=== PATIENT | male | born 2000 | race Caucasian/White ===

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

== ENCOUNTER → 2019-04-29 | Outpatient (CLI) | payer BC ==
--- NOTE | 2019-04-29 13:33 | XR ---
EXAMINATION TYPE: XR lumbar spine 2 or 3V DATE OF EXAM: 04/29/2019 CLINICAL HISTORY: Low back pain and left lower extremity after fall 2-3 weeks ago TECHNIQUE: Frontal and lateral images of the lumbar spine are obtained. COMPARISON: None FINDINGS: There are 5 lumbar type vertebral bodies identified. The lumbar spine shows satisfactory alignment without evidence of acute fracture or dislocation. Vertebral body heights and disk space he ights are within normal limits. There is questionable mild vertebral body height loss of T11. Very mi ld dextroscoliosis of the lumbar spine.. IMPRESSION: 1. No acute fracture or malalignment is seen in the lumbar spine. 2. Questionable very mild compression deformity of T11, age indeterminate. Correlate with point tende rness.
== END ==
LOC: RADXRYALE 11:48
PROVIDERS: ATTEND Family Medicine
DX: M54.42 Lumbago with sciatica, left side (principal)
CPT/HCPCS: 72100

== ENCOUNTER → 2019-11-24 | Outpatient (CLI) | payer BC ==
[2019-11-17 13:50] VITALS: BMI 56.5
[2019-11-24 13:44] VITALS: BP 125/78; PULSE 69; RESP 16
--- NOTE | 2019-11-28 08:18 | P.PAINCN ---
History of Present Illness - Reason for Consult Consult date: 11/24/19 - History of Present Illness This is a 19-year-old male patient with past medical history of morbid obesity referred by Dr. Schmitt with a chief complaint of chronic pain in left low back, radiating to left buttocks and left posterior thigh, not past the knee. Pain began in March 2019, after he slipped on ice and fell on his back. Pain is rated as 7-9/10, described as burning, pressure, throbbing. Pain is worse with bending movements and better with laying flat, heat. He denies numbness, weakness. Patient has been taking medications from primary care physician including Lodine and Neurontin with some benefit. Patient denies adverse drug effects from medications. Patient also denies new-onset weakness, bowel/bladder incontinence, or any other signs or symptoms of cauda equina syndrome. There are no signs of acute intoxication, and no indications of medication diversion or overuse. Patient has not had surgery. Patient has not had injections previously. Patient does not had physical therapy recently. In addition to above, 13-point review of systems is also negative for chest pain, shortness of breath, changes in vision, changes in hearing, new onset weakness, abdominal pain, diarrhea, extreme fatigue, malaise, fever, skin changes, homicidal or suicidal ideation, or bowel or bladder incontinence. Physical exam: Vital Signs: Reviewed in EMR GENERAL: Well appearing, in no acute distress, morbidly obese PSYCH: Mood and affect is appropriate. Awake, alert, and oriented SKIN: Skin color, texture, turgor normal, no rashes or lesions HEENT: Normocephalic, atraumatic. EOM intact CV: No pedal edema RESP: Respirations are unlabored, no audible wheezing GI: Abdomen non-distended MUSCULOSKELETAL: Bilateral lower extremity strength is normal and symmetric. No atrophy or tone abnormalities are noted. Lumbar spine: Straight leg raising in the sitting position is negative for radicular pain. No pain to palpation over the lumbar spine and paraspinous muscles. Negative for pain with facet loading and back extension/rotation. Buttocks: Tenderness to palpation over the left PSIS, Lamine test is positive on the left, Neftali finger positive on the left, sacral thrust positive on the left, Gaenslen's test positive on the left Extremities: Peripheral joint ROM is full and pain free without obvious instability or laxity in all four extremities. No edema or skin discolorations noted. Gait: Gait is normal NEUR: Bilateral lower extremity coordination and muscle stretch reflexes are physiologic and symmetric. Negative clonus. No loss of sensation is noted. Cranial nerves are grossly intact. Imaging: X-ray lumbar spine done on 04/29/2019 shows no acute fracture in the lumbar spine, very mild compression deformity of T11 age indeterminate. MRI lumbar spine done at [facility] on 08/06/2019 shows moderate sized central disc herniation at L5-S1 with compression of the thecal sac, no foraminal encroachment, no spinal stenosis. Assessment: 1. Left sacroiliitis 2. Morbid obesity 3. Mild degenerative disc disease lumbar spine Plan: 1. Explanation: Diagnoses, prognoses, and multiple treatment options including but not limited to physical therapy, interventional therapies, medication management were discussed with the patient and all questions were answered to the patient's satisfaction. 2. Investigations: MRI lumbar spine reviewed 3. Counseling: The patient was counseled for 3 minutes on BODY MASS INDEX, EXERCISE. Specifically, the patient was instructed regarding the importance of weight control, and exercise in the context of both chronic pain and overall health. 4. Procedures: We'll schedule left SI joint injection 5. Consultations: Patient was instructed to have a discussion with her primary care physician regarding possible bariatric consultation. I will also send him to physical therapy for SI joint exercises. 6. Medications: None 7. Disposition: For above-mentioned procedure Past Medical History Past Medical History: No Reported History Additional Past Medical History / Comment(s): pain lower back, radiating to left side History of Any Multi-Drug Resistant Organisms: None Reported Past Surgical History: Orthopedic Surgery Additional Past Surgical History / Comment(s): rt knee meniscectomy, wisdom teeth Past Anesthesia/Blood Transfusion Reactions: Family History of Problems w/ Anesthesia Additional Past Anesthesia/Blood Transfusion Reaction / Comm: mother-PONV Past Psychological History: Depression Additional Psychological History / Comment(s): past hx of depression Smoking Status: Never smoker Past Alcohol Use History: None Reported Past Drug Use History: None Reported - Past Family History Mother Family Medical History: No Reported History Medications and Allergies Home Medications Medication Instructions Recorded Confirmed Type Etodolac [Lodine] 400 mg PO BID 11/17/19 11/17/19 History Gabapentin [Neurontin] 600 mg PO HS 11/17/19 11/17/19 History Allergies Allergy/AdvReac Type Severity Reaction Status Date / Time No Known Allergies Allergy Verified 11/24/19 13:30 PQRS Measure Charge Sheet Measure #130: Documentation of Current Meds in Medical Chart: Patient's medications documented in chart Measure #226: Tobacco Use: Screen & Cessation Intervention: Pt not a tobacco user Measure #111: Pneumonia Vaccination: Pneumococcal vaccine NOT administered or previously given Measure #47: Advance Care Plan: Advance care planning discussed & documented, pt chose/unable to give Measure #412: Opioid Treatment Agreement: No documentation of signed opioid treatment agreement Measure #408: Opioid Therapy Follow-up Evaluation: Patient had NO f/u eval minimum every 3 months during opioid therapy Measure #317: Preventitive Care & Scrn High Bld Press & F/U: Normal blood pressure, f/u not required Measure #128: Body Mass Index (BMI) Screening & Follow-up: BMI documented ABOVE normal parameters - f/u documented Measure #131: Pain Assessment & Follow-up: Pain positive & plan documented, Follow-up scheduled Measure #431: Unhealthy Alcohol Use Preventative Care & Scrn: Patient not identified as an unhealthy alcohol user PQRS Narrative: Smoking Status Never smoker Home Medications: Ambulatory Orders Etodolac [Lodine] 400 mg PO BID 11/17/19 Gabapentin [Neurontin] 600 mg PO HS 11/17/19
== END | disposition home or self-care (01) ==
LOC: PNWHC3 12:40
PROVIDERS: ATTEND Anesthesiology
DX: M46.1 Sacroiliitis, not elsewhere classified (principal); E66.01 Morbid (severe) obesity due to excess calories; M51.36 Other intervertebral disc degeneration, lumbar region; Z79.899 Other long term (current) drug therapy
CPT/HCPCS: 99211

== ENCOUNTER 2019-12-08 09:56 | Day surgery (SDC) | payer BC ==
[2019-12-06 15:52] VITALS: BMI 56.5
[~2019-12-08 09:56] MED LIST changes: -DEXAMETHASONE SOD PHOSPHATE 10 MG/ML 1 ML VIAL IV ONE; -LIDOCAINE 1% 20 ML VIAL (10MG/ML) FOR IV START INTRADERMA PRN; -MIDAZOLAM 2 MG/2 ML VIAL IV PRN; -ONDANSETRON 4 MG/2 ML VIAL IVP ONE; -Pre Op ABX Message 1 EACH MISC MISCELLANE ONE; -SCOPOLAMINE 1.5MG/72HR PATCH TRANSDERM ONE
[2019-12-08 10:21] VITALS: RESP 16; TEMP 98.7
[2019-12-08] MEDS ORDERED: LIDOCAINE 1% (10MG/ML) FOR IV START INTRADERMA ONE (10:22)
[2019-12-08] MEDS ORDERED: methylPREDNISolone ACETATE 40 MG/ML 1 ML VIAL ONE (11:04)
[2019-12-08] MEDS ORDERED: fentaNYL (PF) 50 MCG/ML 2 ML AMP ONE (11:04)
[2019-12-08] MEDS ORDERED: MIDAZOLAM 2 MG/2 ML VIAL ONE (11:04)
[2019-12-08] MEDS ORDERED: ROPIVACAINE 5MG/ML 20ML VIAL ONE (11:04)
--- NOTE | 2019-12-08 11:28 | P.PCN ---
Date of Procedure: 12/08/19 Procedure(s) Performed: Procedure= Left sacroiliac joints steroid injection under fluoroscopy guidance (fluoroscopy image stored on file in the radiology Department ) Preoperative diagnosis= 1-sacroiliitis 2-lumbar degenerative disc disease Postoperative diagnosis=Same as preop Diagnosis . Complication = none Condition= stable Anesthesia= moderate sedation with intravenous Versed 2 mg , and fentanyl 100 micrograms . Indication for the procedure= patient complaining of low back pain , examination was positive for severe tenderness over the sacroiliac joints bilaterally and patient diagnosed with sacroiliitis, for this reason he/ she was good candidate for sacroiliac joint steroid injection. Description of the procedure= procedure risk and benefits discussed with the patient, including but not limited, risk of infection and bleeding, and ALLERGIC reaction to the medication and not complete pain relief and patient agreed with the preceding patient taken to the operating room, placed in prone position or standard monitors applied to the patient then after induction of anesthesia back prepped with chlorhexidine 3 times , Then under strict sterile technique, I did the left sacroiliac joint the which was identified under fluoroscopy guidance been local infiltration of the skin and subcu interstitial with lidocaine 1% then 22-gauge 5 inches long Quincke Needle advanced slowly under fluoroscopy and placed in the left sacroiliac joint needle placement confirmed with AP and oblique and lateral view and after appropriate needle placement confirmed and after negative aspiration, or heme , then Ropivacaine 0.5% 4 mL, and 80 mg of Depo-Medrol mixed together and injected in the left sacroiliac joint after negative aspiration patient tolerated the procedure well without any complications
[2019-12-08] MEDS ORDERED: IV FLUID CONTINUATION 1,000 ML IV ONE (11:32)
[2019-12-08 11:45] VITALS: BP 132/78; PULSE 58
--- NOTE | 2019-12-08 12:02 | FL ---
Fluoroscopy HISTORY: Pain 4 seconds fluoroscopy time supplied to the referring clinician. 2 intraoperative C-arm images docume nt the procedure. See dictated report from anesthesia and.
== END 2019-12-08 11:56 ==
LOC: ORPAIN 09:56
PROVIDERS: ATTEND Specialist
DX: M46.1 Sacroiliitis, not elsewhere classified (principal); M51.36 Other intervertebral disc degeneration, lumbar region
CPT/HCPCS: 27096; J2250; J1030; J3010; J2795

== ENCOUNTER 2020-01-12 12:51 | Day surgery (SDC) | payer BC ==
[2020-01-09 10:11] VITALS: BMI 55.0
[2020-01-12] MEDS ORDERED: LACTATED RINGERS 1,000 ML IV SCH (13:09)
[2020-01-12] MEDS ORDERED: LIDOCAINE 1% (10MG/ML) FOR IV START INTRADERMA ONE (13:18)
[2020-01-12 13:24] VITALS: TEMP 96.9
[2020-01-12] MEDS ORDERED: ROPIVACAINE 5MG/ML 20ML VIAL ONE (13:52)
[2020-01-12] MEDS ORDERED: IOPAMIDOL M200 10 ML VIAL ONE (13:52)
[2020-01-12] MEDS ORDERED: TRIAMCINOLONE ACETONIDE 40 MG/ML 1 ML VIAL ONE (13:52)
[2020-01-12] MEDS ORDERED: fentaNYL (PF) 50 MCG/ML 2 ML AMP ONE (13:52)
[2020-01-12] MEDS ORDERED: methylPREDNISolone ACETATE 40 MG/ML 1 ML VIAL ONE (13:52)
[2020-01-12] MEDS ORDERED: MIDAZOLAM 2 MG/2 ML VIAL ONE (13:52)
[2020-01-12] MEDS ORDERED: IV FLUID CONTINUATION 1,000 ML IV ONE (14:10)
[2020-01-12 14:15] VITALS: PULSE 68; RESP 18
--- NOTE | 2020-01-12 14:18 | FL ---
EXAMINATION TYPE: FL guided pain mgmt statistic DATE OF EXAM: 01/12/2020 HISTORY: Fluoroscopy time 11 seconds of fluoroscopy provided. IMPRESSION: 1. Fluoroscopy time.
[2020-01-12 14:25] VITALS: BP 144/79
== END 2020-01-12 14:39 | disposition home or self-care (01) ==
LOC: ORPAIN 12:51
PROVIDERS: ATTEND Anesthesiology
DX: M46.1 Sacroiliitis, not elsewhere classified (principal)
CPT/HCPCS: 27096; J2250; J3301; J3010; Q9966; J2795

== ENCOUNTER → 2020-01-16 | Outpatient (CLI) | payer BC ==
--- NOTE | 2020-01-16 14:32 | P.HPBAR ---
Bariatric H&P - History & Physicial H&P Date: 01/16/20 History & Physicial: Visit/CC: Patient initial contact: Initial weight: Initial weight in pounds: Height: 5 foot 9 inches Initial BMI: Last weight: Current weight: 422 Current weight in pounds: Current BMI: 62 [place] body weight (based on NIH guidelines): Excess body weight loss: The patient is a 19 year-old M who presents for Bariatric Assessment. Patient presents today for initial consultation. Patient is morbidly obese his BMI 62. He's had lifetime problems obesity. He is requesting gastric sleeve surgery Past Medical History Past Medical History: No Reported History Additional Past Medical History / Comment(s): pain lower back, radiating to left side History of Any Multi-Drug Resistant Organisms: None Reported Past Surgical History: Orthopedic Surgery Additional Past Surgical History / Comment(s): rt knee meniscectomy, wisdom teeth Past Anesthesia/Blood Transfusion Reactions: Family History of Problems w/ Anesthesia Additional Past Anesthesia/Blood Transfusion Reaction / Comm: mother-PONV Past Psychological History: Depression Additional Psychological History / Comment(s): past hx of depression Smoking Status: Never smoker Past Alcohol Use History: None Reported Past Drug Use History: None Reported - Past Family History Mother Family Medical History: No Reported History Surgical - Exam - General well developed, well nourished, no distress - Eyes PERRL - ENT normal pinna - Neck no masses - Respiratory normal expansion - Cardiovascular Rhythm: regular - Abdomen Abdomen: soft, non tender Bariatric Assessment & Plan Plan: Morbid obesity patient be scheduled for EGD. We went over the risks and benefits of the sleeve gastrectomy. Patient has an excellent understanding sleeve gastrectomy. He will follow-up after his EEGs performed. Bariatric Checklist Checklist: Plan: Checklist: EGD: 1. Hiatal hernia: 2. H. Pylori: HgbA1c: Vitamin D: Smoking: Never smoker Primary care physician referral: DR GUPTA Psychiatry clearance: Cardiology clearance: Sleep study: Diet journal: VTE risk score: VTE risk level: Rehab needs at discharge:
[2020-01-16 16:31] LABS: HCT 47.8 % (39.0-53.0); HGB 15.8 gm/dL (13.0-17.5); MCH 28.3 pg (25.0-35.0); MCV 85.7 fL (80.0-100.0); Mean Platelet Volume 10.6; Platelet Count 199 k/uL (150-450); RBC 5.57 m/uL (4.30-5.90); RDW 13.3 % (11.5-15.5); WBC 16.7 k/uL (4.0-11.0)
[2020-01-17 01:24] LABS: Hemoglobin A1C 5.4 % (4.0-6.0)
[2020-01-17 02:01] LABS: Albumin 4.5 g/dL (3.80-4.90); Albumin/Globulin Ratio 1.67 (1.60-3.17); Anion Gap 11.3 mmol/L (4.00-12.00); BUN/Creat Ratio 17.78 Ratio (12.00-20.00); Calcium 9.5 mg/dL (8.7-10.3); Carbon Dioxide 21.7 mmol/L (21.6-31.8); Globulin 2.7 g/dL (1.6-3.3); Non-African American GFR(CKD) 122.5 (60.0-200.0); Potassium 4.8 mmol/L (3.5-5.5); Total Bilirubin 0.6 mg/dL (0.3-1.2); Total Protein 7.2 g/dL (6.2-8.2)
[2020-01-17 15:05] LABS: Folate, Serum 3.8 ng/mL
== END | disposition home or self-care (01) ==
LOC: LABWHC1 13:53
PROVIDERS: ATTEND Surgery
DX: E88.81 Metabolic syndrome and other insulin resistance (principal); E55.9 Vitamin D deficiency, unspecified
CPT/HCPCS: 36415; 80053; 82306; 82607; 82746; 83036; 84425; 85027; 93005

== ENCOUNTER → 2020-02-06 | Outpatient (CLI) | payer BC ==
[2020-02-06 09:07] VITALS: BP 137/80; PULSE 102; RESP 18; TEMP 98.3
--- NOTE | 2020-02-06 09:36 | P.PN ---
Subjective Progress Note Date: 02/06/20 This is a 19-year-old morbidly obese gentleman with history of lower back pain which started after he slipped and fell on ice. The patient had 3 sacroiliac joint injection on the left side which has improved his pain. He still takes Neurontin for his pain. He denies using tobacco. Patient denies new-onset weakness, bowel/bladder incontinence, or any other signs or symptoms of cauda equina syndrome. There are no signs of acute intoxication, and no indications of medication diversion or overuse. In addition to above, 13-point review of systems is also negative for chest pain, shortness of breath, changes in vision, changes in hearing, new onset weakness, abdominal pain, diarrhea, extreme fatigue, malaise, fever, skin changes, homicidal or suicidal ideation, or bowel or bladder incontinence. Vital Signs: Reviewed in EMR Gen: AAOx3, NAD HEENT: PERRLA,hearing grossly normal Pulm: resp unlabored Heart: Regular Neck: supple, trachea midline Neuro exam of the lower extremities: Normal muscle strength in the lower extremities bilaterally Straight leg raising test: Negative bilaterally Leo's test: Range of motion of the lumbar spine: Normal Facet loading test: Positive bilaterally Tenderness in the paravertebral musculature: Positive mild tenderness in the lumbar paravertebral musculature bilaterally Neuro: CN II-XII grossly intact, Imaging: Reviewed in EMR/chart Assessment: Morbid obesity Lumbar spondylosis without myelopathy Left sacroiliitis/sacroiliac joint dysfunction Plan: 1. Explanation: Opioid and psychological risk scores were reviewed. Diagnoses, prognoses, and multiple treatment options including but not limited to physical therapy, interventional therapies, adjuvant medical therapies, narcotic medication therapies, and surgery were discussed with the patient and all questions were answered to the patient's satisfaction. 2. Opioid agreement: Signed with the patient and the patient is warned not to use opioids while driving or before driving and not to combine opioids with benzodiazepines or alcohol. 3. Counseling: The patient was counseled extensively on SMOKING CESSATION, BODY MASS INDEX, EXERCISE. Specifically, the patient was instructed regarding the importance of smoking cessation, obesity, and exercise in the context of both chronic pain and overall health. 4. Procedures: None at this point 5. Consultations: None 6. Investigations: None 7. Medications: Continue Neurontin 8. Disposition: The patient will be seen in our clinic on an as-needed basis and then he might benefit from either diagnostic medial branch block in the lumbar area or in RFA on the left sacroiliac joint depending on his symptoms at that time. 9. Maps were reviewed and were appropriate. Objective - Vital Signs Vital signs: Vital Signs Temp 98.3 F 02/06/20 08:56 Pulse 102 H 02/06/20 08:56 Resp 18 02/06/20 08:56 BP 137/80 02/06/20 08:56 Pulse Ox 96 02/06/20 08:56
== END | disposition home or self-care (01) ==
LOC: PNWHC3 08:50
PROVIDERS: ATTEND Anesthesiology
DX: M47.816 Spondylosis without myelopathy or radiculopathy, lumbar region (principal); M46.1 Sacroiliitis, not elsewhere classified; E66.01 Morbid (severe) obesity due to excess calories; Z79.899 Other long term (current) drug therapy
CPT/HCPCS: 99211

== ENCOUNTER 2020-02-09 09:43 | Day surgery (SDC) | payer BC ==
[2020-02-07 15:31] VITALS: BMI 57.2
[2020-02-09 10:29] VITALS: RESP 16; TEMP 97.2
[2020-02-09] MEDS ORDERED: LIDOCAINE 1% (10MG/ML) FOR IV START INTRADERMA ONE (10:30)
[2020-02-09] MEDS ORDERED: LIDOCAINE 1% INJ 10MG/ML (20 ML MDV) ONE (10:54)
[2020-02-09] MEDS ORDERED: PROPOFOL 10 MG/ML 20 ML VIAL IV ONE (10:54)
--- NOTE | 2020-02-09 10:56 | P.GSHP ---
History of Present Illness H&P Date: 02/09/20 Chief Complaint: Morbid obesity, GERD This a 19-year-old male undergoing workup for sleeve gastrectomy. Patient is morbid obesity BMI 57. He's had GERD symptoms. He presents today for EGD Past Medical History Past Medical History: No Reported History Additional Past Medical History / Comment(s): . History of Any Multi-Drug Resistant Organisms: None Reported Past Surgical History: Orthopedic Surgery Additional Past Surgical History / Comment(s): rt knee meniscectomy, wisdom teeth Past Anesthesia/Blood Transfusion Reactions: Family History of Problems w/ Anesthesia Additional Past Anesthesia/Blood Transfusion Reaction / Comment(s): mother-PONV Smoking Status: Current some day smoker - Past Family History Mother Family Medical History: No Reported History Medications and Allergies Home Medications Medication Instructions Recorded Confirmed Type Gabapentin [Neurontin] 600 mg PO HS 11/17/19 02/07/20 History Gabapentin [Neurontin] 300 mg PO DAILY 02/02/20 02/07/20 History methocarbamoL [Robaxin] 750 mg PO BID 02/02/20 02/07/20 History Allergies Allergy/AdvReac Type Severity Reaction Status Date / Time No Known Allergies Allergy Verified 02/09/20 10:06 Surgical - Exam Vital Signs Temp Pulse Resp BP Pulse Ox 97.2 F L 88 16 135/71 96 02/09/20 10:28 02/09/20 10:28 02/09/20 10:28 02/09/20 10:28 02/09/20 10:28 - General well developed, well nourished, no distress - Eyes PERRL - ENT normal pinna - Neck no masses - Respiratory normal expansion - Cardiovascular Rhythm: regular - Abdomen Abdomen: soft, non tender Assessment and Plan Assessment: Morbid obesity, BMI 57 GERD We'll perform EGD
--- NOTE | 2020-02-09 11:06 | P.OP ---
Date of Procedure: 02/09/20 Preoperative Diagnosis: Morbid obesity, BMI 57 GERD Postoperative Diagnosis: Antral gastritis No evidence of hiatal hernia Procedure(s) Performed: EGD Anesthesia: MAC Surgeon: Eduardo Benavides Pathology: other (Antrum) Condition: stable Disposition: PACU Description of Procedure: The patient's placed on the endoscopy table lateral position. He received IV sedation. The gastroscope placed oropharynx passed in the esophagus and stomach. Scope was pylorus. The first and second portion of the duodenum appeared normal. Scope was then brought back and the antrum. This appeared. Mildly inflamed. A biopsies performed. The scope was then retroflexed and the remainder of the stomach appeared normal. The GE junction was at 40 cm. There is no evidence of hiatal hernia. The distal esophagus appeared normal. The proximal esophagus. Normal. Scope was brought patient.
[2020-02-09 11:32] VITALS: BP 128/87; PULSE 68
== END 2020-02-09 11:53 | disposition home or self-care (01) ==
LOC: ORWHC2ENDO 09:43
PROVIDERS: ATTEND Surgery
DX: K29.50 Unspecified chronic gastritis without bleeding (principal); K21.9 Gastro-esophageal reflux disease without esophagitis; E66.01 Morbid (severe) obesity due to excess calories; Z68.43 Body mass index [BMI] 50.0-59.9, adult; Z98.890 Other specified postprocedural states; F17.200 Nicotine dependence, unspecified, uncomplicated; Z79.899 Other long term (current) drug therapy
CPT/HCPCS: 88305; 43239; J2001; J2704

== ENCOUNTER → 2020-02-29 | Outpatient (CLI) | payer BC ==
[2020-02-29 08:25] VITALS: RESP 20
[2020-02-29 08:35] VITALS: BP 176/96; PULSE 85; TEMP 97.6
--- NOTE | 2020-02-29 08:40 | P.PAINPG ---
Subjective Progress Note Date: 02/29/20 This is a follow-up visit for this 19 years old male with is still severe low back pain his stay close with left sacroiliitis and lumbar herniated disc at L5- S1, previously would have done a left sacroiliac joint steroid injections 2 , he gets good pain relief , currently is complaining of severe low back pain with radiation to the left lower extremity, above the knee area, he denies any motor or sensory deficits he denies any fever or night sweats, and he reported that the pain is constant and increased with any activity,he is able to ambulate on his own Objective - Vital Signs Vital signs: Vital Signs Temp 97.6 F 02/29/20 08:20 Pulse 85 02/29/20 08:20 Resp 20 02/29/20 08:20 BP 176/96 02/29/20 08:20 Pulse Ox 97 02/29/20 08:20 Intake & Output 02/28/20 02/29/20 02/29/20 18:59 06:59 18:59 Weight 192.777 kg - Constitutional Constitutional Comment(s): Physical Examinations : -Constitutiona : Cooperative , not in acute distress . -HEENT : nech : supple , no Lymphadenopathy , normal thyroid size . : eyes : no ptosis , no icterus, no photophobia . - neurologic : Cranial nerve II to XII intact , no focal neurological deffecit . -psychatric : alert , oriented X 3 , appropriate affect , intact judgment and insight . -Lymphatic : no Lymphadenopathy . - musculoskeltal : Lumber spine moter stegnth lower extremities ,thigh and legs 5/5 Right side , 5/5 Left side deep tendon reflexes : normal Knee Jerk , normal ankle Jerk lumber facet Loading Test =positive Right , positive Left Range of motion of the lumbar spine Flexion 60 degrees, extension 30 degrees strait leg raising test = negative bilaterally Fabere test= negative bilaterally tenderness over the Sacroiliac joint on the Left sides Gaenslen test= positive left . Seated flexion test= positive Left . Assessment and Plan Plan: Assessment and plan=1-lumbar disc herniation at L5-S1. 2-left sacroiliitis.(Status post sacroiliac joint steroid injection 2 ) Patient would benefit from lumbar epidural steroid injection at L5-S1 left paramedian approach Time with Patient: Less than 30 PQRS Measure Charge Sheet Measure #130: Documentation of Current Meds in Medical Chart: Patient's medications documented in chart Measure #226: Tobacco Use: Screen & Cessation Intervention: Pt not a tobacco user Measure #111: Pneumonia Vaccination: Pneumococcal vaccine NOT administered or previously given Measure #47: Advance Care Plan: Advance care planning discussed & documented, pt chose/unable to give Measure #412: Opioid Treatment Agreement: No documentation of signed opioid treatment agreement Measure #408: Opioid Therapy Follow-up Evaluation: Patient had NO f/u eval minimum every 3 months during opioid therapy Measure #317: Preventitive Care & Scrn High Bld Press & F/U: Pre-hypertensive or hypertensive BP documented, pt will f/u with PCP Measure #128: Body Mass Index (BMI) Screening & Follow-up: BMI documented ABOVE normal parameters - f/u documented Measure #131: Pain Assessment & Follow-up: Pain positive & plan documented, Follow-up scheduled Measure #431: Unhealthy Alcohol Use Preventative Care & Scrn: Patient not identified as an unhealthy alcohol user PQRS Narrative: Smoking Status Never smoker Blood Pressure 176/96 Pain Intensity [Lower Back] 8 Scale Used Numeric (1 - 10) Hx Alcohol Use (MH) No Home Medications: Ambulatory Orders Gabapentin [Neurontin] 600 mg PO HS 11/17/19 Gabapentin [Neurontin] 300 mg PO DAILY 02/02/20 methocarbamoL [Robaxin] 750 mg PO BID 02/02/20 Controlled Substance Measures - Controlled Substance Measures Is patient prescribed a controlled substance at discharge?: No
== END | disposition home or self-care (01) ==
LOC: PNWHC3 08:14
PROVIDERS: ATTEND Specialist
DX: M51.27 Other intervertebral disc displacement, lumbosacral region (principal); M46.1 Sacroiliitis, not elsewhere classified
CPT/HCPCS: 99211

== ENCOUNTER → 2020-03-05 | Outpatient (CLI) | payer BC ==
[2020-03-05 13:08] VITALS: BP 140/70; PULSE 75; TEMP 97.8; BMI 63.3
--- NOTE | 2020-03-05 14:08 | P.HPBAR ---
Bariatric H&P - History & Physicial H&P Date: 03/05/20 History & Physicial: Visit/CC: egd follow up Patient initial contact: Initial weight: Initial weight in pounds: Height: 5 ft 9.5 in Initial BMI: Last weight: 422 Current weight: 197.313 kg Current weight in pounds: 435.00 Current BMI: 63.3 [place] body weight (based on NIH guidelines): 73.936 kg Excess body weight loss: The patient is a 19 year-old M who presents for Bariatric Assessment. The patient presents today for presurgical consultation. He is scheduled to have a psychiatric evaluation done. His BMI 63. Past Medical History Past Medical History: No Reported History Additional Past Medical History / Comment(s): pain lower back, radiating to left side History of Any Multi-Drug Resistant Organisms: None Reported Past Surgical History: Orthopedic Surgery Additional Past Surgical History / Comment(s): rt knee meniscectomy, wisdom teeth Past Anesthesia/Blood Transfusion Reactions: Family History of Problems w/ Anesthesia Additional Past Anesthesia/Blood Transfusion Reaction / Comm: mother-PONV Smoking Status: Former smoker - Past Family History Mother Family Medical History: No Reported History Surgical - Exam Vital Signs Temp Pulse BP 97.8 F 75 140/70 03/05/20 13:07 03/05/20 13:07 03/05/20 13:07 - General well developed, well nourished, no distress - Eyes PERRL - ENT normal pinna - Neck no masses - Respiratory normal expansion - Cardiovascular Rhythm: regular - Abdomen Abdomen: soft, non tender Bariatric Assessment & Plan Plan: RBC, BMI 63. Patient will be scheduled for sleeve gastrectomy once his insurance authorization requirements have been completed. He has an excellent understanding of the sleeve gastrectomy. We went over the risks and benefits of procedure including injury to the stomach liver spleen is a well as gastric staple line bleeding scarring or perforation. Bariatric Checklist Checklist: Plan: Checklist: EGD: 1. Hiatal hernia: 2. H. Pylori: HgbA1c: Vitamin D: Smoking: Never smoker Primary care physician referral: DR GUPTA Psychiatry clearance: Cardiology clearance: Sleep study: Diet journal: VTE risk score: VTE risk level: Rehab needs at discharge:
== END | disposition home or self-care (01) ==
LOC: BARWHC3 12:48
PROVIDERS: ATTEND Surgery
DX: Z48.815 Encounter for surgical aftercare following surgery on the digestive system (principal); Z98.84 Bariatric surgery status
CPT/HCPCS: 99211

== ENCOUNTER → 2020-03-20 | Day surgery (SDC) | payer BC ==
[2020-03-19 10:02] VITALS: BMI 55.2
[~2020-03-20] MED LIST changes: +IOPAMIDOL M200 10 ML VIAL ONE; +methylPREDNISolone ACETATE 40 MG/ML 1 ML VIAL ONE
[2020-03-20 10:22] VITALS: RESP 16; TEMP 98.7
--- NOTE | 2020-03-20 10:47 | P.PCN ---
Date of Procedure: 03/20/20 Description of Procedure: PREOPERATIVE DIAGNOSIS: lumbar radiculopathy POSTOPERATIVE DIAGNOSIS: Lumbar radiculopathy PROCEDURE 1. Lumbar epidural steroid injection under fluoroscopic guidance at the L5-S1 level. 2. Lumbar epidurogram. Imaging: Fluoroscopy was used, images where saved to the medical record ANESTHESIA: Local with 1% lidocaine 5 ml EBL: Minimal PROCEDURE INDICATION: The patient with low back pain and radiculitis symptoms unresponsive to conservative treatment. Fluoroscopy was used to optimize visualization of the needle placement and to maximize safety. PROCEDURE DESCRIPTION / TECHNIQUE: The patient was seen and identified in the preoperative area. Risks, benefits, complications including but not limited to infections ,bleeding ,allergic reaction to the medications, nerve damage and incomplete pain relief , as well as alternatives to the procedure were discussed with the patient. The patient agreed to proceed with the procedure and signed the consent. IV was started, and vital signs were stable. Patient was taken to the OR and time out was completed. The patient was placed in the prone position on procedure table and a pillow was placed under the abdomen to reduce lumbar lordosis. The lumbosacral area was prepped and draped in the usual sterile fashion. Vitals were closely monitored during the procedure. Using anterior-posterior fluoroscopy, the L L5-S1 interlaminar space was identified and the skin over this site was marked and then infiltrated with 1% lidocaine subcutaneously. Subsequently, a 18-gauge Tuohy epidural needle was inserted and advanced toward the epidural space using the Loss of resistance technique and guided by AP and lateral fluoroscopy. The correct needle position in the epidural space was verified with the injection of 1 mL of Omnipaque 180 contrast to observe an acceptable epidurogram, after negative aspiration for blood and CSF and in the absence of paresthesias. Again after negative aspiratio n, a 3 ml mixture containing 40mg of depomedrol and 2 ml of preservative free Normal Saline was injected and a washout of epidurogram was seen. Needle was withdrawn intact, skin was cleansed, and bandages were applied. COMPLICATIONS: None DISPOSITION / PLANS: The patient was placed in a supine position and transferred to the recovery area in a stable condition for observation. There was no evidence of lower extremity motor or sensory deficit after the procedure. Patient was discharged from the recovery room after meeting discharge criteria. Home discharge instructions were given to the patient by the staff. The patient was reexamined prior to discharge. The patient will follow up as directed.
[2020-03-20 10:54] VITALS: BP 127/85; PULSE 74
--- NOTE | 2020-03-20 11:54 | FL ---
EXAMINATION TYPE: FL guided pain mgmt statistic DATE OF EXAM: 03/20/2020 CLINICAL HISTORY: Low back pain. TECHNIQUE: Fluoroscopy. COMPARISON: None. FINDINGS: Fluoroscopic guidance was provided during pain relief procedure performed by Dr. Driscoll . A total of 11 seconds of fluoroscopic time was utilized during the procedure and 1 spot images are acquired. Single limited acquired shows needle localization at L5 level with contrast injection. IMPRESSION: As Above.
== END ==
LOC: ORPAIN 09:52
PROVIDERS: ATTEND Hospitalist
DX: M54.16 Radiculopathy, lumbar region (principal)
CPT/HCPCS: 62323; J1030; Q9966

== ENCOUNTER → 2020-04-09 | Outpatient (CLI) | payer BC ==
[2020-04-09 12:10] VITALS: BMI 62.8
== END | disposition home or self-care (01) ==
LOC: BARWHC3 08:44
PROVIDERS: ATTEND Surgery
DX: E66.01 Morbid (severe) obesity due to excess calories (principal); Z71.3 Dietary counseling and surveillance; Z68.44 Body mass index [BMI] 60.0-69.9, adult
CPT/HCPCS: 97804

== ENCOUNTER → 2020-04-18 | Outpatient (CLI) | payer BC ==
[2020-04-18 09:53] VITALS: RESP 20
--- NOTE | 2020-04-18 09:59 | P.PN ---
Subjective Progress Note Date: 04/18/20 This is a follow-up visit for this 19 years old male with is still severe low back pain his stay close with left sacroiliitis and lumbar herniated disc at L5- S1, currently is complaining of severe low back pain with radiation to the left lower extremity, above the knee area, he denies any motor or sensory deficits he denies any fever or night sweats, and he reported that the pain is constant and increased with any activity,he is able to ambulate on his own Objective - Vital Signs Vital signs: Vital Signs Temp Pulse Resp 20 04/18/20 09:52 BP Pulse Ox - Exam Physical Examinations : -Constitutiona : Cooperative , not in acute distress . -HEENT : nech : supple , no Lymphadenopathy , normal thyroid size . : eyes : no ptosis , no icterus, no photophobia . - neurologic : Cranial nerve II to XII intact , no focal neurological deffecit . -psychatric : alert , oriented X 3 , appropriate affect , intact judgment and insight . -Lymphatic : no Lymphadenopathy . - musculoskeltal : Lumber spine moter stegnth lower extremities ,thigh and legs 5/5 Right side , 5/5 Left side deep tendon reflexes : normal Knee Jerk , normal ankle Jerk lumber facet Loading Test =positive Right , positive Left Range of motion of the lumbar spine Flexion 60 degrees, extension 30 degrees strait leg raising test = negative bilaterally Fabere test= negative bilaterally tenderness over the Sacroiliac joint on the Left sides Gaenslen test= positive left . Seated flexion test= positive Left . Assessment and Plan Plan: Assessment and plan=1-lumbar disc herniation at L5-S1. 2-left sacroiliitis.(Status post sacroiliac joint steroid injection 2 ) Patient would benefit from repeate lumbar epidural steroid injection at L5-S1 left paramedian approach Time with Patient: Less than 30 PQRS Measure Charge Sheet Measure #130: Documentation of Current Meds in Medical Chart: Patient's medications documented in chart Measure #226: Tobacco Use: Screen & Cessation Intervention: Pt not a tobacco user Measure #111: Pneumonia Vaccination: Pneumococcal vaccine NOT administered or previously given Measure #47: Advance Care Plan: Advance care planning discussed & documented, pt chose/unable to give Measure #412: Opioid Treatment Agreement: No documentation of signed opioid treatment agreement Measure #408: Opioid Therapy Follow-up Evaluation: Patient had NO f/u eval minimum every 3 months during opioid therapy Measure #317: Preventitive Care & Scrn High Bld Press & F/U: Pre-hypertensive or hypertensive BP documented, pt will f/u with PCP Measure #128: Body Mass Index (BMI) Screening & Follow-up: BMI documented ABOVE normal parameters - f/u documented Measure #131: Pain Assessment & Follow-up: Pain positive & plan documented, Follow-up scheduled Measure #431: Unhealthy Alcohol Use Preventative Care & Scrn: Patient not identified as an unhealthy alcohol user Time with Patient: Less than 30
[2020-04-18 10:10] VITALS: BP 146/94; PULSE 67; TEMP 98.2
== END | disposition home or self-care (01) ==
LOC: PNWHC3 09:29
PROVIDERS: ATTEND Specialist
DX: M51.27 Other intervertebral disc displacement, lumbosacral region (principal); M46.1 Sacroiliitis, not elsewhere classified
CPT/HCPCS: 99211

== ENCOUNTER 2020-05-08 11:11 | Day surgery (SDC) | payer BC ==
[2020-05-04 16:14] VITALS: BMI 56.0
[~2020-05-08 11:11] MED LIST changes: -IOPAMIDOL M200 10 ML VIAL ONE; -methylPREDNISolone ACETATE 40 MG/ML 1 ML VIAL ONE
[2020-05-08 11:40] VITALS: RESP 16; TEMP 98.3
[2020-05-08] MEDS ORDERED: TRIAMCINOLONE ACETONIDE 40 MG/ML 1 ML VIAL ONE (11:48)
[2020-05-08] MEDS ORDERED: IOPAMIDOL M200 10 ML VIAL ONE (11:48)
[2020-05-08] MEDS ORDERED: ROPIVACAINE 5MG/ML 20ML VIAL ONE (11:48)
--- NOTE | 2020-05-08 12:08 | P.PCN ---
Date of Procedure: 05/08/20 Surgeon: Bharati Flynn Pathology: none sent Condition: stable Disposition: PACU Description of Procedure: PREOPERATIVE DIAGNOSIS: 1-Lumbar radiculopathy/lumbar disc herniation 2- super morbid obesity POSTOPERATIVE DIAGNOSIS: 1-Lumbar radiculopathy/lumbar disc herniation 2-super morbid obesity PROCEDURE 1. Lumbar epidural steroid injection under fluoroscopic guidance at the L4-5 level in the left paramedian approach. 2. Lumbar epidurogram. ANESTHESIA: Local only with 1% lidocaine EBL: Minimal PROCEDURE INDICATION: The patient with low back pain and radiculitis symptoms unresponsive to conservative treatment. Fluoroscopy was used to optimize visualization of the needle placement and to maximize safety. PROCEDURE DESCRIPTION / TECHNIQUE: The patient was seen and identified in the preoperative area. Risks, benefits, complications including but not limited to infections ,bleeding ,allergic reaction to the medications ,nerve damage and not complete pain relief , and alternatives were discussed with the patient. The patient agreed to proceed with the procedure and signed the consent. IV was started, and vital signs were stable. Patient was taken to the OR and time out was completed. The patient was placed in the prone position on procedure table and a pillow was placed under the abdomen to reduce lumbar lordosis. The lumbosacral area was prepped and draped in the usual sterile fashion with ChloraPrep.Patient was closely monitored during the procedure. Conscious sedation was used during the procedure to decrease patients anxiety. Vital signs were monitered during the entire procedure. Using anterior-posterior fluoroscopy, the L4-5 interlaminar space was identified and the skin over this site was marked and then infiltrated with 1% lidocaine subcutaneously. Subsequently, a 18-gauge, 6"Tuohy epidural needle was inserted and advanced toward the epidural space using the Loss of resistance to air technique and guided by AP and lateral fluoroscopy. The correct needle position in the epidural space was verified with the injection of 1 mL of the water soluble contrast dye Omnipaque 180 contrast and observing an excellent epidurogram with the epidural spread of the dye, after negative aspiration for blood and CSF and in the absence of paresthesias. The epidural space was at about 15 cm in depth from skin. Again after negative aspiration, a 8 ml mixture containing 40 mg of Kenalog and 5 ml of preservative free Normal Saline, and 2 ml of preservative free ropivacaine 0.5% solution was injected and a washout of epidurogram was seen. Needle was withdrawn intact, skin was cleansed, and bandages were applied. patient tolerated procedure well and was transferred to PACU in stable condition.A copy of the needle placement picture was saved to the fluoroscopy machine. COMPLICATIONS: None DISPOSITION / PLANS: The patient was placed in a supine position and transferred to the recovery area in a stable condition for observation. There was no enrique dence of lower extremity motor or sensory deficit after the procedure. Patient was discharged from the recovery room after meeting discharge criteria. Home discharge instructions were given to the patient by the staff. The patient was reexamined prior to discharge. The patient will schedule a follow up in the clinic in 2-4 weeks.
--- NOTE | 2020-05-08 12:19 | FL ---
Fluoroscopy INDICATION: Pain FINDINGS: Fluoroscopy time: 11 seconds. Images obtained: 1. IMPRESSIONS: 1. Documentation of fluoroscopy.
[2020-05-08 12:28] VITALS: BP 130/70; PULSE 77
== END 2020-05-08 12:41 | disposition home or self-care (01) ==
LOC: ORPAIN 11:11
PROVIDERS: ATTEND Anesthesiology
DX: M51.16 Intervertebral disc disorders with radiculopathy, lumbar region (principal); E66.01 Morbid (severe) obesity due to excess calories; Z68.43 Body mass index [BMI] 50.0-59.9, adult
CPT/HCPCS: 62323; J3301; Q9966; J2795

== ENCOUNTER → 2020-06-13 | Outpatient (CLI) | payer BC ==
[2020-06-13 10:31] VITALS: BP 163/87; PULSE 98; RESP 18; TEMP 98.1
--- NOTE | 2020-06-13 10:49 | P.PN ---
Subjective Progress Note Date: 06/13/20 This is a follow-up visit for this 19 years old male ,with history of severe low back pain is diagnosed with left sacroiliitis ,and lumbar herniated disc at L5- S1, recently we have done lumbar epidural steroid injections 2, patient reported that his pain improved significantly, he continued to do physical therapy and he had a positive result, he denies any motor or sensory deficits he denies any fever or night sweats, and he reported that the pain is constant and increased with any activity,he is able to ambulate on his own Objective - Vital Signs Vital signs: Vital Signs Temp 98.1 F 06/13/20 10:27 Pulse 98 06/13/20 10:27 Resp 18 06/13/20 10:27 BP 163/87 06/13/20 10:27 Pulse Ox 96 06/13/20 10:27 - Exam -Constitutiona : Cooperative , not in acute distress . -psychatric : alert , oriented X 3 , appropriate affect , intact judgment and insight . -Lymphatic : no Lymphadenopathy . - musculoskeltal : Lumber spine moter stegnth lower extremities ,thigh and legs 5/5 Right side , 5/5 Left side Assessment and Plan Plan: Assessment and plan=1-lumbar disc herniation at L5-S1. 2-left sacroiliitis.(Status post sacroiliac joint steroid injection 2 ) Pain improved after lumbar epidural steroid injections 2 Patient will follow up in the pain clinic when necessary. We will continue physical therapy Time with Patient: Less than 30 PQRS Measure Charge Sheet Measure #130: Documentation of Current Meds in Medical Chart: Patient's medications documented in chart Measure #226: Tobacco Use: Screen & Cessation Intervention: Pt not a tobacco user Measure #111: Pneumonia Vaccination: Pneumococcal vaccine NOT administered or previously given Measure #47: Advance Care Plan: Advance care planning discussed & documented, pt chose/unable to give Measure #412: Opioid Treatment Agreement: No documentation of signed opioid treatment agreement Measure #408: Opioid Therapy Follow-up Evaluation: Patient had NO f/u eval minimum every 3 months during opioid therapy Measure #317: Preventitive Care & Scrn High Bld Press & F/U: Pre-hypertensive or hypertensive BP documented, pt will f/u with PCP Measure #128: Body Mass Index (BMI) Screening & Follow-up: BMI documented ABOVE normal parameters - f/u documented Measure #131: Pain Assessment & Follow-up: Pain positive & plan documented, Follow-up scheduled Measure #431: Unhealthy Alcohol Use Preventative Care & Scrn: Patient not identified as an unhealthy alcohol user Time with Patient: Less than 30 Time with Patient: Less than 30
== END | disposition home or self-care (01) ==
LOC: PNWHC3 09:53
PROVIDERS: ATTEND Specialist
DX: M51.27 Other intervertebral disc displacement, lumbosacral region (principal); M46.1 Sacroiliitis, not elsewhere classified
CPT/HCPCS: 99211

== ENCOUNTER → 2020-07-16 | Outpatient (CLI) | payer BC ==
[2020-07-16 15:25] LABS: Basophils # (A) 0.1 k/uL (0-0.2); Basophils % (A) 1 %; Eosinophils # (A) 0.2 k/uL (0-0.7); Eosinophils % (A) 2 %; HCT 46.6 % (39.0-53.0); HGB 15.3 gm/dL (13.0-17.5); Lymphocytes # (A) 2.1 k/uL (1.0-4.8); Lymphocytes % (A) 19 %; MCHC 32.8 g/dL (31.0-37.0); MCV 85.5 fL (80.0-100.0); Mean Platelet Volume 9.5; Monocytes # (A) 0.5 k/uL (0-1.0); Monocytes % (A) 4 %; Neutrophils # (A) 7.8 k/uL (1.3-7.7); Neutrophils % (A) 73 %; Platelet Count 184 k/uL (150-450); RBC 5.45 m/uL (4.30-5.90); RDW 13.1 % (11.5-15.5); WBC 10.7 k/uL (3.8-10.6)
[2020-07-16 15:44] LABS: ALT 66 U/L (4-49); AST 42 U/L (17-59); African American GFR (CKD) >90 (>60 ml/min/1.73 sqM); Albumin 4.1 g/dL (3.5-5.0); Alkaline Phosphatase 60 U/L (38-126); Anion Gap 10 mmol/L; Blood Urea Nitrogen 10 mg/dL (9-20); Calcium 9.5 mg/dL (8.4-10.2); Carbon Dioxide 26 mmol/L (22-30); Chloride 101 mmol/L (98-107); Glucose 96 mg/dL (74-99); Non-African American GFR(CKD) >90 (>60 ml/min/1.73 sqM); Potassium 4.4 mmol/L (3.5-5.1); Sodium 137 mmol/L (137-145); Total Bilirubin 0.7 mg/dL (0.2-1.3); Total Protein 7.3 g/dL (6.3-8.2)
== END | disposition home or self-care (01) ==
LOC: LABPAT 14:31
PROVIDERS: ATTEND Surgery
DX: Z01.818 Encounter for other preprocedural examination (principal)
CPT/HCPCS: 36415; 80053; 85025

== ENCOUNTER → 2020-07-16 | Outpatient (CLI) | payer BC ==
[2020-07-16 15:04] VITALS: BP 138/95; PULSE 111; TEMP 98.2; BMI 62.6
== END | disposition home or self-care (01) ==
LOC: BARWHC3 14:53
PROVIDERS: ATTEND Surgery
DX: E66.01 Morbid (severe) obesity due to excess calories (principal); Z68.44 Body mass index [BMI] 60.0-69.9, adult
CPT/HCPCS: 99211

== ENCOUNTER 2020-07-24 08:20 | Inpatient (IN) | payer BC ==
[~2020-07-24 08:20] MED LIST changes: +DEXAMETHASONE SOD PHOSPHATE 4 MG/ML 1 ML VIAL IV ONE; +ENOXAPARIN 40 MG/0.4 ML SYRINGE SQ PRN; -LACTATED RINGERS 1,000 ML IV SCH; +LIDOCAINE 1% (10MG/ML) FOR IV START INTRADERMA PRN; +ceFAZolin 3 GM in SODIUM CHLORIDE 0.9% 100 ML IVPB PRN
[2020-07-24] MEDS: LACTATED RINGERS 1,000 ML IV SCH ×2 (09:00→14:30)
--- NOTE | 2020-07-24 10:17 | P.GSHP ---
History of Present Illness H&P Date: 07/24/20 Chief Complaint: Morbid obesity This a 20-year-old male presents today for sleeve gastrectomy. Patient is morbidly obese. His BMI is 55. Patient is aware the risks of surgery including possible gastric perforation bleeding and scarring Past Medical History Past Medical History: No Reported History Additional Past Medical History / Comment(s): pain lower back, radiating to left side History of Any Multi-Drug Resistant Organisms: None Reported Past Surgical History: Orthopedic Surgery Additional Past Surgical History / Comment(s): rt knee meniscectomy, wisdom teeth, PAIN CLINIC PROCEDURE, EGD Past Anesthesia/Blood Transfusion Reactions: Family History of Problems w/ Anesthesia Additional Past Anesthesia/Blood Transfusion Reaction / Comment(s): mother-PONV Smoking Status: Former smoker - Past Family History Mother Family Medical History: No Reported History Medications and Allergies Home Medications Medication Instructions Recorded Confirmed Type Gabapentin [Neurontin] 600 mg PO HS 11/17/19 07/24/20 History Gabapentin [Neurontin] 300 mg PO DAILY 02/02/20 07/24/20 History methocarbamoL [Robaxin] 750 mg PO BID 02/02/20 07/24/20 History Allergies Allergy/AdvReac Type Severity Reaction Status Date / Time No Known Allergies Allergy Verified 07/24/20 08:48 Surgical - Exam Vital Signs Temp Pulse Resp BP Pulse Ox 97.6 F 88 16 150/75 94 L 07/24/20 08:45 07/24/20 08:45 07/24/20 08:45 07/24/20 08:45 07/24/20 08:45 BMI 55 - General well developed, well nourished - Eyes PERRL - ENT normal pinna - Neck no masses - Respiratory normal expansion - Cardiovascular Rhythm: regular - Abdomen Abdomen: soft, non tender Assessment and Plan Assessment: Obesity, BMI 55 we'll perform sleeve gastrectomy
[2020-07-24] MEDS ORDERED: PROPOFOL 10 MG/ML 20 ML VIAL IV ONE (10:27)
[2020-07-24] MEDS ORDERED: SUCCINYLCHOLINE CHLORIDE VIAL 200 MG/10 ML VIAL IV ONE (10:27)
[2020-07-24] MEDS ORDERED: fentaNYL (PF) 50 MCG/ML 2 ML AMP ONE (10:27)
[2020-07-24] MEDS ORDERED: MIDAZOLAM 2 MG/2 ML VIAL ONE (10:27)
[2020-07-24] MEDS ORDERED: NEOSTIGMINE 1 MG/ML 10 ML VIAL ONE (10:27)
[2020-07-24] MEDS ORDERED: ROCURONIUM 10 MG/ML (5 ML VIAL) IV ONE (10:27)
[2020-07-24] MEDS ORDERED: KETAMINE 10 MG/ML 20 ML VIAL ONE (10:27)
[2020-07-24] MEDS ORDERED: GLYCOPYRROLATE 0.2 MG/ML 2 ML VIAL ONE (10:27)
[2020-07-24] MEDS ORDERED: LIDOCAINE 1% INJ 10MG/ML (20 ML MDV) ONE (10:27)
[2020-07-24] MEDS ORDERED: BUPIVACAIN-EPI 0.5%-1:200,000 30 ML VIAL SQ ONE (11:13)
[2020-07-24] MEDS ORDERED: LACTATED RINGERS 1,000 ML IV ONE (11:15)
[2020-07-24] MEDS ORDERED: NALOXONE 0.4 MG/ML 1 ML VIAL IV PRN (11:44)
[2020-07-24] MEDS ORDERED: diphenhydrAMINE 50 MG/ML 1 ML VIAL IVP PRN (11:44)
[2020-07-24] MEDS ORDERED: HYDROcodone/APAP 15 ML SOLUTION PO PRN (11:44)
[2020-07-24] MEDS ORDERED: ONDANSETRON 4 MG/2 ML VIAL IVP PRN (11:44)
--- NOTE | 2020-07-24 11:44 | P.OP ---
Date of Procedure: 07/24/20 Preoperative Diagnosis: Morbid obesity, BMI 55 Postoperative Diagnosis: Morbid obesity, BMI 55 Procedure(s) Performed: Laparoscopic sleeve gastrectomy Anesthesia: PREMA Surgeon: Eduardo Benavides Estimated Blood Loss (ml): 5 Pathology: other (Stomach) Condition: stable Disposition: PACU Description of Procedure: PlThe patient was placed on the operating room table in the supine position. She received general anesthesia and then was placed in dorsal lithotomy po sition. Her abdomen was prepped and draped in sterile fashion. The skin incision sites were anesthetized 1% local Xylocaine. And then the skin was incised with an 11 blade in the left lateral position. Using a blade less trocar under direct visualization the peritoneal cavity was entered. The abdomen was insufflated and then a 5 mm laparoscope was placed into the peritoneal cavity. A 5 mm trocar was placed in the right epigastric, and right lateral position. A 15 mm trocar was placed in the supra-umbilical position and another 5 mm trocar was placed in the left lateral position. The left lateral lobe of the liver was retracted. The stomach was visualized. The greater curvature of the stomach was then dissected using the Harmonic scissors. The dissection occurred approximately 5 cm from the pylorus to the level of the left renate. There was no hiatal hernia seen. At this point a 40-Italian bougie dilator was placed the oropharynx and passed into the esophagus and into the stomach by the CERTIFIED PROFESSIONAL ERGONOMIST. The sleeve gastrectomy was performed by using the powered echelon stapler with a seam guard buttress material. Sequential firings of the stapler were performed. The gastric remnant was then brought out through the 15 mm trocar site. The dilator was withdrawn. And a orogastric tube was replaced into the stomach. The stomach was insufflated with 200 mL of methylene blue normal saline. There was no evidence of extravasation. The abdomen was irrigated there is no bleeding seen. The Ronald-Bam device was used to close the 15 mm trocar with 0 Vicryl. Skin was closed with interrupted 3-0 Monocryl sutures once the trochars withdrawn. Dermabond dressing was applied. Patient was sent to recovery in stable condition.
[2020-07-24] MEDS ORDERED: HYDROmorphone 0.5 MG/0.5 ML SYRINGE IVP ONE ×4 (12:11→14:10)
[2020-07-24] MEDS: KETOROLAC 15 MG/ML 1 ML VIAL IVP SCH ×3 (12:18→23:26)
[2020-07-24] MEDS ORDERED: SODIUM CHLORIDE 0.9% 1,000 ML IV ONE ×2 (14:07)
[2020-07-24] MEDS: HYOSCYAMINE ORAL DROPS 1.875 MG/15 ML BOTTLE PO PRN ×2 (15:27→20:28)
[2020-07-24] MEDS: 0.9% NACL WITH KCL 20 MEQ/L 1,000 ML IV SCH ×2 (15:27→23:26)
[2020-07-24] MEDS: SIMETHICONE 40 MG/0.6 ML DROPS 2,000 MG/30 ML BOTTLE PO PRN ×2 (15:28→20:25)
[2020-07-24] MEDS: ALBUTEROL NEBULIZED 2.5 MG/3 ML INHALATION SCH ×3 (15:46→20:04)
[2020-07-24] MEDS: HYDROmorphone 1 MG/ML 1 ML SYRINGE IVP PRN ×3 (16:35→23:27)
[2020-07-24] MEDS ORDERED: ceFAZolin 3 GM in SODIUM CHLORIDE 0.9% 100 ML IVPB SCH (19:00)
--- NOTE | 2020-07-24 19:47 | CONS ---
CONSULTATION DATE OF SERVICE: 07/24/2020 REASON FOR CONSULTATION: Advice regarding DJD and other medical issues, requested by Dr. Benavides. HISTORY OF PRESENT ILLNESS: This 20-year-old gentleman with a past medical history of DJD, history of pain clinic procedure, depression, being followed Dr. Willis in the outpatient setting, underwent laparoscopic sleeve gastrectomy for morbid obesity with a BMI of [address] Benavides. The patient tolerated the procedure well. There is no history of any fever, rigor or chills. No history of headache, loss of consciousness, seizures at this time. PAST MEDICAL HISTORY: History of DJD, history of depression. HOME MEDICATIONS: Robaxin 750 p.o. b.i.d., Neurontin. Doses are reviewed. ALLERGIES: NONE. FAMILY HISTORY: No history of heart disease or strokes in the family. SOCIAL HISTORY: No history of smoking. Occasional THC. REVIEW OF SYSTEMS: ENT: No diminished hearing. No diminished vision. CARDIOVASCULAR SYSTEM: No angina, palpitations. RESPIRATORY SYSTEM: No cough, hemoptysis. GI: As mentioned earlier. : No dysuria or retention. NERVOUS SYSTEM: No numbness, weakness. ALLERGY/IMMUNOLOGY: No asthma, hayfever. MUSCULOSKELETAL: As mentioned earlier. HEMATOLOGY/ONCOLOGY: No history of anemia. ENDOCRINE: No history of diabetes, hypothyroidism. CONSTITUTIONAL: As mentioned earlier. DERMATOLOGY: Negative. RHEUMATOLOGY: Negative. PSYCHIATRY: As mentioned earlier. PHYSICAL EXAMINATION: Patient alert and oriented x3. Pulse 74, blood pressure 149/84, respiration 18, temperature 97.6, pulse ox 94% on room air. HEENT: Conjunctivae normal. NECK: No jugular venous distention. CARDIOVASCULAR SYSTEM: S1, S2 muffled. RESPIRATORY SYSTEM: Breath sounds diminished at the bases. A few scattered rhonchi. No crackles. ABDOMEN: Soft. No tenderness. No mass palpable. LEGS: No edema. No swelling. NERVOUS SYSTEM: Higher functions as mentioned earlier. Moves all 4 limbs. No focal motor or sensory deficit. LYMPHATICS: No lymph node palpable in neck, axillae or groin. SKIN: No ulcer, rash, bleeding. JOINTS: No active deforming arthropathy. LABS: WBC 10.7. Chemistry noted. ALT was 66. ASSESSMENT: 1. Status post laparoscopic sleeve gastrectomy for morbid obesity. 2. Elevated ALT previously. 3. History of degenerative joint disease. 4. History of depression. 5. History of nicotine dependence. 6. FULL CODE. RECOMMENDATIONS AND DISCUSSION: In this 20-year-old gentleman who presented after surgery, at this time I recommend to continue current medications, continue symptomatic treatment. DVT prophylaxis. Incentive spirometry. Proton pump inhibitors. We will follow the patient closely with you, and the patient may be asked to follow with Dr. Willis closely after discharge. Thank you, Dr. Benavides, for letting us participate in the care of this patient. MMODL / IJN: [id number] /
[2020-07-24] MEDS: FAMOTIDINE 20 MG TAB PO SCH (20:19)
[2020-07-25] MEDS: ENOXAPARIN 40 MG/0.4 ML SYRINGE SQ SCH ×2 (02:50→14:01)
[2020-07-25] MEDS: HYDROmorphone 1 MG/ML 1 ML SYRINGE IVP PRN ×2 (02:51→07:50)
[2020-07-25] MEDS: 0.9% NACL WITH KCL 20 MEQ/L 1,000 ML IV SCH ×2 (05:21→11:18)
[2020-07-25] MEDS: KETOROLAC 15 MG/ML 1 ML VIAL IVP SCH ×2 (05:22→11:30)
[2020-07-25] MEDS: FAMOTIDINE 20 MG TAB PO SCH (07:17)
[2020-07-25] MEDS: ALBUTEROL NEBULIZED 2.5 MG/3 ML INHALATION SCH ×3 (07:27→15:28)
[2020-07-25] MEDS: SIMETHICONE 40 MG/0.6 ML DROPS 2,000 MG/30 ML BOTTLE PO PRN (07:56)
[2020-07-25] MEDS: HYOSCYAMINE ORAL DROPS 1.875 MG/15 ML BOTTLE PO PRN (07:57)
[2020-07-25] MEDS ORDERED: PANTOPRAZOLE 40 MG/10 ML VIAL IV SCH (09:00)
[2020-07-25 09:18] LABS: African American GFR (CKD) >90 (>60 ml/min/1.73 sqM); Anion Gap 12 mmol/L; Blood Urea Nitrogen 11 mg/dL (9-20); Calcium 9.1 mg/dL (8.4-10.2); Carbon Dioxide 21 mmol/L (22-30); Chloride 106 mmol/L (98-107); Magnesium 1.8 mg/dL (1.6-2.3); Non-African American GFR(CKD) >90 (>60 ml/min/1.73 sqM); Phosphorus 3.1 mg/dL (2.5-4.5); Sodium 139 mmol/L (137-145)
--- NOTE | 2020-07-25 10:32 | FL ---
SINGLE CONTRAST UPPER GI EXAMINATION: CLINICAL HISTORY: 20-year-old male postop bariatric surgery TECHNIQUE: Single contrast exam performed with 25 ml Isovue-370 contrast. Total fluoroscopy time: 52 seconds. Total images: 18. FINDINGS: The patient swallowed oral contrast without difficulty or delay. Esophageal peristalsis and motility are within normal limits. There is prompt passage of contrast from the esophagus into the stomach. Post surgical change of sleeve gastrectomy is demonstrated. There is expected passage of contrast acr oss the surgerized stomach and into the duodenum. There is no evidence of contrast extravasation to s uggest leak. No postsurgical free air seen below either hemidiaphragm. IMPRESSION: No evidence of leak or obstruction status post sleeve gastrectomy.
[2020-07-25 10:37] VITALS: BMI 54.5
[2020-07-25] MEDS: LACTATED RINGERS 1,000 ML IV SCH (11:28)
--- NOTE | 2020-07-25 14:29 | P.DS ---
Providers Date of admission: 07/24/20 08:20 Expected date of discharge: 07/25/20 Attending physician: Eduardo Benavides Consults: 07/24/20 11:44 Consult Physician Routine Consulting Provider: Shalom Sotmoayor Consult Reason/Comments: Medical management Do you want consulting provider notified?: Yes Primary care physician: Stated None Hospital Course: Discharge diagnosis 1. Morbid obesity, BMI 55 status post laparoscopic sleeve gastrectomy Hospital course This is a 20-year-old male with known morbid obesity. He is status post laparoscopic sleeve gastrectomy. Patient has tolerated surgery well. His upper GI showed no evidence of leak or obstruction. He is tolerating bariatric clear liquid diet. He has been up and ambulating. He is afebrile. His pain is controlled. He is stable for discharge. Please refer to chart for any further details. Please note that patient's CBC that was drawn this morning is still pending. Physician Director Peoples[employer] note has been reviewed by physician. Signing provider agrees with the documented findings, assessment, and plan of care. Patient Condition at Discharge: Stable Plan - Discharge Summary Discharge Rx Participant: No New Discharge Prescriptions: New bisacodyL [Dulcolax] 5 mg PO DAILY PRN #10 tablet.[address] MEEK Reason: Constipation Simethicone 40 mg/0.6 ml Drops [Mylicon Drops] 40 mg PO PCHS PRN #30 ml PRN Reason: Gas Omeprazole [PriLOSEC] 40 mg PO DAILY #30 capsule. Ondansetron Odt [Zofran Odt] 4 mg PO Q8HR PRN #9 tab PRN Reason: Nausea HYDROcodone/APAP [Huslia Elixir 7.5-325Mg/15Ml] 30 ml PO Q6HR PRN 3 Days #400 ml PRN Reason: Severe Pain Continue Gabapentin [Neurontin] 600 mg PO HS methocarbamoL [Robaxin] 750 mg PO BID Gabapentin [Neurontin] 300 mg PO DAILY Discharge Medication List Gabapentin [Neurontin] 600 mg PO HS 11/17/19 [History] Gabapentin [Neurontin] 300 mg PO DAILY 02/02/20 [History] methocarbamoL [Robaxin] 750 mg PO BID 02/02/20 [History] HYDROcodone/APAP [[place]uslia Elixir 7.5-325Mg/15Ml] 30 ml PO Q6HR PRN 3 Days #400 ml 07/25/20 [Rx] Omeprazole [PriLOSEC] 40 mg PO DAILY #30 capsule. 07/25/20 [Rx] Ondansetron Odt [Zofran Odt] 4 mg PO Q8HR PRN #9 tab 07/25/20 [Rx] Simethicone 40 mg/0.6 ml Drops [Mylicon Drops] 40 mg PO PCHS PRN #30 ml 07/25/20 [Rx] bisacodyL [Dulcolax] 5 mg PO DAILY PRN #10 tablet. 07/25/20 [Rx] Follow up Appointment(s)/Referral(s): [facility] [[facility]-STAFF] - 07/27/20 10:00 am (Please follow up with the [facility] on Monday, July 27, 2020 at 1000 for a Nurse Visit. ) Activity/Diet/Wound Care/Special Instructions: No driving while taking Huslia No lifting over 10 pounds You may shower. No soaking or tub baths for 2 weeks Very light activity until you are reevaluated at your follow up appointment with your surgeon Avoid marijuana use for at least 2 weeks Discharge Disposition: HOME SELF-CARE
[2020-07-25 14:49] VITALS: BP 142/84; PULSE 63; RESP 16; TEMP 98
--- NOTE | 2020-07-25 16:57 | PN ---
PROGRESS NOTE DATE OF SERVICE: 07/25/2020 This 20-year-old gentleman who was admitted after laparoscopic gastric sleeve is improving significantly. No chest pain. No palpitations. No fever. PHYSICAL EXAMINATION: Alert and oriented x3. Pulse 63, blood pressure 142/84, respirations 16, temperature 98 degrees, pulse ox 96% on room air. HEENT: Conjunctivae normal. NECK: No jugular venous distention. CARDIOVASCULAR SYSTEM: S1, S2 muffled. RESPIRATORY SYSTEM: Breath sounds diminished at the bases. No rhonchi. No crackles. ABDOMEN: Soft. Status post surgery. LEGS: No edema. No swelling. NERVOUS SYSTEM: No focal deficit. LABS: Noted. ASSESSMENT: 1. Status post laparoscopic sleeve gastrectomy for morbid obesity. 2. Elevated ALT previously. 3. History of degenerative joint disease. 4. History of depression. 5. History of nicotine dependence. 6. FULL CODE. RECOMMENDATIONS AND DISCUSSION: I recommend to continue current medications, continue symptomatic treatment. Otherwise, resume the home medications. Incentive spirometry. DVT prophylaxis. Closely follow with primary physician. Rest of the recommendations per Surgery. MMODL / IJN: [id number] /
[2020-07-25 17:27] LABS: Basophils # (A) 0.02 X 10*3/uL (0.00-0.10); Basophils % (A) 0.2 %; Eosinophils # (A) 0.02 X 10*3/uL (0.04-0.35); Eosinophils % (A) 0.2 %; HCT 45.5 % (39.6-50.0); HGB 14.2 g/dL (13.0-17.0); Lymphocytes % (A) 17.9 %; MCH 27.8 pg (27.0-32.0); MCHC 31.2 g/dL (32.0-37.0); MCV 89.2 fL (80.0-97.0); Mean Platelet Volume 11.5 fL (9.5-12.2); Monocytes # (A) 0.74 X 10*3/uL (0.20-1.00); Monocytes % (A) 6.3 %; Neutrophils # (A) 8.82 X 10*3/uL (1.80-7.70); Neutrophils % (A) 75.1 %; Platelet Count 265 X 10*3/uL (140-440); RDW 13.2 % (11.5-14.5); WBC 11.74 X 10*3/uL (4.50-10.00)
[2020-07-26] MEDS ORDERED: bisacodyL 5 MG TABLET.DR PO PRN (08:00)
== END 2020-07-25 15:38 | disposition home or self-care (01) | DRG 621 ==
LOC: 2ORMAIN 08:20 → 4SSUR 14:19
PROVIDERS: ADMIT Surgery; ATTEND Surgery
PROC: 0DB64Z3 Excision of Stomach, Percutaneous Endoscopic Approach, Vertical (ICD-10-PCS; principal; 2020-07-24 09:40)
DX: E66.01 Morbid (severe) obesity due to excess calories (principal); Z68.43 Body mass index [BMI] 50.0-59.9, adult; K21.9 Gastro-esophageal reflux disease without esophagitis; M19.90 Unspecified osteoarthritis, unspecified site; Z79.899 Other long term (current) drug therapy; Z87.39 Personal history of other diseases of the musculoskeletal system and connective tissue; Z98.890 Other specified postprocedural states; Z98.818 Other dental procedure status; Z87.891 Personal history of nicotine dependence; Z86.59 Personal history of other mental and behavioral disorders
CPT/HCPCS: 74240; 80051; 82310; 82565; 83735; 84100; 84520; 85025; 88307; 94760

== ENCOUNTER → 2020-07-27 | Outpatient (CLI) | payer BC ==
[2020-07-27 10:35] VITALS: BP 145/87; PULSE 67; TEMP 99.1; BMI 62.3
== END ==
LOC: BARWHC3 09:51
PROVIDERS: ATTEND Surgery
DX: Z09 Encounter for follow-up examination after completed treatment for conditions other than malignant neoplasm (principal); F17.200 Nicotine dependence, unspecified, uncomplicated; Z98.84 Bariatric surgery status
CPT/HCPCS: 99211

== ENCOUNTER → 2020-07-30 | Outpatient (CLI) | payer BC ==
--- NOTE | 2020-07-30 15:36 | P.HPBAR ---
Bariatric H&P - History & Physicial H&P Date: 07/30/20 History & Physicial: Visit/CC: one week follow up Patient initial contact: Initial weight: Initial weight in pounds: Height: 5 ft 9.5 in Initial BMI: Last weight: Current weight: 187.787 kg Current weight in pounds: 414.00 Current BMI: 60.2 [place] body weight (based on NIH guidelines): 73.936 kg Excess body weight loss: The patient is a 20 year-old M who presents for Bariatric Assessment. Patient presents today for sleeve yesterday fall. She he is 1 week postop. He is doing quite well. Past Medical History Past Medical History: No Reported History Additional Past Medical History / Comment(s): pain lower back, radiating to left side History of Any Multi-Drug Resistant Organisms: None Reported Past Surgical History: Bariatric Surgery, Orthopedic Surgery Additional Past Surgical History / Comment(s): rt knee meniscectomy, wisdom teeth, PAIN CLINIC PROCEDURE Sleeve Gastrectomy 07-24-20 Past Anesthesia/Blood Transfusion Reactions: Family History of Problems w/ Anesthesia Additional Past Anesthesia/Blood Transfusion Reaction / Comm: mother-PONV Smoking Status: Current some day smoker - Past Family History Mother Family Medical History: No Reported History Surgical - Exam Vital Signs Temp Pulse BP 98.2 F 96 150/90 07/30/20 15:18 07/30/20 15:18 07/30/20 15:18 - General well developed, well nourished, no distress - Eyes PERRL - ENT normal pinna - Neck no masses - Respiratory normal expansion - Cardiovascular Rhythm: regular - Abdomen Abdomen: soft, non tender Bariatric Assessment & Plan Plan: Status post sleeve gastrectomy. Patient will follow-up in 2 weeks. Bariatric Checklist Checklist: Plan: Checklist: EGD: 1. Hiatal hernia: 2. H. Pylori: HgbA1c: Vitamin D: Smoking: Never smoker Primary care physician referral: DR GUPTA Psychiatry clearance: Cardiology clearance: Sleep study: Diet journal: VTE risk score: VTE risk level: Rehab needs at discharge:
== END | disposition home or self-care (01) ==
CPT/HCPCS: 99211

== ENCOUNTER → 2020-08-13 | Outpatient (CLI) | payer BC ==
[2020-08-13 13:52] VITALS: BP 144/92; PULSE 106; RESP 18; TEMP 97.5; BMI 58.2
--- NOTE | 2020-08-13 16:23 | P.HPBAR ---
Bariatric H&P - History & Physicial H&P Date: 08/13/20 History & Physicial: Visit/CC: follow up / 3 week visit Patient initial contact: Initial weight: Initial weight in pounds: Height: 5 ft 9.5 in Initial BMI: Last weight: Current weight: 181.437 kg Current weight in pounds: 400.00 Current BMI: 58.2 [place] body weight (based on NIH guidelines): 73.936 kg Excess body weight loss: The patient is a 20 year-old M who presents for Bariatric Assessment. Patient presents today for sleeve gastrectomy fall. He's had some complaints of GERD. He is less 14 pounds since his last visit. Past Medical History Past Medical History: No Reported History Additional Past Medical History / Comment(s): pain lower back, radiating to left side History of Any Multi-Drug Resistant Organisms: None Reported Past Surgical History: Bariatric Surgery, Orthopedic Surgery Additional Past Surgical History / Comment(s): rt knee meniscectomy, wisdom teeth, PAIN CLINIC PROCEDURE Sleeve Gastrectomy 07-24-20 Past Anesthesia/Blood Transfusion Reactions: Family History of Problems w/ Anesthesia Additional Past Anesthesia/Blood Transfusion Reaction / Comm: mother-PONV Past Psychological History: Depression Additional Psychological History / Comment(s): past hx of depression Smoking Status: Former smoker Past Alcohol Use History: None Reported Additional Past Alcohol Use History / Comment(s): started smoking age 17, smokes occ. Past Drug Use History: Marijuana Additional Drug Use History / Comment(s): vapes marijuana occasionally - Past Family History Mother Family Medical History: No Reported History Surgical - Exam Vital Signs Temp Pulse Resp BP 97.5 F L 106 H 18 144/92 08/13/20 13:44 08/13/20 13:44 08/13/20 13:44 08/13/20 13:44 - General well developed, well nourished, no distress - Eyes PERRL - ENT normal pinna - Neck no masses - Respiratory normal expansion - Cardiovascular Rhythm: regular - Abdomen Abdomen: soft, non tender Bariatric Assessment & Plan Plan: Status post sleeve gastrectomy. Patient still quite well. He'll follow-up in 4 weeks. His GERD is minimal obesity observed. Bariatric Checklist Checklist: Plan: Checklist: EGD: 1. Hiatal hernia: 2. H. Pylori: HgbA1c: Vitamin D: Smoking: Never smoker Primary care physician referral: DR GUPTA Psychiatry clearance: Cardiology clearance: Sleep study: Diet journal: VTE risk score: VTE risk level: Rehab needs at discharge:
== END ==
LOC: BARWHC3 13:26
PROVIDERS: ATTEND Surgery
DX: Z09 Encounter for follow-up examination after completed treatment for conditions other than malignant neoplasm (principal); E66.9 Obesity, unspecified; F32.9 Major depressive disorder, single episode, unspecified; K21.9 Gastro-esophageal reflux disease without esophagitis; F17.200 Nicotine dependence, unspecified, uncomplicated; Z68.43 Body mass index [BMI] 50.0-59.9, adult; Z79.899 Other long term (current) drug therapy; Z98.84 Bariatric surgery status
CPT/HCPCS: 99211

== ENCOUNTER → 2020-08-20 | Outpatient (CLI) | payer BC ==
[2020-08-20 20:23] LABS: HCT 47.8 % (39.6-50.0); HGB 16.1 g/dL (13.0-17.0); MCH 28.2 pg (27.0-32.0); MCHC 33.7 g/dL (32.0-37.0); MCV 83.7 fL (80.0-97.0); Mean Platelet Volume 13.8 fL (9.5-12.2); Platelet Count 183 X 10*3/uL (140-440); RBC 5.71 X 10*6/uL (4.40-5.60); RDW 13.2 % (11.5-14.5); WBC 7.66 X 10*3/uL (4.50-10.00)
[2020-08-20 20:27] LABS: % Iron Saturation 21.43 (15.00-50.00); African American GFR (CKD) 124.1 (60.0-200.0); Albumin 4.6 g/dL (3.80-4.90); Anion Gap 17.2 mmol/L (4.00-12.00); Carbon Dioxide 21.8 mmol/L (21.6-31.8); Globulin 2.3 g/dL (1.6-3.3); Magnesium 1.9 mg/dL (1.5-2.4); Non-African American GFR(CKD) 107.1 (60.0-200.0); Potassium 3.8 mmol/L (3.5-5.5); Total Bilirubin 0.6 mg/dL (0.2-1.2); Total Protein 6.9 g/dL (6.2-8.2)
[2020-08-20 20:35] LABS: Ferritin 193.9 ng/mL (22.0-322.0)
[2020-08-20 20:37] LABS: Folate, Serum 2.5 ng/mL
[2020-08-22 07:52] LABS: Vit B1(Thiamine) 38 ug/L (38-122)
== END | disposition home or self-care (01) ==
LOC: LABWHC1 12:48
PROVIDERS: ATTEND Surgery
DX: T56.894A Toxic effect of other metals, undetermined, initial encounter (principal); K90.9 Intestinal malabsorption, unspecified; E55.9 Vitamin D deficiency, unspecified; D50.8 Other iron deficiency anemias; E66.01 Morbid (severe) obesity due to excess calories
CPT/HCPCS: 36415; 80053; 82306; 82607; 82728; 82746; 83540; 83550; 83735; 84255; 84425; 84443; 84590; 84630; 85027

== ENCOUNTER → 2020-09-17 | Outpatient (CLI) | payer BC ==
[2020-09-17 13:33] VITALS: BP 119/76; PULSE 72; RESP 18; TEMP 97.6; BMI 57.2
--- NOTE | 2020-09-17 17:43 | P.HPBAR ---
Bariatric H&P - History & Physicial H&P Date: 09/17/20 History & Physicial: Visit/CC: follow up Patient initial contact: Initial weight: Initial weight in pounds: Height: 5 ft 9.5 in Initial BMI: Last weight: Current weight: 178.262 kg Current weight in pounds: 393.00 Current BMI: 57.2 [place] body weight (based on NIH guidelines): 73.936 kg Excess body weight loss: The patient is a 20 year-old M who presents for Bariatric Assessment. Patient presents today for sleeve gastrectomy fall. He has had some mild GERD. She continues to lose weight. Past Medical History Past Medical History: No Reported History Additional Past Medical History / Comment(s): pain lower back, radiating to left side History of Any Multi-Drug Resistant Organisms: None Reported Past Surgical History: Bariatric Surgery, Orthopedic Surgery Additional Past Surgical History / Comment(s): rt knee meniscectomy, wisdom teeth, PAIN CLINIC PROCEDURE Sleeve Gastrectomy 07-24-20 Past Anesthesia/Blood Transfusion Reactions: Family History of Problems w/ Anesthesia Additional Past Anesthesia/Blood Transfusion Reaction / Comm: mother-PONV Past Psychological History: Depression Additional Psychological History / Comment(s): past hx of depression Smoking Status: Former smoker Past Alcohol Use History: None Reported Additional Past Alcohol Use History / Comment(s): started smoking age 17, smokes occ. Past Drug Use History: Marijuana Additional Drug Use History / Comment(s): vapes marijuana occasionally - Past Family History Mother Family Medical History: No Reported History Surgical - Exam Vital Signs Temp Pulse Resp BP 97.6 F 72 18 119/76 09/17/20 13:29 09/17/20 13:29 09/17/20 13:29 09/17/20 13:29 - General well developed, well nourished, no distress - Eyes PERRL, normal ocular movement - ENT normal pinna - Neck no masses - Respiratory normal expansion - Cardiovascular Rhythm: regular - Abdomen Abdomen: soft, non tender Bariatric Assessment & Plan Plan: Status post sleeve yesterday. Patient is doing quite well. His GERD is minimal only observed. Bariatric Checklist Checklist: Plan: Checklist: EGD: 1. Hiatal hernia: 2. H. Pylori: HgbA1c: Vitamin D: Smoking: Never smoker Primary care physician referral: DR GUPTA Psychiatry clearance: Cardiology clearance: Sleep study: Diet journal: VTE risk score: VTE risk level: Rehab needs at discharge:
== END | disposition home or self-care (01) ==
LOC: BARWHC3 12:54
PROVIDERS: ATTEND Surgery
DX: Z48.815 Encounter for surgical aftercare following surgery on the digestive system (principal); Z98.84 Bariatric surgery status; K21.9 Gastro-esophageal reflux disease without esophagitis; E66.01 Morbid (severe) obesity due to excess calories; Z71.3 Dietary counseling and surveillance
CPT/HCPCS: 97803; 99211

== ENCOUNTER → 2020-10-15 | Outpatient (CLI) | payer BC ==
[2020-10-15 14:05] VITALS: BP 133/83; PULSE 67; RESP 18; TEMP 97.7; BMI 55.3
--- NOTE | 2020-10-15 16:01 | P.HPBAR ---
Bariatric H&P - History & Physicial H&P Date: 10/15/20 History & Physicial: Visit/CC: follow up Patient initial contact: Initial weight: Initial weight in pounds: Height: 5 ft 9.5 in Initial BMI: Last weight: Current weight: 172.365 kg Current weight in pounds: 380.00 Current BMI: 55.3 [place] body weight (based on NIH guidelines): 73.936 kg Excess body weight loss: The patient is a 20 year-old M who presents for Bariatric Assessment. Patient presents today for sleeve gastrectomy full. He has lost another 13 pounds. He is minimal GERD. His arthritis is improving. Past Medical History Past Medical History: No Reported History Additional Past Medical History / Comment(s): pain lower back, radiating to left side History of Any Multi-Drug Resistant Organisms: None Reported Past Surgical History: Bariatric Surgery, Orthopedic Surgery Additional Past Surgical History / Comment(s): rt knee meniscectomy, wisdom teeth, PAIN CLINIC PROCEDURE Sleeve Gastrectomy 07-24-20 Past Anesthesia/Blood Transfusion Reactions: Family History of Problems w/ Anesthesia Additional Past Anesthesia/Blood Transfusion Reaction / Comm: mother-PONV Past Psychological History: Depression Additional Psychological History / Comment(s): past hx of depression Smoking Status: Former smoker Past Alcohol Use History: None Reported Additional Past Alcohol Use History / Comment(s): started smoking age 17, smokes occ. Past Drug Use History: Marijuana Additional Drug Use History / Comment(s): vapes marijuana occasionally - Past Family History Mother Family Medical History: No Reported History Surgical - Exam Vital Signs Temp Pulse Resp BP 97.7 F 67 18 133/83 10/15/20 13:58 10/15/20 13:58 10/15/20 13:58 10/15/20 13:58 - General well developed, well nourished, no distress - Eyes PERRL - ENT normal pinna - Neck no masses - Respiratory normal expansion - Cardiovascular Rhythm: regular - Abdomen Abdomen: soft, non tender Bariatric Assessment & Plan Plan: Status post sleeve gastrectomy. Patient did quite well. His GERD is minimal will be observed. Bariatric Checklist Checklist: Plan: Checklist: EGD: 1. Hiatal hernia: 2. H. Pylori: HgbA1c: Vitamin D: Smoking: Never smoker Primary care physician referral: DR GUPTA Psychiatry clearance: Cardiology clearance: Sleep study: Diet journal: VTE risk score: VTE risk level: Rehab needs at discharge:
== END ==
LOC: BARWHC3 13:22
PROVIDERS: ATTEND Surgery
DX: Z09 Encounter for follow-up examination after completed treatment for conditions other than malignant neoplasm (principal); K21.9 Gastro-esophageal reflux disease without esophagitis; M19.90 Unspecified osteoarthritis, unspecified site; Z98.84 Bariatric surgery status; F32.9 Major depressive disorder, single episode, unspecified; Z87.891 Personal history of nicotine dependence
CPT/HCPCS: 99211

== ENCOUNTER → 2020-10-24 | Outpatient (CLI) | payer BC ==
--- NOTE | 2020-10-24 16:32 | XR ---
EXAMINATION TYPE: XR foot complete RT DATE OF EXAM: 10/24/2020 COMPARISON: NONE HISTORY: Right foot pain, morbid obesity. Pain at the fifth metatarsal area FINDINGS: The tarsals, metatarsals and phalanges are in alignment. Soft tissues are unremarkable. No evidence of acute fracture or dislocation of the right foot. IMPRESSION: No evidence of fracture or dislocation of the right foot.
== END | disposition home or self-care (01) ==
LOC: RADXRYALE 10:25
PROVIDERS: ATTEND Physician Assistant Medical
DX: M79.671 Pain in right foot (principal); E66.01 Morbid (severe) obesity due to excess calories

== ENCOUNTER → 2020-11-07 | Outpatient (CLI) | payer BC ==
--- NOTE | 2020-11-07 14:40 | XR ---
EXAMINATION TYPE: XR foot complete RT DATE OF EXAM: 11/07/2020 CLINICAL HISTORY: Persistent metatarsal pain TECHNIQUE: Frontal, lateral, and oblique images of the right foot are obtained. COMPARISON: 10/24/2020 FINDINGS: There is a tiny bony fragment seen anterior to the talus on lateral view only. Please correlate for p oint tenderness in this region. IMPRESSION: There is a tiny bony fragment seen anterior to the talus on lateral view only. Please co rrelate for point tenderness in this region.
== END | disposition home or self-care (01) ==
LOC: RADXRYALE 11:10
PROVIDERS: ATTEND Physician Assistant Medical
DX: M77.41 Metatarsalgia, right foot (principal)

== ENCOUNTER → 2020-11-12 | Outpatient (CLI) | payer BC ==
[2020-11-12 14:07] VITALS: BP 138/84; PULSE 76; RESP 18; TEMP 99.6; BMI 52.8
--- NOTE | 2021-01-16 11:43 | P.HPBAR ---
Bariatric H&P - History & Physicial H&P Date: 11/12/20 History & Physicial: Visit/CC: follow up Patient initial contact: Initial weight: Initial weight in pounds: Height: 5 ft 9.5 in Initial BMI: Last weight: Current weight: 164.654 kg Current weight in pounds: 363.00 Current BMI: 52.8 [place] body weight (based on NIH guidelines): 73.936 kg Excess body weight loss: The patient is a 20 year-old M who presents for Bariatric Assessment. Past Medical History Past Medical History: No Reported History Additional Past Medical History / Comment(s): pain lower back, radiating to left side History of Any Multi-Drug Resistant Organisms: None Reported Past Surgical History: Bariatric Surgery, Orthopedic Surgery Additional Past Surgical History / Comment(s): rt knee meniscectomy, wisdom teeth, PAIN CLINIC PROCEDURE Sleeve Gastrectomy 07-24-20 Past Anesthesia/Blood Transfusion Reactions: Family History of Problems w/ Anesthesia Additional Past Anesthesia/Blood Transfusion Reaction / Comm: mother-PONV Past Psychological History: Depression Additional Psychological History / Comment(s): past hx of depression Smoking Status: Former smoker Past Alcohol Use History: None Reported Additional Past Alcohol Use History / Comment(s): started smoking age 17, smokes occ. Past Drug Use History: Marijuana Additional Drug Use History / Comment(s): vapes marijuana occasionally - Past Family History Mother Family Medical History: No Reported History Surgical - Exam Vital Signs Temp Pulse Resp BP 99.6 F 76 18 138/84 11/12/20 14:04 11/12/20 14:04 11/12/20 14:04 11/12/20 14:04 - General well developed, well nourished, no distress - Eyes PERRL - ENT normal pinna - Neck no masses - Abdomen Abdomen: soft, non tender Bariatric Assessment & Plan Plan: Status post gastric sleeve. Patient still quite well. His GERD is minimal be observed. He'll follow-up in 4 weeks. Bariatric Checklist Checklist: Plan: Checklist: EGD: 1. Hiatal hernia: 2. H. Pylori: HgbA1c: Vitamin D: Smoking: Never smoker Primary care physician referral: DR GUPTA Psychiatry clearance: Cardiology clearance: Sleep study: Diet journal: VTE risk score: VTE risk level: Rehab needs at discharge:
== END ==
LOC: BARWHC3 13:25
PROVIDERS: ATTEND Surgery
DX: K21.9 Gastro-esophageal reflux disease without esophagitis (principal); F32.9 Major depressive disorder, single episode, unspecified; Z87.891 Personal history of nicotine dependence; Z98.84 Bariatric surgery status
CPT/HCPCS: 99211

== ENCOUNTER → 2020-12-11 | Outpatient (CLI) | payer BC ==
[2020-12-11 19:25] LABS: HCT 46.3 % (39.6-50.0); HGB 15.5 g/dL (13.0-17.0); MCH 29.4 pg (27.0-32.0); MCHC 33.5 g/dL (32.0-37.0); MCV 87.7 fL (80.0-97.0); Mean Platelet Volume 12.4 fL (9.5-12.2); Platelet Count 164 X 10*3/uL (140-440); RBC 5.28 X 10*6/uL (4.40-5.60); RDW 13.8 % (11.5-14.5); WBC 5.73 X 10*3/uL (4.50-10.00)
[2020-12-12 01:21] LABS: % Iron Saturation 35.11 (15.00-50.00); Albumin 4.4 g/dL (3.80-4.90); Albumin/Globulin Ratio 1.76 (1.60-3.17); Anion Gap 15.3 mmol/L (4.00-12.00); BUN/Creat Ratio 12.5 Ratio (12.00-20.00); Calcium 9.7 mg/dL (8.7-10.3); Carbon Dioxide 20.7 mmol/L (21.6-31.8); Globulin 2.5 g/dL (1.6-3.3); Magnesium 1.8 mg/dL (1.5-2.4); Non-African American GFR(CKD) 127.7 (60.0-200.0); Potassium 3.9 mmol/L (3.5-5.5); Total Bilirubin 0.9 mg/dL (0.3-1.2); Total Protein 6.9 g/dL (6.2-8.2)
[2020-12-12 14:22] LABS: Zinc, Serum 64 ug/dL (60-130)
[2020-12-13 06:32] LABS: Vit B1(Thiamine) 42 ug/L (38-122)
[2020-12-14 06:03] LABS: Vitamin A 16 ug/dL (38-106)
== END | disposition home or self-care (01) ==
LOC: LABWHC1 11:29
PROVIDERS: ATTEND Surgery
DX: D50.8 Other iron deficiency anemias (principal); E55.9 Vitamin D deficiency, unspecified; T56.894A Toxic effect of other metals, undetermined, initial encounter; K90.9 Intestinal malabsorption, unspecified
CPT/HCPCS: 36415; 80053; 82306; 82607; 82728; 82746; 83540; 83550; 83735; 84255; 84425; 84443; 84590; 84630; 85027

== ENCOUNTER → 2020-12-17 | Outpatient (CLI) | payer BC ==
[2020-12-17 13:17] VITALS: BP 139/83; PULSE 76; RESP 18; TEMP 98.4; BMI 50.1
--- NOTE | 2020-12-17 15:14 | P.HPBAR ---
Bariatric H&P - History & Physicial H&P Date: 12/17/20 History & Physicial: Visit/CC: follow up Patient initial contact: Initial weight: Initial weight in pounds: Height: 5 ft 9.5 in Initial BMI: Last weight: Current weight: 156.036 kg Current weight in pounds: 344.00 Current BMI: 50.1 [place] body weight (based on NIH guidelines): 73.936 kg Excess body weight loss: The patient is a 20 year-old M who presents for Bariatric Assessment. Patient presents today for sleeve gastrectomy all of. He's had some complaints of GERD. Past Medical History Past Medical History: No Reported History Additional Past Medical History / Comment(s): pain lower back, radiating to left side History of Any Multi-Drug Resistant Organisms: None Reported Past Surgical History: Bariatric Surgery, Orthopedic Surgery Additional Past Surgical History / Comment(s): rt knee meniscectomy, wisdom teeth, PAIN CLINIC PROCEDURE Sleeve Gastrectomy 07-24-20 Past Anesthesia/Blood Transfusion Reactions: Family History of Problems w/ Anesthesia Additional Past Anesthesia/Blood Transfusion Reaction / Comm: mother-PONV Past Psychological History: Depression Additional Psychological History / Comment(s): past hx of depression Smoking Status: Former smoker Past Alcohol Use History: None Reported Additional Past Alcohol Use History / Comment(s): started smoking age 17, smokes occ. Past Drug Use History: Marijuana Additional Drug Use History / Comment(s): vapes marijuana occasionally - Past Family History Mother Family Medical History: No Reported History Surgical - Exam Vital Signs Temp Pulse Resp BP 98.4 F 76 18 139/83 12/17/20 13:15 12/17/20 13:15 12/17/20 13:15 12/17/20 13:15 - General well developed, well nourished, no distress - Eyes PERRL - ENT normal pinna - Neck no masses - Respiratory normal expansion - Cardiovascular Rhythm: regular - Abdomen Abdomen: soft, non tender Bariatric Assessment & Plan Plan: Status post sleeve gastrectomy. Patient's GERD is minimal and will be observed. He'll follow-up in 4 weeks. Bariatric Checklist Checklist: Plan: Checklist: EGD: 1. Hiatal hernia: 2. H. Pylori: HgbA1c: Vitamin D: Smoking: Never smoker Primary care physician referral: DR GUPTA Psychiatry clearance: Cardiology clearance: Sleep study: Diet journal: VTE risk score: VTE risk level: Rehab needs at discharge:
== END ==
LOC: BARWHC3 12:57
PROVIDERS: ATTEND Surgery
DX: E66.01 Morbid (severe) obesity due to excess calories (principal); K21.9 Gastro-esophageal reflux disease without esophagitis; F32.9 Major depressive disorder, single episode, unspecified; Z98.84 Bariatric surgery status; Z87.891 Personal history of nicotine dependence; Z68.43 Body mass index [BMI] 50.0-59.9, adult
CPT/HCPCS: 36415; 82746; 99211

== ENCOUNTER → 2021-01-21 | Outpatient (CLI) | payer BC ==
[2021-01-21 13:22] VITALS: BP 133/96; PULSE 117; RESP 18; TEMP 97.3; BMI 46.4
--- NOTE | 2021-02-19 10:27 | P.HPBAR ---
Bariatric H&P - History & Physicial H&P Date: 01/21/21 History & Physicial: Visit/CC: follow up Patient initial contact: Initial weight: Initial weight in pounds: Height: 5 ft 9.5 in Initial BMI: Last weight: Current weight: 144.696 kg Current weight in pounds: 319.00 Current BMI: 46.4 [place] body weight (based on NIH guidelines): 73.936 kg Excess body weight loss: The patient is a 20 year-old M who presents for Bariatric Assessment. Patient presents today for bariatric follow-up. He has minimal complaints of GERD. His excellent weight loss. Past Medical History Past Medical History: No Reported History Additional Past Medical History / Comment(s): pain lower back, radiating to left side History of Any Multi-Drug Resistant Organisms: None Reported Past Surgical History: Bariatric Surgery, Orthopedic Surgery Additional Past Surgical History / Comment(s): rt knee meniscectomy, wisdom teeth, PAIN CLINIC PROCEDURE Sleeve Gastrectomy 07-24-20 Past Anesthesia/Blood Transfusion Reactions: Family History of Problems w/ Anesthesia Additional Past Anesthesia/Blood Transfusion Reaction / Comm: mother-PONV Past Psychological History: Depression Additional Psychological History / Comment(s): past hx of depression Smoking Status: Former smoker Past Alcohol Use History: None Reported Additional Past Alcohol Use History / Comment(s): started smoking age 17, smokes occ. Past Drug Use History: Marijuana Additional Drug Use History / Comment(s): vapes marijuana occasionally - Past Family History Mother Family Medical History: No Reported History Surgical - Exam Vital Signs Temp Pulse Resp BP 97.3 F L 117 H 18 133/96 01/21/21 13:18 01/21/21 13:18 01/21/21 13:18 01/21/21 13:18 - General well developed, well nourished, no distress - Eyes PERRL - ENT normal pinna - Neck no masses - Respiratory normal expansion - Cardiovascular Rhythm: regular - Abdomen Abdomen: soft, non tender Bariatric Assessment & Plan Plan: Status post sleeve gastric. Patient's GERD is minimal will be observed. He'll follow-up in 4 weeks. Bariatric Checklist Checklist: Plan: Checklist: EGD: 1. Hiatal hernia: 2. H. Pylori: HgbA1c: Vitamin D: Smoking: Never smoker Primary care physician referral: DR GUPTA Psychiatry clearance: Cardiology clearance: Sleep study: Diet journal: VTE risk score: VTE risk level: Rehab needs at discharge:
== END ==
LOC: BARWHC3 12:46
PROVIDERS: ATTEND Surgery
DX: Z09 Encounter for follow-up examination after completed treatment for conditions other than malignant neoplasm (principal); K21.9 Gastro-esophageal reflux disease without esophagitis; F32.9 Major depressive disorder, single episode, unspecified; Z87.891 Personal history of nicotine dependence; Z98.84 Bariatric surgery status
CPT/HCPCS: 99211

== ENCOUNTER → 2021-01-25 | Outpatient (CLI) | payer BC ==
--- NOTE | 2021-01-25 09:48 | NM ---
EXAMINATION TYPE: NM hepatobiliary w EF DATE OF EXAM: 01/25/2021 COMPARISON: NONE INDICATION: Right lower quadrant pain TECHNIQUE: After the intravenous administration of 4.8 mCi Tc 99m Mebrofenin hepatobiliary scintigrap hy is performed. Images were obtained immediately post injection. FINDINGS: There is prompt uptake and excretion of radiotracer by the liver. Extrahepatic ducts are identified at 8 minutes. The gallbladder is visualized within 6 minutes. Small bowel activity is noted within 20 minutes. At one hour patient was injected with 3.0 mcg CCK and the gallbladder ejection fraction is calculated at 14 %, which is low. (Normal >35% and <80%.). IMPRESSION: 1. Correlate for biliary dyskinesia. There is a low ejection fraction of 14%. 2. No obstruction evident.
== END | disposition home or self-care (01) ==
LOC: RADNMMAIN 06:47
PROVIDERS: ATTEND Surgery
DX: R10.31 Right lower quadrant pain (principal)
CPT/HCPCS: 78226; A9537; J2805

== ENCOUNTER → 2021-02-06 | Outpatient (CLI) | payer BC ==
[2021-02-06 12:34] LABS: Basophils # (A) 0.1 k/uL (0-0.2); Basophils % (A) 1 %; Eosinophils # (A) 0.1 k/uL (0-0.7); Eosinophils % (A) 1 %; HGB 16.8 gm/dL (13.0-17.5); Lymphocytes # (A) 1.7 k/uL (1.0-4.8); Lymphocytes % (A) 17 %; MCH 30.1 pg (25.0-35.0); MCHC 34.3 g/dL (31.0-37.0); MCV 87.6 fL (80.0-100.0); Mean Platelet Volume 8.8; Monocytes # (A) 0.6 k/uL (0-1.0); Monocytes % (A) 6 %; Neutrophils # (A) 7.1 k/uL (1.3-7.7); Neutrophils % (A) 73 %; Platelet Count 212 k/uL (150-450); RDW 14.2 % (11.5-15.5); WBC 9.7 k/uL (3.8-10.6)
[2021-02-06 12:35] LABS: ALT 63 U/L (4-49); AST 52 U/L (17-59); African American GFR (CKD) >90 (>60 ml/min/1.73 sqM); Albumin 4.5 g/dL (3.5-5.0); Alkaline Phosphatase 57 U/L (38-126); Blood Urea Nitrogen 10 mg/dL (9-20); Carbon Dioxide 24 mmol/L (22-30); Chloride 97 mmol/L (98-107); Glucose 94 mg/dL (74-99); Non-African American GFR(CKD) >90 (>60 ml/min/1.73 sqM); Total Bilirubin 0.9 mg/dL (0.2-1.3); Total Protein 7.5 g/dL (6.3-8.2)
[2021-02-06 12:41] LABS: Anion Gap 15 mmol/L; Potassium 3.9 mmol/L (3.5-5.1); Sodium 136 mmol/L (137-145)
== END | disposition home or self-care (01) ==
LOC: LABPAT 10:41
PROVIDERS: ATTEND Surgery
DX: Z01.818 Encounter for other preprocedural examination (principal)
CPT/HCPCS: 80053; 85025; 93005

== ENCOUNTER 2021-02-08 06:24 | Day surgery (SDC) | payer BC ==
[2021-02-05 13:02] VITALS: BMI 42.5
[~2021-02-08 06:24] MED LIST changes: -DEXAMETHASONE SOD PHOSPHATE 4 MG/ML 1 ML VIAL IV ONE; -ENOXAPARIN 40 MG/0.4 ML SYRINGE SQ PRN; -LIDOCAINE 1% (10MG/ML) FOR IV START INTRADERMA PRN
[2021-02-08] MEDS ORDERED: MIDAZOLAM 2 MG/2 ML VIAL IV PRN (06:39)
[2021-02-08] MEDS ORDERED: LIDOCAINE 1% (10MG/ML) FOR IV START INTRADERMA PRN (06:39)
[2021-02-08] MEDS ORDERED: DEXAMETHASONE SOD PHOSPHATE 4 MG/ML 1 ML VIAL IV ONE (06:39)
[2021-02-08] MEDS ORDERED: ONDANSETRON 4 MG/2 ML VIAL IVP ONE (06:39)
[2021-02-08 06:59] VITALS: RESP 16
[2021-02-08] MEDS ORDERED: HYDROmorphone 0.5 MG/0.5 ML SYRINGE IVP PRN (07:00)
[2021-02-08] MEDS: LACTATED RINGERS 1,000 ML IV SCH ×2 (07:02→07:55)
[2021-02-08] MEDS ORDERED: HEPARIN SODIUM,PORCINE/PF 5,000 UNIT/0.5 ML SYRINGE SQ ONE (07:18)
[2021-02-08] MEDS ORDERED: BUPIVACAINE (PF) 0.5% 30 ML VIAL SQ ONE ×2 (07:23→08:16)
[2021-02-08] MEDS ORDERED: GLYCOPYRROLATE 0.2 MG/ML 2 ML VIAL ONE (07:50)
[2021-02-08] MEDS ORDERED: NEOSTIGMINE 1 MG/ML 10 ML VIAL ONE (07:50)
[2021-02-08] MEDS ORDERED: SUCCINYLCHOLINE CHLORIDE VIAL 200 MG/10 ML VIAL IV ONE (07:50)
[2021-02-08] MEDS ORDERED: LIDOCAINE 1% INJ 10MG/ML (20 ML MDV) ONE (07:50)
[2021-02-08] MEDS ORDERED: fentaNYL (PF) 50 MCG/ML 2 ML AMP ONE (07:50)
[2021-02-08] MEDS ORDERED: ROCURONIUM 10 MG/ML (5 ML VIAL) IV ONE (07:50)
[2021-02-08] MEDS ORDERED: MIDAZOLAM 2 MG/2 ML VIAL ONE (07:50)
[2021-02-08] MEDS ORDERED: PROPOFOL 10 MG/ML 20 ML VIAL IV ONE (07:50)
--- NOTE | 2021-02-08 08:10 | P.GSHP ---
History of Present Illness H&P Date: 02/08/21 Chief Complaint: Right Upper quadrant pain Is a 20-year-old male who presents today for laparoscopic cholecystectomy. Patient's a complaint of abdominal pain. His recent HIDA scan shows diminished ejection fraction Past Medical History Past Medical History: No Reported History Additional Past Medical History / Comment(s): nausea/vomiting,gas pain and pressure,hx pain lower back radiating to left side History of Any Multi-Drug Resistant Organisms: None Reported Past Surgical History: Bariatric Surgery, Orthopedic Surgery Additional Past Surgical History / Comment(s): rt knee meniscectomy, wisdom teeth, PAIN CLINIC PROCEDURE, Sleeve Gastrectomy 07-24-20 Past Anesthesia/Blood Transfusion Reactions: Family History of Problems w/ Anesthesia Additional Past Anesthesia/Blood Transfusion Reaction / Comment(s): mother-PONV Smoking Status: Former smoker - Past Family History Mother Family Medical History: No Reported History Medications and Allergies Home Medications Medication Instructions Recorded Confirmed Type Ergocalciferol [Vitamin D2 (1250 50,000 unit PO WEEKLY 08/21/20 02/05/21 History Mcg = 81664 Iu)] Bariatric Multivitamin 1 dose PO DAILY 02/05/21 02/05/21 History Omeprazole [PriLOSEC] 40 mg PO QAM 02/05/21 02/05/21 History Allergies Allergy/AdvReac Type Severity Reaction Status Date / Time No Known Allergies Allergy Verified 02/08/21 07:01 Surgical - Exam Vital Signs Temp Pulse Resp BP Pulse Ox 97.7 F 105 H 16 140/78 91 L 02/08/21 06:57 02/08/21 06:57 02/08/21 06:57 02/08/21 06:57 02/08/21 06:57 - General well developed, well nourished, no distress - Eyes PERRL - ENT normal pinna - Neck no masses - Respiratory normal expansion - Cardiovascular Rhythm: regular - Abdomen Abdomen: soft, non tender Assessment and Plan Assessment: Right quadrant pain Abnormal HIDA scan Chronic cholecystitis We'll perform laparoscopic cholecystectomy
--- NOTE | 2021-02-08 08:40 | P.OP ---
Date of Procedure: 02/08/21 Preoperative Diagnosis: Chronic cholecystitis Postoperative Diagnosis: Chronic cholecystitis Procedure(s) Performed: Laparoscopic cholecystectomy Anesthesia: PREMA Surgeon: Eduardo Benavides Pathology: other (Gallbladder) Condition: stable Disposition: PACU Description of Procedure: The patient was placed on the operating table. The patient received a general endotracheal tube anesthesia. The patients abdomen was prepped and draped in the usual sterile fashion. Through an infraumbilical stab incision, the fascia of the anterior abdominal wall was grasped with a pair of Kochers and then the Veress needle was placed in the peritoneal cavity. Position of the Veress needle was confirmed with positive drop test. The abdomen was then insufflated. After adequate insufflation, the 10 mm trocar was placed in the peritoneal cavity. Following this the laparoscope was placed in the per itoneal cavity. The patient was placed in the head-up, right side up position and then a 5 mm trocar was placed in the right lateral and right subcostal position under direct visualization. A 8 mm trocar was placed in the epigastric position. The gallbladder was grasped in the fundus and infundibulum. Traction on the gallbladder was placed in the lateral and the cephalad positions. The triangle of Calot was visualized.. The cystic duct was bluntly dissected until the union of the cystic duct and common bile duct was seen. A critical view of safety was achieved. The cystic duct was then divided and sealed with the Harmonic scissors. A PDS Endoloop was then placed throughout the cystic duct stump. The cystic artery divided and sealed with the Harmonic scissors. The gallbladder was then removed from the liver bed using Harmonic scissors. The gallbladder was then extracted through the epigastric port site. Operative field was checked for any bleeding spots and Harmonic scissors was used to coagulate the liver bed. The abdomen was irrigated. The trocars were removed. The skin was closed using interrupted 3-0 Vicryl suture. Dermabond dressing were applied. The patient tolerated the procedure well.
[2021-02-08 08:49] VITALS: TEMP 97
[2021-02-08 09:38] VITALS: BP 146/95; PULSE 95
[2021-02-08] MEDS ORDERED: ACETAMINOPHEN TAB 325 MG TAB ONE (09:55)
[2021-02-08] MEDS ORDERED: ACETAMINOPHEN TAB 325 MG TAB PO ONE (10:01)
== END 2021-02-08 10:22 | disposition home or self-care (01) ==
LOC: OR 06:24
PROVIDERS: ATTEND Surgery
DX: K81.2 Acute cholecystitis with chronic cholecystitis (principal); Z87.891 Personal history of nicotine dependence
CPT/HCPCS: 47562; 88304; J2250; J0330; J1100; J2710; J0690; J2405; J2001; J3010; J2704

== ENCOUNTER 2021-02-20 10:23 | Inpatient (IN) | payer BC ==
[2021-02-20] MEDS ORDERED: SODIUM CHLORIDE 0.9% 2,000 ML IV ONE (10:58)
--- NOTE | 2021-02-20 11:16 | ED ---
Extremity Problem HPI - General Chief complaint: Extremity Problem,Nontraumatic Stated complaint: trouble walking Source: EMS, RN notes reviewed Mode of arrival: EMS Limitations: no limitations - History of Present Illness Initial comments: Patient is 20-year-old male presents in the ER with generalized lower leg weakness. Patient reports general weakness started 1 week prior has progressed to not being able to weight-bear currently. Patient states legs feel numbness in skin like leg fell asleep can feel pressure. Patient reports bariatric surgery in the past, also one week prior cholecystectomy. Patient denies any nausea, vomiting, any changes in appetite and no difficulties with constipation or trouble urinating. Patient denies any saddle paresthesias or incontinence. Patient states that he did a Tylenol health is a on Thursday with his PCP to based on anti-inflammatories, steroids. Patient's surgeon in the past with Dr. Benavides for his cholecystectomy and gastric sleeve. Patient states that he has a long history of some back issues in which he receive injections but no prior MRI she's been diagnosed with sciatica. Patient states his incisions are heali ng well no reported fever no chest pain shortness breath no headache no dizziness blurred vision no upper extremity symptoms. He states he felt some pressure in his upper legs he states he still able to move his legs but states that he just feels rundown, weak Complaint: extremity pain - Related Data Home Medications Medication Instructions Recorded Confirmed Bariatric Multivitamin 1 tab PO QID 02/05/21 02/20/21 Omeprazole [PriLOSEC] 40 mg PO DAILY 02/05/21 02/20/21 Ibuprofen [Motrin] 600 mg PO Q8H PRN 02/20/21 02/20/21 predniSONE 10 mg PO TID 02/20/21 02/20/21 Allergies Allergy/AdvReac Type Severity Reaction Status Date / Time No Known Allergies Allergy Verified 02/20/21 11:24 Review of Systems ROS Statement: Those systems with pertinent positive or pertinent negative responses have been documented in the HPI. ROS Other: All systems not noted in ROS Statement are negative. Past Medical History Past Medical History: No Reported History Additional Past Medical History / Comment(s): nausea/vomiting,gas pain and pressure,hx pain lower back radiating to left side History of Any Multi-Drug Resistant Organisms: None Reported Past Surgical History: Cholecystectomy Additional Past Surgical History / Comment(s): rt knee meniscectomy, wisdom teeth, PAIN CLINIC PROCEDURE, Sleeve Gastrectomy 3-07-15 Past Anesthesia/Blood Transfusion Reactions: Family History of Problems w/ Anesthesia Additional Past Anesthesia/Blood Transfusion Reaction / Comment(s): mother-PONV Past Psychological History: Depression Smoking Status: Former smoker Past Alcohol Use History: None Reported Past Drug Use History: Marijuana - Past Family History Mother Family Medical History: No Reported History General Exam Limitations: no limitations General appearance: alert, in no apparent distress Head exam: Present: atraumatic, normocephalic, normal inspection Eye exam: Present: normal appearance, PERRL, EOMI. Absent: scleral icterus, conjunctival injection, periorbital swelling ENT exam: Absent: normal exam, normal oropharynx, mucous membranes dry, mucous membranes moist Expanded Mouth exam: Present: other (Dryness, cracked lips) Neck exam: Present: normal inspection, full ROM. Absent: tenderness, meningismus, lymphadenopathy Respiratory exam: Present: normal lung sounds bilaterally. Absent: respiratory distress, wheezes, rales, rhonchi, stridor Cardiovascular Exam: Present: tachycardia GI/Abdominal exam: Present: soft, normal bowel sounds, other (Incisions are healing well). Absent: distended, tenderness, guarding, rebound, rigid Extremities exam: Present: normal inspection, other (Lower extremity neurovascular intact equal pedal pulses equal color equal sensation patient able to move his legs bilaterally strength 4/5) Back exam: Present: normal inspection, full ROM. Absent: tenderness, CVA tenderness (R), CVA tenderness (L) Neurological exam: Present: alert, oriented X3, CN II-XII intact Psychiatric exam: Present: normal affect, normal mood Skin exam: Present: warm, dry, intact, normal color. Absent: rash Course Vital Signs 02/20/21 10:27 Temperature 97.8 F Pulse Rate 123 H Respiratory 20 Rate Blood Pressure 122/71 O2 Sat by Pulse 97 Oximetry Medical Decision Making - Medical Decision Making 20-year-old male presented for denies weakness. Patient have increased weakness, difficulty and bleeding secondary to weakness. He did follow-up with his general surgeon status post cholecystectomy, had recent follow-up visit placed on steroids for back issues which is been ongoing. Patient has been having increasing difficulty and bleeding which she feels that he needed help. Patient has not been getting up out of bed lately. CT of the brain, lumbar spine were obtained with no acute findings. Patient has no red flag symptoms. Patient does have mild dehydration, hypokalemia. Do not see any current evidence of cauda equina and no major red flag symptoms. Patient will be admitted to [facility] with consult to neurology and Gen. surgery patient will have consult to physical therapy, further evaluation. - Lab Data Result diagrams: 02/20/21 11:22 02/20/21 11:22 Lab Results 02/20/21 02/20/21 02/20/21 Range/Units 11:22 11:22 11:22 WBC 15.2 H (3.8-10.6) k/uL RBC 4.67 (4.30-5.90) m/uL Hgb 14.0 (13.0-17.5) gm/dL Hct 41.8 (39.0-53.0) % MCV 89.4 (80.0-100.0) fL MCH 29.8 (25.0-35.0) pg MCHC 33.4 (31.0-37.0) g/dL RDW 14.2 (11.5-15.5) % Plt Count 214 (150-450) k/uL MPV 9.2 Neutrophils % 71 % Lymphocytes % 20 % Monocytes % 7 % Eosinophils % 1 % Basophils % 1 % Neutrophils # 10.7 H (1.3-7.7) k/uL Lymphocytes # 3.1 (1.0-4.8) k/uL Monocytes # 1.0 (0-1.0) k/uL Eosinophils # 0.2 (0-0.7) k/uL Basophils # 0.1 (0-0.2) k/uL Sodium 130 L (137-145) mmol/L Potassium 3.4 L (3.5-5.1) mmol/L Chloride 97 L (98-107) mmol/L Carbon Dioxide 24 (22-30) mmol/L Anion Gap 9 mmol/L BUN 14 (9-20) mg/dL Creatinine 0.60 L (0.66-1.25) mg/dL Est GFR (CKD-EPI)AfAm >90 (>60 ml/min/1.73 sqM) Est GFR (CKD-EPI)NonAf >90 (>60 ml/min/1.73 sqM) Glucose 108 H (74-99) mg/dL Plasma Lactic Acid Jack 1.2 (0.7-2.0) mmol/L Calcium 9.0 (8.4-10.2) mg/dL Magnesium 2.1 (1.6-2.3) mg/dL Total Bilirubin 0.9 (0.2-1.3) mg/dL AST 68 H (17-59) U/L ALT 79 H (4-49) U/L Alkaline Phosphatase 49 (38-126) U/L C-Reactive Protein 1.2 H (<1.0) mg/dL Total Protein 6.1 L (6.3-8.2) g/dL Albumin 3.6 (3.5-5.0) g/dL Disposition Clinical Impression: Weakness, Morbid obesity, Status post cholecystectomy, Hypokalemia, Dehydration, Leg weakness Disposition: ADMITTED IP TO THIS [facility] Condition: Fair Referrals: Rico Willis DO [Primary Care Provider] - 1-2 days
--- NOTE | 2021-02-20 12:44 | CT ---
EXAMINATION TYPE: CT brain wo con DATE OF EXAM: 02/20/2021 COMPARISON: 02/16/2013 INDICATION: difficulty walking DLP: 1062.4 mGycm, Automated exposure control for dose reduction was used. CONTRAST: None CT of the brain is performed utilizing 3 mm thick sections through the posterior fossa and 3 mm thick sections through the remaining calvarium. Study is performed within 24 hours of arrival to the hosp ital. No abnormal hyperdensity is present to suggest an acute intracranial hemorrhage. No mass lesion is evident. Cerebellum appears normal. No acute infarcts are evident. Ventricles and sulci are appropriate for the patient age. Paranasal sinuses and mastoid air cells within the [id number] are clear. IMPRESSIONS: 1. Normal CT Brain
--- NOTE | 2021-02-20 13:01 | CT ---
EXAMINATION TYPE: CT lumbar spine wo con DATE OF EXAM: 02/20/2021 COMPARISON: None HISTORY: difficulty walking CT DLP: 1604.1 mGycm CONTRAST: None TECHNIQUE: CT of the lumbar spine is performed on a spiral scan at 3 mm thick sections. Reconstructed images are performed in the coronal and sagittal planes. FINDINGS: No focal disc herniation or significant disc bulge is evident. No spinal canal stenosis or neural for aminal stenosis is evident. Vertebral alignment appears normal. Osseous structures appear intact. IMPRESSION: 1. Normal CT lumbar spine
[2021-02-20 14:43] LABS: Basophils # (A) 0.1 k/uL (0-0.2); Basophils % (A) 1 %; Eosinophils # (A) 0.2 k/uL (0-0.7); Eosinophils % (A) 1 %; HCT 41.8 % (39.0-53.0); Lymphocytes # (A) 3.1 k/uL (1.0-4.8); Lymphocytes % (A) 20 %; MCH 29.8 pg (25.0-35.0); MCHC 33.4 g/dL (31.0-37.0); MCV 89.4 fL (80.0-100.0); Mean Platelet Volume 9.2; Monocytes % (A) 7 %; Neutrophils # (A) 10.7 k/uL (1.3-7.7); Neutrophils % (A) 71 %; Platelet Count 214 k/uL (150-450); RBC 4.67 m/uL (4.30-5.90); RDW 14.2 % (11.5-15.5); WBC 15.2 k/uL (3.8-10.6)
[2021-02-20 14:55] LABS: ALT 79 U/L (4-49); AST 68 U/L (17-59); African American GFR (CKD) >90 (>60 ml/min/1.73 sqM); Albumin 3.6 g/dL (3.5-5.0); Alkaline Phosphatase 49 U/L (38-126); Anion Gap 9 mmol/L; Blood Urea Nitrogen 14 mg/dL (9-20); C Reactive Protein 1.2 mg/dL (<1.0); Carbon Dioxide 24 mmol/L (22-30); Chloride 97 mmol/L (98-107); Glucose 108 mg/dL (74-99); Magnesium 2.1 mg/dL (1.6-2.3); Non-African American GFR(CKD) >90 (>60 ml/min/1.73 sqM); Potassium 3.4 mmol/L (3.5-5.1); Sodium 130 mmol/L (137-145); Total Bilirubin 0.9 mg/dL (0.2-1.3); Total Protein 6.1 g/dL (6.3-8.2)
[2021-02-20] MEDS ORDERED: POTASSIUM CHLORIDE ER 20 MEQ TAB.ER PO STA (14:58)
[2021-02-20] MEDS ORDERED: ONDANSETRON 4 MG/2 ML VIAL IVP PRN (15:00)
[2021-02-20] MEDS ORDERED: NALOXONE 0.4 MG/ML 1 ML VIAL IV PRN (15:00)
[2021-02-20 15:26] LABS: Erythrocyte Sedimentation Rate 15 mm/hr (0-15)
[2021-02-20] MEDS ORDERED: DEXAMETHASONE SOD PHOSPHATE 10 MG/ML 1 ML VIAL IV STA (15:42)
[2021-02-20] MEDS: SODIUM CHLORIDE 0.9% 1,000 ML IV SCH (15:43)
--- NOTE | 2021-02-20 15:53 | P.HPIM ---
History of Present Illness This is a pleasant 20 years old male with past medical history of hx pain lower back radiating to left side, status post Sleeve Gastrectomy 07-24-20 and recent cholecystectomy. Patient information was that with the help of his mother at bedside Patient says who presents because of numbness and weakness in both lower extremity more on the right than the left. Is not suppressed from the back of his hip and buttock down to the middle of the right and similarly on the left leg but less extent patient has been complaining of from progressive weakness more on the right leg over the last week. Patient denies any back pain. No recent history of chronic cold or gastroenteritis. He has history of significant back pain and sciatic That he had MRI of the back down on 07/2020 at [facility]. Followed by a visit to the pain clinic where he got 3 shots in his low back. And apparently he does not complain from any back pain or neck pain or headache. No weakness or numbness in the upper extremity, no slurred speech or blurred vision He denies chest pain or abdominal pain, no coughing or dyspnea. No diarrhea but is improving from constipation Decreased frequency of urination he had only once in the last 24 hours which wa kes him up in the middle of last night, compared to usual frequency of 4-7 times per mother at bedside Patient had recent surgery for laparoscopic cholecystectomy on 02/08. He denies smoking, alcohol or illicit tracts On admission his tachycardic of 123, rest of vitals are stable Has mild leukocytosis of 15.2 K, sodium is moderately low at 1:30, potassium 3.4, creatinine normal 0.6, liver enzymes mildly elevated. Total bilirubin is normal at 0.9. CT of the lumbar spine, normal findings Normal CT of the brain On admission and received IV fluids, he was admitted with neurology and surgery team consults Review of Systems CONSTITUTIONAL: No fever, no malaise, no fatigue. HEENT: No recent visual problems or hearing problems. Denied any sore throat. CARDIOVASCULAR: No orthopnea, PND, no palpitations, no syncope. PULMONARY: No shortness of breath, no cough, no hemoptysis. GASTROINTESTINAL: No diarrhea, no nausea, no vomiting, no abdominal pain. Normoactive bowel sounds. NEUROLOGICAL: No headaches, no weakness, no numbness. HEMATOLOGICAL: Denies any bleeding or petechiae. GENITOURINARY: Denies any burning micturition, frequency, or urgency. MUSCULOSKELETAL/RHEUMATOLOGICAL: Denies any joint pain, swelling, or any muscle pain. ENDOCRINE: Denies any polyuria or polydipsia. Past Medical History Past Medical History: No Reported History Additional Past Medical History / Comment(s): nausea/vomiting,gas pain and pressure,hx pain lower back radiating to left side History of Any Multi-Drug Resistant Organisms: None Reported Past Surgical History: Cholecystectomy Additional Past Surgical History / Comment(s): rt knee meniscectomy, wisdom teeth, PAIN CLINIC PROCEDURE, Sleeve Gastrectomy 07-24-20 Past Anesthesia/Blood Transfusion Reactions: Family History of Problems w/ Anesthesia Additional Past Anesthesia/Blood Transfusion Reaction / Comment(s): mother-PONV Past Psychological History: Depression Smoking Status: Former smoker Past Alcohol Use History: None Reported Past Drug Use History: Marijuana - Past Family History Mother Family Medical History: No Reported History Medications and Allergies Home Medications Medication Instructions Recorded Confirmed Type Bariatric Multivitamin 1 tab PO QID 02/05/21 02/20/21 History Omeprazole [PriLOSEC] 40 mg PO DAILY 02/05/21 02/20/21 History Ibuprofen [Motrin] 600 mg PO Q8H PRN 02/20/21 02/20/21 History predniSONE 10 mg PO TID 02/20/21 02/20/21 History Allergies Allergy/AdvReac Type Severity Reaction Status Date / Time No Known Allergies Allergy Verified 02/20/21 11:24 Physical Exam Vitals: Vital Signs Temp Pulse Resp BP Pulse Ox 02/20/21 10:27 97.8 F 123 H 20 122/71 97 Intake and Output 02/20/21 02/20/21 02/20/21 06:59 14:59 22:59 Other: Weight 136.078 kg GENERAL: The patient is alert and oriented x3, not in any acute distress. Well developed, well nourished. HEENT: Pupils are round and equally reacting to light. EOMI. No scleral icterus. No conjunctival pallor. Normocephalic, atraumatic. No pharyngeal erythema. No thyromegaly. CARDIOVASCULAR: S1 and S2 present. No murmurs, rubs, or gallops. PULMONARY: Chest is clear to auscultation, no wheezing or crackles. ABDOMEN: Soft, nontender, nondistended, normoactive bowel sounds. No palpable organomegaly. MUSCULOSKELETAL: No joint swelling or deformity. EXTREMITIES: No cyanosis, clubbing, or pedal edema. NEUROLOGICAL: Gross neurological examination did not reveal any focal deficits. Weakness especially of the extensor thighs and legs and feet, more on the right side than left side. No sensory deficit SKIN: No rashes. No petechiae Results CBC & Chem 7: 02/20/21 11:22 02/20/21 11:22 Labs: Abnormal Lab Results - Last 24 Hours (Table) 02/20/21 02/20/21 Range/Units 11:22 11:22 WBC 15.2 H (3.8-10.6) k/uL Neutrophils # 10.7 H (1.3-7.7) k/uL Sodium 130 L (137-145) mmol/L Potassium 3.4 L (3.5-5.1) mmol/L Chloride 97 L (98-107) mmol/L Creatinine 0.60 L (0.66-1.25) mg/dL Glucose 108 H (74-99) mg/dL AST 68 H (17-59) U/L ALT 79 H (4-49) U/L C-Reactive Protein 1.2 H (<1.0) mg/dL Total Protein 6.1 L (6.3-8.2) g/dL Assessment and Plan Assessment: Bilateral lower extremity weakness and numbness, more on the right side. Leukocytosis Mildly elevated liver enzymes Hyponatremia Chronic low back pain radiating to the left side History of sleeve gastrectomy Recent history of cholecystectomy Plan: This is a pleasant 20 years old male who presents with bilateral lower extremity weakness and numbness. Start on IV dexamethasone Stat lumbar MRI . Consult neurology service from emergency room already consult spine orthopedic team consult with surgery from emergency room . We'll order a liver ultrasound in view of the elevated liver enzymes and recent cholecystectomy Labs and medication were reviewed.. Continue same treatment. Continue with symptomatic treatment. Resume home medication. Monitor lytes and vitals. DVT and GI prophylaxis. Further recommendations depends on the clinical course of the patient PT/OT: Pending Prognosis is guarded
[2021-02-20] MEDS ORDERED: LORazepam 2 MG/ML INJ IV STA (16:20)
--- NOTE | 2021-02-20 16:35 | P.CNOR ---
History of Present Illness - [facility] Consult date: 02/20/21 Requesting physician: Shalom E Bran Consult reason: other (Bilateral lower extremity weakness) History of present illness: Patient is a very pleasant 20-year-old male who is seen and examined the bedside with his mother present. He has a history of recent lap binh performed by Dr. Benavides on 02/08/2021. He has not had any specific difficulty following the surgical intervention. Over the past week since last 02/13/2021, he has began to experience significant weakness in his bilateral lower extremities. He states he took a nap without difficulty and woke up with lower extremity weakness. He was previously ambulating without assistance and without difficu lty. He states his legs feel weak and heavy. He is currently unable to stand on the bilateral lower extremities due to his weakness. He states his symptoms have significant worsening since this past Thursday. Since that time he has also had decreased urination. He has been urinating approximately once every 24 hour period. He states he does feel he has the sensation to urinate but has signific ant difficulty doing so. He has not had a bowel movement since Thursday. He states his last bowel movement did feel normal for him. It is unusual for him to go multiple days without a bowel movement. He is unable to determine if he has any specific saddle anesthesia. He is not currently experiencing any low back pain or lower extremity radiculopathy bilaterally. He denies any injuries. He previously had MRI imaging taken at [facility] in July 2020. He did follow with pain management and underwent injections at that time. The MRI report does not indicate significant herniation or stenosis throughout his lumbar spine. He also had lumbar CT imaging during his presentation to the emergency department without significant findings. He states prior to this exacerbation of his symptoms he had no difficulty with his bilateral lower extremities, with urination, or with having a bowel movement. Patient is being seen and examined by medicine. Stat MRI imaging of his lumbar spine has been ordered. Patient is also planning for bladder scan as well as liver ultrasound this patient does have some elevated liver enzymes. Past Medical History Past Medical History: No Reported History Additional Past Medical History / Comment(s): nausea/vomiting,gas pain and pressure,hx pain lower back radiating to left side History of Any Multi-Drug Resistant Organisms: None Reported Past Surgical History: Cholecystectomy Additional Past Surgical History / Comment(s): rt knee meniscectomy, wisdom teeth, PAIN CLINIC PROCEDURE, Sleeve Gastrectomy 3-07-15 Past Anesthesia/Blood Transfusion Reactions: Family History of Problems w/ Anesthesia Additional Past Anesthesia/Blood Transfusion Reaction / Comm: mother-PONV Past Psychological History: Depression Smoking Status: Former smoker Past Alcohol Use History: None Reported Past Drug Use History: Marijuana - Past Family History Mother Family Medical History: No Reported History Medications and Allergies Home Medications Medication Instructions Recorded Confirmed Type Bariatric Multivitamin 1 tab PO QID 02/05/21 02/20/21 History Omeprazole [PriLOSEC] 40 mg PO DAILY 02/05/21 02/20/21 History Ibuprofen [Motrin] 600 mg PO Q8H PRN 02/20/21 02/20/21 History predniSONE 10 mg PO TID 02/20/21 02/20/21 History Allergies Allergy/AdvReac Type Severity Reaction Status Date / Time No Known Allergies Allergy Verified 02/20/21 11:24 Physical Examination Physical exam: Patient is awake, alert, and oriented 3 Vital signs stable Good chest excursion with deep inspiration and expiration Examination of lumbar spine reveals skin is intact with no abrasions, lacerations, or bruises; no erythema, purulence or signs of infection No pain with palpation along the thoracolumbar spine Patient has significant difficulty with dorsiflexion of the bilateral lower extremities Patient is able to perform plantarflexion bilaterally without significant difficulty Patient is able to perform extensor hallucis longus bilaterally but with weakness Patient is able to perform knee flexion bilaterally Patient does have difficulty lifting legs off the bed independently Patellar reflex 2+ bilaterally and Achilles reflexes 0+ bilaterally No lower extremity hyperreflexia bilaterally Straight leg test negative bilateral lower extremities Negative Lasegue's test bilaterally No signs or symptoms of DVT; no calf pain No pain with internal and external rotation of the hips bilaterally Neurologically intact Results Pertinent studies: CT of the lumbar spine taken on 02/20/2021: Normal CT of the lumbar spine; overall alignment is adequately maintained; no spondylolisthesis; no significant Disc disease; no obvious herniated nucleus pulposus; no vertebral body compression fracture - Labs Labs: Abnormal Lab Results - Last 24 Hours (Table) 02/20/21 02/20/21 Range/Units 11:22 11:22 WBC 15.2 H (3.8-10.6) k/uL Neutrophils # 10.7 H (1.3-7.7) k/uL Sodium 130 L (137-145) mmol/L Potassium 3.4 L (3.5-5.1) mmol/L Chloride 97 L (98-107) mmol/L Creatinine 0.60 L (0.66-1.25) mg/dL Glucose 108 H (74-99) mg/dL AST 68 H (17-59) U/L ALT 79 H (4-49) U/L C-Reactive Protein 1.2 H (<1.0) mg/dL Total Protein 6.1 L (6.3-8.2) g/dL H & H 02/20/21 Range/Units 11:22 Hgb 14.0 (13.0-17.5) gm/dL Hct 41.8 (39.0-53.0) % Result Diagrams: 02/20/21 11:22 02/20/21 11:22 Assessment and Plan Assessment: Assessment: Bilateral lower extremity weakness Inability to ambulate on lower extremities due to weakness History of recent lap binh performed on 02/08/2021 Elevated liver enzymes Difficulty with urination No bowel movement since 02/17/2021 History of low back pain and lower extremity radiculopathy not currently present Morbid obesity (1) Weakness of both lower extremities Current Visit: Yes Status: Acute Code(s): R29.898 - OTH SYMPTOMS AND SIGNS INVOLVING THE MUSCULOSKELETAL SYSTEM SNOMED Code(s): 9871962 (2) History of low back pain Current Visit: Yes Status: Acute Code(s): Z87.39 - PERSONAL HISTORY OF DI SEASES OF THE MS SYS AND CONN TISS SNOMED Code(s): 668498387 (3) Elevated liver enzymes Current Visit: Yes Status: Acute Code(s): R74.8 - ABNORMAL LEVELS OF OTHER SERUM ENZYMES SNOMED Code(s): 239268523 (4) Difficulty in urination Current Visit: Yes Status: Acute Code(s): R39.198 - OTHER DIFFICULTIES WITH MICTURITION SNOMED Code(s): 015025528 (5) Morbid obesity Current Visit: Yes Status: Acute Code(s): E66.01 - MORBID (SEVERE) OBESITY DUE TO EXCESS CALORIES SNOMED Code(s): 014737262 (6) Status post cholecystectomy Current Visit: Yes Status: Acute Code(s): Z90.49 - ACQUIRED ABSENCE OF OTHER SPECIFIED PARTS OF DIGESTIVE TRACT SNOMED Code(s): 652171322 Plan: Plan: 1. Rasheed has been experiencing worsening weakness of the bilateral lower extremities over the past week without injury. He is not currently experiencing any low back pain or lower extremity radiculopathy. He is currently unable to ambulate due to bilateral lower extremity weakness. Initially he was still able to ambulate with the assistance of a walker. He does have significant weakness of the lower extremities most significantly with dorsiflexion bilaterally. He has had increased difficulty with urination and is currently voiding approximately one time every 24 hour period. He also normally has regular bowel movements but has not had a bowel movement since this past Thursday. He is unsure if he has any significant saddle anesthesia. Lumbar CT imaging taken during his admission to the emergency department does not show any significant findings. Patient also recently had lumbar MRI imaging in July 2020 without significant findings at that time. Patient is being seen by medicine who has ordered stat lumbar MRI imaging. Patient is currently being taken for his MRI imaging. We discussed we'll plan to review his lumbar MRI imaging following completion of the MRI. 2. Patient is currently waiting for consultation with neurology. 3. Patient currently waiting for follow evaluation with Dr. Benavides in general surgery following his recent lap binh. 4. Patient will continue be seen and examined by Dr. Sotomayor in medicine. Giovanna grigsby is currently planning for bladder scan as well as liver ultrasound testing. Time with Patient: Greater than 30 (Including obtaining history, physical examination, reviewing of imaging, and dictation.)
--- NOTE | 2021-02-20 17:52 | MR ---
EXAMINATION TYPE: MR lumbar spine wo con DATE OF EXAM: 02/20/2021 COMPARISON: 08/06/2019 HISTORY: Bilateral Leg weakness over the last week. Multiplanar multiecho imaging of the lumbar spine without contrast. Lumbar vertebra have normal spacing and alignment. Posterior elements are intact. Neural foramina are widely patent. There is no lumbar paraspinal mass. There is no compression fracture. Posterior eleme nts are intact. Lumbar nerve roots appear normal. There is a mild posterior central L5-S1 lumbar disc herniation without significant impingement on the spinal canal. There is developmentally adequate ca nal. IMPRESSION: There is L5-S1 lumbar disc herniation in the midline which appears slightly smaller than the last exa m. No spinal stenosis. No fracture.
[2021-02-20 18:00] LABS: Glucose,Whole Blood 102 mg/dL (75-99)
[2021-02-20] MEDS: INSULIN ASPART (NovoLOG) 100 UNIT/ML VIAL SQ SCH ×2 (18:23→22:30)
[2021-02-20 21:07] LABS: Glucose,Whole Blood 121 mg/dL (75-99)
[2021-02-20] MEDS ORDERED: MELATONIN 5 MG TABLET PO PRN (21:12)
[2021-02-20 21:17] LABS: Appearance,Urine Clear (Clear); Bilirubin,Urine 2+ (Negative); Blood,Urine Negative (Negative); Color,Urine Dark Brown; Glucose,Urine (UA) Negative (Negative); Ketones,Urine Negative (Negative); Leukocyte Esterase,Urine Negative (Negative); Mucus,Urine Rare /hpf; Nitrite,Urine Positive (Negative); Protein,Urine Negative (Negative); RBC,Urine 2 /hpf (0-5); Specific Gravity,Urine 1.015 (1.001-1.035); Squamous Epithelial Cell,Urine 2 /hpf (0-4); WBC,Urine 2 /hpf (0-5)
[2021-02-20] MEDS ORDERED: TEMAZEPAM 15 MG CAP PO PRN (21:40)
[2021-02-20] MEDS: FAMOTIDINE 20 MG/2 ML VIAL IV SCH (22:53)
[2021-02-20] MEDS: DEXAMETHASONE SOD PHOSPHATE 4 MG/ML 1 ML VIAL IV SCH (22:53)
[2021-02-21] MEDS: SODIUM CHLORIDE 0.9% 1,000 ML IV SCH ×2 (03:59→17:19)
[2021-02-21] MEDS: DEXAMETHASONE SOD PHOSPHATE 4 MG/ML 1 ML VIAL IV SCH ×2 (03:59→07:44)
[2021-02-21] MEDS: HYDROcodone/APAP 5-325MG 1 EACH TAB PO PRN ×3 (04:03→21:39)
[2021-02-21 07:01] LABS: Glucose,Whole Blood 118 mg/dL (75-99)
[2021-02-21] MEDS: INSULIN ASPART (NovoLOG) 100 UNIT/ML VIAL SQ SCH ×4 (07:10→20:36)
[2021-02-21] MEDS: FAMOTIDINE 20 MG/2 ML VIAL IV SCH ×2 (07:44→20:37)
[2021-02-21 08:37] LABS: ALT 80 U/L (4-49); AST 62 U/L (17-59); African American GFR (CKD) >90 (>60 ml/min/1.73 sqM); Albumin 3.6 g/dL (3.5-5.0); Albumin/Globulin Ratio 1.3; Alkaline Phosphatase 49 U/L (38-126); Anion Gap 11 mmol/L; Blood Urea Nitrogen 16 mg/dL (9-20); Calcium 9.3 mg/dL (8.4-10.2); Carbon Dioxide 20 mmol/L (22-30); Chloride 99 mmol/L (98-107); Globulin 2.7 g/dL; Glucose 121 mg/dL (74-99); Magnesium 2.1 mg/dL (1.6-2.3); Non-African American GFR(CKD) >90 (>60 ml/min/1.73 sqM); Potassium 4.8 mmol/L (3.5-5.1); Sodium 130 mmol/L (137-145); Total Bilirubin 0.7 mg/dL (0.2-1.3); Total Protein 6.3 g/dL (6.3-8.2)
--- NOTE | 2021-02-21 09:08 | P.CNNES ---
History of Present Illness Consult date: 02/21/21 Requesting physician: Rico Tate Reason for Consult: leg weakness History of Present Illness: This is a 20-year-old gentleman with history of low back pain since 2019 and getting pain injection (last one year ago), gastrectomy sleeve on 07/2020 and recent history of lap cholecystectomy on 02/08/2021 who presented to the emergency department because of the bilateral lower extremity weakness. Patient stated that his symptoms began about in the middle of December when he had the tingling in the his feet and soreness in his feet then he felt like it was getting worse. He stated about 2 weeks ago he started having the entire numbness of the right leg and numbness over the medial left leg and was also having weakness of both legs. Patient stated that he is retaining urine as well as a not having bowel movement is often. She denies of any lower back pain currently. He denies of any fever, or any upper respiratory or GI prior to his symptoms. He denies of any rash or any recent travels. He stated that he had EMG with nerve conduction study of the lower extremities over an orthopedic Center about 2 weeks ago and that he was notified that was normal. He denies any similar presentation in the past. He denies off on upper extremity weakness or numbness, any visual disturbance, diplopia, difficulty swallowing, difficulty getting his words out. Of note patient has history of lower back pain that radiates to the hips as since 2018 and he's been getting the pain injection in the last pain injection was about a year ago. As stated earlier he denies of any lower back pain. Per medical records, Patient had MRI images at [facility] July [facility] and had pain injections to his lower back. The MRI at outside facilities reported as no indicated significant herniation or stenosis throug hout the lumbar spine. Some other workup in our facility consisted of: Initial vital signs is blood pressure 122/71, heart rate of 123, respiratory of 20, temperature of 97.8 Fahrenheit oral, and the pulse ox of 97% room air. Initial white blood cell is 15.2 and predominate neutrophilic. Chemistry panel is sodium was 130, potassium 3.4, creatinine is 0.6, glucose is 108, calcium is 9.0, magnesium 2.1, AST of 68, ALTs 79, Creatinine kinase is 316 (normal is 55-170). ESR is 15. CRP is the 1.2. TSH is 1.8908 which is within normal limits. urine analysis negative for urinary tract infection. CT of the brain is reported as normal CT brain. MRI of lumbar spine w/o is reported as there is L5-S1 lumbar disc herniation in the midline which appears slightly smaller than the last exam. No spinal stenosis. No fracture. Review of Systems Review of system: The 12 point system was reviewed and apparent positive and negative per HPI. Past Medical History Past Medical History: No Reported History Additional Past Medical History / Comment(s): nausea/vomiting,gas pain and pressure,hx pain lower back radiating to left side History of Any Multi-Drug Resistant Organisms: None Reported Past Surgical History: Cholecystectomy Additional Past Surgical History / Comment(s): rt knee meniscectomy, wisdom teeth, PAIN CLINIC PROCEDURE, Sleeve Gastrectomy 07-24-20 Past Anesthesia/Blood Transfusion Reactions: Family History of Problems w/ Anesthesia Additional Past Anesthesia/Blood Transfusion Reaction / Comment(s): mother-PONV Past Psychological History: Depression Smoking Status: Former smoker Past Alcohol Use History: None Reported Past Drug Use History: Marijuana - Past Family History Mother Family Medical History: No Reported History Medications and Allergies Home Medications Medication Instructions Recorded Confirmed Type Bariatric Multivitamin 1 tab PO QID 02/05/21 02/20/21 History Omeprazole [PriLOSEC] 40 mg PO DAILY 02/05/21 02/20/21 History Ibuprofen [Motrin] 600 mg PO Q8H PRN 02/20/21 02/20/21 History predniSONE 10 mg PO TID 02/20/21 02/20/21 History Allergies Allergy/AdvReac Type Severity Reaction Status Date / Time No Known Allergies Allergy Verified 02/20/21 11:24 Physical Examination - Vital Signs Vital Signs: Vital Signs Temp Pulse Pulse Resp BP BP Pulse Ox 02/21/21 02:35 99.0 F 124 H 15 152/84 93 L 02/20/21 20:00 97.7 F 119 H 14 124/77 94 L 02/20/21 19:15 16 02/20/21 15:41 97.8 F 114 H 16 122/69 99 02/20/21 10:27 97.8 F 123 H 20 122/71 97 Intake and Output 02/20/21 02/21/21 02/21/21 22:59 06:59 14:59 Output Total 1100 0 Balance -1100 0 Output: Urine 1100 0 Straight 1100 Other: Weight 136.078 kg GENERAL: The patient is a morbid obese young gentleman lying in bed and is not in acute distress. CHEST: The heart rate is regular rate rhythm. No murmurs to auscultation. No carotid bruit bilaterally. LUNG: Clear to auscultation bilaterally no wheezing noted throughout. Not labored breathing. ABDOMEN/GI: Bowel sounds present in all 4 quadrants. No tenderness to palpation throughout. NEUROLOGICAL: Higher mental function: The patient is awake, alert, oriented to self, place and time. Patient is following commands. No aphasia and no neglect. Cranial nerves: The pupils are round, equal and reactive to light and accommodation. Visual fine are full to confrontation throughout. Extraocular movement is intact no nystagmus is noted. Facial sensation is normal to touch throughout. The facial strength is normal throughout. Hearing is normal bilaterally to hand rub. Tongue is midline and moved [id number] without any difficulty. No dysarthria is noted. Shoulder shrug is normal bilaterally. Motor: Gait is deferred because he is unable to cooperate because of his weakness. The strength is left elbow extension is 4+ to 5-. Bilateral hips are 4, knee extension 0 bilaterally, ankle plantar flexion are 3-4 while right ankle dorsiflexion is 0 and left is 2. Has antigravity for toe movement. Otherwise rest of uppers are 5/5. Decrease tone in lowers and normal in uppers. Normal bulk. Cerebellum: Normal finger to nose and could not assess lowersbilaterally. Sensation: Sensation is normal to touch throughout. Reflexes (right/left): 2+ brachioradilis bilaterally. Otherwise rest are 0 throughout. Plantars are mute bilaterally. Results - Laboratory Findings CBC and BMP: 02/20/21 11:22 02/21/21 06:40 Abnormal Lab Findings: Abnormal Labs 02/20/21 02/20/21 02/20/21 10:58 11:22 11:22 WBC 15.2 H Neutrophils # 10.7 H Sodium 130 L Potassium 3.4 L Chloride 97 L Creatinine 0.60 L Glucose 108 H POC Glucose (mg/dL) AST 68 H ALT 79 H Creatine Kinase C-Reactive Protein 1.2 H Total Protein 6.1 L Urine Bilirubin 2+ H Urine Mucus Rare H 02/20/21 02/20/21 02/20/21 11:22 17:59 21:05 WBC Neutrophils # Sodium Potassium Chloride Creatinine Glucose POC Glucose (mg/dL) 102 H 121 H AST ALT Creatine Kinase 316 H C-Reactive Protein Total Protein Urine Bilirubin Urine Mucus 02/21/21 06:59 WBC Neutrophils # Sodium Potassium Chloride Creatinine Glucose POC Glucose (mg/dL) 118 H AST ALT Creatine Kinase C-Reactive Protein Total Protein Urine Bilirubin Urine Mucus Assessment and Plan Assessment: * His predominate lower extremity weakness and paresthesia (On examination he leon s some weakness over left upper extremity, bilateral lower extremity and absent reflexes throughout): 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 * Electrolyte imbalance with mild hyponatremia, minimal hypokalemia * Mild transaminitis * History of recent lap closeectomy on 02/08/2021 * gastrectomy sleeve on 07/2020 * Morbid obesity Plan: * I ordered MRI of the brain and the cervical spine w/ and w/o. If negative I will pursue with lumbar puncture stat. * Ordered hemoglobin A1c, vitamin b12, folate level. * After the basic workup the patient needs to be transferred to a tertiary Center for EMG with nerve conduction study of upper and lower extremity (predominately lower extremity). Patient had EMG with nerve conduction study of the lower about 2 weeks ago and was reported as normal. I feel like that there should be some findings suggestive of polyneuropathy. * The primary team started the patient on dexamethasone 4 mg every 6 hours and I would recommend for that to be stopped. * Orthopedic team is on board * Consulted physical therapy and occupation therapy * We'll defer the rest of the medical management to primary team. The plan is discussed with the Orthopedic team and his nurse. Thank you for the consultation. Justin Blanca MD Neuro-Hospitalist Time with Patient: Greater than 30
--- NOTE | 2021-02-21 09:11 | P.CNOR ---
History of Present Illness - HPI Consult date: 02/21/21 Consult reason: other History of present illness: The patient is a pleasant 20-year-old male who was seen and examined at bedside today I was able see him in conjunction with Dr. Blanca with neurology and we're able to discuss the case as well. The patient has been having issues with his strength in his lower extremities over the past couple of months since December. He says that in 2019 he had some low back pain and right lower extremity issues and had undergone some treatment for that in regards to pain management and interventional pain management. He says his current issues are quite different than that from 2019. He says in December he started to have weakness in his bilateral feet. That progressed and essentially he noticed significant changes and weakness in his thighs. He was having numbness in his thighs and significant weakness approximately 2-4 weeks ago. He says it been very difficult for him to move around and has been using a walker over the past several weeks. He says that he had some GI issues and was seen with Dr. Rosa Benavides and underwent cholecystectomy within the last 2 weeks. He denies any history of neurologic problems or neurology problems in his family. He denies any recent travel. He denies any other recent illness. Denies any fevers chills. Last night he was unable to urinate and he had a straight cath which revealed 1100 mL urine. This morning he was able to urinate on his own and he felt as though he emptied his bladder with 500 mL of urine. He denies any specific injury or trauma. He denies any changes in his speech her his vision. He is noticing some changes in his upper extremity is particularly on the left side with some weakness. Review of Systems As stated per HPI. Denies any fevers chills night sweats. He admits to progressive weakness in his lower extremities and some new weakness is starting in his left upper extremity. He admits to some urinary retention as well. Denies any new back pain. 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 Past Anesthesia/Blood Transfusion Reactions: Family History of Problems w/ Anesthesia Additional Past Anesthesia/Blood Transfusion Reaction / Comm: mother-PONV Past Psychological History: Depression Smoking Status: Former smoker Past Alcohol Use History: None Reported Past Drug Use History: Marijuana - Past Family History Mother Family Medical History: No Reported History Medications and Allergies Home Medications Medication Instructions Recorded Confirmed Type Bariatric Multivitamin 1 tab PO QID 02/05/21 02/20/21 History Omeprazole [PriLOSEC] 40 mg PO DAILY 02/05/21 02/20/21 History Ibuprofen [Motrin] 600 mg PO Q8H PRN 02/20/21 02/20/21 History predniSONE 10 mg PO TID 02/20/21 02/20/21 History Allergies Allergy/AdvReac Type Severity Reaction Status Date / Time No Known Allergies Allergy Verified 02/20/21 11:24 Physical Examination Osteopathic Statement: *. No significant issues noted on an osteopathic structural exam other than those noted in the History and Physical/Consult. - C Spine: dermatomal strength & reflexes left Shoulder strength: adduction: 4/5 (And his left upper extremity he has some weakness over his left triceps. His good security control room officer strength. He has some diminished reflex at his left biceps and triceps) - L Spine: dermatomal strength & reflexes bilateral Strength: knee extension: 2/5 (Bilateral knee extension is 2 out of 5. His severe weakness at his left quadriceps bilaterally. He has weakness with dorsiflexion at about 2 out of 5 as well bilaterally. No clonus) Strength: ankle plantar flexion: 4/5 (Some global weakness with plantar flexion. He is unable to lift his legs up off the bed independently. He is able to flex his knees but with global weakness.) Results - Labs Labs: Abnormal Lab Results - Last 24 Hours (Table) 02/20/21 02/20/21 02/20/21 Range/Units 10:58 11:22 11:22 WBC 15.2 H (3.8-10.6) k/uL Neutrophils # 10.7 H (1.3-7.7) k/uL APTT (22.0-30.0) sec Sodium 130 L (137-145) mmol/L Potassium 3.4 L (3.5-5.1) mmol/L Chloride 97 L (98-107) mmol/L Carbon Dioxide (22-30) mmol/L Creatinine 0.60 L (0.66-1.25) mg/dL Glucose 108 H (74-99) mg/dL POC Glucose (mg/dL) (75-99) mg/dL AST 68 H (17-59) U/L ALT 79 H (4-49) U/L Creatine Kinase (55-170) U/L C-Reactive Protein 1.2 H (<1.0) mg/dL Total Protein 6.1 L (6.3-8.2) g/dL Urine Bilirubin 2+ H (Negative) Urine Mucus Rare H (None) /hpf 02/20/21 02/20/21 02/20/21 Range/Units 11:22 17:59 21:05 WBC (3.8-10.6) k/uL Neutrophils # (1.3-7.7) k/uL APTT (22.0-30.0) sec Sodium (137-145) mmol/L Potassium (3.5-5.1) mmol/L Chloride (98-107) mmol/L Carbon Dioxide (22-30) mmol/L Creatinine (0.66-1.25) mg/dL Glucose (74-99) mg/dL POC Glucose (mg/dL) 102 H 121 H (75-99) mg/dL AST (17-59) U/L ALT (4-49) U/L Creatine Kinase 316 H (55-170) U/L C-Reactive Protein (<1.0) mg/dL Total Protein (6.3-8.2) g/dL Urine Bilirubin (Negative) Urine Mucus (None) /hpf 02/21/21 02/21/21 02/21/21 Range/Units 06:40 06:40 06:59 WBC (3.8-10.6) k/uL Neutrophils # (1.3-7.7) k/uL APTT 21.8 L (22.0-30.0) sec Sodium 130 L (137-145) mmol/L Potassium (3.5-5.1) mmol/L Chloride (98-107) mmol/L Carbon Dioxide 20 L (22-30) mmol/L Creatinine 0.55 L (0.66-1.25) mg/dL Glucose 121 H (74-99) mg/dL POC Glucose (mg/dL) 118 H (75-99) mg/dL AST 62 H (17-59) U/L ALT 80 H (4-49) U/L Creatine Kinase (55-170) U/L C-Reactive Protein (<1.0) mg/dL Total Protein (6.3-8.2) g/dL Urine Bilirubin (Negative) Urine Mucus (None) /hpf H & H 02/20/21 Range/Units 11:22 Hgb 14.0 (13.0-17.5) gm/dL Hct 41.8 (39.0-53.0) % Result Diagrams: 02/20/21 11:22 02/21/21 06:40 - Diagnostic results Lumbar MRI with contrast: report reviewed (Lumbar MRI was performed without contrast. He shows a central disc herniation L5-S1 with some mild foraminal encroachment. This does not correlate well with his findings on exam. There is no obvious mass or changes at the bony structures), image reviewed Assessment and Plan Assessment: Progressive ascending weakness bilateral lower extremities without significant pain New left upper extremity weakness Urinary retention History of L5-S1 disc herniation which is unchanged and does not correlate well with his new findings Recent cholecystectomy Plan: Progressive ascending weakness bilateral lower extremities without significant pain New left upper extremity weakness Urinary retention History of L5-S1 disc herniation which is unchanged and does not correlate well with his new findings Recent cholecystectomy The patient's lumbar spine findings do not correlate well with his lower extremity issues. I do not think that he is a surgical candidate for his spine. The patient has significant neurologic issues with ascending painless weakness in his lower extremities with some weakness at his upper extremity as well. I was able to see the patient with neurology and discuss case with him. He is scheduled for a MRI of his cervical spine and brain today and I think that is appropriate. We also discussed the need for a lumbar puncture and I think that is reasonable. We need to rule out demyelinating disease for the patient. Apparently the patient had a normal EMG in the past but new EMG needs to be performed given his neurologic function currently. This is a service that we do not offer here at this hospital. With the patient's neurologic changes he may need significant resource for continued neurologic workup. Some of these resources may not be available in our hospital and transfer to a tertiary care facility may be necessary for complete workup and treatment. I discussed this with neurology service and they are considering the option of transfer as well I do not plan any surgical intervention in regards to his spine at this point and he should continue management as per neurology and medicine.
[2021-02-21] MEDS ORDERED: LORazepam 2 MG/ML INJ IV STA (09:35)
[2021-02-21 11:12] LABS: Basophils # (A) 0.01 X 10*3/uL (0.00-0.10); Basophils % (A) 0.1 %; Eosinophils # (A) 0 X 10*3/uL (0.04-0.35); Eosinophils % (A) 0 %; HCT 40.1 % (39.6-50.0); HGB 13.4 g/dL (13.0-17.0); Lymphocytes % (A) 9.1 %; MCH 28.9 pg (27.0-32.0); MCHC 33.4 g/dL (32.0-37.0); MCV 86.6 fL (80.0-97.0); Mean Platelet Volume 11.9 fL (9.5-12.2); Monocytes # (A) 0.26 X 10*3/uL (0.20-1.00); Neutrophils # (A) 11.64 X 10*3/uL (1.80-7.70); Neutrophils % (A) 88.1 %; Platelet Count 188 X 10*3/uL (140-440); RBC 4.63 X 10*6/uL (4.40-5.60); RDW 14.4 % (11.5-14.5)
[2021-02-21 11:22] LABS: Glucose,Whole Blood 123 mg/dL (75-99)
--- NOTE | 2021-02-21 11:41 | P.PN ---
Subjective This is a pleasant 20 years old male with past medical history of hx pain lower back radiating to left side, status post Sleeve Gastrectomy 07-24-20 and recent cholecystectomy. Patient information was that with the help of his mother at bedside Patient says who presents because of numbness and weakness in both lower extremity more on the right than the left. Is not suppressed from the back of his hip and buttock down to the middle of the right and similarly on the left leg but less extent patient has been complaining of from progressive weakness more on the right leg over the last week. Patient denies any back pain. No recent history of chronic cold or gastroenteritis. He has history of significant back pain and sciatic That he had MRI of the back down on 07/2020 at [facility]. Followed by a visit to the pain clinic where he got 3 shots in his low back. And apparently he does not complain from any back pain or neck pain or headache. No weakness or numbness in the upper extremity, no slurred speech or blurred vision He denies chest pain or abdominal pain, no coughing or dyspnea. No diarrhea but is improving from constipation Decreased frequency of urination he had only once in the last 24 hours which wakes him up in the middle of last night, compared to usual frequency of 4-7 times per mother at bedside Patient had recent surgery for laparoscopic cholecystectomy on 02/08. He denies smoking, alcohol or illicit tracts On admission his tachycardic of 123, rest of vitals are stable Has mild leukocytosis of 15.2 K, sodium is moderately low at 1:30, potassium 3.4, creatinine normal 0.6, liver enzymes mildly elevated. Total bilirubin is normal at 0.9. CT of the lumbar spine, normal findings Normal CT of the brain On admission and received IV fluids, he was admitted with neurology and surgery team consults 02/21/2021 Patient is fully awake and oriented, no pain or tenderness. There is still complains of a similar weakness of both lower extremities especially with dorsiflexion and extension of the legs more on the right side with some numbness. No sensory loss Vitals are stable, glucose controlled. Sodium is stable at 130. Liver enzymes still slightly elevated, potassium 4.8. Creatinine 0.5. CBC still pending MRI of the lumbar spine yesterday showing stable disc herniation of L5 to S1 or slightly smaller than before. This would not explain the patient's symptoms. Orthopedic and neurosurgical services on the case and they recommended MRI of the cervical spine and brain which is nontender results. Patient will probably need lumbar puncture and nerve conduction study/EMG per neurologist recommend ation Liver ultrasound is pending for recent cholecystectomy. Surgery team consulted Patient remains on normal saline at 75 mL/h. Dexamethasone was stopped per neurologist team recommendation Review of Systems CONSTITUTIONAL: No fever, no malaise, no fatigue. HEENT: No recent visual problems or hearing problems. Denied any sore throat. CARDIOVASCULAR: No orthopnea, PND, no palpitations, no syncope. PULMONARY: No shortness of breath, no cough, no hemoptysis. GASTROINTESTINAL: No diarrhea, no nausea, no vomiting, no abdominal pain. Normoactive bowel sounds. -NEUROLOGICAL: No headaches, no sensory loss. Positive for weakness and numbness As above Active Medications Generic Name Dose Route Start Last Admin Trade Name Freq PRN Reason Stop Dose Admin Hydrocodone Bitart/Acetaminophen 1 each 02/20/21 15:00 02/21/21 04:03 Hydrocodone/Apap 5-325mg 1 Each Tab PO 1 each Q4HR PRN Administration Moderate Pain Diphenhydramine HCl 25 mg 02/21/21 11:33 Diphenhydramine 25 Mg Cap PO HS PRN Insomnia Famotidine 20 mg 02/20/21 21:45 02/21/21 07:44 Famotidine 20 Mg/2 Ml Vial IV 20 mg Q12HR ALO Administration Sodium Chloride 1,000 mls @ 75 mls/hr 02/20/21 15:00 02/21/21 03:59 Saline 0.9% IV 75 mls/hr .[id number] ALO Administration Insulin Aspart 0 unit 02/20/21 17:30 02/21/21 11:20 Insulin Aspart (Novolog) 100 Unit/Ml Vial SQ Not Given ACHS ALO Protocol Naloxone HCl 0.2 mg 02/20/21 15:00 Naloxone 0.4 Mg/Ml 1 Ml Vial IV Q2M PRN Opioid Reversal Ondansetron HCl 4 mg 02/20/21 15:00 Ondansetron 4 Mg/2 Ml Vial IVP Q8HR PRN Nausea And Vomiting Objective - Vital Signs Vital signs: Vital Signs Temp 97.7 F 02/21/21 08:00 Pulse 117 H 09/30/21 08:00 Resp 18 02/21/21 08:00 BP 141/75 02/21/21 08:00 Pulse Ox 90 L 02/21/21 08:00 Intake & Output 02/20/21 02/21/21 02/21/21 18:59 06:59 18:59 Output Total 1100 500 Balance -1100 -500 Weight 136.078 kg Output: Urine 1100 500 Straight 1100 Other: Voiding Method Urinal - Exam GENERAL: The patient is alert and oriented x3, not in any acute distress. Well developed, well nourished. HEENT: Pupils are round and equally reacting to light. EOMI. No scleral icterus. No conjunctival pallor. Normocephalic, atraumatic. No pharyngeal erythema. No thyromegaly. CARDIOVASCULAR: S1 and S2 present. No murmurs, rubs, or gallops. PULMONARY: Chest is clear to auscultation, no wheezing or crackles. ABDOMEN: Soft, nontender, nondistended, normoactive bowel sounds. No palpable organomegaly. MUSCULOSKELETAL: No joint swelling or deformity. EXTREMITIES: No cyanosis, clubbing, or pedal edema. NEUROLOGICAL: Gross neurological examination did not reveal any focal deficits. Weakness especially of the extensor thighs and legs and feet, more on the right side than left side. No sensory deficit SKIN: No rashes. No petechiae - Labs CBC & Chem 7: 02/20/21 11:22 02/21/21 06:40 Labs: Abnormal Lab Results - Last 24 Hours (Table) 02/20/21 02/20/21 02/20/21 Range/Units 10:58 11:22 11:22 WBC 15.2 H (3.8-10.6) k/uL Neutrophils # 10.7 H (1.3-7.7) k/uL APTT (22.0-30.0) sec Sodium 130 L (137-145) mmol/L Potassium 3.4 L (3.5-5.1) mmol/L Chloride 97 L (98-107) mmol/L Carbon Dioxide (22-30) mmol/L Creatinine 0.60 L (0.66-1.25) mg/dL Glucose 108 H (74-99) mg/dL POC Glucose (mg/dL) (75-99) mg/dL AST 68 H (17-59) U/L ALT 79 H (4-49) U/L Creatine Kinase (55-170) U/L C-Reactive Protein 1.2 H (<1.0) mg/dL Total Protein 6.1 L (6.3-8.2) g/dL Urine Bilirubin 2+ H (Negative) Urine Mucus Rare H (None) /hpf 02/20/21 02/20/21 02/20/21 Range/Units 11:22 17:59 21:05 WBC (3.8-10.6) k/uL Neutrophils # (1.3-7.7) k/uL APTT (22.0-30.0) sec Sodium (137-145) mmol/L Potassium (3.5-5.1) mmol/L Chloride (98-107) mmol/L Carbon Dioxide (22-30) mmol/L Creatinine (0.66-1.25) mg/dL Glucose (74-99) mg/dL POC Glucose (mg/dL) 102 H 121 H (75-99) mg/dL AST (17-59) U/L ALT (4-49) U/L Creatine Kinase 316 H (55-170) U/L C-Reactive Protein (<1.0) mg/dL Total Protein (6.3-8.2) g/dL Urine Bilirubin (Negative) Urine Mucus (None) /hpf 02/21/21 02/21/21 02/21/21 Range/Units 06:40 06:40 06:59 WBC (3.8-10.6) k/uL Neutrophils # (1.3-7.7) k/uL APTT 21.8 L (22.0-30.0) sec Sodium 130 L (137-145) mmol/L Potassium (3.5-5.1) mmol/L Chloride (98-107) mmol/L Carbon Dioxide 20 L (22-30) mmol/L Creatinine 0.55 L (0.66-1.25) mg/dL Glucose 121 H (74-99) mg/dL POC Glucose (mg/dL) 118 H (75-99) mg/dL AST 62 H (17-59) U/L ALT 80 H (4-49) U/L Creatine Kinase (55-170) U/L C-Reactive Protein (<1.0) mg/dL Total Protein (6.3-8.2) g/dL Urine Bilirubin (Negative) Urine Mucus (None) /hpf 02/21/21 Range/Units 11:20 WBC (3.8-10.6) k/uL Neutrophils # (1.3-7.7) k/uL APTT (22.0-30.0) sec Sodium (137-145) mmol/L Potassium (3.5-5.1) mmol/L Chloride (98-107) mmol/L Carbon Dioxide (22-30) mmol/L Creatinine (0.66-1.25) mg/dL Glucose (74-99) mg/dL POC Glucose (mg/dL) 123 H (75-99) mg/dL AST (17-59) U/L ALT (4-49) U/L Creatine Kinase (55-170) U/L C-Reactive Protein (<1.0) mg/dL Total Protein (6.3-8.2) g/dL Urine Bilirubin (Negative) Urine Mucus (None) /hpf Assessment and Plan Assessment: Bilateral lower extremity weakness and numbness, more on the right side. Leukocytosis Mildly elevated liver enzymes Hyponatremia Chronic low back pain radiating to the left side History of sleeve gastrectomy Recent history of cholecystectomy Morbid obesity with BMI of 41.8 Plan: This is a pleasant 20 years old male who presents with bilateral lower extremity weakness and numbness. Discontinue dexamethasone Follow-up results of the brain and cervical MRI, patient will may need lumbar puncture and EMG/nerve conduction study which could be done at a tertiary care center after other workup was done Follow-up with recommendation by neurology and orthopedic team Surgery team consult. Liver ultrasound is pending consult with surgery from emergency room . We'll order a liver ultrasound in view of the elevated liver enzymes and recent cholecystectomy Labs and medication were reviewed.. Continue same treatment. Continue with symptomatic treatment. Resume home medication. Monitor lytes and vitals. DVT and GI prophylaxis. Further recommendations depends on the clinical course of the patient PT/OT: Pending DVT prophylaxis: Subcu heparin GI prophylaxis: Pepcid Prognosis is guarded
--- NOTE | 2021-02-21 12:10 | MR ---
EXAMINATION TYPE: MR brain/cspine wo/w DATE OF EXAM: 02/21/2021 COMPARISON: CT brain 02/20/2021 HISTORY: Bilateral Leg weakness over the last week TECHNIQUE: Multiplanar, multisequence images of the brain and brainstem, cervical spine is performed without and with IV contrast, utilizing 14 mL intravenous Gadavist . FINDINGS: Brain MRI: There is motion on the exam. Diffusion weighted images demonstrate no evidence of a recent infarct or other diffusion abnormality. There is no extra-axial fluid collection or significant white matter signal abnormality. The ventr icular system and cisternal spaces are normal in size and appearance. The brain volume is age approp riate. Midline structures demonstrate normal morphology. The craniocervical junction appears within normal limits. Post contrast images demonstrate no abnormal enhancement. The dural venous sinuses appear pa tent. The visualized sinuses are clear and the globes are intact. IMPRESSION: No significant abnormality evident. Cervical spine MRI: There is no significant spinal stenosis. Cervical vertebral bodies show preserve d height, alignment, and bone marrow signal. Disc spaces are maintained, there is no disc herniation or foraminal encroachment. Cervical cord signal is normal. No abnormal enhancement following contrast administration. IMPRESSION: Normal pre and post contrast cervical MRI
--- NOTE | 2021-02-21 12:45 | US ---
EXAMINATION TYPE: US liver DATE OF EXAM: 02/21/2021 COMPARISON: NONE CLINICAL HISTORY: Elevated liver enzymes, recent cholecystectomy. EXAM MEASUREMENTS: Liver Length: 16.1 cm Gallbladder Wall: Surgically absent CBD: Surgically absent Right Kidney: 9.4 x 5.0 x 5.3 cm Patient morbidly obese with severe overlying bowel gas, technically difficult, very limited study. Pancreas: Obscured by bowel gas Liver: very limited visualization, there is a coarse echotexture present Gallbladder: Surgically absent Evidence for sonographic Vazquez's sign: no CBD: Obscured by overlying bowel gas Right Kidney: wnl as seen, limited visualization IMPRESSION: Correlate for hepatic steatosis, hepatocellular disease. Limited exam
[2021-02-21] MEDS ORDERED: IV FLUID CONTINUATION 1,000 ML IV ONE ×2 (13:20)
[2021-02-21] MEDS ORDERED: fentaNYL (PF) 50 MCG/ML 2 ML AMP IVP ONE (13:38)
[2021-02-21] MEDS ORDERED: MIDAZOLAM 2 MG/2 ML VIAL IVP ONE (13:38)
--- NOTE | 2021-02-21 14:05 | P.PCN ---
Date of Procedure: 02/21/21 Procedure(s) Performed: Preoperative diagnosis: Demyelinating disease Post operative diagnoses: Demyelinating disease Procedure= lumbar puncture Anesthesia= moderate sedation with Versed 1 mg and fentanyl 50 g,and local infiltration with lidocaine 1% 3 mL. Condition: stable Complication: none. Description of the procedure procedure risk and benefits discussed with the patient and family, consent signed. Patient and the procedure area placed in sitting position , vital signs were monitored during the procedure , and sedation was given to decrease the patient's anxiety ,then the back prepped with chlorhexidine 3 times , local infiltration of the skin and subcutaneous tissue with lidocaine 1% 3 mL for skin and subcu interstitial frustrations at L4 5 levels then 22-gauge 5 inches long Quincke-type needle advanced slowly at L4- 5 interlaminar space there was positive cerebrospinal fluid which was clear, no heme, no paresthesia ,total of 6 ML of clear cerebrospinal fluid collected in 4 different tubes 1-1/2 mL in each, then the needle removed and a Band-Aid applied and patient tolerated the procedure well without any complications.
--- NOTE | 2021-02-21 14:54 | P.GSCN ---
History of Present Illness Consult date: 02/21/21 History of present illness: CHIEF COMPLAINT: Bilateral lower extremity weakness HISTORY OF PRESENT ILLNESS: This is a 20-year-old male who presented to the hospital with complaints of bilateral lower extremity weakness and numbness. He has been unable to ambulate. Patient had recent cholecystectomy on 02/08/2021. Surgical services consult the due to patient's recent cholecystectomy. Patient denies any abdominal pain. Denies any nausea or vomiting. He is tolerating diet. He did have mild elevation in his liver enzymes liver ultrasound had shown hepatic steatosis. Patient does have a known history of gastric sleeve. Patient is being followed by neurology and orthopedics for workup in his lower extremity weakness. He is scheduled for lumbar puncture today. PAST MEDICAL HISTORY: Chronic back pain, sciatica PAST SURGICAL HISTORY: Cholecystectomy, sleeve gastrectomy MEDICATIONS: See list. ALLERGIES: See list. SOCIAL HISTORY: No illicit drug use. REVIEW OF SYSTEMS: CONSTITUTIONAL: Denies fever or chills. HEENT: Denies blurred vision, vision changes, or eye pain. Denies hemoptysis CARDIOVASCULAR: Denies chest pain or pressure. RESPIRATORY: No shortness of breath. GASTROINTESTINAL: See HPI for pertinent findings HEMATOLOGIC: Denies bleeding disorders. GENITOURINARY: Denies any blood in urine or increased urinary frequency. SKIN: Denies pruitis. Denies rash. PHYSICAL EXAM: VITAL SIGNS: Reviewed GENERAL: Well-developed in no acute distress. HEENT: No sclera icterus. Extraocular movements grossly intact. Moist buccal mucosa. Head is atraumatic, normocephalic. No nasal drainage. ABDOMEN: Soft. Obese. Nondistended. Nontender incision sites clean dry and intact. NEUROLOGIC: Alert and oriented. Cranial nerves II through XII grossly intact. LABORATORY DATA: WBC 15.2 down to 13.2 hemoglobin 13.4 weight lipids 188 sodium 1:30 potassium 4.8 creatinine 0.55 AST 62 ALT 80 C-reactive protein 1.2 TSH normal Urinalysis negative for infection COVID-19 negative IMAGING: MRI of brain and cervical spine no significant abnormality evidence of the brain or cervical spine MRI lumbar spine L5 to S1 lumbar disc herniation in the midline which appears slightly smaller than last exam. No spinal stenosis or fracture ASSESSMENT: 1. Recent laparoscopic cholecystectomy 2. History of sleeve gastrectomy 3. Bilateral lower extremity weakness PLAN: -Check thiamine level -Check testosterone level -Continue supportive care -Continue neurological and orthopedic workup -No surgical intervention planned Thank you for this consultation Physician Solar Installation Supervisor note has been reviewed by physician. Signing provider agrees with the documented findings, assessment, and plan of care. Past Medical History Past Medical History: No Reported History Additional Past Medical History / Comment(s): nausea/vomiting,gas pain and pressure,hx pain lower back radiating to left side History of Any Multi-Drug Resistant Organisms: None Reported Past Surgical History: Cholecystectomy Additional Past Surgical History / Comment(s): rt knee meniscectomy, wisdom teeth, PAIN CLINIC PROCEDURE, Sleeve Gastrectomy 07-24-20 Past Anesthesia/Blood Transfusion Reactions: Family History of Problems w/ Anesthesia Additional Past Anesthesia/Blood Transfusion Reaction / Comm: mother-PONV Past Psychological History: Depression Smoking Status: Former smoker Past Alcohol Use History: None Reported Past Drug Use History: Marijuana - Past Family History Mother Family Medical History: No Reported History Medications and Allergies Home Medications Medication Instructions Recorded Confirmed Type Bariatric Multivitamin 1 tab PO QID 02/05/21 02/20/21 History Omeprazole [PriLOSEC] 40 mg PO DAILY 02/05/21 02/20/21 History Ibuprofen [Motrin] 600 mg PO Q8H PRN 02/20/21 02/20/21 History predniSONE 10 mg PO TID 02/20/21 02/20/21 History Allergies Allergy/AdvReac Type Severity Reaction Status Date / Time No Known Allergies Allergy Verified 02/20/21 11:24 Surgical - Exam Vital Signs Temp Pulse Resp BP Pulse Ox 97.8 F 123 H 20 122/71 97 02/20/21 10:27 02/20/21 10:27 02/20/21 10:27 02/20/21 10:27 02/20/21 10:27 Results - Labs 02/21/21 06:40 02/21/21 06:40 Abnormal Lab Results - Last 24 Hours (Table) 02/20/21 02/20/21 02/20/21 Range/Units 10:58 11:22 11:22 WBC (4.50-10.00) X 10*3/uL Immature Gran # (0.00-0.04) X 10*3/uL Neutrophils # (1.80-7.70) X 10*3/uL Eosinophils # (0.04-0.35) X 10*3/uL APTT (22.0-30.0) sec Sodium 130 L (137-145) mmol/L Potassium 3.4 L (3.5-5.1) mmol/L Chloride 97 L (98-107) mmol/L Carbon Dioxide (22-30) mmol/L Creatinine 0.60 L (0.66-1.25) mg/dL Glucose 108 H (74-99) mg/dL POC Glucose (mg/dL) (75-99) mg/dL AST 68 H (17-59) U/L ALT 79 H (4-49) U/L Creatine Kinase 316 H (55-170) U/L C-Reactive Protein 1.2 H (<1.0) mg/dL Total Protein 6.1 L (6.3-8.2) g/dL Urine Bilirubin 2+ H (Negative) Urine Mucus Rare H (None) /hpf 02/20/21 02/20/21 02/21/21 Range/Units 17:59 21:05 06:40 WBC 13.20 H (4.50-10.00) X 10*3/uL Immature Gran # 0.09 H (0.00-0.04) X 10*3/uL Neutrophils # 11.64 H (1.80-7.70) X 10*3/uL Eosinophils # 0 L (0.04-0.35) X 10*3/uL APTT (22.0-30.0) sec Sodium (137-145) mmol/L Potassium (3.5-5.1) mmol/L Chloride (98-107) mmol/L Carbon Dioxide (22-30) mmol/L Creatinine (0.66-1.25) mg/dL Glucose (74-99) mg/dL POC Glucose (mg/dL) 102 H 121 H (75-99) mg/dL AST (17-59) U/L ALT (4-49) U/L Creatine Kinase (55-170) U/L C-Reactive Protein (<1.0) mg/dL Total Protein (6.3-8.2) g/dL Urine Bilirubin (Negative) Urine Mucus (None) /hpf 02/21/21 02/21/21 02/21/21 Range/Units 06:40 06:40 06:59 WBC (4.50-10.00) X 10*3/uL Immature Gran # (0.00-0.04) X 10*3/uL Neutrophils # (1.80-7.70) X 10*3/uL Eosinophils # (0.04-0.35) X 10*3/uL APTT 21.8 L (22.0-30.0) sec Sodium 130 L (137-145) mmol/L Potassium (3.5-5.1) mmol/L Chloride (98-107) mmol/L Carbon Dioxide 20 L (22-30) mmol/L Creatinine 0.55 L (0.66-1.25) mg/dL Glucose 121 H (74-99) mg/dL POC Glucose (mg/dL) 118 H (75-99) mg/dL AST 62 H (17-59) U/L ALT 80 H (4-49) U/L Creatine Kinase (55-170) U/L C-Reactive Protein (<1.0) mg/dL Total Protein (6.3-8.2) g/dL Urine Bilirubin (Negative) Urine Mucus (None) /hpf 02/21/21 Range/Units 11:20 WBC (4.50-10.00) X 10*3/uL Immature Gran # (0.00-0.04) X 10*3/uL Neutrophils # (1.80-7.70) X 10*3/uL Eosinophils # (0.04-0.35) X 10*3/uL APTT (22.0-30.0) sec Sodium (137-145) mmol/L Potassium (3.5-5.1) mmol/L Chloride (98-107) mmol/L Carbon Dioxide (22-30) mmol/L Creatinine (0.66-1.25) mg/dL Glucose (74-99) mg/dL POC Glucose (mg/dL) 123 H (75-99) mg/dL AST (17-59) U/L ALT (4-49) U/L Creatine Kinase (55-170) U/L C-Reactive Protein (<1.0) mg/dL Total Protein (6.3-8.2) g/dL Urine Bilirubin (Negative) Urine Mucus (None) /hpf Diabetes panel 02/20/21 02/21/21 Range/Units 11:22 06:40 Sodium 130 L 130 L (137-145) mmol/L Potassium 3.4 L 4.8 (3.5-5.1) mmol/L Chloride 97 L 99 (98-107) mmol/L Carbon Dioxide 24 20 L (22-30) mmol/L BUN 14 16 (9-20) mg/dL Creatinine 0.60 L 0.55 L (0.66-1.25) mg/dL Glucose 108 H 121 H (74-99) mg/dL Calcium 9.0 9.3 (8.4-10.2) mg/dL AST 68 H 62 H (17-59) U/L ALT 79 H 80 H (4-49) U/L Alkaline Phosphatase 49 49 (38-126) U/L Total Protein 6.1 L 6.3 (6.3-8.2) g/dL Albumin 3.6 3.6 (3.5-5.0) g/dL Thyroid panel 02/20/21 Range/Units 11:22 TSH 1.890 (0.465-4.680) mIU/L Calcium panel 02/20/21 02/21/21 Range/Units 11:22 06:40 Calcium 9.0 9.3 (8.4-10.2) mg/dL Albumin 3.6 3.6 (3.5-5.0) g/dL Pituitary panel 02/20/21 02/20/21 02/21/21 Range/Units 11:22 11:22 06:40 Sodium 130 L 130 L (137-145) mmol/L Potassium 3.4 L 4.8 (3.5-5.1) mmol/L Chloride 97 L 99 (98-107) mmol/L Carbon Dioxide 24 20 L (22-30) mmol/L BUN 14 16 (9-20) mg/dL Creatinine 0.60 L 0.55 L (0.66-1.25) mg/dL Glucose 108 H 121 H (74-99) mg/dL Calcium 9.0 9.3 (8.4-10.2) mg/dL TSH 1.890 (0.465-4.680) mIU/L Adrenal panel 02/20/21 02/21/21 Range/Units 11:22 06:40 Sodium 130 L 130 L (137-145) mmol/L Potassium 3.4 L 4.8 (3.5-5.1) mmol/L Chloride 97 L 99 (98-107) mmol/L Carbon Dioxide 24 20 L (22-30) mmol/L BUN 14 16 (9-20) mg/dL Creatinine 0.60 L 0.55 L (0.66-1.25) mg/dL Glucose 108 H 121 H (74-99) mg/dL Calcium 9.0 9.3 (8.4-10.2) mg/dL Total Bilirubin 0.9 0.7 (0.2-1.3) mg/dL AST 68 H 62 H (17-59) U/L ALT 79 H 80 H (4-49) U/L Alkaline Phosphatase 49 49 (38-126) U/L Total Protein 6.1 L 6.3 (6.3-8.2) g/dL Albumin 3.6 3.6 (3.5-5.0) g/dL
[2021-02-21 15:34] LABS: Glucose,CSF 85 mg/dL (40-70); Total Protein,CSF 39 mg/dL (12-60)
[2021-02-21 15:36] LABS: Appearance,CSF Clear; CSF Tube Number 4; CSF Tube Volume 1; Nucleated Cells, CSF 1 u/L (0-5); Red Blood Cell,CSF 27 u/L (0-10)
[2021-02-21 16:22] LABS: Glucose,Whole Blood 118 mg/dL (75-99)
[2021-02-21 20:34] LABS: Glucose,Whole Blood 131 mg/dL (75-99)
[2021-02-21] MEDS: HEPARIN SODIUM,PORCINE/PF 5,000 UNIT/0.5 ML SYRINGE SQ SCH (20:37)
[2021-02-21] MEDS: diphenhydrAMINE 25 MG CAP PO PRN (23:35)
[2021-02-22] MEDS: HYDROcodone/APAP 5-325MG 1 EACH TAB PO PRN ×3 (04:11→19:30)
[2021-02-22 04:52] LABS: Folate, Serum <2.00 ng/mL (4.40-31.00)
[2021-02-22 06:41] LABS: Glucose,Whole Blood 110 mg/dL (75-99)
[2021-02-22 06:50] LABS: Glucose,Whole Blood 117 mg/dL (75-99)
[2021-02-22 08:24] LABS: African American GFR (CKD) >90 (>60 ml/min/1.73 sqM); Blood Urea Nitrogen 18 mg/dL (9-20); Calcium 9.4 mg/dL (8.4-10.2); Chloride 98 mmol/L (98-107); Glucose 122 mg/dL (74-99); Non-African American GFR(CKD) >90 (>60 ml/min/1.73 sqM); Potassium 4.6 mmol/L (3.5-5.1); Sodium 131 mmol/L (137-145)
[2021-02-22 08:27] LABS: Anion Gap 11 mmol/L; Carbon Dioxide 22 mmol/L (22-30)
[2021-02-22] MEDS: INSULIN ASPART (NovoLOG) 100 UNIT/ML VIAL SQ SCH ×4 (08:29→20:52)
[2021-02-22] MEDS: HEPARIN SODIUM,PORCINE/PF 5,000 UNIT/0.5 ML SYRINGE SQ SCH ×2 (08:36→20:52)
[2021-02-22] MEDS: FAMOTIDINE 20 MG/2 ML VIAL IV SCH (08:36)
[2021-02-22] MEDS: FOLIC ACID 1 MG TAB PO SCH (11:19)
[2021-02-22] MEDS: CYANOCOBALAMIN 500 MCG TAB PO SCH (11:19)
[2021-02-22 11:20] LABS: HGB 13.3 g/dL (13.0-17.0); MCHC 34.1 g/dL (32.0-37.0); MCV 87.8 fL (80.0-97.0); Mean Platelet Volume 12.5 fL (9.5-12.2); Platelet Count 207 X 10*3/uL (140-440); RBC 4.44 X 10*6/uL (4.40-5.60); RDW 14.3 % (11.5-14.5); WBC 21.58 X 10*3/uL (4.50-10.00)
[2021-02-22] MEDS: SODIUM CHLORIDE 0.9% 1,000 ML IV SCH (11:20)
[2021-02-22] MEDS: SIMETHICONE 40 MG/0.6 ML DROPS 2,000 MG/30 ML BOTTLE PO SCH ×3 (11:20→20:52)
[2021-02-22 11:28] LABS: Glucose,Whole Blood 109 mg/dL (75-99)
[2021-02-22 11:58] LABS: Basophils # (A) 0.04 X 10*3/uL (0.00-0.10); Basophils % (A) 0.2 %; Eosinophils # (A) 0.43 X 10*3/uL (0.04-0.35); Lymphocytes # (A) 1.21 X 10*3/uL (0.90-5.00); Lymphocytes % (A) 5.6 %; Monocytes # (A) 1.68 X 10*3/uL (0.20-1.00); Monocytes % (A) 7.8 %; Neutrophils # (A) 18.03 X 10*3/uL (1.80-7.70); Neutrophils % (A) 83.5 %
--- NOTE | 2021-02-22 13:49 | P.PN ---
Subjective Progress Note Date: 02/22/21 CHIEF COMPLAINT: Bilateral lower extremity weakness HISTORY OF PRESENT ILLNESS: Patient is still complaining of bilateral lower extremity weakness. He is scheduled to be transferred to [facility] later today for EMG per neurology recommendations. Patient is still having significant lower extremity weakness and unable to walk. Denies any abdominal pain. He did complain of some gas discomfort. Denies any nausea or vomiting. Tolerating diet. Afebrile. WBC is 21.58 the patient had been receiving steroids hemoglobin 13.3 sodium 131 potassium 4.6 creatinine 0.60 thiamine and testosterone level still pending patient did have a lumbar puncture done yesterday PHYSICAL EXAM: VITAL SIGNS: Reviewed. GENERAL: Well-developed in no acute distress. HEENT: No sclera icterus. Extraocular movements grossly intact. Moist buccal mucosa. Head is atraumatic, normocephalic. ABDOMEN: Soft. Nondistended. Nontender. NEUROLOGIC: Alert and oriented. Cranial nerves II through XII grossly intact. ASSESSMENT: 1. Recent laparoscopic cholecystectomy 2. History of sleeve gastrectomy 3. Bilateral lower extremity weakness PLAN: -Follow up on thiamine and testosterone level -No surgical intervention planned -Continue supportive care -Continue neuro workup Physician Road Roller Operator note has been reviewed by physician. Signing provider agrees with the documented findings, assessment, and plan of care. Objective - Vital Signs Vital signs: Vital Signs Temp 98.4 F 02/22/21 07:59 Pulse 116 H 02/22/21 07:59 Resp 16 02/22/21 07:59 BP 136/69 02/22/21 07:59 Pulse Ox 95 02/22/21 07:59 Intake & Output 02/21/21 02/22/21 02/22/21 18:59 06:59 18:59 Intake Total 225 Output Total 1500 250 200 Balance -1275 -250 -200 Intake: IV 225 Output: Urine 1500 250 200 Straight 1000 Other: Voiding Method Urinal Urinal Urinal # Voids 1 - Labs CBC & Chem 7: 02/22/21 07:23 02/22/21 07:23 Labs: Abnormal Lab Results - Last 24 Hours (Table) 02/21/21 02/21/21 02/21/21 Range/Units 08:29 13:55 16:19 WBC (4.50-10.00) X 10*3/uL Hct (39.6-50.0) % MPV (9.5-12.2) fL Absolute Nucleated RBC (0.00-0.00) X 10*3/uL Immature Gran # (0.00-0.04) X 10*3/uL Neutrophils # (1.80-7.70) X 10*3/uL Monocytes # (0.20-1.00) X 10*3/uL Eosinophils # (0.04-0.35) X 10*3/uL NRBC/100 WBC Diff (0.0-0.0) /100 WBCS Sodium (137-145) mmol/L Creatinine (0.66-1.25) mg/dL Glucose (74-99) mg/dL POC Glucose (mg/dL) 118 H (75-99) mg/dL Lactate Dehydrogenase (313-618) U/L Folate <2.00 L (4.40-31.00) ng/mL CSF RBC 27 H (0-10) u/L CSF Glucose 85 H (40-70) mg/dL 02/21/21 02/22/21 02/22/21 Range/Units 20:31 06:36 06:49 WBC (4.50-10.00) X 10*3/uL Hct (39.6-50.0) % MPV (9.5-12.2) fL Absolute Nucleated RBC (0.00-0.00) X 10*3/uL Immature Gran # (0.00-0.04) X 10*3/uL Neutrophils # (1.80-7.70) X 10*3/uL Monocytes # (0.20-1.00) X 10*3/uL Eosinophils # (0.04-0.35) X 10*3/uL NRBC/100 WBC Diff (0.0-0.0) /100 WBCS Sodium (137-145) mmol/L Creatinine (0.66-1.25) mg/dL Glucose (74-99) mg/dL POC Glucose (mg/dL) 131 H 110 H 117 H (75-99) mg/dL Lactate Dehydrogenase (313-618) U/L Folate (4.40-31.00) ng/mL CSF RBC (0-10) u/L CSF Glucose (40-70) mg/dL 02/22/21 02/22/2102/22/21 Range/Units 07:23 07:23 07:23 WBC 21.58 H (4.50-10.00) X 10*3/uL Hct 39.0 L (39.6-50.0) % MPV 12.5 H (9.5-12.2) fL Absolute Nucleated RBC 0.04 H (0.00-0.00) X 10*3/uL Immature Gran # 0.19 H (0.00-0.04) X 10*3/uL Neutrophils # 18.03 H (1.80-7.70) X 10*3/uL Monocytes # 1.68 H (0.20-1.00) X 10*3/uL Eosinophils # 0.43 H (0.04-0.35) X 10*3/uL NRBC/100 WBC Diff 0.2 H (0.0-0.0) /100 WBCS Sodium 131 L (137-145) mmol/L Creatinine 0.60 L (0.66-1.25) mg/dL Glucose 122 H (74-99) mg/dL POC Glucose (mg/dL) (75-99) mg/dL Lactate Dehydrogenase 1325 H (313-618) U/L Folate (4.40-31.00) ng/mL CSF RBC (0-10) u/L CSF Glucose (40-70) mg/dL 02/22/21 Range/Units 11:26 WBC (4.50-10.00) X 10*3/uL Hct (39.6-50.0) % MPV (9.5-12.2) fL Absolute Nucleated RBC (0.00-0.00) X 10*3/uL Immature Gran # (0.00-0.04) X 10*3/uL Neutrophils # (1.80-7.70) X 10*3/uL Monocytes # (0.20-1.00) X 10*3/uL Eosinophils # (0.04-0.35) X 10*3/uL NRBC/100 WBC Diff (0.0-0.0) /100 WBCS Sodium (137-145) mmol/L Creatinine (0.66-1.25) mg/dL Glucose (74-99) mg/dL POC Glucose (mg/dL) 109 H (75-99) mg/dL Lactate Dehydrogenase (313-618) U/L Folate (4.40-31.00) ng/mL CSF RBC (0-10) u/L CSF Glucose (40-70) mg/dL Microbiology - Last 24 Hours (Table) 02/21/21 13:55 CSF Gram Stain - Preliminary Cerebral Spinal Fluid CSF Culture - Preliminary
--- NOTE | 2021-02-22 13:57 | P.PN ---
Subjective Progress Note Date: 02/22/21 The patient is seen at bedside and he is accompanied with his mother and his grandparents. He feels about the same today compared to yesterday. It seems that his symptoms began in middle December with the numbness tingling in the bottom of his feet and the has been worsening and that he got worse about 2 w eeks ago the which she had weakness and worsening of the numbness and tingling. Objective - Vital Signs Vital signs: Vital Signs Temp 98.4 F 02/22/21 07:59 Pulse 116 H 02/22/21 07:59 Resp 16 02/22/21 07:59 BP 136/69 02/22/21 07:59 Pulse Ox 95 02/22/21 07:59 Intake & Output 02/21/21 02/22/21 02/22/21 18:59 06:59 18:59 Intake Total 225 Output Total 1500 250 200 Balance -1275 -250 -200 Intake: IV 225 Output: Urine 1500 250 200 Straight 1000 Other: Voiding Method Urinal Urinal Urinal # Voids 1 - Exam GENERAL: The patient is a morbid obese young gentleman lying in bed and is not in acute distress. NEUROLOGICAL: Higher mental function: The patient is awake, alert, oriented to self, place and time. Patient is following commands. No aphasia and no neglect. Cranial nerves: The pupils are round, equal and reactive to light and accommodation. Visual fine are full to confrontation throughout. Extraocular movement is intact no nystagmus is noted. Facial sensation is normal to touch throughout. The facial strength is normal throughout. Hearing is normal bilaterally to hand rub. Tongue is midline and moved [id number] without any difficulty. No dysarthria is noted. Motor: Gait is deferred because he is unable to cooperate because of his weakness. The strength is bilateral shoulder are 4+, left elbow extension is 4+ to 5-. Right wrist flexion is 4+, left wrist flexion is 5-. , Bilateral hips are 3-4, knee extension 0 bilaterally, knee flexion is 1-2, ankle plantar flexion are 3 while right ankle dorsiflexion is 0 and left is 2. Has antigravity for toe movement. Decrease tone predominately lowers. Normal bulk. Cerebellum: Normal finger to nose and could not assess lowers bilaterally. Sensation: Sensation is normal to touch and pinprick throughout. Reflexes (right/left): 1+ brachioradilis bilaterally. Otherwise rest are 0 throughout. Plantars are mute bilaterally. WORK-UP: Creatinine kinase is 316 (normal is 55-170). ESR is 15. CRP is the 1.2. TSH is 1.8908 which is within normal limits. urine analysis negative for urinary tract infection. CSF is clear, colorless, CSF red blood cell is 27, nuclear cells is 1, glucose is 85 and a protein is 39 Serum folate is less than 2 which is considered deficient (normal is between 4.4-31) Red blood cell folate is 355 which is considered on the borderline of low normal Vitamin B12 is 411 Hemoglobin A1c is 5.1. Calcium is 9.3, magnesium is 2.1. CT of the brain is reported as normal CT brain. MRI of lumbar spine w/o is reported as there is L5-S1 lumbar disc herniation in the midline which appears slightly smaller than the last exam. No spinal stenosis. No fracture. MRI the brain with and without is reported as no abnormality is evident. MRI the cervical spine with and without is reported as normal pre-and postcontrast cervical MRI. - Labs CBC & Chem 7: 02/22/21 07:23 02/22/21 07:23 Labs: Abnormal Lab Results - Last 24 Hours (Table) 02/21/21 02/21/21 02/21/21 Range/Units 08:29 13:55 16:19 WBC (4.50-10.00) X 10*3/uL Hct (39.6-50.0) % MPV (9.5-12.2) fL Absolute Nucleated RBC (0.00-0.00) X 10*3/uL Immature Gran # (0.00-0.04) X 10*3/uL Neutrophils # (1.80-7.70) X 10*3/uL Monocytes # (0.20-1.00) X 10*3/uL Eosinophils # (0.04-0.35) X 10*3/uL NRBC/100 WBC Diff (0.0-0.0) /100 WBCS Sodium (137-145) mmol/L Creatinine (0.66-1.25) mg/dL Glucose (74-99) mg/dL POC Glucose (mg/dL) 118 H (75-99) mg/dL Lactate Dehydrogenase (313-618) U/L Folate <2.00 L (4.40-31.00) ng/mL CSF RBC 27 H (0-10) u/L CSF Glucose 85 H (40-70) mg/dL 02/21/21 02/22/21 02/22/21 Range/Units 20:31 06:36 06:49 WBC (4.50-10.00) X 10*3/uL Hct (39.6-50.0) % MPV (9.5-12.2) fL Absolute Nucleated RBC (0.00-0.00) X 10*3/uL Immature Gran # (0.00-0.04) X 10*3/uL Neutrophils # (1.80-7.70) X 10*3/uL Monocytes # (0.20-1.00) X 10*3/uL Eosinophils # (0.04-0.35) X 10*3/uL NRBC/100 WBC Diff (0.0-0.0) /100 WBCS Sodium (137-145) mmol/L Creatinine (0.66-1.25) mg/dL Glucose (74-99) mg/dL POC Glucose (mg/dL) 131 H 110 H 117 H (75-99) mg/dL Lactate Dehydrogenase (313-618) U/L Folate (4.40-31.00) ng/mL CSF RBC (0-10) u/L CSF Glucose (40-70) mg/dL 02/22/21 02/22/21 02/22/21 Range/Units 07:23 07:23 07:23 WBC 21.58 H (4.50-10.00) X 10*3/uL Hct 39.0 L (39.6-50.0) % MPV 12.5 H (9.5-12.2) fL Absolute Nucleated RBC 0.04 H (0.00-0.00) X 10*3/uL Immature Gran # 0.19 H (0.00-0.04) X 10*3/uL Neutrophils # 18.03 H (1.80-7.70) X 10*3/uL Monocytes # 1.68 H (0.20-1.00) X 10*3/uL Eosinophils # 0.43 H (0.04-0.35) X 10*3/uL NRBC/100 WBC Diff 0.2 H (0.0-0.0) /100 WBCS Sodium 131 L (137-145) mmol/L Creatinine 0.60 L (0.66-1.25) mg/dL Glucose 122 H (74-99) mg/dL POC Glucose (mg/dL) (75-99) mg/dL Lactate Dehydrogenase 1325 H (313-618) U/L Folate (4.40-31.00) ng/mL CSF RBC (0-10) u/L CSF Glucose (40-70) mg/dL 02/22/21 Range/Units 11:26 WBC (4.50-10.00) X 10*3/uL Hct (39.6-50.0) % MPV (9.5-12.2) fL Absolute Nucleated RBC (0.00-0.00) X 10*3/uL Immature Gran # (0.00-0.04) X 10*3/uL Neutrophils # (1.80-7.70) X 10*3/uL Monocytes # (0.20-1.00) X 10*3/uL Eosinophils # (0.04-0.35) X 10*3/uL NRBC/100 WBC Diff (0.0-0.0) /100 WBCS Sodium (137-145) mmol/L Creatinine (0.66-1.25) mg/dL Glucose (74-99) mg/dL POC Glucose (mg/dL) 109 H (75-99) mg/dL Lactate Dehydrogenase (313-618) U/L Folate (4.40-31.00) ng/mL CSF RBC (0-10) u/L CSF Glucose (40-70) mg/dL Microbiology - Last 24 Hours (Table) 02/21/21 13:55 CSF Gram Stain - Preliminary Cerebral Spinal Fluid CSF Culture - Preliminary Assessment and Plan Assessment: * Upper and lower extremity weakness and complaint of paresthesia (On examination he had predominately lower > upper extremity weakness with hyporeflexia/areflexia): 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 Not sure if the patient has malnutrition deficiency/vitamin deficiency leading to his condition especially with history of gastrectomy sleeve on 07/2020 * Folate defiency (Serum folate is less than 2). * History of lower back pain with radiculopathy (has pain injections in the back but last was one year ago) but currently is not having any lower back pain. * Electrolyte imbalance with mild hyponatremia, minimal hypokalemia * Mild transaminitis * History of recent lap closeectomy on 02/08/2021 * gastrectomy sleeve on 07/2020 * Morbid obesity Plan: * I started the patient on the folic acid 1 mg daily as well as on thiamine 100 mg IV daily for 3 days then was switched to by mouth and I also started the patient on the vitamin B12 1000 g daily * Thiamine level is as ordered. * I ordered copper level, LDH and aldolase leve, methylmalonic acid, vitamin B6 level. * Recommend patient to be transferred to a tertiary Center for EMG with nerve conduction study of upper and lower extremity (predominately lower extremity). Patient had EMG with nerve conduction study of the lower about 2 weeks ago and was reported as normal. I feel like that there should be some findings suggestive of polyneuropathy. * In the mean time, I will IgA immunoglobulin and then will treat patient with IVIG in mean time if not transferred (2g/kg over 5 days). I notified the patient and his mother that it was my suspicion of demylinating polyneuropathy but not certain. They are in agreement of proceeding with treatment. * Orthopedic team is on board * Physical therapy and occupation therapy are consulted. * We'll defer the rest of the medical management to primary team. The plan is discussed with patient and his mother who is at bedside in length as well as primary team. We attempted to transfer the patient to different center and no availability at this time. Justin Blanca MD Neuro-Hospitalist Time with Patient: Greater than 30
[2021-02-22] MEDS: THIAMINE 100 MG/ML 2 ML VIAL IVP SCH (15:12)
[2021-02-22 16:27] LABS: Glucose,Whole Blood 92 mg/dL (75-99)
[2021-02-22 20:50] LABS: Glucose,Whole Blood 84 mg/dL (75-99)
[2021-02-22] MEDS: FAMOTIDINE 20 MG TAB PO SCH (20:52)
[2021-02-23 07:08] LABS: Glucose,Whole Blood 78 mg/dL (75-99)
[2021-02-23] MEDS: SODIUM CHLORIDE 0.9% 1,000 ML IV SCH ×2 (07:28)
[2021-02-23] MEDS: SIMETHICONE 40 MG/0.6 ML DROPS 2,000 MG/30 ML BOTTLE PO SCH ×4 (07:29→23:13)
[2021-02-23] MEDS: INSULIN ASPART (NovoLOG) 100 UNIT/ML VIAL SQ SCH ×4 (07:29→20:25)
[2021-02-23] MEDS: HEPARIN SODIUM,PORCINE/PF 5,000 UNIT/0.5 ML SYRINGE SQ SCH ×2 (07:33→21:07)
[2021-02-23] MEDS: HYDROcodone/APAP 5-325MG 1 EACH TAB PO PRN ×2 (07:34→21:06)
[2021-02-23] MEDS: CYANOCOBALAMIN 500 MCG TAB PO SCH (07:34)
[2021-02-23] MEDS: FAMOTIDINE 20 MG TAB PO SCH ×2 (07:34→21:06)
[2021-02-23] MEDS: THIAMINE 100 MG/ML 2 ML VIAL IVP SCH (07:34)
[2021-02-23] MEDS: FOLIC ACID 1 MG TAB PO SCH (07:34)
--- NOTE | 2021-02-23 09:31 | MR ---
EXAMINATION TYPE: MR lumbar spine w con DATE OF EXAM: 02/23/2021 COMPARISON: CT and MRI lumbar spine February 11.1 HISTORY: Weakness, rule out nerve root enhancement. TECHNIQUE: Multiplanar, multisequence images of the lumbar spine is performed with IV contrast, utilizing 14 mL intravenous Gadavist FINDINGS: Postcontrast imaging shows no suspicious enhancement. There is no abnormal enhancement of t he lumbosacral nerves in the spinal canal. No suspicious clumping lumbosacral nerve roots is identifi ed on recent T2-weighted images. Conus position satisfactory. Moderately distended bladder partially imaged. IMPRESSION: No abnormal postcontrast enhancement.
--- NOTE | 2021-02-23 10:10 | P.NPCON ---
History of Present Illness - Reason for Consult hyponatremia - History of Present Illness Reason for consultation: Hyponatremia History of present illness: Patient is a 20-year-old male seen in renal consultation for hyponatremia. Patient presented to the hospital on 02/20/2021 with lower leg weakness. Patient states he's not able to lift his legs up at this time. He also felt numbness and tingling in his lower extremities. The symptoms started about 1 week prior to admission. No history of kidney disease. GFR at baseline. Sodium level has been stable in the range of 130 to 131 on this admission. He is maintained on normal saline at 75 mL an hour. Oral intake has been good. No vomiting or diarrhea. No history of malignancy. He does admit to taking Motrin as needed but not on a regular basis. He's being followed by neurology and is concerned for GBS. He is receiving immune globulin. Blood pressure stable in the systolic 130s to 150s. No fever. He is not on any diuretics. No chest pain or shortness of breath. No edema. No hematuria or dysuria. Vital signs are stable. General: The patient appeared well nourished and normally developed. HEENT: Head exam is unremarkable.\ LUNGS: Breath sounds decreased. HEART: Rate and Rhythm are regular. ABDOMEN: Soft, no distention. EXTREMITITES: No edema. Past Medical History Past Medical History: No Reported History Additional Past Medical History / Comment(s): nausea/vomiting,gas pain and pressure,hx pain lower back radiating to left side History of Any Multi-Drug Resistant Organisms: None Reported Past Surgical History: Cholecystectomy Additional Past Surgical History / Comment(s): rt knee meniscectomy, wisdom teeth, PAIN CLINIC PROCEDURE, Sleeve Gastrectomy 3-07-15 Past Anesthesia/Blood Transfusion Reactions: Family History of Problems w/ Anesthesia Additional Past Anesthesia/Blood Transfusion Reaction / Comment(s): mother-PONV Past Psychological History: Depression Smoking Status: Former smoker Past Alcohol Use History: None Reported Past Drug Use History: Marijuana - Past Family History Mother Family Medical History: No Reported History Medications and Allergies Home Medications Medication Instructions Recorded Confirmed Type Bariatric Multivitamin 1 tab PO QID 02/05/21 02/20/21 History Omeprazole [PriLOSEC] 40 mg PO DAILY 02/05/21 02/20/21 History Ibuprofen [Motrin] 600 mg PO Q8H PRN 02/20/21 02/20/21 History predniSONE 10 mg PO TID 02/20/21 02/20/21 History Allergies Allergy/AdvReac Type Severity Reaction Status Date / Time No Known Allergies Allergy Verified 02/20/21 11:24 Physical Exam Vitals: Vital Signs Temp Pulse Resp BP Pulse Ox 02/23/21 08:00 97.9 F 110 H 18 145/90 95 02/23/21 02:10 98.2 F 104 H 17 147/89 95 02/22/21 18:45 98.1 F 113 H 16 133/84 99 02/22/21 14:00 98.2 F 125 H 16 138/83 96 Intake and Output 02/22/21 02/23/21 02/23/21 22:59 06:59 14:59 Output Total 300 Balance -300 Output: Urine 300 Other: Voiding Method Urinal Urinal # Voids 3 Results - Lab Results Most recent lab results Calcium 9.4 mg/dL (8.4-10.2) 02/22/21 07:23 Magnesium 2.1 mg/dL (1.6-2.3) 02/21/21 06:40 02/22/21 07:23 02/22/21 07:23 Assessment and Plan Plan: Assessment: 1. Hyponatremia. Euvolemic. No improvement with normal saline. Concern for SIADH. Sodium level stable at 131 yesterday. TSH normal. 2. 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 Neurology following. 3. Obesity. Plan: Hep-Lock IV fluids. 1500 mL fluid restriction. Encourage oral intake. Check serum and urine osmolality and urine sodium level. Repeat labs in the morning. Thank you for the consultation. I will continue to follow the patient with you during his hospital stay.
--- NOTE | 2021-02-23 10:29 | P.PN ---
Subjective Progress Note Date: 02/23/21 The patient is seen at bedside and feels about the same. Per nurse he has been also about the same. The labs that were ordered yesterday are pending and will be drawn today. Objective - Vital Signs Vital signs: Vital Signs Temp 97.9 F 02/23/21 08:00 Pulse 110 H 02/23/21 08:00 Resp 18 02/23/21 08:00 BP 145/90 02/23/21 08:00 Pulse Ox 95 02/23/21 08:00 Intake & Output 02/22/21 02/23/21 02/23/21 18:59 06:59 18:59 Output Total 500 Balance -500 Output: Urine 500 Other: Voiding Method Urinal # Voids 1 3 - Exam GENERAL: The patient is a morbid obese young gentleman lying in bed and is not in acute distress. NEUROLOGICAL: Higher mental function: The patient is awake, alert, oriented to self, place and time. Patient is following commands. No aphasia and no neglect. Cranial nerves: The pupils are round, equal and reactive to light and accommodation. Visual fine are full to confrontation throughout. Extraocular movement is intact no nystagmus is noted. Facial sensation is normal to touch throughout. The facial strength is normal throughout. Hearing is normal bilaterally to hand rub. Tongue is midline and moved [id number] without any difficulty. No dysarthria is noted. Motor: Gait is deferred because he is unable to cooperate because of his weakness. The strength is bilateral shoulder are 4+, left elbow extension is 4+ to 5-. Right wrist flexion is 4+, left wrist flexion is 5-. , Bilateral hips are 3-4, knee extension 0 bilaterally, knee flexion is 1-2, ankle plantar flexion are 3 while right ankle dorsiflexion is 0 and left is 2. Has antigravity for toe movement. Decrease tone predominately lowers. Normal bulk. Cerebellum: Normal finger to nose and could not assess lowers bilaterally. Sensation: Sensation is normal to touch and pinprick throughout. Reflexes (right/left): 1+ brachioradilis bilaterally. Otherwise rest are 0 throughout. Plantars are mute bilaterally. WORK-UP: Creatinine kinase is 316 (normal is 55-170). ESR is 15. CRP is the 1.2. TSH is 1.8908 which is within normal limits. urine analysis negative for urinary tract infection. CSF is clear, colorless, CSF red blood cell is 27, nuclear cells is 1, glucose is 85 and a protein is 39 Serum folate is less than 2 which is considered deficient (normal is between 4.4-31) Red blood cell folate is 355 which is considered on the borderline of low normal Vitamin B12 is 411 Hemoglobin A1c is 5.1. Calcium is 9.3, magnesium is 2.1. Lactate Dehydrogenase: 1325 Coronavirus PCR: Not detected. CT of the brain is reported as normal CT brain. MRI of lumbar spine w/o is reported as there is L5-S1 lumbar disc herniation in the midline which appears slightly smaller than the last exam. No spinal gaurav nosis. No fracture. MRI the brain with and without is reported as no abnormality is evident. MRI the cervical spine with and without is reported as normal pre-and postcontrast cervical MRI. - Labs CBC & Chem 7: 02/22/21 07:23 02/22/21 07:23 Labs: Abnormal Lab Results - Last 24 Hours (Table) 02/22/21 02/22/21 02/22/21 Range/Units 07:23 07:23 11:26 WBC 21.58 H (4.50-10.00) X 10*3/uL Hct 39.0 L (39.6-50.0) % MPV 12.5 H (9.5-12.2) fL Absolute Nucleated RBC 0.04 H (0.00-0.00) X 10*3/uL Immature Gran # 0.19 H (0.00-0.04) X 10*3/uL Neutrophils # 18.03 H (1.80-7.70) X 10*3/uL Monocytes # 1.68 H (0.20-1.00) X 10*3/uL Eosinophils # 0.43 H (0.04-0.35) X 10*3/uL NRBC/100 WBC Diff 0.2 H (0.0-0.0) /100 WBCS POC Glucose (mg/dL) 109 H (75-99) mg/dL Lactate Dehydrogenase 1325 H (313-618) U/L Microbiology - Last 24 Hours (Table) 02/21/21 13:55 CSF Gram Stain - Preliminary Cerebral Spinal Fluid CSF Culture - Preliminary Assessment and Plan Assessment: * Upper and lower extremity weakness and complaint of paresthesia that is progressive (On examination he had predominately lower > upper extremity weakness with hyporeflexia/areflexia): Unsure exact diagnosis. I feel patient possibly has subacute polyneuropathy. 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 Not sure if the patient has malnutrition deficiency/vitamin deficiency leading to his worsening condition especially with history of gastrectomy sleeve on 07/2020 * Folate defiency (Serum folate is less than 2). * History of lower back pain with radiculopathy (has pain injections in the back but last was one year ago) but currently is not having any lower back pain. * Electrolyte imbalance with mild hyponatremia (130-->131) * Mild transaminitis * History of recent lap closeectomy on 02/08/2021 * gastrectomy sleeve on 07/2020 * Morbid obesity Plan: * Continuee folic acid 1 mg daily as well as on thiamine 100 mg IV daily for 3 days then was switched to by mouth and I also started the patient on the vitamin B12 1000 g daily * Thiamine level, copper level, methylmalonic acid, vitamin B6 level are pending. * Pending IgA level. * Ordered repeat MRI of Lumbar but on initial presentation was done w/o and this time will do with to rule out any nerve root enhancement. * Ordered zinc level, SCOOBY level, HIV test. * Recommend patient to be transferred to a tertiary Center for EMG with nerve conduction study of upper and lower extremity (predominately lower extremity). Patient had EMG with nerve conduction study of the lower about 2 weeks ago and was reported as normal. I feel like that there should be some findings suggestive of polyneuropathy. * I notified the patient and his mother that it was my suspicion of demylinating polyneuropathy but not certain. They are in agreement of proceeding with treatment of IVIG. In the mean time, pending IgA immunoglobulin and then will treat patient with IVIG in mean time if not transferred (2g/kg over 5 days). * Nephrology team is consulted for mild hyponatremia. * Orthopedic team is on board * Physical therapy and occupation therapy are consulted. * We'll defer the rest of the medical management to primary team. The plan is discussed with patient and nurse. We continue to attempt to transfer the patient for EMG with NCS. UPDATE: MRI LUMBAR SPINE W/: Is reported as no abnormal postcontrast enhancement. Justin Blanca MD Neuro-Hospitalist Time with Patient: Less than 30
[2021-02-23 12:00] LABS: Glucose,Whole Blood 73 mg/dL (75-99)
--- NOTE | 2021-02-23 12:42 | P.PN ---
Progress Note - Text Progress Note Date: 02/23/21 Patient still complaining of lower extremity weakness. He denies any abdominal pain. On exam vital signs are stable. Abdomen is soft. Lower extremity weakness. Unsure of etiology. Patient is noted to be deficient in several is vitamins. Would recommend replacement.
[2021-02-23 16:48] LABS: Glucose,Whole Blood 80 mg/dL (75-99)
[2021-02-23] MEDS ORDERED: HYDROcodone/APAP 5-325MG 1 EACH TAB ONE (16:55)
--- NOTE | 2021-02-23 19:21 | P.PN ---
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 Patient information was that with the help of his mother at bedside Patient says who presents because of numbness and weakness in both lower extremity more on the right than the left. Is not suppressed from the back of his hip and buttock down to the middle of the right and similarly on the left leg but less extent patient has been complaining of from progressive weakness more on the right leg over the last week. Patient denies any back pain. No recent history of chronic cold or gastroenteritis. He has history of significant back pain and sciatic That he had MRI of the back down on 07/2020 at [facility]. Followed by a visit to the pain clinic where he got 3 shots in his low back. On admission his tachycardic of 123, rest of vitals are stable Has mild leukocytosis of 15.2 K, sodium is moderately low at 1:30, potassium 3.4, creatinine normal 0.6, liver enzymes mildly elevated. Total bilirubin is normal at 0.9. CT of the lumbar spine, normal findings Normal CT of the brain On admission and received IV fluids, he was admitted with neurology and surgery team consults 02/22/2021 Patient is seen and evaluated in room with mother and grandmother bedside; discussed with urology in great detail and patient is recommended to be transferred to a tertiary center for EMG/NCS of upper and lower extremity Patient's family is adamant that they want patient's treatment started in the hospital since none of the tertiary facilities is able to except/accommodate patient at this time; according to family they had detailed discussion with neurology and they wouldn't want IgA immunoglobulin treatment started in the hospital; according to patient's mother she wants to be able to continue calling different facilities to try to arrange for patient's transfer; did report that they understand that patient's treatment is based on possible diagnosis of severe acute demyelinating polyneuropathy which might not be an accurate d iagnosis; they also understand that not transporting patient to a different facility could result in deterioration of patient's condition; case management has been on board and different facilities have been approached for possible patient transferred for higher level of care without any favorable results Objective - Vital Signs Vital signs: Vital Signs Temp 98.4 F 02/22/21 07:59 Pulse 116 H 02/22/21 07:59 Resp 16 02/22/21 07:59 BP 136/69 02/22/21 07:59 Pulse Ox 95 02/22/21 07:59 Intake & Output 02/21/21 02/22/21 02/22/21 18:59 06:59 18:59 Intake Total 225 Output Total 1500 250 200 Balance -1275 -250 -200 Intake: IV 225 Output: Urine 1500 250 200 Straight 1000 Other: Voiding Method Urinal Urinal Urinal # Voids 1 - Exam GENERAL: The patient is alert and oriented x3, not in any acute distress. Well developed, well nourished. HEENT: Pupils are round and equally reacting to light. EOMI. No scleral icterus. No conjunctival pallor. Normocephalic, atraumatic. No pharyngeal erythema. No thyromegaly. CARDIOVASCULAR: S1 and S2 present. No murmurs, rubs, or gallops. PULMONARY: Chest is clear to auscultation, no wheezing or crackles. ABDOMEN: Soft, nontender, nondistended, normoactive bowel sounds. No palpable organomegaly. MUSCULOSKELETAL: No joint swelling or deformity. EXTREMITIES: No cyanosis, clubbing, or pedal edema. NEUROLOGICAL: Gross neurological examination did not reveal any focal deficits. Weakness especially of the extensor thighs and legs and feet, more on the right side than left side. Please see neurology consultation for details neuro examination SKIN: No rashes. No petechiae - Labs CBC & Chem 7: 02/22/21 07:23 02/22/21 07:23 Labs: Abnormal Lab Results - Last 24 Hours (Table) 02/21/21 02/21/21 02/21/21 Range/Units 08:29 13:55 16:19 WBC (4.50-10.00) X 10*3/uL Hct (39.6-50.0) % MPV (9.5-12.2) fL Absolute Nucleated RBC (0.00-0.00) X 10*3/uL Immature Gran # (0.00-0.04) X 10*3/uL Neutrophils # (1.80-7.70) X 10*3/uL Monocytes # (0.20-1.00) X 10*3/uL Eosinophils # (0.04-0.35) X 10*3/uL NRBC/100 WBC Diff (0.0-0.0) /100 WBCS Sodium (137-145) mmol/L Creatinine (0.66-1.25) mg/dL Glucose (74-99) mg/dL POC Glucose (mg/dL) 118 H (75-99) mg/dL Lactate Dehydrogenase (313-618) U/L Folate <2.00 L (4.40-31.00) ng/mL CSF RBC 27 H (0-10) u/L CSF Glucose 85 H (40-70) mg/dL 02/21/21 02/22/21 02/22/21 Range/Units 20:31 06:36 06:49 WBC (4.50-10.00) X 10*3/uL Hct (39.6-50.0) % MPV (9.5-12.2) fL Absolute Nucleated RBC (0.00-0.00) X 10*3/uL Immature Gran # (0.00-0.04) X 10*3/uL Neutrophils # (1.80-7.70) X 10*3/uL Monocytes # (0.20-1.00) X 10*3/uL Eosinophils # (0.04-0.35) X 10*3/uL NRBC/100 WBC Diff (0.0-0.0) /100 WBCS Sodium (137-145) mmol/L Creatinine (0.66-1.25) mg/dL Glucose (74-99) mg/dL POC Glucose (mg/dL) 131 H 110 H 117 H (75-99) mg/dL Lactate Dehydrogenase (313-618) U/L Folate (4.40-31.00) ng/mL CSF RBC (0-10) u/L CSF Glucose (40-70) mg/dL 02/22/21 02/22/21 02/22/21 Range/Units 07:23 07:23 07:23 WBC 21.58 H (4.50-10.00) X 10*3/uL Hct 39.0 L (39.6-50.0) % MPV 12.5 H (9.5-12.2) fL Absolute Nucleated RBC 0.04 H (0.00-0.00) X 10*3/uL Immature Gran # 0.19 H (0.00-0.04) X 10*3/uL Neutrophils # 18.03 H (1.80-7.70) X 10*3/uL Monocytes # 1.68 H (0.20-1.00) X 10*3/uL Eosinophils # 0.43 H (0.04-0.35) X 10*3/uL NRBC/100 WBC Diff 0.2 H (0.0-0.0) /100 WBCS Sodium 131 L (137-145) mmol/L Creatinine 0.60 L (0.66-1.25) mg/dL Glucose 122 H (74-99) mg/dL POC Glucose (mg/dL) (75-99) mg/dL Lactate Dehydrogenase 1325 H (313-618) U/L Folate (4.40-31.00) ng/mL CSF RBC (0-10) u/L CSF Glucose (40-70) mg/dL 02/22/21 Range/Units 11:26 WBC (4.50-10.00) X 10*3/uL Hct (39.6-50.0) % MPV (9.5-12.2) fL Absolute Nucleated RBC (0.00-0.00) X 10*3/uL Immature Gran # (0.00-0.04) X 10*3/uL Neutrophils # (1.80-7.70) X 10*3/uL Monocytes # (0.20-1.00) X 10*3/uL Eosinophils # (0.04-0.35) X 10*3/uL NRBC/100 WBC Diff (0.0-0.0) /100 WBCS Sodium (137-145) mmol/L Creatinine (0.66-1.25) mg/dL Glucose (74-99) mg/dL POC Glucose (mg/dL) 109 H (75-99) mg/dL Lactate Dehydrogenase (313-618) U/L Folate (4.40-31.00) ng/mL CSF RBC (0-10) u/L CSF Glucose (40-70) mg/dL Microbiology - Last 24 Hours (Table) 02/21/21 13:55 CSF Gram Stain - Preliminary Cerebral Spinal Fluid CSF Culture - Preliminary Assessment and Plan Assessment: Bilateral lower extremity weakness and numbness, more on the right side. Leukocytosis Mildly elevated liver enzymes Hyponatremia Chronic low back pain radiating to the left side History of sleeve gastrectomy Recent history of cholecystectomy Morbid obesity with BMI of 41.8 Plan: Discontinue dexamethasone Follow-up results of the brain and cervical MRI, patient will may need lumbar puncture and EMG/nerve conduction study which could be done at a tertiary care center after other workup was done Follow-up with recommendation by neurology and orthopedic team Surgery team consult. Liver ultrasound is pending consult with surgery from emergency room . We'll order a liver ultrasound in view of the elevated liver enzymes and recent cholecystectomy Labs and medication were reviewed.. Continue same treatment. Continue with symptomatic treatment. Resume home medication. Monitor lytes and vitals. DVT and GI prophylaxis. Further recommendations depends on the clinical course of the patient PT/OT: Pending DVT prophylaxis: Subcu heparin GI prophylaxis: Pepcid Prognosis is guarded
--- NOTE | 2021-02-23 19:25 | P.PN ---
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 Patient information was that with the help of his mother at bedside Patient says who presents because of numbness and weakness in both lower extremity more on the right than the left. Is not suppressed from the back of his hip and buttock down to the middle of the right and similarly on the left leg but less extent patient has been complaining of from progressive weakness more on the right leg over the last week. Patient denies any back pain. No recent history of chronic cold or gastroenteritis. He has history of significant back pain and sciatic That he had MRI of the back down on 07/2020 at [facility]. Followed by a visit to the pain clinic where he got 3 shots in his low back. On admission his tachycardic of 123, rest of vitals are stable Has mild leukocytosis of 15.2 K, sodium is moderately low at 1:30, potassium 3.4, creatinine normal 0.6, liver enzymes mildly elevated. Total bilirubin is normal at 0.9. CT of the lumbar spine, normal findings Normal CT of the brain On admission and received IV fluids, he was admitted with neurology and surgery team consults 02/22/2021 Patient is seen and evaluated in room with mother and grandmother bedside; discussed with urology in great detail and patient is recommended to be transferred to a tertiary center for EMG/NCS of upper and lower extremity Patient's family is adamant that they want patient's treatment started in the hospital since none of the tertiary facilities is able to except/accommodate patient at this time; according to family they had detailed discussion with neurology and they wouldn't want IgA immunoglobulin treatment started in the hospital; according to patient's mother she wants to be able to continue calling different facilities to try to arrange for patient's transfer; did report that they understand that patient's treatment is based on possible diagnosis of severe acute demyelinating polyneuropathy which might not be an accurate d iagnosis; they also understand that not transporting patient to a different facility could result in deterioration of patient's condition; case management has been on board and different facilities have been approached for possible patient transferred for higher level of care without any favorable results 02/23/2021 Patient is seen and evaluated resting comfortably in bed with mother at bedside; I get to the mother regarding discussion with neurology this morning and re inforcing transferred to a tertiary center; patient's mother states that she is aware of the risks but at this point want immunoglobulin treatment started with a plan to get patient discharged from our facility Vital signs are stable with temperature of 98.5, pulse 74, respiration 18 and blood pressure 145 will 48 with O2 saturation 95% on room air Patient and family are agreeable in proceeding with treatment with IVIG for suspicion of demyelinating polyneuropathy Objective - Vital Signs Vital signs: Vital Signs Temp 97.9 F 02/23/21 08:00 Pulse 110 H 02/23/21 08:00 Resp 18 02/23/21 08:00 BP 145/90 02/23/21 08:00 Pulse Ox 95 02/23/21 08:00 Intake & Output 02/22/21 02/23/21 02/23/21 18:59 06:59 18:59 Output Total 500 1100 Balance -500 -1100 Output: Urine 500 1100 Uretheral (Nguyen) 1100 Other: Voiding Method Urinal Urinal # Voids 1 3 - Exam GENERAL: The patient is alert and oriented x3, not in any acute distress. Well developed, well nourished. HEENT: Pupils are round and equally reacting to light. EOMI. No scleral icterus. No conjunctival pallor. Normocephalic, atraumatic. No pharyngeal erythema. No thyromegaly. CARDIOVASCULAR: S1 and S2 present. No murmurs, rubs, or gallops. PULMONARY: Chest is clear to auscultation, no wheezing or crackles. ABDOMEN: Soft, nontender, nondistended, normoactive bowel sounds. No palpable organomegaly. MUSCULOSKELETAL: No joint swelling or deformity. EXTREMITIES: No cyanosis, clubbing, or pedal edema. NEUROLOGICAL: Gross neurological examination did not reveal any focal deficits. Weakness especially of the extensor thighs and legs and feet, more on the right side than left side. Please see neurology consultation for details neuro examination SKIN: No rashes. No petechiae - Labs CBC & Chem 7: 02/22/21 07:23 02/22/21 07:23 Labs: Abnormal Lab Results - Last 24 Hours (Table) 02/23/21 Range/Units 11:58 POC Glucose (mg/dL) 73 L (75-99) mg/dL Microbiology - Last 24 Hours (Table) 02/21/21 13:55 CSF Gram Stain - Preliminary Cerebral Spinal Fluid CSF Culture - Preliminary Assessment and Plan Assessment: Bilateral lower extremity weakness and numbness, more on the right side. Leukocytosis Mildly elevated liver enzymes Hyponatremia Chronic low back pain radiating to the left side History of sleeve gastrectomy Recent history of cholecystectomy Morbid obesity with BMI of 41.8 Plan: Discontinue dexamethasone Follow-up results of the brain and cervical MRI, patient will may need lumbar puncture and EMG/nerve conduction study which could be done at a tertiary care center after other workup was done Follow-up with recommendation by neurology and orthopedic team Surgery team consult. Liver ultrasound is pending consult with surgery from emergency room . We'll order a liver ultrasound in view of the elevated liver enzymes and recent cholecystectomy Labs and medication were reviewed.. Continue same treatment. Continue with symptomatic treatment. Resume home medication. Monitor lytes and vitals. DVT and GI prophylaxis. Further recommendations depends on the clinical course of the patient PT/OT: Pending DVT prophylaxis: Subcu heparin GI prophylaxis: Pepcid Prognosis is guarded
[2021-02-23 20:25] LABS: Glucose,Whole Blood 78 mg/dL (75-99)
[2021-02-23] MEDS: diphenhydrAMINE 25 MG CAP PO PRN (21:06)
[2021-02-24 06:52] LABS: Glucose,Whole Blood 88 mg/dL (75-99)
[2021-02-24 07:11] LABS: African American GFR (CKD) >90 (>60 ml/min/1.73 sqM); Anion Gap 4 mmol/L; Blood Urea Nitrogen 11 mg/dL (9-20); Calcium 8.7 mg/dL (8.4-10.2); Carbon Dioxide 28 mmol/L (22-30); Chloride 103 mmol/L (98-107); Glucose 86 mg/dL (74-99); Magnesium 2.2 mg/dL (1.6-2.3); Non-African American GFR(CKD) >90 (>60 ml/min/1.73 sqM); Phosphorus 4.8 mg/dL (2.5-4.5); Potassium 4.2 mmol/L (3.5-5.1); Sodium 135 mmol/L (137-145)
[2021-02-24] MEDS: INSULIN ASPART (NovoLOG) 100 UNIT/ML VIAL SQ SCH ×3 (07:29→16:59)
[2021-02-24] MEDS: FOLIC ACID 1 MG TAB PO SCH (07:38)
[2021-02-24] MEDS: HYDROcodone/APAP 5-325MG 1 EACH TAB PO PRN ×2 (07:38→21:36)
[2021-02-24] MEDS: THIAMINE 100 MG/ML 2 ML VIAL IVP SCH (07:38)
[2021-02-24] MEDS: HEPARIN SODIUM,PORCINE/PF 5,000 UNIT/0.5 ML SYRINGE SQ SCH ×2 (07:38→21:35)
[2021-02-24] MEDS: CYANOCOBALAMIN 500 MCG TAB PO SCH (07:38)
[2021-02-24] MEDS: FAMOTIDINE 20 MG TAB PO SCH ×2 (07:38→21:36)
[2021-02-24] MEDS: SIMETHICONE 40 MG/0.6 ML DROPS 2,000 MG/30 ML BOTTLE PO SCH ×3 (07:39→17:05)
[2021-02-24 09:44] LABS: Basophils # (A) 0.02 X 10*3/uL (0.00-0.10); Basophils % (A) 0.2 %; Eosinophils % (A) 1.1 %; HCT 35.3 % (39.6-50.0); HGB 11.7 g/dL (13.0-17.0); Lymphocytes # (A) 1.84 X 10*3/uL (0.90-5.00); Lymphocytes % (A) 20.5 %; MCH 29.3 pg (27.0-32.0); MCHC 33.1 g/dL (32.0-37.0); MCV 88.3 fL (80.0-97.0); Mean Platelet Volume 11.4 fL (9.5-12.2); Monocytes # (A) 0.64 X 10*3/uL (0.20-1.00); Monocytes % (A) 7.1 %; Neutrophils # (A) 6.28 X 10*3/uL (1.80-7.70); Neutrophils % (A) 70.1 %; Platelet Count 165 X 10*3/uL (140-440); RDW 14.6 % (11.5-14.5); WBC 8.97 X 10*3/uL (4.50-10.00)
--- NOTE | 2021-02-24 10:17 | P.PN ---
Subjective Patient is seen in follow-up for hyponatremia. Sodium level normal today. Nguyen catheter inserted yesterday for urinary retention. Oral intake is good. No vomiting or diarrhea. Vital signs are stable. General: The patient appeared well nourished and normally developed. HEENT: Head exam is unremarkable. LUNGS: Breath sounds decreased. HEART: Rate and Rhythm are regular. ABDOMEN: Soft, obese. EXTREMITITES: No edema. Objective - Vital Signs Vital signs: Vital Signs Temp 97.9 F 02/24/21 07:42 Pulse 111 H 02/24/21 07:42 Resp 17 02/24/21 08:00 BP 131/83 02/24/21 07:42 Pulse Ox 94 L 02/24/21 07:42 Intake & Output 02/23/21 02/24/21 02/24/21 18:59 06:59 18:59 Intake Total 240 Output Total 3100 2000 Balance -3100 -1760 Intake: Oral 240 Output: Urine 3100 2000 Uretheral (Nguyen) 1100 Other: Voiding Method Urinal Indwelling Catheter # Voids 3 - Labs CBC & Chem 7: 02/24/21 06:15 02/24/21 06:15 Labs: Abnormal Lab Results - Last 24 Hours (Table) 02/23/21 02/24/21 02/24/21 Range/Units 11:58 06:15 06:15 RBC 4.00 L (4.40-5.60) X 10*6/uL Hgb 11.7 L (13.0-17.0) g/dL Hct 35.3 L (39.6-50.0) % RDW 14.6 H (11.5-14.5) % Absolute Nucleated RBC 0.02 H (0.00-0.00) X 10*3/uL Immature Gran # 0.09 H (0.00-0.04) X 10*3/uL NRBC/100 WBC Diff 0.2 H (0.0-0.0) /100 WBCS Sodium 135 L (137-145) mmol/L Creatinine 0.49 L (0.66-1.25) mg/dL POC Glucose (mg/dL) 73 L (75-99) mg/dL Phosphorus 4.8 H (2.5-4.5) mg/dL Microbiology - Last 24 Hours (Table) 02/21/21 13:55 CSF Gram Stain - Preliminary Cerebral Spinal Fluid CSF Culture - Preliminary Assessment and Plan Plan: Assessment: 1. Hyponatremia secondary to urinary retention. Improved. Sodium level 135 today. TSH normal. 2. Lower extremity weakness with concern for [place] syndrome. Neurology following. 3. Obesity. 4. Urinary retention status post Nguyen catheter placement. Plan: Remains off IV fluids. Encouraged oral intake. Add Flomax.
[2021-02-24 10:26] LABS: INR 0.9 (<1.2); Prothrombin Time 9.9 sec (9.0-12.0)
[2021-02-24 10:36] LABS: Partial Thromboplastin Time 19.5 sec (22.0-30.0)
[2021-02-24] MEDS: TAMSULOSIN 0.4 MG CAP.ER.24H PO SCH (10:37)
[2021-02-24] MEDS ORDERED: IMMUNE GLOBULIN (GAMMAGARD) 20 GM in EMPTY BAG 1 BAG IV ONE ×2 (11:00→12:00)
[2021-02-24 11:04] LABS: Glucose,Whole Blood 76 mg/dL (75-99)
--- NOTE | 2021-02-24 11:31 | P.PN ---
Subjective Progress Note Date: 02/24/21 The patient is seen at bedside and feels he is about the same as presentation. Denies any new neurological problems. Objective - Vital Signs Vital signs: Vital Signs Temp 97.9 F 02/24/21 07:42 Pulse 111 H 02/24/21 07:42 Resp 17 02/24/21 08:00 BP 131/83 02/24/21 07:42 Pulse Ox 94 L 02/24/21 07:42 Intake & Output 02/23/21 02/24/21 02/24/21 18:59 06:59 18:59 Intake Total 240 Output Total 3100 2000 Balance -3100 -1760 Intake: Oral 240 Output: Urine 3100 2000 Uretheral (Nguyen) 1100 Other: Voiding Method Urinal Indwelling Catheter # Voids 3 - Exam GENERAL: The patient is a morbid obese young gentleman lying in bed and is not in acute distress. NEUROLOGICAL: Higher mental function: The patient is awake, alert, oriented to self, place and time. Patient is following commands. No aphasia and no neglect. Cranial nerves: The pupils are round, equal and reactive to light and accommodation. Visual fine are full to confrontation throughout. Extraocular movement is intact no nystagmus is noted. Facial sensation is normal to touch throughout. The facial strength is normal throughout. Hearing is normal bilaterally to hand rub. Tongue is midline and moved avor-by-dhci without any difficulty. No dysarthria is noted. Motor: Gait is deferred because he is unable to cooperate because of his weakness. The strength is bilateral shoulder are 4+, left elbow extension is 4+ to 5-. Right wrist flexion is 4+, left wrist flexion is 5-. , Bilateral hips are 3-4, knee extension 0 bilaterally, knee flexion is 1-2, ankle plantar flexion are 3 while right ankle dorsiflexion is 0 and left is 2. Has antigravity for toe movement. Decrease tone predominately lowers. Normal bulk. Cerebellum: Normal finger to nose and could not assess lowers bilaterally. Sensation: Sensation is normal to touch and pinprick throughout. Reflexes (right/left): 1+ brachioradilis bilaterally. Otherwise rest are 0 throughout. Plantars are mute bilaterally. WORK-UP: Creatinine kinase is 316 (normal is 55-170). ESR is 15. CRP is the 1.2. TSH is 1.8908 which is within normal limits. urine analysis negative for urinary tract infection. CSF is clear, colorless, CSF red blood cell is 27, nuclear cells is 1, glucose is 85 and a protein is 39 Serum folate is less than 2 which is considered deficient (normal is between 4.4-31) Red blood cell folate is 355 which is considered on the borderline of low normal Vitamin B12 is 411 Hemoglobin A1c is 5.1. Calcium is 9.3, magnesium is 2.1. Lactate Dehydrogenase: 1325 IgA level: 201 (normal0 Coronavirus PCR: Not detected. CT of the brain is reported as normal CT brain. MRI of lumbar spine w/o is reported as there is L5-S1 lumbar disc herniation in the midline which appears slightly smaller than the last exam. No spinal stenosis. No fracture. MRI LUMBAR SPINE W/: Is reported as no abnormal postcontrast enhancement. MRI the brain with and without is reported as no abnormality is evident. MRI the cervical spine with and without is reported as normal pre-and postcontrast cervical MRI. - Labs CBC & Chem 7: 02/24/21 06:15 02/24/21 06:15 Labs: Abnormal Lab Results - Last 24 Hours (Table) 02/23/21 02/24/21 02/24/21 Range/Units 11:58 06:15 06:15 RBC 4.00 L (4.40-5.60) X 10*6/uL Hgb 11.7 L (13.0-17.0) g/dL Hct 35.3 L (39.6-50.0) % RDW 14.6 H (11.5-14.5) % Absolute Nucleated RBC 0.02 H (0.00-0.00) X 10*3/uL Immature Gran # 0.09 H (0.00-0.04) X 10*3/uL NRBC/100 WBC Diff 0.2 H (0.0-0.0) /100 WBCS APTT (22.0-30.0) sec Sodium 135 L (137-145) mmol/L Creatinine 0.49 L (0.66-1.25) mg/dL POC Glucose (mg/dL) 73 L (75-99) mg/dL Phosphorus 4.8 H (2.5-4.5) mg/dL 02/24/21 Range/Units 09:23 RBC (4.40-5.60) X 10*6/uL Hgb (13.0-17.0) g/dL Hct (39.6-50.0) % RDW (11.5-14.5) % Absolute Nucleated RBC (0.00-0.00) X 10*3/uL Immature Gran # (0.00-0.04) X 10*3/uL NRBC/100 WBC Diff (0.0-0.0) /100 WBCS APTT 19.5 L (22.0-30.0) sec Sodium (137-145) mmol/L Creatinine (0.66-1.25) mg/dL POC Glucose (mg/dL) (75-99) mg/dL Phosphorus (2.5-4.5) mg/dL Microbiology - Last 24 Hours (Table) 02/21/21 13:55 CSF Gram Stain - Preliminary Cerebral Spinal Fluid CSF Culture - Preliminary Assessment and Plan Assessment: * Upper and lower extremity weakness and complaint of paresthesia that is progressive (On examination he had predominately lower > upper extremity weakness with hyporeflexia/areflexia): Unsure exact diagnosis. I feel patient possibly has subacute polyneuropathy. 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 Not sure if the patient has malnutrition deficiency/vitamin deficiency leading to his worsening condition especially with history of gastrectomy sleeve on 07/2020 * Folate defiency (Serum folate is less than 2). * History of lower back pain with radiculopathy (has pain injections in the back but last was one year ago) but currently is not having any lower back pain. * Electrolyte imbalance with mild hyponatremia (130-->131) * Mild transaminitis * History of recent lap closeectomy on 02/08/2021 * gastrectomy sleeve on 07/2020 * Morbid obesity Plan: * Continue folic acid 1 mg daily, vitamin B12 1000mcg daily and will thiamine from IV to PO 100mg daily. * Thiamine level, copper level, methylmalonic acid, vitamin B6 level, zinc level, SCOOBY level, HIV test, lyme ab, serum and urine immuno-fixation are pending. * I notified the patient and his mother that it was my suspicion of demylinating polyneuropathy clinically but not certain. They are in agreement of proceeding with treatment of IVIG. In the mean time, pending IgA immunoglobulin and then will treat patient with IVIG in mean time if not transferred (2g/kg over 5 days). * Recommend patient to be transferred to a tertiary Center for EMG with nerve conduction study of upper and lower extremity (predominately lower extremity). Patient had EMG with nerve conduction study of the lower about 2 weeks ago and was reported as normal. I feel like that there should be some findings suggestive of polyneuropathy. * Nephrology team is consulted for mild hyponatremia. * Orthopedic team is on board * Physical therapy and occupation therapy are consulted. * We'll defer the rest of the medical management to primary team. The plan is discussed with patient and nurse. We continue to attempt to transfer the patient for EMG with NCS. Dr. Packer will start neurology coverage tomorrow (02/25/2021) AM. Justin Blanca MD Neuro-Hospitalist Time with Patient: Less than 30
--- NOTE | 2021-02-24 12:24 | P.PN ---
Progress Note - Text Progress Note Date: 02/24/21 Patient remains clinically unchanged. The paranasal being transferred for immune therapy for possible [place] syndrome. On exam vital signs are stable. Abdomen soft. Patient will continue receive supportive care.
[2021-02-24] MEDS: DOCUSATE 100 MG CAP PO SCH ×2 (15:43→21:35)
[2021-02-24 16:57] LABS: Glucose,Whole Blood 81 mg/dL (75-99)
--- NOTE | 2021-02-24 17:52 | P.PN ---
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 Patient information was that with the help of his mother at bedside Patient says who presents because of numbness and weakness in both lower extremity more on the right than the left. Is not suppressed from the back of his hip and buttock down to the middle of the right and similarly on the left leg but less extent patient has been complaining of from progressive weakness more on the right leg over the last week. Patient denies any back pain. No recent history of chronic cold or gastroenteritis. He has history of significant back pain and sciatic That he had MRI of the back down on 07/2020 at [facility]. Followed by a visit to the pain clinic where he got 3 shots in his low back. On admission his tachycardic of 123, rest of vitals are stable Has mild leukocytosis of 15.2 K, sodium is moderately low at 1:30, potassium 3.4, creatinine normal 0.6, liver enzymes mildly elevated. Total bilirubin is normal at 0.9. CT of the lumbar spine, normal findings Normal CT of the brain On admission and received IV fluids, he was admitted with neurology and surgery team consults 02/22/2021 Patient is seen and evaluated in room with mother and grandmother bedside; discussed with urology in great detail and patient is recommended to be transferred to a tertiary center for EMG/NCS of upper and lower extremity Patient's family is adamant that they want patient's treatment started in the hospital since none of the tertiary facilities is able to except/accommodate patient at this time; according to family they had detailed discussion with neurology and they wouldn't want IgA immunoglobulin treatment started in the hospital; according to patient's mother she wants to be able to continue calling different facilities to try to arrange for patient's transfer; did report that they understand that patient's treatment is based on possible diagnosis of severe acute demyelinating polyneuropathy which might not be an accurate d iagnosis; they also understand that not transporting patient to a different facility could result in deterioration of patient's condition; case management has been on board and different facilities have been approached for possible patient transferred for higher level of care without any favorable results 02/23/2021 Patient is seen and evaluated resting comfortably in bed with mother at bedside; I get to the mother regarding discussion with neurology this morning and re inforcing transferred to a tertiary center; patient's mother states that she is aware of the risks but at this point want immunoglobulin treatment started with a plan to get patient discharged from our facility Vital signs are stable with temperature of 98.5, pulse 74, respiration 18 and blood pressure 145 will 48 with O2 saturation 95% on room air Patient and family are agreeable in proceeding with treatment with IVIG for suspicion of demyelinating polyneuropathy 02/24/2021 Patient is seen and evaluated with family at bedside; reports no improvement in symptoms Vital signs are reviewed and stable with temperature of 97.9, pulse 110, respirations 17 and blood pressure 131/83 Lab review shows WBC 8.9, hemoglobin 11.7, platelet count of 165, sodium 135 Patient has been started on folic acid 1 mg daily and vitamin B12 thousand MCG daily; urology on board and recommending to transition thiamine from IV to by mouth at 100 mg daily Thiamine level, copper level, methylmalonic acid, vitamin B6 level, zinc level, SCOOBY level, HIV test, lyme ab, serum and urine immuno-fixation are pending. Patient's clinical picture remains suspicious for demyelinating polyneuropathy but not confirmed with testing; patient and family are agreeable to proceed with IVIG treatment Neurology still recommending for patient to be transferred to a tertiary center for higher level of care; patient and family have decided to continue with care at this facility Objective - Vital Signs Vital signs: Vital Signs Temp 97.9 F 02/24/21 07:42 Pulse 111 H 02/24/21 07:42 Resp 17 02/24/21 08:00 BP 131/83 02/24/21 07:42 Pulse Ox 94 L 02/24/21 07:42 Intake & Output 02/23/21 02/24/21 02/24/21 18:59 06:59 18:59 Intake Total 240 Output Total 3100 2000 Balance -3100 -1760 Intake: Oral 240 Output: Urine 3100 2000 Uretheral (Nguyen) 1100 Other: Voiding Method Urinal Indwelling Catheter # Voids 3 - Exam GENERAL: The patient is alert and oriented x3, not in any acute distress. Well developed, well nourished. HEENT: Pupils are round and equally reacting to light. EOMI. No scleral icterus. No conjunctival pallor. Normocephalic, atraumatic. No pharyngeal erythema. No thyromegaly. CARDIOVASCULAR: S1 and S2 present. No murmurs, rubs, or gallops. PULMONARY: Chest is clear to auscultation, no wheezing or crackles. ABDOMEN: Soft, nontender, nondistended, normoactive bowel sounds. No palpable organomegaly. MUSCULOSKELETAL: No joint swelling or deformity. EXTREMITIES: No cyanosis, clubbing, or pedal edema. NEUROLOGICAL: Gross neurological examination did not reveal any focal deficits. Weakness especially of the extensor thighs and legs and feet, more on the right side than left side. Please see neurology consultation for details neuro examination SKIN: No rashes. No petechiae - Labs CBC & Chem 7: 02/24/21 06:15 02/24/21 06:15 Labs: Abnormal Lab Results - Last 24 Hours (Table) 02/23/21 02/24/21 02/24/21 Range/Units 11:58 06:15 06:15 RBC 4.00 L (4.40-5.60) X 10*6/uL Hgb 11.7 L (13.0-17.0) g/dL Hct 35.3 L (39.6-50.0) % RDW 14.6 H (11.5-14.5) % Absolute Nucleated RBC 0.02 H (0.00-0.00) X 10*3/uL Immature Gran # 0.09 H (0.00-0.04) X 10*3/uL NRBC/100 WBC Diff 0.2 H (0.0-0.0) /100 WBCS Sodium 135 L (137-145) mmol/L Creatinine 0.49 L (0.66-1.25) mg/dL POC Glucose (mg/dL) 73 L (75-99) mg/dL Phosphorus 4.8 H (2.5-4.5) mg/dL Microbiology - Last 24 Hours (Table) 02/21/21 13:55 CSF Gram Stain - Preliminary Cerebral Spinal Fluid CSF Culture - Preliminary Assessment and Plan Assessment: Bilateral lower extremity weakness and numbness, more on the right side. Leukocytosis Mildly elevated liver enzymes Hyponatremia Chronic low back pain radiating to the left side History of sleeve gastrectomy Recent history of cholecystectomy Morbid obesity with BMI of 41.8 Plan: Discontinue dexamethasone Follow-up results of the brain and cervical MRI, patient will may need lumbar puncture and EMG/nerve conduction study which could be done at a tertiary care center after other workup was done Follow-up with recommendation by neurology and orthopedic team Surgery team consult. Liver ultrasound is pending consult with surgery from emergency room . We'll order a liver ultrasound in view of the elevated liver enzymes and recent cholecystectomy Labs and medication were reviewed.. Continue same treatment. Continue with symptomatic treatment. Resume home medication. Monitor lytes and vitals. DVT and GI prophylaxis. Further recommendations depends on the clinical course of the patient PT/OT: Pending DVT prophylaxis: Subcu heparin GI prophylaxis: Pepcid Prognosis is guarded
[2021-02-24 20:42] LABS: Glucose,Whole Blood 83 mg/dL (75-99)
[2021-02-24] MEDS: diphenhydrAMINE 25 MG CAP PO PRN (21:36)
[2021-02-25] MEDS: INSULIN ASPART (NovoLOG) 100 UNIT/ML VIAL SQ SCH ×5 (00:30→21:54)
[2021-02-25] MEDS: SIMETHICONE 40 MG/0.6 ML DROPS 2,000 MG/30 ML BOTTLE PO SCH ×5 (00:30→21:52)
[2021-02-25] MEDS: HYDROcodone/APAP 5-325MG 1 EACH TAB PO PRN ×2 (05:50→19:52)
[2021-02-25 06:56] LABS: Glucose,Whole Blood 86 mg/dL (75-99)
[2021-02-25] MEDS: CYANOCOBALAMIN 500 MCG TAB PO SCH (07:49)
[2021-02-25] MEDS: FOLIC ACID 1 MG TAB PO SCH (07:49)
[2021-02-25] MEDS: DOCUSATE 100 MG CAP PO SCH ×2 (07:49→21:51)
[2021-02-25] MEDS: THIAMINE 100 MG TAB PO SCH (07:49)
[2021-02-25] MEDS: TAMSULOSIN 0.4 MG CAP.ER.24H PO SCH (07:49)
[2021-02-25] MEDS: FAMOTIDINE 20 MG TAB PO SCH ×2 (07:49→21:52)
[2021-02-25] MEDS: HEPARIN SODIUM,PORCINE/PF 5,000 UNIT/0.5 ML SYRINGE SQ SCH ×2 (07:49→21:52)
--- NOTE | 2021-02-25 10:52 | P.PN ---
Subjective Progress Note Date: 02/25/21 CHIEF COMPLAINT: Bilateral lower extremity weakness HISTORY OF PRESENT ILLNESS: Patient is still complaining of bilateral lower extremity weakness. He reports that his weakness is showing improvement. He is still awaiting transfer to [facility] for EMG. He has been receiving IVIG. Denies any abdominal pain. He reports that his eating. Denies any nausea or vomiting. He is having bowel movements. Afebrile. Tachycardic. B1 level was 34 and folate level is less than 2. He is receiving vitamins including folic acid, B12 and thiamine. Testosterone level pending PHYSICAL EXAM: VITAL SIGNS: Reviewed. GENERAL: Well-developed in no acute distress. HEENT: No sclera icterus. Extraocular movements grossly intact. Moist buccal mucosa. Head is atraumatic, normocephalic. ABDOMEN: Soft. Nondistended. Nontender. NEUROLOGIC: Alert and oriented. Cranial nerves II through XII grossly intact. ASSESSMENT: 1. Recent laparoscopic cholecystectomy 2. History of sleeve gastrectomy 3. Bilateral lower extremity weakness PLAN: -No surgical intervention planned -Continue supportive care -Continue neuro workup Physician Side Door Worker note has been reviewed by physician. Signing provider agrees with the documented findings, assessment, and plan of care. Objective - Vital Signs Vital signs: Vital Signs Temp 98.3 F 02/25/21 08:00 Pulse 105 H 02/25/21 08:00 Resp 16 02/25/21 08:00 BP 147/95 02/25/21 08:00 Pulse Ox 92 L 02/25/21 08:00 Intake & Output 02/24/21 02/25/21 02/25/21 18:59 06:59 18:59 Intake Total 15 480 Output Total 1100 2900 Balance -1085 -2420 Intake: Intake, IV Titration 15 Amount Immune Globulin ( 15 Gammagard) 20 gm In Empty Bag 1 bag @ Titrate IV . Q0M ONE Rx#:[id number] Oral 480 Output: Urine 1100 2900 Other: Voiding Method Indwelling Catheter Indwelling Catheter Indwelling Catheter # Voids 3 # Bowel Movements 1 - Labs CBC & Chem 7: 02/24/21 06:15 02/24/21 06:15 Labs: Abnormal Lab Results - Last 24 Hours (Table) 02/21/21 Range/Units 08:29 Vitamin B1 34 L (38-122) ug/L Microbiology - Last 24 Hours (Table) 02/21/21 13:55 CSF Gram Stain - Preliminary Cerebral Spinal Fluid CSF Culture - Preliminary
[2021-02-25] MEDS ORDERED: IMMUNE GLOBULIN (GAMMAGARD) 20 GM in EMPTY BAG 1 BAG IV ONE ×2 (11:00→12:00)
[2021-02-25 11:38] LABS: African American GFR (CKD) 175.8 (60.0-200.0); Anion Gap 9.1 mmol/L (4.00-12.00); BUN/Creat Ratio 14.85 Ratio (12.00-20.00); Blood Urea Nitrogen 7.8 mg/dL (9.0-27.0); Calcium 8.8 mg/dL (8.7-10.3); Carbon Dioxide 27.1 mmol/L (21.6-31.8); Magnesium 2.4 mg/dL (1.5-2.4); Non-African American GFR(CKD) 151.7 (60.0-200.0); Potassium 4.3 mmol/L (3.5-5.5)
[2021-02-25 11:39] LABS: Glucose,Whole Blood 88 mg/dL (75-99)
[2021-02-25 11:47] LABS: Basophils # (A) 0.02 X 10*3/uL (0.00-0.10); Basophils % (A) 0.3 %; Eosinophils # (A) 0.15 X 10*3/uL (0.04-0.35); Eosinophils % (A) 2.4 %; HCT 35.9 % (39.6-50.0); HGB 12.1 g/dL (13.0-17.0); Lymphocytes # (A) 1.88 X 10*3/uL (0.90-5.00); MCH 30.6 pg (27.0-32.0); MCHC 33.7 g/dL (32.0-37.0); MCV 90.7 fL (80.0-97.0); Mean Platelet Volume 12.1 fL (9.5-12.2); Monocytes # (A) 0.44 X 10*3/uL (0.20-1.00); Neutrophils # (A) 3.74 X 10*3/uL (1.80-7.70); Neutrophils % (A) 59.8 %; Platelet Count 128 X 10*3/uL (140-440); RBC 3.96 X 10*6/uL (4.40-5.60); RDW 14.7 % (11.5-14.5); WBC 6.26 X 10*3/uL (4.50-10.00)
--- NOTE | 2021-02-25 14:16 | P.PN ---
Subjective This is a pleasant 20 years old male with past medical history of hx pain lower back radiating to left side, status post Sleeve Gastrectomy 07-24-20 and recent cholecystectomy. Patient information was that with the help of his mother at bedside Patient says who presents because of numbness and weakness in both lower extremity more on the right than the left. Is not suppressed from the back of his hip and buttock down to the middle of the right and similarly on the left leg but less extent patient has been complaining of from progressive weakness more on the right leg over the last week. Patient denies any back pain. No recent history of chronic cold or gastroenteritis. He has history of significant back pain and sciatic That he had MRI of the back down on 07/2020 at [facility]. Followed by a visit to the pain clinic where he got 3 shots in his low back. And apparently he does not complain from any back pain or neck pain or headache. No weakness or numbness in the upper extremity, no slurred speech or blurred vision He denies chest pain or abdominal pain, no coughing or dyspnea. No diarrhea but is improving from constipation Decreased frequency of urination he had only once in the last 24 hours which wakes him up in the middle of last night, compared to usual frequency of 4-7 times per mother at bedside Patient had recent surgery for laparoscopic cholecystectomy on 02/08. He denies smoking, alcohol or illicit tracts On admission his tachycardic of 123, rest of vitals are stable Has mild leukocytosis of 15.2 K, sodium is moderately low at 1:30, potassium 3.4, creatinine normal 0.6, liver enzymes mildly elevated. Total bilirubin is normal at 0.9. CT of the lumbar spine, normal findings Normal CT of the brain On admission and received IV fluids, he was admitted with neurology and surgery team consults MRI of the lumbar spine showing stable disc herniation of L5 to S1 or slightly smaller than before. This would not explain the patient's symptoms. MRI of the cervical spine and of the brain did not show significant abnormal explain patient's symptoms as well Lumbar puncture done showing high glucose of 85, normal total protein of 39. 02/25/2021 Patient today showing some improvement in his toes movement and numbness as he confirmed to me, he got 1 dose of IVIG earlier. He is also able somewhat to be nd his knees and ankle but did not report improvement in them. He states he has no weakness in the upper extremities. No headache or blurred vision or slurred speech. No respiratory, GI or urinary symptoms. He is hemodynamically stable. His tachycardic with heart rate 105-101. His obesity is back to normal at 6.2, platelet count dropping down to 128. Sodium and potassium are normal. Pro-ca lcitonin is slightly elevated at 0.2 to He's on immunoglobulin intravenously to 03/10. Per neurologist recommendation. Also neurologist recommends transfer to tertiary care center which was started last week. Agrees to be transferred. I discussed with the patient case coordinator/social worker palliative care Carola today stating that his medical insurance has refused his transfer. After discussed the case with her she is going to resubmit request to be transferred. Physical therapy recommended inpatient rehab. Repeat labs tomorrow, chest x-ray and urine analysis. Repeat pro-calcitonin. Objective - Vital Signs Vital signs: Vital Signs Temp 98.1 F 02/25/21 13:34 Pulse 101 H 02/25/21 13:34 Resp 16 02/25/21 13:34 BP 141/90 02/25/21 13:34 Pulse Ox 93 L 02/25/21 13:34 Intake & Output 02/24/21 02/25/21 02/25/21 18:59 06:59 18:59 Intake Total 15 480 39.667 Output Total 1100 2900 Balance -1085 -2420 39.667 Intake: Intake, IV Titration 15 39.667 Amount Immune Globulin ( 15 Gammagard) 20 gm In Empty Bag 1 bag @ Titrate IV . Q0M ONE Rx#:[id number] Immune Globulin ( 39.667 Gammagard) 20 gm In Empty Bag 1 bag @ Titrate IV . Q0M ONE Rx#:[id number] Oral 480 Output: Urine 1100 2900 Other: Voiding Method Indwelling Catheter Indwelling Catheter Indwelling Catheter # Voids 3 # Bowel Movements 1 - Exam GENERAL: The patient is alert and oriented x3, not in any acute distress. Well developed, well nourished. HEENT: Pupils are round and equally reacting to light. EOMI. No scleral icterus. No conjunctival pallor. Normocephalic, atraumatic. No pharyngeal erythema. No thyromegaly. CARDIOVASCULAR: S1 and S2 present. No murmurs, rubs, or gallops. PULMONARY: Chest is clear to auscultation, no wheezing or crackles. ABDOMEN: Soft, nontender, nondistended, normoactive bowel sounds. No palpable organomegaly. MUSCULOSKELETAL: No joint swelling or deformity. EXTREMITIES: No cyanosis, clubbing, or pedal edema. NEUROLOGICAL: Gross neurological examination did not reveal any focal deficits. Weakness especially of the extensor thighs and legs and feet, more on the right side than left side. No sensory deficit SKIN: No rashes. No petechiae - Labs CBC & Chem 7: 02/25/21 07:03 02/25/21 07:03 Labs: Abnormal Lab Results - Last 24 Hours (Table) 02/21/21 02/22/21 02/24/21 Range/Units 08:29 07:23 06:15 RBC (4.40-5.60) X 10*6/uL Hgb (13.0-17.0) g/dL Hct (39.6-50.0) % RDW (11.5-14.5) % Plt Count (140-440) X 10*3/uL Plt Count Comment BUN (9.0-27.0) mg/dL Creatinine (0.6-1.5) mg/dL Aldolase 15.2 H (1.2-7.6) U/L Vitamin B1 34 L (38-122) ug/L Procalcitonin (0.02-0.09) ng/mL Zinc 59 L (60-130) ug/dL 02/25/21 02/25/21 02/25/21 Range/Units 07:03 07:03 07:03 RBC 3.96 L (4.40-5.60) X 10*6/uL Hgb 12.1 L (13.0-17.0) g/dL Hct 35.9 L (39.6-50.0) % RDW 14.7 H (11.5-14.5) % Plt Count 128 L (140-440) X 10*3/uL Plt Count Comment DECREASED A BUN 7.8 L (9.0-27.0) mg/dL Creatinine 0.5 L (0.6-1.5) mg/dL Aldolase (1.2-7.6) U/L Vitamin B1 (38-122) ug/L Procalcitonin 0.22 H (0.02-0.09) ng/mL Zinc (60-130) ug/dL Microbiology - Last 24 Hours (Table) 02/21/21 13:55 CSF Gram Stain - Preliminary Cerebral Spinal Fluid CSF Culture - Preliminary Assessment and Plan Assessment: Bilateral lower extremity weakness and numbness, more on the right side. 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 Improved Chronic low back pain radiating to the left side. Mild History of sleeve gastrectomy Recent history of cholecystectomy Morbid obesity with BMI of 41.8 Plan: This is a pleasant 20 years old male who presents with bilateral lower extremity weakness and numbness. Continue intravenous immunoglobulin per neurologist recommendation Patient will benefit from EMG/nerve conduction study which could be done at a tertiary care center after other workup was done. Discussed with social worker palliative care/patient case coordinator to resubmit transfer order after ejected by his medical insurance provider Follow-up with recommendation by neurology and surgery team and other consult ants Labs and medication were reviewed.. Continue same treatment. Continue with symptomatic treatment. Resume home medication. Monitor lytes and vitals. DVT and GI prophylaxis. Further recommendations depends on the clinical course of the patient PT/OT: Pending DVT prophylaxis: Subcu heparin GI prophylaxis: Pepcid PT/OT call and recommended inpatient rehab Prognosis is guarded
[2021-02-25 16:14] LABS: Glucose,Whole Blood 85 mg/dL (75-99)
[2021-02-25 20:28] LABS: Glucose,Whole Blood 99 mg/dL (75-99)
[2021-02-25] MEDS: diphenhydrAMINE 25 MG CAP PO PRN (22:07)
[2021-02-25 22:43] LABS: Appearance,Urine Clear (Clear); Bacteria,Urine Occasional /hpf; Bilirubin,Urine Negative (Negative); Blood,Urine Negative (Negative); Color,Urine Light Yellow; Glucose,Urine (UA) Negative (Negative); Ketones,Urine Negative (Negative); Leukocyte Esterase,Urine Large (Negative); Mucus,Urine Rare /hpf; Nitrite,Urine Negative (Negative); PH, Urine 7.5 (5.0-8.0); Protein,Urine Negative (Negative); RBC,Urine 1 /hpf (0-5); Specific Gravity,Urine 1.008 (1.001-1.035); Urobilinogen,Urine <2.0 mg/dL (<2.0); WBC,Urine 17 /hpf (0-5)
[2021-02-26 07:31] LABS: Glucose,Whole Blood 87 mg/dL (75-99)
[2021-02-26] MEDS: INSULIN ASPART (NovoLOG) 100 UNIT/ML VIAL SQ SCH ×4 (07:33→20:32)
[2021-02-26] MEDS: HEPARIN SODIUM,PORCINE/PF 5,000 UNIT/0.5 ML SYRINGE SQ SCH ×2 (07:33→20:32)
[2021-02-26] MEDS: THIAMINE 100 MG TAB PO SCH (07:34)
[2021-02-26] MEDS: CYANOCOBALAMIN 500 MCG TAB PO SCH (07:34)
[2021-02-26] MEDS: TAMSULOSIN 0.4 MG CAP.ER.24H PO SCH (07:34)
[2021-02-26] MEDS: FOLIC ACID 1 MG TAB PO SCH (07:34)
[2021-02-26] MEDS: SIMETHICONE 40 MG/0.6 ML DROPS 2,000 MG/30 ML BOTTLE PO SCH ×4 (07:34→20:15)
[2021-02-26] MEDS: FAMOTIDINE 20 MG TAB PO SCH ×2 (07:34→20:32)
[2021-02-26] MEDS: DOCUSATE 100 MG CAP PO SCH ×2 (07:34→20:30)
[2021-02-26 07:37] LABS: ALT 217 U/L (4-49); AST 121 U/L (17-59); African American GFR (CKD) >90 (>60 ml/min/1.73 sqM); Albumin 3.3 g/dL (3.5-5.0); Albumin/Globulin Ratio 0.8; Alkaline Phosphatase 56 U/L (38-126); Anion Gap 6 mmol/L; Blood Urea Nitrogen 10 mg/dL (9-20); Carbon Dioxide 28 mmol/L (22-30); Chloride 101 mmol/L (98-107); Glucose 89 mg/dL (74-99); Non-African American GFR(CKD) >90 (>60 ml/min/1.73 sqM); Sodium 135 mmol/L (137-145); Total Bilirubin 1.5 mg/dL (0.2-1.3); Total Protein 7.3 g/dL (6.3-8.2)
[2021-02-26 08:06] LABS: Methylmalonic Acid 0.13 umol/L (<0.40)
--- NOTE | 2021-02-26 08:11 | XR ---
EXAMINATION TYPE: XR chest 1V DATE OF EXAM: 02/26/2021 CLINICAL HISTORY: Difficulty breathing . TECHNIQUE: Single AP portable upright view of the chest is obtained. COMPARISON: None FINDINGS: Low lung volumes. No suspicious focal airspace opacity, pleural effusion, or pneumothorax seen bilaterally. Cardiac silhouette size within normal limits. Surgical clips epigastric region. Vis ualized osseous structures are intact. IMPRESSION: No acute pulmonary process.
--- NOTE | 2021-02-26 10:42 | P.PN ---
Subjective Progress Note Date: 02/25/21 Patient was initially seen by Dr. Justin Blanca. Please refer to his note for details. Patient was seen for a follow-up. Patient's parents were also present. Patient has history of gastric sleeve surgery on 07/24/2020. Patient underwent cholecystectomy on 02/08/2021. Patient developed paresthesias of the feet with numbness tingling cramping in the legs since 01/30/2021. Patient [facility]. EMG was normal and was diagnosed with plantar fasciitis. Patient developed progressive weakness, gait dysfunction with bilateral foot drop. Patient also has developed numbness of the hands as well. He feels his toes are stuck together. He has developed gait dysfunction, cannot walk since 02/20/2021. Patient has been diagnosed with multiple vitamin deficiencies. Patient has been empirically started with IVIG and today he has received a second dose without any side effects. He is tolerating it well. Per patient's mother, he has been able to rollover in the bed better, still cannot walk and requires physical therapy. He was able to sit on the bed slightly better than yesterday. Objective - Vital Signs Vital signs: Vital Signs Temp 98.1 F 02/26/21 07:49 Pulse 112 H 02/26/21 07:49 Resp 18 02/26/21 07:49 BP 150/99 02/26/21 07:49 Pulse Ox 94 L 02/26/21 07:49 Intake & Output 02/25/21 02/26/21 02/26/21 18:59 06:59 18:59 Intake Total 39.667 Output Total 1400 1000 Balance -1360.333 -1000 Intake: Intake, IV Titration 39.667 Amount Immune Globulin ( 39.667 Gammagard) 20 gm In Empty Bag 1 bag @ Titrate IV . Q0M ONE Rx#:[id number] Output: Urine 1400 1000 Other: Voiding Method Indwelling Catheter Indwelling Catheter # Bowel Movements 2 - Exam Patient is alert and awake. Cranial nerves are normal. Muscle strength is n ormal in the arms. In the lower limbs his hip flexion is very weak about 2 on the right, 3 on the left. Ankle dorsiflexion R very weak, no more than 1-2. Plantar flexion are 4+. Patient is areflexic. Plantars are downgoing. Sensations are subjectively decreased from toes up to mid thighs and also in the hands. - Labs CBC & Chem 7: 02/25/21 07:03 02/26/21 06:57 Labs: Abnormal Lab Results - Last 24 Hours (Table) 02/21/21 02/22/21 02/24/21 Range/Units 06:40 07:23 06:15 RBC (4.40-5.60) X 10*6/uL Hgb (13.0-17.0) g/dL Hct (39.6-50.0) % RDW (11.5-14.5) % Plt Count (140-440) X 10*3/uL Plt Count Comment Sodium (137-145) mmol/L BUN (9.0-27.0) mg/dL Creatinine (0.6-1.5) mg/dL Total Bilirubin (0.2-1.3) mg/dL AST (17-59) U/L ALT (4-49) U/L Albumin (3.5-5.0) g/dL Aldolase 15.2 H (1.2-7.6) U/L Procalcitonin (0.02-0.09) ng/mL Testosterone Level 34.00 L (123.06-813.86) ng/mL Ur Leukocyte Esterase (Negative) Urine WBC (0-5) /hpf Urine WBC Clumps (None) /hpf Urine Bacteria (None) /hpf Urine Mucus (None) /hpf Zinc 59 L (60-130) ug/dL 02/25/21 02/25/21 02/25/21 Range/Units 07:03 07:03 07:03 RBC 3.96 L (4.40-5.60) X 10*6/uL Hgb 12.1 L (13.0-17.0) g/dL Hct 35.9 L (39.6-50.0) % RDW 14.7 H (11.5-14.5) % Plt Count 128 L (140-440) X 10*3/uL Plt Count Comment DECREASED A Sodium (137-145) mmol/L BUN 7.8 L (9.0-27.0) mg/dL Creatinine 0.5 L (0.6-1.5) mg/dL Total Bilirubin (0.2-1.3) mg/dL AST (17-59) U/L ALT (4-49) U/L Albumin (3.5-5.0) g/dL Aldolase (1.2-7.6) U/L Procalcitonin 0.22 H (0.02-0.09) ng/mL Testosterone Level (123.06-813.86) ng/mL Ur Leukocyte Esterase (Negative) Urine WBC (0-5) /hpf Urine WBC Clumps (None) /hpf Urine Bacteria (None) /hpf Urine Mucus (None) /hpf Zinc (60-130) ug/dL 02/25/21 02/26/21 Range/Units 21:56 06:57 RBC (4.40-5.60) X 10*6/uL Hgb (13.0-17.0) g/dL Hct (39.6-50.0) % RDW (11.5-14.5) % Plt Count (140-440) X 10*3/uL Plt Count Comment Sodium 135 L (137-145) mmol/L BUN (9.0-27.0) mg/dL Creatinine 0.46 L (0.6-1.5) mg/dL Total Bilirubin 1.5 H (0.2-1.3) mg/dL AST 121 H (17-59) U/L ALT 217 H (4-49) U/L Albumin 3.3 L (3.5-5.0) g/dL Aldolase (1.2-7.6) U/L Procalcitonin (0.02-0.09) ng/mL Testosterone Level (123.06-813.86) ng/mL Ur Leukocyte Esterase Large H (Negative) Urine WBC 17 H (0-5) /hpf Urine WBC Clumps Rare H (None) /hpf Urine Bacteria Occasional H (None) /hpf Urine Mucus Rare H (None) /hpf Zinc (60-130) ug/dL Microbiology - Last 24 Hours (Table) 02/25/21 21:56 Urine Culture - Preliminary Urine,Voided 02/21/21 13:55 CSF Gram Stain - Final Cerebral Spinal Fluid CSF Culture - Final Assessment and Plan Assessment: * Symmetric lower >> upper extremity weakness and complaint of paresthesia that is progressive (On examination he had predominately lower > upper extremity weakness with hyporeflexia/areflexia): Unsure exact diagnosis. I feel patient possibly has subacute polyneuropathy. 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 Not sure if the patient has malnutrition deficiency/vitamin deficiency leading to his worsening condition especially with history of gastrectomy sleeve on 07/2020 * Folate defiency (Serum folate is less than 2). * Multiple vitamin deficiency including vitamin D1, using * History of lower back pain with radiculopathy (has pain injections in the back but last was one year ago) but currently is not having any lower back pain. * Electrolyte imbalance with mild hyponatremia (130-->131) * Mild transaminitis * History of recent lap closeectomy on 02/08/2021 * gastrectomy sleeve on 07/2020 * Morbid obesity Plan: * Continue folic acid 1 mg daily, vitamin B12 1000mcg daily and will thiamine from IV to PO 100mg daily. Patient will be started on multivitamins, as he is also low on vitamin A, zinc. * Continue IVIG for a total dose of (2g/kg over 5 days). Today is day #2. * Patient needs repeat EMG and nerve conduction studies to evaluate for polyneuropathy, rule out myopathy. Repeat CPK. * Patient had EMG with nerve conduction study of the lower about 2 weeks ago and was reported as normal. I feel like that there should be some findings suggestive of polyneuropathy. * Nephrology team is consulted for mild hyponatremia. * Orthopedic team is on board * Patient on heparin 5000 unit subcu every 12 hours for DVT prophylaxis. * Physical therapy and occupation therapy are consulted. * We'll defer the rest of the medical management to primary team. WORK-UP: SCOOBY negative Serum copper is normal 744 (665-1480) Zinc 59(60 to 130) Vitamin B1 34 (38-122), vitamin E 16 (38-106) Creatinine kinase is 316 (normal is 55-170). ESR is 15. CRP is the 1.2. Aldolase is elevated 15.2 (1.2-7.6) TSH is 1.8908 which is within normal limits. urine analysis negative for urinary tract infection. CSF is clear, colorless, CSF red blood cell is 27, nuclear cells is 1, glucose is 85 and a protein is normal 39 (12-60) Serum folate is less than 2 which is considered deficient (normal is between 4.4-31) Red blood cell folate is 355 which is considered on the borderline of low normal Vitamin B12 is 411, Methylmalonic acid is normal 0.13. Vitamin B6, HIV, Lyme titer, immune fixation electrophoresis still pending. Hemoglobin A1c is 5.1. Calcium is 9.3, magnesium is 2.1. Lactate Dehydrogenase: 1325 IgA level: 201 (normal0 Coronavirus PCR: Not detected. CT of the brain is reported as normal CT brain. MRI of lumbar spine w/o is reported as there is L5-S1 lumbar disc herniation in the midline which appears slightly smaller than the last exam. No spinal stenosis. No fracture. MRI LUMBAR SPINE W/: Is reported as no abnormal postcontrast enhancement. MRI the brain with and without is reported as no abnormality is evident. MRI the cervical spine with and without is reported as normal pre-and postcontrast cervical MRI. Time with Patient: Greater than 30
[2021-02-26] MEDS ORDERED: IMMUNE GLOBULIN (GAMMAGARD) 20 GM in EMPTY BAG 1 BAG IV ONE ×2 (11:00→12:00)
[2021-02-26] MEDS ORDERED: METOPROLOL TARTRATE 25 MG TAB PO SCH (11:15)
[2021-02-26] MEDS: MULTIVITAMINS, THERA 1 EACH TAB PO SCH (11:32)
[2021-02-26] MEDS: amLODIPine 5 MG TAB PO SCH (11:32)
--- NOTE | 2021-02-26 11:33 | PN ---
PROGRESS NOTE Patient is seen for followup for hyponatremia. His serum sodium is stable at 135. Creatinine has been 0.5 to 0.4 mg/dL. Patient is receiving IV Ig for possible demyelinating neuropathy as a cause for his lower extremity weakness. On examination today, blood pressure 147/95, heart rate 105 per minute. Patient is afebrile. EXAMINATION OF THE HEART: S1 and S2. EXAMINATION OF LUNGS: Bilateral breath sounds are heard. Abdomen is soft, non-tender. Examination of lower extremities shows no significant edema. Weakness of the legs is noted. Labs show sodium 135, potassium 4.3, serum creatinine 0.5. ASSESSMENT: 1. Hyponatremia associated with urine retention, now improved. 2. Urinary retention, status post Nguyen catheter placement, most likely associated with possibility of demyelinating syndrome. GBS being considered. Being followed by Neurology. 3. Obesity. PLAN: Continue to monitor serum sodium levels. Continue with Nguyen catheter for now. MMODL / IJN: [id number] /
[2021-02-26 11:45] LABS: Glucose,Whole Blood 101 mg/dL (75-99)
[2021-02-26 11:54] LABS: Basophils # (A) 0.02 X 10*3/uL (0.00-0.10); Basophils % (A) 0.2 %; Eosinophils # (A) 0.23 X 10*3/uL (0.04-0.35); Eosinophils % (A) 2.7 %; HGB 12.6 g/dL (13.0-17.0); Lymphocytes # (A) 2.05 X 10*3/uL (0.90-5.00); Lymphocytes % (A) 24.2 %; MCHC 32.3 g/dL (32.0-37.0); MCV 89.7 fL (80.0-97.0); Mean Platelet Volume 11.6 fL (9.5-12.2); Monocytes # (A) 0.77 X 10*3/uL (0.20-1.00); Monocytes % (A) 9.1 %; Neutrophils # (A) 5.31 X 10*3/uL (1.80-7.70); Neutrophils % (A) 62.9 %; Platelet Count 161 X 10*3/uL (140-440); RBC 4.35 X 10*6/uL (4.40-5.60); RDW 14.4 % (11.5-14.5); WBC 8.46 X 10*3/uL (4.50-10.00)
[2021-02-26] MEDS: CIPROFLOXACIN 0.3% OPHTH SOLN 5 ML BTL BOTH EYES SCH ×3 (12:20→20:14)
--- NOTE | 2021-02-26 12:36 | P.PN ---
Subjective This is a pleasant 20 years old male with past medical history of hx pain lower back radiating to left side, status post Sleeve Gastrectomy 07-24-20 and recent cholecystectomy. Patient information was that with the help of his mother at bedside Patient says who presents because of numbness and weakness in both lower extremity more on the right than the left. Is not suppressed from the back of his hip and buttock down to the middle of the right and similarly on the left leg but less extent patient has been complaining of from progressive weakness more on the right leg over the last week. Patient denies any back pain. No recent history of chronic cold or gastroenteritis. He has history of significant back pain and sciatic That he had MRI of the back down on 07/2020 at [facility]. Followed by a visit to the pain clinic where he got 3 shots in his low back. And apparently he does not complain from any back pain or neck pain or headache. No weakness or numbness in the upper extremity, no slurred speech or blurred vision He denies chest pain or abdominal pain, no coughing or dyspnea. No diarrhea but is improving from constipation Decreased frequency of urination he had only once in the last 24 hours which wakes him up in the middle of last night, compared to usual frequency of 4-7 times per mother at bedside Patient had recent surgery for laparoscopic cholecystectomy on 02/08. He denies smoking, alcohol or illicit tracts On admission his tachycardic of 123, rest of vitals are stable Has mild leukocytosis of 15.2 K, sodium is moderately low at 1:30, potassium 3.4, creatinine normal 0.6, liver enzymes mildly elevated. Total bilirubin is normal at 0.9. CT of the lumbar spine, normal findings Normal CT of the brain On admission and received IV fluids, he was admitted with neurology and surgery team consults MRI of the lumbar spine showing stable disc herniation of L5 to S1 or slightly smaller than before. This would not explain the patient's symptoms. MRI of the cervical spine and of the brain did not show significant abnormal explain patient's symptoms as well Lumbar puncture done showing high glucose of 85, normal total protein of 39. 02/25/2021 Patient today showing some improvement in his toes movement and numbness as he confirmed to me, he got 1 dose of IVIG earlier. He is also able somewhat to be nd his knees and ankle but did not report improvement in them. He states he has no weakness in the upper extremities. No headache or blurred vision or slurred speech. No respiratory, GI or urinary symptoms. He is hemodynamically stable. His tachycardic with heart rate 105-101. His obesity is back to normal at 6.2, platelet count dropping down to 128. Sodium and potassium are normal. Pro-ca lcitonin is slightly elevated at 0.2 to He's on immunoglobulin intravenously to 03/10. Per neurologist recommendation. Also neurologist recommends transfer to tertiary care center which was started last week. Agrees to be transferred. I discussed with the piano case maker/certified social workers in health care Carola today stating that his medical insurance has refused his transfer. After discussed the case with her she is going to resubmit request to be transferred. Physical therapy recommended inpatient rehab. Repeat labs tomorrow, chest x-ray and urine analysis. Repeat pro-calcitonin. 02/26/2021 patient status with bilateral lower extremity weakness and paresthesia, patient reported some improvement in his both those yesterday but not today. no new weakness or worsening weakness in the upper extremity as well. No other complaints His blood pressure is slightly elevated 150/99, Norvasc is a started. He is t achycardic with heart rate around 112. Labs showing work sending leukocyte 8.4, it was 13-21 on admission. Platelet count normal today 161. Electrolytes are unremarkable. Liver enzymes are elevated Pro-calcitonin is elevated at 0.9 up to 0.22. Chest x-ray no acute process. Urine analysis is suspicious for infection and urine culture is pending Patient was started on ceftriaxone. Also his on gentle hydration and also receiving IVIG Today I discussed the case with Hang from [employer] , he is going to review the case and call me back Neurology team on the case and the recommended patient to continue with IVIG and to transfer the patient to tertiary center however his medical insurance [employer] is rejecting the case unless [employer] status except the patient admission then we will resubmit order for transfer. As per my discussion with piano case maker Carola PT/OT recommended inpatient rehab, Dr. Davis consulted Objective - Vital Signs Vital signs: Vital Signs Temp 98.1 F 02/26/21 07:49 Pulse 112 H 02/26/21 07:49 Resp 18 02/26/21 07:49 BP 150/99 02/26/21 07:49 Pulse Ox 94 L 02/26/21 07:49 Intake & Output 02/25/21 02/26/21 02/26/21 18:59 06:59 18:59 Intake Total 39.667 Output Total 1400 1000 Balance -1360.333 -1000 Intake: Intake, IV Titration 39.667 Amount Immune Globulin ( 39.667 Gammagard) 20 gm In Empty Bag 1 bag @ Titrate IV . Q0M ONE Rx#:[id number] Output: Urine 1400 1000 Other: Voiding Method Indwelling Catheter Indwelling Catheter # Bowel Movements 2 - Exam GENERAL: The patient is alert and oriented x3, not in any acute distress. Well developed, well nourished. HEENT: Pupils are round and equally reacting to light. EOMI. No scleral icterus. No conjunctival pallor. Normocephalic, atraumatic. No pharyngeal erythema. No thyromegaly. CARDIOVASCULAR: S1 and S2 present. No murmurs, rubs, or gallops. PULMONARY: Chest is clear to auscultation, no wheezing or crackles. ABDOMEN: Soft, nontender, nondistended, normoactive bowel sounds. No palpable organomegaly. MUSCULOSKELETAL: No joint swelling or deformity. EXTREMITIES: No cyanosis, clubbing, or pedal edema. NEUROLOGICAL: Gross neurological examination did not reveal any focal deficits. Weakness especially of the extensor thighs and legs and feet, more on the right side than left side. No sensory deficit SKIN: No rashes. No petechiae - Labs CBC & Chem 7: 02/26/21 06:57 02/26/21 06:57 Labs: Abnormal Lab Results - Last 24 Hours (Table) 02/21/21 02/24/21 02/25/21 Range/Units 06:40 06:15 21:56 RBC (4.40-5.60) X 10*6/uL Hgb (13.0-17.0) g/dL Hct (39.6-50.0) % Immature Gran # (0.00-0.04) X 10*3/uL Sodium (137-145) mmol/L Creatinine (0.66-1.25) mg/dL POC Glucose (mg/dL) (75-99) mg/dL Total Bilirubin (0.2-1.3) mg/dL AST (17-59) U/L ALT (4-49) U/L Albumin (3.5-5.0) g/dL Testosterone Level 34.00 L (123.06-813.86) ng/mL Ur Leukocyte Esterase Large H (Negative) Urine WBC 17 H (0-5) /hpf Urine WBC Clumps Rare H (None) /hpf Urine Bacteria Occasional H (None) /hpf Urine Mucus Rare H (None) /hpf Zinc 59 L (60-130) ug/dL 02/26/21 02/26/21 02/26/21 Range/Units 06:57 06:57 11:42 RBC 4.35 L (4.40-5.60) X 10*6/uL Hgb 12.6 L (13.0-17.0) g/dL Hct 39.0 L (39.6-50.0) % Immature Gran # 0.08 H (0.00-0.04) X 10*3/uL Sodium 135 L (137-145) mmol/L Creatinine 0.46 L (0.66-1.25) mg/dL POC Glucose (mg/dL) 101 H (75-99) mg/dL Total Bilirubin 1.5 H (0.2-1.3) mg/dL AST 121 H (17-59) U/L ALT 217 H (4-49) U/L Albumin 3.3 L (3.5-5.0) g/dL Testosterone Level (123.06-813.86) ng/mL Ur Leukocyte Esterase (Negative) Urine WBC (0-5) /hpf Urine WBC Clumps (None) /hpf Urine Bacteria (None) /hpf Urine Mucus (None) /hpf Zinc (60-130) ug/dL Microbiology - Last 24 Hours (Table) 02/25/21 21:56 Urine Culture - Preliminary Urine,Voided 02/21/21 13:55 CSF Gram Stain - Final Cerebral Spinal Fluid CSF Culture - Final Assessment and Plan Assessment: Bilateral lower extremity weakness and numbness, more on the right side. 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 Improved Chronic low back pain radiating to the left side. Mild History of sleeve gastrectomy Recent history of cholecystectomy Morbid obesity with BMI of 41.8 Plan: This is a pleasant 20 years old male who presents with bilateral lower extremity weakness and numbness. Continue intravenous immunoglobulin per neurologist recommendation Patient will benefit from EMG/nerve conduction study which could be done at a tertiary care center after other workup was done. Discussed with certified social workers in health care/piano case maker to resubmit transfer order after ejected by his medical insurance provider Follow-up with recommendation by neurology and surgery team and other co nsultants Labs and medication were reviewed.. Continue same treatment. Continue with symptomatic treatment. Resume home medication. Monitor lytes and vitals. DVT and GI prophylaxis. Further recommendations depends on the clinical course of the patient PT/OT: Pending DVT prophylaxis: Subcu heparin GI prophylaxis: Pepcid PT/OT recommended inpatient rehab, Dr. Davis consulted Prognosis is guarded
--- NOTE | 2021-02-26 12:39 | P.CONS ---
History of Present Illness - Chief Complaint Gait disturbance, paraparesis - History of Present Illness I had the opportunity to see patient for inpatient rehab consultation with regard to gait disturbance/paraparesis. [facility] extremity weakness. Seen by Dr. Packer for neurology diagnosis of acute demyelination disease. Seen by Dr. Gracia reviewed lumbar MRI demonstrates L5 herniation but decreasing in size. Seen by Dr. Hong for recent laparoscopic cholecystectomy as well as sleeve gastrectomy. Seen by Patience for euvolemic hyponatremia. Note initial head and C-spine CT is negative. Liver ultrasound consistent with steatosis. Lumbar MRI initially demonstrated L5 herniation with decrease in size in follow-up negative for tumor suspicion. Chest x-ray negative. MRI of the head and C-spine normal. Did started therapies. PT reports two-person maximal assistance for bed mobility and unable to stand. OT reports moderate assistance for upper dressing and bathing and maximal assistance for lower dressing and toileting and two-person moderate to maximal assistance functional mobility. Previous functional history as elicited from patient: 20-year-old right-handed white male is single lives in one floor home with parents. Currently student. Describes previously independent with cooking, laundry, driving, standing shower gait without device. PCP Dr. Willis. Patient denies tobacco but does not smoke or monitor. Does not drink. Review of Systems Review of systems: ENT: Denies sneezes or discharge. Eyes: Denies discharge or photophobia. Cardiac: Denies chest pain or palpitation. Pulmonary: Denies cough or shortness of breath. Gastrointestinal: Denies nausea, emesis, constipation, diarrhea. Genitourinary: Denies discharge or frequency. Musculoskeletal: Denies muscle or bone aches. Neurologic: Lower extremity weakness. Endocrine: Denies shakes or sweats. Oncology: Denies cancers. Dermatologic: Denies rash, itching, pruritus. ALLERGY/immunology: Denies sneezes, rashes. Past Medical History Past Medical History: No Reported History Additional Past Medical History / Comment(s): nausea/vomiting,gas pain and pres sure,hx pain lower back radiating to left side History of Any Multi-Drug Resistant Organisms: None Reported Past Surgical History: Cholecystectomy Additional Past Surgical History / Comment(s): rt knee meniscectomy, wisdom te eth, PAIN CLINIC PROCEDURE, Sleeve Gastrectomy 3--21 Past Anesthesia/Blood Transfusion Reactions: Family History of Problems w/ Anesthesia Additional Past Anesthesia/Blood Transfusion Reaction / Comm: mother-PONV Past Psychological History: Depression Smoking Status: Former smoker Past Alcohol Use History: None Reported Past Drug Use History: Marijuana - Past Family History Mother Family Medical History: No Reported History Medications and Allergies Home Medications Medication Instructions Recorded Confirmed Type Bariatric Multivitamin 1 tab PO QID 02/05/21 02/20/21 History Omeprazole [PriLOSEC] 40 mg PO DAILY 02/05/21 02/20/21 History Ibuprofen [Motrin] 600 mg PO Q8H PRN 02/20/21 02/20/21 History predniSONE 10 mg PO TID 02/20/21 02/20/21 History Allergies Allergy/AdvReac Type Severity Reaction Status Date / Time No Known Allergies Allergy Verified 02/20/21 11:24 Physical Exam Vitals: Vital Signs Temp Pulse Pulse Resp BP Pulse Ox 02/26/21 07:49 98.1 F 112 H 18 150/99 94 L 02/26/21 02:05 98.9 F 105 H 16 147/62 94 L 02/26/21 01:46 98.2 F 94 98 17 136/78 98 02/25/21 20:08 98.3 F 118 H 118 H 16 143/92 96 02/25/21 19:45 98.3 F 118 H 16 143/92 96 02/25/21 13:34 98.1 F 101 H 16 141/90 93 L Intake and Output 02/25/21 02/26/21 02/26/21 22:59 06:59 14:59 Output Total 1400 1000 Balance -1400 -1000 Output: Urine 1400 1000 Other: Voiding Method Indwelling Catheter # Bowel Movements 2 Skin: Good color, texture, turgor. General: Morbidly obese build and comfortable appearance. Head: Normocephalic, atraumatic. Eyes: Symmetric. Pupils equal round. Ears: Symmetric. Hearing within normal limits. Mouth: Clear. Neck: Supple. Carotid without bruit. Cardiac: Regular rate and rhythm. Lungs: Clear anteriorly and posteriorly. Abdomen: Soft active nontender. Obese. Extremities: Normal tone. Overweight. Neurological: Mental status: Alert, cooperative, pleasant. Cranial nerves: Symmetric facial tone and trapezius. Motor: Active movement arms but less than antigravity in legs poor. Sensation: Intact throughout. DTRs: Symmetric and equal throughout. Mobility: Requires physical assist for bed mobility. Results CBC & Chem 7: 02/26/21 06:57 02/26/21 06:57 Labs: Abnormal Lab Results - Last 24 Hours (Table) 02/21/21 02/24/21 02/25/21 Range/Units 06:40 06:15 21:56 RBC (4.40-5.60) X 10*6/uL Hgb (13.0-17.0) g/dL Hct (39.6-50.0) % Immature Gran # (0.00-0.04) X 10*3/uL Sodium (137-145) mmol/L Creatinine (0.66-1.25) mg/dL POC Glucose (mg/dL) (75-99) mg/dL Total Bilirubin (0.2-1.3) mg/dL AST (17-59) U/L ALT (4-49) U/L Albumin (3.5-5.0) g/dL Testosterone Level 34.00 L (123.06-813.86) ng/mL Ur Leukocyte Esterase Large H (Negative) Urine WBC 17 H (0-5) /hpf Urine WBC Clumps Rare H (None) /hpf Urine Bacteria Occasional H (None) /hpf Urine Mucus Rare H (None) /hpf Zinc 59 L (60-130) ug/dL 02/26/21 02/26/21 02/26/21 Range/Units 06:57 06:57 11:42 RBC 4.35 L (4.40-5.60) X 10*6/uL Hgb 12.6 L (13.0-17.0) g/dL Hct 39.0 L (39.6-50.0) % Immature Gran # 0.08 H (0.00-0.04) X 10*3/uL Sodium 135 L (137-145) mmol/L Creatinine 0.46 L (0.66-1.25) mg/dL POC Glucose (mg/dL) 101 H (75-99) mg/dL Total Bilirubin 1.5 H (0.2-1.3) mg/dL AST 121 H (17-59) U/L ALT 217 H (4-49) U/L Albumin 3.3 L (3.5-5.0) g/dL Testosterone Level (123.06-813.86) ng/mL Ur Leukocyte Esterase (Negative) Urine WBC (0-5) /hpf Urine WBC Clumps (None) /hpf Urine Bacteria (None) /hpf Urine Mucus (None) /hpf Zinc (60-130) ug/dL Microbiology - Last 24 Hours (Table) 02/25/21 21:56 Urine Culture - Preliminary Urine,Voided 02/21/21 13:55 CSF Gram Stain - Final Cerebral Spinal Fluid CSF Culture - Final Assessment and Plan Plan: Impression: 1. Gait disturbance. 2. Paraparesis. 3. Subacute demyelinating process. 4. L5 disc herniation, improving. Comments and plan: At this time PT and OT are ongoing. Patient however current ly two-person assistance basically having therapy done to him. Not currently ready for inpatient rehab. We'll continue to follow with yourself though. Currently would require 24/7 care multiple persons.
--- NOTE | 2021-02-26 14:09 | P.PN ---
Subjective Progress Note Date: 02/26/21 CHIEF COMPLAINT: Bilateral lower extremity weakness HISTORY OF PRESENT ILLNESS: Patient is still complaining of upper and lower extremity weakness. Patient is able to move his legs minimally in bed. He d enies any abdominal pain. Denies any nausea or vomiting. Afebrile. Patient is receiving IVIG for bilateral leg weakness. B1 level was 34 and folate level is less than 2. He is receiving vitamins including folic acid, B12 and thiamine. Testosterone level low at 34 PHYSICAL EXAM: VITAL SIGNS: Reviewed. GENERAL: Well-developed in no acute distress. HEENT: No sclera icterus. Extraocular movements grossly intact. Moist buccal mucosa. Head is atraumatic, normocephalic. ABDOMEN: Soft. Nondistended. Nontender. NEUROLOGIC: Alert and oriented. Cranial nerves II through XII grossly intact. ASSESSMENT: 1. Recent laparoscopic cholecystectomy 2. History of sleeve gastrectomy 3. Bilateral lower extremity weakness PLAN: -No surgical intervention planned -Continue supportive care -Continue neuro workup Physician Director Of Student Life note has been reviewed by physician. Signing provider agrees with the documented findings, assessment, and plan of care. Objective - Vital Signs Vital signs: Vital Signs Temp 98.4 F 02/26/21 13:54 Pulse 118 H 02/26/21 13:54 Resp 18 02/26/21 13:54 BP 153/93 02/26/21 13:54 Pulse Ox 96 02/26/21 13:54 Intake & Output 02/25/21 02/26/21 02/26/21 18:59 06:59 18:59 Intake Total 39.667 Output Total 1400 1000 Balance -1360.333 -1000 Intake: Intake, IV Titration 39.667 Amount Immune Globulin ( 39.667 Gammagard) 20 gm In Empty Bag 1 bag @ Titrate IV . Q0M ONE Rx#:[id number] Output: Urine 1400 1000 Other: Voiding Method Indwelling Catheter Indwelling Catheter # Bowel Movements 2 - Labs CBC & Chem 7: 02/26/21 06:57 02/26/21 06:57 Labs: Abnormal Lab Results - Last 24 Hours (Table) 02/21/21 02/25/21 02/26/21 Range/Units 06:40 21:56 06:57 RBC 4.35 L (4.40-5.60) X 10*6/uL Hgb 12.6 L (13.0-17.0) g/dL Hct 39.0 L (39.6-50.0) % Immature Gran # 0.08 H (0.00-0.04) X 10*3/uL Sodium (137-145) mmol/L Creatinine (0.66-1.25) mg/dL POC Glucose (mg/dL) (75-99) mg/dL Total Bilirubin (0.2-1.3) mg/dL AST (17-59) U/L ALT (4-49) U/L Albumin (3.5-5.0) g/dL Testosterone Level 34.00 L (123.06-813.86) ng/mL Ur Leukocyte Esterase Large H (Negative) Urine WBC 17 H (0-5) /hpf Urine WBC Clumps Rare H (None) /hpf Urine Bacteria Occasional H (None) /hpf Urine Mucus Rare H (None) /hpf 02/26/21 02/26/21 Range/Units 06:57 11:42 RBC (4.40-5.60) X 10*6/uL Hgb (13.0-17.0) g/dL Hct (39.6-50.0) % Immature Gran # (0.00-0.04) X 10*3/uL Sodium 135 L (137-145) mmol/L Creatinine 0.46 L (0.66-1.25) mg/dL POC Glucose (mg/dL) 101 H (75-99) mg/dL Total Bilirubin 1.5 H (0.2-1.3) mg/dL AST 121 H (17-59) U/L ALT 217 H (4-49) U/L Albumin 3.3 L (3.5-5.0) g/dL Testosterone Level (123.06-813.86) ng/mL Ur Leukocyte Esterase (Negative) Urine WBC (0-5) /hpf Urine WBC Clumps (None) /hpf Urine Bacteria (None) /hpf Urine Mucus (None) /hpf Microbiology - Last 24 Hours (Table) 02/25/21 21:56 Urine Culture - Preliminary Urine,Voided 02/21/21 13:55 CSF Gram Stain - Final Cerebral Spinal Fluid CSF Culture - Final
[2021-02-26 16:53] LABS: Glucose,Whole Blood 85 mg/dL (75-99)
--- NOTE | 2021-02-26 17:47 | PN ---
PROGRESS NOTE Patient is seen for followup for hyponatremia. Serum sodium has been staying around 135 for the last 3 days. Patient is maintained on fluid restriction. On examination today, blood pressure is 150/99, heart rate 112 per minute. He is afebrile. EXAMINATION OF THE HEART: S1 and S2. EXAMINATION OF LUNGS: Bilateral breath sounds are heard. Abdomen is soft, non-tender, obese. Examination of lower extremities shows weakness in lower extremities. No edema is noted. Labs show sodium 135, potassium 5.0, serum creatinine 0.46. ASSESSMENT: 1. Hyponatremia associated with urine retention, now improved. Continue with the Nguyen catheter. 2. Lower extremity weakness, being followed by Neurology. Demyelinating syndrome being considered. Patient is receiving IVIG. 3. Obesity. 4. Status post gastric sleeve procedure previously. PLAN: Continue fluid restriction. Can liberalize to 1800 mL per 24 hours. Continue to monitor serum potassium levels. MMODL / IJN: [id number] /
[2021-02-26] MEDS: HYDROcodone/APAP 5-325MG 1 EACH TAB PO PRN (20:30)
[2021-02-26] MEDS: diphenhydrAMINE 25 MG CAP PO PRN (20:32)
[2021-02-26 20:42] LABS: Glucose,Whole Blood 83 mg/dL (75-99)
[2021-02-27] MEDS: CIPROFLOXACIN 0.3% OPHTH SOLN 5 ML BTL BOTH EYES SCH ×7 (00:24→23:43)
[2021-02-27 01:43] LABS: HIV 2 AB Non-Reactive (Non-Reactive); HIV AB P24 Non-Reactive (Non-Reactive); HIV P24 AG Non-Reactive (Non-Reactive)
[2021-02-27 06:52] LABS: Glucose,Whole Blood 91 mg/dL (75-99)
--- NOTE | 2021-02-27 06:53 | P.PN ---
Progress Note - Text Patient having therapy done to him rather than full participation. Insurance issues as well, so not a candidate for IPR.
[2021-02-27] MEDS: INSULIN ASPART (NovoLOG) 100 UNIT/ML VIAL SQ SCH (07:33)
[2021-02-27] MEDS: THIAMINE 100 MG TAB PO SCH (08:21)
[2021-02-27] MEDS: TAMSULOSIN 0.4 MG CAP.ER.24H PO SCH (08:21)
[2021-02-27] MEDS: CYANOCOBALAMIN 500 MCG TAB PO SCH (08:21)
[2021-02-27] MEDS: amLODIPine 5 MG TAB PO SCH (08:21)
[2021-02-27] MEDS: DOCUSATE 100 MG CAP PO SCH ×2 (08:21→20:22)
[2021-02-27] MEDS: SIMETHICONE 40 MG/0.6 ML DROPS 2,000 MG/30 ML BOTTLE PO SCH ×4 (08:22→20:07)
[2021-02-27] MEDS: FOLIC ACID 1 MG TAB PO SCH (08:22)
[2021-02-27] MEDS: FAMOTIDINE 20 MG TAB PO SCH ×2 (08:22→20:07)
[2021-02-27] MEDS: MULTIVITAMINS, THERA 1 EACH TAB PO SCH (08:22)
[2021-02-27] MEDS: HEPARIN SODIUM,PORCINE/PF 5,000 UNIT/0.5 ML SYRINGE SQ SCH ×2 (08:22→20:07)
--- NOTE | 2021-02-27 09:23 | P.PN ---
Subjective Progress Note Date: 02/26/21 02/26/2021: Patient was seen for a follow-up. Patient's mother was also present today. Patient continues to feel paresthesias in his feet. His feet are tingling, slightly tight sensation, as of the toes are compressed. He feels the toes are curling down. Patient believes his symptoms are slightly better, as he does not have numbness in the thighs anymore, only in the lower legs. He is able to wiggle and move around in the bed, and move his legs slightly better. Definitely no worsening of his condition. Denies any side effects of IVIG. He is currently receiving IVIG day #3. 02/25/2021: Patient was initially seen by Dr. Justin Blanca. Please refer to his note for details. Patient was seen for a follow-up. Patient's parents were also present. Patient has history of gastric sleeve surgery on 07/24/2020. Patient underwent cholecystectomy on 02/08/2021. Patient developed paresthesias of the feet with numbness tingling cramping in the legs since 01/30/2021. Patient underwent [facility]G testing by [facility] on 02/13/[facility]21. EMG was normal and was diagnosed with plantar fasciitis. Patient developed progressive weakness, gait dysfunction with bilateral foot drop. Patient also has developed numbness of the hands as well. He feels his toes are stuck together. He has developed gait dysfunction, cannot walk since 02/20/2021. Patient has been diagnosed with multiple vitamin deficiencies. Patient has been empirically started with IVIG and today he has received a second dose without any side effects. He is tolerating it well. Per patient's mother, he has been able to rollover in the bed better, still cannot walk and requires physical therapy. He was able to sit on the bed slightly better than yesterday. Objective - Vital Signs Vital signs: Vital Signs Temp 98.0 F 02/27/21 08:16 Pulse 133 H 02/27/21 08:16 Resp 18 02/27/21 08:16 BP 151/100 02/27/21 08:16 Pulse Ox 94 L 02/27/21 08:16 Intake & Output 02/26/21 02/27/21 02/27/21 18:59 06:59 18:59 Intake Total 360 Output Total 2175 600 Balance -2175 -240 Intake: Oral 360 Output: Urine 2175 600 Uretheral (Nguyen) 1600 Other: Voiding Method Indwelling Catheter # Bowel Movements 1 - Exam Patient is alert and awake. Cranial nerves are normal. Muscle strength is normal in the arms. In the lower limbs his hip flexion is very weak about 2 on the right, 3 on the left. Ankle dorsiflexion R very weak, no more than 1-2. Plantar flexion are 4+. Patient is areflexic. Plantars are downgoing. - Labs CBC & Chem 7: 02/26/21 06:57 02/26/21 06:57 Labs: Abnormal Lab Results - Last 24 Hours (Table) 02/26/21 02/26/21 02/26/21 Range/Units 06:57 06:57 11:42 RBC 4.35 L (4.40-5.60) X 10*6/uL Hgb 12.6 L (13.0-17.0) g/dL Hct 39.0 L (39.6-50.0) % Immature Gran # 0.08 H (0.00-0.04) X 10*3/uL POC Glucose (mg/dL) 101 H (75-99) mg/dL Procalcitonin 0.14 H (0.02-0.09) ng/mL Assessment and Plan Assessment: * Symmetric lower >> upper extremity weakness and complaint of paresthesia that is progressive (On examination he had predominately lower > upper extremity weakness with hyporeflexia/areflexia): Unsure exact diagnosis. Probable subacute polyneuropathy. 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 Not sure if the patient has malnutrition deficiency/vitamin deficiency leading to his worsening condition especially with history of gastrectomy sleeve on 07/2020 * Folate defiency (Serum folate is less than 2). * Multiple vitamin deficiency including vitamin D, vitamin B1 and zinc. * History of lower back pain with radiculopathy (has pain injections in the back but last was one year ago) but currently is not having any lower back pain. * Electrolyte imbalance with mild hyponatremia (130-->131) * Mild transaminitis * History of recent lap closeectomy on 02/08/2021 * gastrectomy sleeve on 07/2020 * Morbid obesity Plan: * Continue folic acid 1 mg daily, vitamin B12 1000mcg daily and will thiamine from IV to PO 100mg daily. Patient will be started on multivitamins, as he is also low on vitamin A, zinc. * Continue IVIG for a total dose of (2g/kg over 5 days). Today is day #3. Patient is tolerating IVIG well. * Patient needs repeat EMG and nerve conduction studies to evaluate for p olyneuropathy, rule out myopathy. Would suggest having EMG tested by a neurologist. Repeat CPK. * Patient had EMG with nerve conduction study of the lower about 2 weeks ago at [facility] office and was reported as normal. * Nephrology team is consulted for mild hyponatremia, today 135. * Orthopedic team is on board * Patient on heparin 5000 unit subcu every 12 hours for DVT prophylaxis. * Physical therapy and occupation therapy are consulted. WORK-UP: SCOOBY negative, immune fixation electrophoresis negative. HIV negative. Serum copper is normal 744 (665-1480) Zinc 59(60 to 130) Vitamin B1 34 (38-122), vitamin E 16 (38-106) Creatinine kinase is 316 (normal is 55-170). ESR is 15. CRP is the 1.2. Aldolase is elevated 15.2 (1.2-7.6) TSH is 1.8908 which is within normal limits. urine analysis negative for urinary tract infection. CSF is clear, colorless, CSF red blood cell is 27, nuclear cells is 1, glucose is 85 and a protein is normal 39 (12-60) Serum folate is less than 2 which is considered deficient (normal is between 4.4-31) Red blood cell folate is 355 which is considered on the borderline of low normal Vitamin B12 is 411, Methylmalonic acid is normal 0.13. Vitamin B6, Lyme titer, still pending. Hemoglobin A1c is 5.1. Calcium is 9.3, magnesium is 2.1. Lactate Dehydrogenase: 1325 IgA level: 201 (normal) Coronavirus PCR: Not detected. CT of the brain is reported as normal CT brain. MRI of lumbar spine w/o is reported as there is L5-S1 lumbar disc herniation in the midline which appears slightly smaller than the last exam. No spinal steno sis. No fracture. MRI LUMBAR SPINE W/: Is reported as no abnormal postcontrast enhancement. MRI the brain with and without is reported as no abnormality is evident. MRI the cervical spine with and without is reported as normal pre-and postcontrast cervical MRI.
[2021-02-27] MEDS ORDERED: METOPROLOL TARTRATE 12.5 MG TAB PO SCH (09:45)
[2021-02-27 10:31] LABS: Creatine Kinase 88 U/L (55-170); Sodium 134 mmol/L (137-145)
[2021-02-27] MEDS ORDERED: IMMUNE GLOBULIN (GAMMAGARD) 20 GM in EMPTY BAG 1 BAG IV ONE ×2 (11:00→12:00)
[2021-02-27] MEDS ORDERED: METOPROLOL TARTRATE 12.5 MG TAB PO STA (11:24)
--- NOTE | 2021-02-27 11:37 | P.PN ---
Subjective This is a pleasant 20 years old male with past medical history of hx pain lower back radiating to left side, status post Sleeve Gastrectomy 07-24-20 and recent cholecystectomy. Patient information was that with the help of his mother at bedside Patient says who presents because of numbness and weakness in both lower extremity more on the right than the left. Is not suppressed from the back of his hip and buttock down to the middle of the right and similarly on the left leg but less extent patient has been complaining of from progressive weakness more on the right leg over the last week. Patient denies any back pain. No recent history of chronic cold or gastroenteritis. He has history of significant back pain and sciatic That he had MRI of the back down on 07/2020 at [facility]. Followed by a visit to the pain clinic where he got 3 shots in his low back. And apparently he does not complain from any back pain or neck pain or headache. No weakness or numbness in the upper extremity, no slurred speech or blurred vision He denies chest pain or abdominal pain, no coughing or dyspnea. No diarrhea but is improving from constipation Decreased frequency of urination he had only once in the last 24 hours which wakes him up in the middle of last night, compared to usual frequency of 4-7 times per mother at bedside Patient had recent surgery for laparoscopic cholecystectomy on 02/08. He denies smoking, alcohol or illicit tracts On admission his tachycardic of 123, rest of vitals are stable Has mild leukocytosis of 15.2 K, sodium is moderately low at 1:30, potassium 3.4, creatinine normal 0.6, liver enzymes mildly elevated. Total bilirubin is normal at 0.9. CT of the lumbar spine, normal findings Normal CT of the brain On admission and received IV fluids, he was admitted with neurology and surgery team consults MRI of the lumbar spine showing stable disc herniation of L5 to S1 or slightly smaller than before. This would not explain the patient's symptoms. MRI of the cervical spine and of the brain did not show significant abnormal explain patient's symptoms as well Lumbar puncture done showing high glucose of 85, normal total protein of 39. 02/25/2021 Patient today showing some improvement in his toes movement and numbness as he confirmed to me, he got 1 dose of IVIG earlier. He is also able somewhat to be nd his knees and ankle but did not report improvement in them. He states he has no weakness in the upper extremities. No headache or blurred vision or slurred speech. No respiratory, GI or urinary symptoms. He is hemodynamically stable. His tachycardic with heart rate 105-101. His obesity is back to normal at 6.2, platelet count dropping down to 128. Sodium and potassium are normal. Pro-ca lcitonin is slightly elevated at 0.2 to He's on immunoglobulin intravenously to 03/10. Per neurologist recommendation. Also neurologist recommends transfer to tertiary care center which was started last week. Agrees to be transferred. I discussed with the nurse case management/social services coordinator Carola today stating that his medical insurance has refused his transfer. After discussed the case with her she is going to resubmit request to be transferred. Physical therapy recommended inpatient rehab. Repeat labs tomorrow, chest x-ray and urine analysis. Repeat pro-calcitonin. 02/26/2021 patient status with bilateral lower extremity weakness and paresthesia, patient reported some improvement in his both those yesterday but not today. no new weakness or worsening weakness in the upper extremity as well. No other complaints His blood pressure is slightly elevated 150/99, Norvasc is a started. He is t achycardic with heart rate around 112. Labs showing work sending leukocyte 8.4, it was 13-21 on admission. Platelet count normal today 161. Electrolytes are unremarkable. Liver enzymes are elevated Pro-calcitonin is elevated at 0.9 up to 0.22. Chest x-ray no acute process. Urine analysis is suspicious for infection and urine culture is pending Patient was started on ceftriaxone. Also his on gentle hydration and also receiving IVIG Today I discussed the case with Hang from [employer] , he is going to review the case and call me back Neurology team on the case and the recommended patient to continue with IVIG and to transfer the patient to tertiary center however his medical insurance [employer] is rejecting the case unless [employer] status except the patient admission then we will resubmit order for transfer. As per my discussion with nurse case management Carola PT/OT recommended inpatient rehab, Dr. Davis consulted 02/27/2021 Patient stated that he has some improvement in his lower extremity weakness, he estimates his improvement about 20%, no other significant medical complaints today. He is developing tachycardia around 133. EKG showed sinus tachycardia with no significant ST-T changes. I will add metoprolol 25 mg. This could be due to his sepsis. Patient is started on Rocephin, urine cultures pending. Sodium today is 134, creatinine kinase is 88 She remains on normal saline at 75 mL/h, he is getting IVIG. Also he is on ceftriaxone 2 g daily. I discussed the case today with Dr. Mauricio from [employer] , I discussed the case with him and the need for IV antibiotics, IVIG and other treatment and monitoring while in the hospital, he refused to accept the patient as inpatient, this ref usal hinders his transfer to tertiary care center or to going to rehab because his insurance will not approve as per my discussion with nurse case management/social services coordinator. I discussed the case with Dr. Mauricio more than once but he was adamant to refuse the case stating that he can get the IVIG and IV antibiotics as an outpatient !!. Case discussed with nurse case management Objective - Vital Signs Vital signs: Vital Signs Temp 98.0 F 02/27/21 08:16 Pulse 133 H 02/27/21 08:16 Resp 18 02/27/21 08:16 BP 151/100 02/27/21 08:16 Pulse Ox 94 L 02/27/21 08:16 Intake & Output 02/26/21 02/27/21 02/27/21 18:59 06:59 18:59 Intake Total 360 Output Total 2175 600 Balance -2175 -240 Intake: Oral 360 Output: Urine 2175 600 Uretheral (Nguyen) 1600 Other: Voiding Method Indwelling Catheter # Bowel Movements 1 - Exam GENERAL: The patient is alert and oriented x3, not in any acute distress. Well developed, well nourished. HEENT: Pupils are round and equally reacting to light. EOMI. No scleral icterus. No conjunctival pallor. Normocephalic, atraumatic. No pharyngeal erythema. No thyromegaly. CARDIOVASCULAR: S1 and S2 present. No murmurs, rubs, or gallops. PULMONARY: Chest is clear to auscultation, no wheezing or crackles. ABDOMEN: Soft, nontender, nondistended, normoactive bowel sounds. No palpable organomegaly. MUSCULOSKELETAL: No joint swelling or deformity. EXTREMITIES: No cyanosis, clubbing, or pedal edema. NEUROLOGICAL: Gross neurological examination did not reveal any focal deficits. Weakness especially of the extensor thighs and legs and feet, more on the right side than left side. No sensory deficit SKIN: No rashes. No petechiae - Labs CBC & Chem 7: 02/26/21 06:57 02/27/21 09:56 Labs: Abnormal Lab Results - Last 24 Hours (Table) 02/26/21 02/26/21 02/26/21 Range/Units 06:57 06:57 11:42 RBC 4.35 L (4.40-5.60) X 10*6/uL Hgb 12.6 L (13.0-17.0) g/dL Hct 39.0 L (39.6-50.0) % Immature Gran # 0.08 H (0.00-0.04) X 10*3/uL Sodium (137-145) mmol/L POC Glucose (mg/dL) 101 H (75-99) mg/dL Procalcitonin 0.14 H (0.02-0.09) ng/mL 02/27/21 Range/Units 09:56 RBC (4.40-5.60) X 10*6/uL Hgb (13.0-17.0) g/dL Hct (39.6-50.0) % Immature Gran # (0.00-0.04) X 10*3/uL Sodium 134 L (137-145) mmol/L POC Glucose (mg/dL) (75-99) mg/dL Procalcitonin (0.02-0.09) ng/mL Assessment and Plan Assessment: Bilateral lower extremity weakness and numbness, more on the right side. 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 Improved Chronic low back pain radiating to the left side. Mild History of sleeve gastrectomy Recent history of cholecystectomy Morbid obesity with BMI of 41.8 Plan: This is a pleasant 20 years old male who presents with bilateral lower extremity weakness and numbness. Continue intravenous immunoglobulin per neurologist recommendation Patient will benefit from EMG/nerve conduction study which could be done at a tertiary care center after other workup was done. Discussed with social services coordinator/nurse case management to resubmit transfer order after rejected by his medical insurance provider Follow-up with recommendation by neurology and surgery team and other consultants Continue with ceftriaxone follow-up urine culture Continue gentle hydration add Metoprolol and monitor heart r at e Labs and medication were reviewed.. Continue same treatment. Continue with symptomatic treatment. Resume home medication. Monitor lytes and vitals. DVT and GI prophylaxis. Further recommendations depends on the clinical course of the patient PT/OT: Pending DVT prophylaxis: Subcu heparin GI prophylaxis: Pepcid PT/OT recommended inpatient rehab, Dr. Davis consulted who rejected the case Prognosis is guarded
--- NOTE | 2021-02-27 14:32 | PN ---
PROGRESS NOTE Patient is seen for followup for hyponatremia. Patient's sodium level has been staying at 135-134. He continues on fluid restriction. He is maintained on IVIG which can further cause the hyponatremia. Therefore the fluid restriction is reinforced. PHYSICAL EXAMINATION: On examination today, blood pressure was 151/100, heart rate 133 per minute. Patient is afebrile. Examination of the heart S1, S2. Examination of the lungs, bilateral breath sounds are heard. Abdomen: Soft. Nontender, obese. Exam of lower extremities shows no significant edema. Weakness seems to be slowly improving. LAB: Show sodium 134 today. ASSESSMENT: 1. Hyponatremia associated with urine retention and to some degree with the current use of IVIG. We will continue to maintain patient on fluid restriction. 2. 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 3. History of gastric sleeve procedure. 4. Obesity. 5. Urine retention currently with Nguyen catheter. PLAN: Continue fluid restriction. Monitor sodium periodically. MMODL / IJN: [id number] /
--- NOTE | 2021-02-27 14:57 | P.PN ---
Subjective Progress Note Date: 02/27/21 CHIEF COMPLAINT: Bilateral lower extremity weakness HISTORY OF PRESENT ILLNESS: Patient is still complaining of upper and lower extremity weakness. Patient able to sit at side of bed. He denies any abdom inal pain. Denies any nausea or vomiting. Afebrile. Patient is receiving IVIG for weakness. Afebrile. Patient's discharge planning is in progress. PHYSICAL EXAM: VITAL SIGNS: Reviewed. GENERAL: Well-developed in no acute distress. HEENT: No sclera icterus. Extraocular movements grossly intact. Moist buccal mucosa. Head is atraumatic, normocephalic. ABDOMEN: Soft. Nondistended. Nontender. NEUROLOGIC: Alert and oriented. Cranial nerves II through XII grossly intact. ASSESSMENT: 1. Recent laparoscopic cholecystectomy 2. History of sleeve gastrectomy 3. Bilateral lower extremity weakness PLAN: -No surgical intervention planned -Continue supportive care -Continue neuro workup Physician Radio Communications Superintendent note has been reviewed by physician. Signing provider agrees with the documented findings, assessment, and plan of care. Objective - Vital Signs Vital signs: Vital Signs Temp 97.9 F 02/27/21 14:18 Pulse 116 H 02/27/21 14:18 Resp 18 02/27/21 14:18 BP 130/85 02/27/21 14:18 Pulse Ox 94 L 02/27/21 14:18 Intake & Output 02/26/21 02/27/21 02/27/21 18:59 06:59 18:59 Intake Total 360 Output Total 2175 600 Balance -2175 -240 Intake: Oral 360 Output: Urine 2175 600 Uretheral (Nguyen) 1600 Other: Voiding Method Indwelling Catheter # Bowel Movements 1 - Labs CBC & Chem 7: 02/26/21 06:57 02/27/21 09:56 Labs: Abnormal Lab Results - Last 24 Hours (Table) 02/26/21 02/27/21 Range/Units 06:57 09:56 Sodium 134 L (137-145) mmol/L Procalcitonin 0.14 H (0.02-0.09) ng/mL
[2021-02-27 15:05] VITALS: BMI 41.8
[2021-02-27] MEDS: HYDROcodone/APAP 5-325MG 1 EACH TAB PO PRN (16:54)
[2021-02-27] MEDS: GABAPENTIN 100 MG CAP PO SCH ×2 (16:57→20:06)
[2021-02-27] MEDS ORDERED: METOPROLOL TARTRATE 25 MG TAB PO SCH (21:00)
[2021-02-27] MEDS: diphenhydrAMINE 25 MG CAP PO PRN (22:59)
[2021-02-28] MEDS: CIPROFLOXACIN 0.3% OPHTH SOLN 5 ML BTL BOTH EYES SCH ×5 (04:32→20:35)
[2021-02-28] MEDS: FAMOTIDINE 20 MG TAB PO SCH ×2 (07:50→20:24)
[2021-02-28] MEDS: MULTIVITAMINS, THERA 1 EACH TAB PO SCH (07:50)
[2021-02-28] MEDS: GABAPENTIN 100 MG CAP PO SCH ×3 (07:50→21:36)
[2021-02-28] MEDS: CYANOCOBALAMIN 500 MCG TAB PO SCH (07:51)
[2021-02-28] MEDS: TAMSULOSIN 0.4 MG CAP.ER.24H PO SCH (07:51)
[2021-02-28] MEDS: THIAMINE 100 MG TAB PO SCH (07:51)
[2021-02-28] MEDS: HEPARIN SODIUM,PORCINE/PF 5,000 UNIT/0.5 ML SYRINGE SQ SCH ×2 (07:51→20:39)
[2021-02-28] MEDS: DOCUSATE 100 MG CAP PO SCH ×2 (07:51→20:36)
[2021-02-28] MEDS: SIMETHICONE 40 MG/0.6 ML DROPS 2,000 MG/30 ML BOTTLE PO SCH ×4 (07:52→20:24)
[2021-02-28] MEDS: FOLIC ACID 1 MG TAB PO SCH (07:53)
[2021-02-28] MEDS: METOPROLOL TARTRATE 50 MG TAB PO SCH ×2 (07:53→20:24)
--- NOTE | 2021-02-28 09:37 | P.PN ---
Subjective Progress Note Date: 02/27/21 02/27/2021: Patient asleep at this time. Patient's mother states that he has not slept last night, but now sleeping. She feels he is doing better. Able to move in the bed much better. 02/26/2021: Patient was seen for a follow-up. Patient's mother was also present today. Patient continues to feel paresthesias in his feet. His feet are tingling, slightly tight sensation, as of the toes are compressed. He feels the toes are curling down. Patient believes his symptoms are slightly better, as he does not have numbness in the thighs anymore, only in the lower legs. He is able to wiggle and move around in the bed, and move his legs slightly better. Definitely no worsening of his condition. Denies any side effects of IVIG. He is currently receiving IVIG day #3. 02/25/2021: Patient was initially seen by Dr. Justin Blanca. Please refer to his note for details. Patient was seen for a follow-up. Patient's parents were also present. Patient has history of gastric sleeve surgery on 07/24/2020. Patient underwent cholecystectomy on 02/08/2021. Patient developed paresthesias of the feet with numbness tingling cramping in the legs since 01/30/2021. Patient underwent EMG testing by [facility] on 02/13/2021. EMG was normal and was diagnosed with plantar fasciitis. Patient developed progressive weakness, gait dysfunction with bilateral foot drop. Patient also has developed numbness of the hands as well. He feels his toes are stuck together. He has developed gait dysfunction, cannot walk since 02/20/2021. Patient has been diagnosed with multiple vitamin deficiencies. Patient has been empirically started with IVIG and today he has received a second dose without any side effects. He is tolerating it well. Per patient's mother, he has been able to rollover in the bed better, still cannot walk and requires physical therapy. He was able to sit on the bed slightly better than yesterday. Objective - Vital Signs Vital signs: Vital Signs Temp 98.2 F 02/28/21 08:00 Pulse 114 H 02/28/21 08:00 Resp 18 02/28/21 08:00 BP 142/95 02/28/21 08:00 Pulse Ox 92 L 02/28/21 08:00 Intake & Output 02/27/21 02/28/21 02/28/21 18:59 06:59 18:59 Intake Total 360 Output Total 1000 3375 Balance -1000 -3015 Weight 136.078 kg Intake: Oral 360 Output: Urine 1000 3375 Other: Voiding Method Indwelling Catheter Indwelling Catheter # Voids 600 # Bowel Movements 1 - Exam Patient asleep at this time. Did not wake him up. - Labs CBC & Chem 7: 02/26/21 06:57 02/27/21 09:56 Labs: Abnormal Lab Results - Last 24 Hours (Table) 02/27/21 Range/Units 09:56 Sodium 134 L (137-145) mmol/L Microbiology - Last 24 Hours (Table) 02/25/21 21:56 Urine Culture - Preliminary Urine,Voided Gram Neg Bacilli Assessment and Plan Assessment: * Symmetric lower >> upper extremity weakness and complaint of paresthesia that is progressive (On examination he had predominately lower > upper extremity weakness with hyporeflexia/areflexia): Unsure exact diagnosis. Probable subacute polyneuropathy. 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 Not sure if the patient has malnutrition deficiency/vitamin deficiency leading to his worsening condition especially with history of gastrectomy sleeve on 07/2020 * Folate defiency, severe degree (Serum folate is less than 2). * Multiple vitamin deficiency including vitamin D, vitamin B1 and zinc. * History of lower back pain with radiculopathy (has pain injections in the back but last was one year ago) but currently is not having any lower back pain. * Electrolyte imbalance with mild hyponatremia (130-->131) * Mild transaminitis * History of recent lap closeectomy on 02/08/2021 * gastrectomy sleeve on 07/2020 * Morbid obesity Plan: * Continue folic acid 1 mg daily, vitamin B12 1000mcg daily and will thiamine from IV to PO 100mg daily. Patient will be started on multivitamins, as he is also low on vitamin A, zinc. * Continue IVIG for a total dose of (2g/kg over 5 days). Today is day #4. Patient is tolerating IVIG well. * Patient needs repeat EMG and nerve conduction studies to evaluate for polyneuropathy, rule out myopathy. Would suggest having EMG tested by a neurologist, preferably a neuromuscular specialist. Repeat CPK is normal 88. * Patient had EMG with nerve conduction study of the lower about 2 weeks ago at [facility] office and was reported as normal. * Nephrology team is consulted for mild hyponatremia, today 134. * Patient on heparin 5000 unit subcu every 12 hours for DVT prophylaxis. * Patient's liver enzymes has gone up. We will repeat hepatic panel. * Physical therapy and occupation therapy are consulted. WORK-UP: SCOOBY negative, serum immune fixation electrophoresis negative, urine immunofixation negative for Bence Kim proteins. HIV negative. Serum copper is normal 744 (665-1480) Zinc 59(60 to 130) Vitamin B1 34 (38-122), vitamin E 16 (38-106) Creatinine kinase is 316 (normal is 55-170). ESR is 15. CRP is the 1.2. Aldolase is elevated 15.2 (1.2-7.6) TSH is 1.8908 which is within normal limits. urine analysis negative for urinary tract infection. CSF is clear, colorless, CSF red blood cell is 27, nuclear cells is 1, glucose is 85 and a protein is normal 39 (12-60) Serum folate is less than 2 which is considered deficient (normal is between 4.4-31) Red blood cell folate is 355 which is considered on the borderline of low normal Vitamin B12 is 411, Methylmalonic acid is normal 0.13. Vitamin B6, Lyme titer, still pending. Hemoglobin A1c is 5.1. Calcium is 9.3, magnesium is 2.1. Lactate Dehydrogenase: 1325 IgA level: 201 (normal) Coronavirus PCR: Not detected. CT of the brain is reported as normal CT brain. MRI of lumbar spine w/o is reported as there is L5-S1 lumbar disc herniation in the midline which appears slightly smaller than the last exam. No spinal stenosis. No fracture. MRI LUMBAR SPINE W/: Is reported as no abnormal postcontrast enhancement. MRI the brain with and without is reported as no abnormality is evident. MRI the cervical spine with and without is reported as normal pre-and postcontrast cervical MRI.
[2021-02-28] MEDS ORDERED: IMMUNE GLOBULIN (GAMMAGARD) 20 GM in EMPTY BAG 1 BAG IV ONE ×2 (11:00→12:00)
--- NOTE | 2021-02-28 11:08 | P.PN ---
Subjective Progress Note Date: 02/28/21 CHIEF COMPLAINT: Bilateral lower extremity weakness HISTORY OF PRESENT ILLNESS: Patient is still complaining of upper and lower extremity weakness. He has no new complaints He denies any abdominal pain. Denies any nausea or vomiting. Patient is receiving IVIG. He is followed closely by neurology Afebrile. PHYSICAL EXAM: VITAL SIGNS: Reviewed. GENERAL: Well-developed in no acute distress. HEENT: No sclera icterus. Extraocular movements grossly intact. Moist buccal mucosa. Head is atraumatic, normocephalic. ABDOMEN: Soft. Nondistended. Nontender. NEUROLOGIC: Alert and oriented. Cranial nerves II through XII grossly intact. ASSESSMENT: 1. Recent laparoscopic cholecystectomy 2. History of sleeve gastrectomy 3. Bilateral lower extremity and upper extremity weakness 4. Multiple Vitamin deficiencies PLAN: -No surgical intervention planned -Continue supportive care -Continue neuro workup Physician [facility] note has been reviewed by physician. Signing provider agrees with the documented findings, assessment, and plan of care. Objective - Vital Signs Vital signs: Vital Signs Temp 98.2 F 02/28/21 08:00 Pulse 114 H 02/28/21 08:00 Resp 18 02/28/21 08:00 BP 142/95 02/28/21 08:00 Pulse Ox 92 L 02/28/21 08:00 Intake & Output 02/27/21 02/28/21 02/28/21 18:59 06:59 18:59 Intake Total 360 Output Total 1000 3375 Balance -1000 -3015 Weight 136.078 kg Intake: Oral 360 Output: Urine 1000 3375 Other: Voiding Method Indwelling Catheter Indwelling Catheter # Voids 600 # Bowel Movements 1 - Labs CBC & Chem 7: 02/26/21 06:57 02/27/21 09:56 Labs: Microbiology - Last 24 Hours (Table) 02/25/21 21:56 Urine Culture - Preliminary Urine,Voided Gram Neg Bacilli
--- NOTE | 2021-02-28 14:54 | P.PN ---
Subjective This is a pleasant 20 years old male with past medical history of hx pain lower back radiating to left side, status post Sleeve Gastrectomy 07-24-20 and recent cholecystectomy. Patient information was that with the help of his mother at bedside Patient says who presents because of numbness and weakness in both lower extremity more on the right than the left. Is not suppressed from the back of his hip and buttock down to the middle of the right and similarly on the left leg but less extent patient has been complaining of from progressive weakness more on the right leg over the last week. Patient denies any back pain. No recent history of chronic cold or gastroenteritis. He has history of significant back pain and sciatic That he had MRI of the back down on 07/[address] [facility]. Followed by a visit to the pain clinic where he got 3 shots in his low back. And apparently he does not complain from any back pain or neck pain or headache. No weakness or numbness in the upper extremity, no slurred speech or blurred vision He denies chest pain or abdominal pain, no coughing or dyspnea. No diarrhea but is improving from constipation Decreased frequency of urination he had only once in the last 24 hours which wakes him up in the middle of last night, compared to usual frequency of 4-7 times per mother at bedside Patient had recent surgery for laparoscopic cholecystectomy on 02/08. He denies smoking, alcohol or illicit tracts On admission his tachycardic of 123, rest of vitals are stable Has mild leukocytosis of 15.2 K, sodium is moderately low at 1:30, potassium 3.4, creatinine normal 0.6, liver enzymes mildly elevated. Total bilirubin is normal at 0.9. CT of the lumbar spine, normal findings Normal CT of the brain On admission and received IV fluids, he was admitted with neurology and surgery team consults MRI of the lumbar spine showing stable disc herniation of L5 to S1 or slightly smaller than before. This would not explain the patient's symptoms. MRI of the cervical spine and of the brain did not show significant abnormal explain patient's symptoms as well Lumbar puncture done showing high glucose of 85, normal total protein of 39. 02/25/2021 Patient today showing some improvement in his toes movement and numbness as he confirmed to me, he got 1 dose of IVIG earlier. He is also able somewhat to be nd his knees and ankle but did not report improvement in them. He states he has no weakness in the upper extremities. No headache or blurred vision or slurred speech. No respiratory, GI or urinary symptoms. He is hemodynamically stable. His tachycardic with heart rate 105-101. His obesity is back to normal at 6.2, platelet count dropping down to 128. Sodium and potassium are normal. Pro-ca lcitonin is slightly elevated at 0.2 to He's on immunoglobulin intravenously to 03/10. Per neurologist recommendation. Also neurologist recommends transfer to tertiary care center which was started last week. Agrees to be transferred. I discussed with the hospice case manager/health social work professor Carola today stating that his medical insurance has refused his transfer. After discussed the case with her she is going to resubmit request to be transferred. Physical therapy recommended inpatient rehab. Repeat labs tomorrow, chest x-ray and urine analysis. Repeat pro-calcitonin. 02/26/2021 patient status with bilateral lower extremity weakness and paresthesia, patient reported some improvement in his both those yesterday but not today. no new weakness or worsening weakness in the upper extremity as well. No other complaints His blood pressure is slightly elevated 150/99, Norvasc is a started. He is t achycardic with heart rate around 112. Labs showing work sending leukocyte 8.4, it was 13-21 on admission. Platelet count normal today 161. Electrolytes are unremarkable. Liver enzymes are elevated Pro-calcitonin is elevated at 0.9 up to 0.22. Chest x-ray no acute process. Urine analysis is suspicious for infection and urine culture is pending Patient was started on ceftriaxone. Also his on gentle hydration and also receiving IVIG Today I discussed the case with Hang from [employer] , he is going to review the case and call me back Neurology team on the case and the recommended patient to continue with IVIG and to transfer the patient to tertiary center however his medical insurance [employer] is rejecting the case unless [employer] status except the patient admission then we will resubmit order for transfer. As per my discussion with hospice case manager Carola PT/OT recommended inpatient rehab, Dr. Davis consulted 02/27/2021 Patient stated that he has some improvement in his lower extremity weakness, he estimates his improvement about 20%, no other significant medical complaints today. He is developing tachycardia around 133. EKG showed sinus tachycardia with no significant ST-T changes. I will add metoprolol 25 mg. This could be due to his sepsis. Patient is started on Rocephin, urine cultures pending. Sodium today is 134, creatinine kinase is 88 She remains on normal saline at 75 mL/h, he is getting IVIG. Also he is on ceftriaxone 2 g daily. I discussed the case today with Dr. Mauricio from [facility] , I discussed the case with him and the need for IV antibiotics, IVIG and other treatment and monitoring while in the hospital, he refused to accept the patient as inpatient, this ref usal hinders his transfer to tertiary care center or to going to rehab because his insurance will not approve as per my discussion with hospice case manager/health social work professor. I discussed the case with Dr. Mauricio more than once but he was adamant to refuse the case stating that he can get the IVIG and IV antibiotics as an outpatient !!. Case discussed with hospice case manager 02/28/2021 Patient looks more happy today and thinking he is improving overall although he states that his weakness in his lower extremity are same as yesterday and improvement is same as yesterday as well. He is tolerating diet well, denies any specific new symptoms. We were going to change the Nguyen catheter but patient asked to be removed. It was discontinued upon his request and we will check PVR, discussed with the staff Hemodynamically stable. Repeat labs today are pending Patient remains on ceftriaxone and urine culture growing gram-negative bacilli, final result is pending. He remains on IVIG. Neurologist and he needs follow-up as an outpatient. I submitted a request for his medical insurance for peer to peer review and response is still pending Objective - Vital Signs Vital signs: Vital Signs Temp 97.6 F 02/28/21 13:48 Pulse 106 H 02/28/21 13:48 Resp 18 02/28/21 13:48 BP 144/82 02/28/21 13:48 Pulse Ox 96 02/28/21 13:48 Intake & Output 02/27/21 02/28/21 02/28/21 18:59 06:59 18:59 Intake Total 360 Output Total 1000 3375 Balance -1000 -3015 Weight 136.078 kg Intake: Oral 360 Output: Urine 1000 3375 Other: Voiding Method Indwelling Catheter Indwelling Catheter # Voids 600 # Bowel Movements 1 - Exam GENERAL: The patient is alert and oriented x3, not in any acute distress. Well developed, well nourished. HEENT: Pupils are round and equally reacting to light. EOMI. No scleral icterus. No conjunctival pallor. Normocephalic, atraumatic. No pharyngeal erythema. No thyromegaly. CARDIOVASCULAR: S1 and S2 present. No murmurs, rubs, or gallops. PULMONARY: Chest is clear to auscultation, no wheezing or crackles. ABDOMEN: Soft, nontender, nondistended, normoactive bowel sounds. No palpable organomegaly. MUSCULOSKELETAL: No joint swelling or deformity. EXTREMITIES: No cyanosis, clubbing, or pedal edema. NEUROLOGICAL: Gross neurological examination did not reveal any focal deficits. Weakness especially of the extensor thighs and legs and feet, more on the right side than left side. No sensory deficit SKIN: No rashes. No petechiae - Labs CBC & Chem 7: 02/26/21 06:57 02/27/21 09:56 Labs: Microbiology - Last 24 Hours (Table) 02/25/21 21:56 Urine Culture - Preliminary Urine,Voided Gram Neg Bacilli Assessment and Plan Assessment: Bilateral lower extremity weakness and numbness, more on the right side. 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 Improved Chronic low back pain radiating to the left side. Mild History of sleeve gastrectomy Recent history of cholecystectomy Morbid obesity with BMI of 41.8 Plan: This is a pleasant 20 years old male who presents with bilateral lower extremity weakness and numbness. Continue intravenous immunoglobulin per neurologist recommendation Patient will benefit from EMG/nerve conduction study which could be done at a tertiary care center after other workup was done. Discussed with health social work professor/hospice case manager to resubmit transfer order after rejected by his medical insurance provider Follow-up with recommendation by neurology and surgery team and other consultants Continue with ceftriaxone follow-up urine culture Continue gentle hydration add Metoprolol and monitor heart r at e Labs and medication were reviewed.. Continue same treatment. Continue with symptomatic treatment. Resume home medication. Monitor lytes and vitals. DVT and GI prophylaxis. Further recommendations depends on the clinical course of the patient PT/OT: Pending DVT prophylaxis: Subcu heparin GI prophylaxis: Pepcid PT/OT recommended inpatient rehab, Dr. Davis consulted who rejected the case Prognosis is guarded
[2021-02-28 15:06] LABS: Basophils # (A) 0.1 k/uL (0-0.2); Basophils % (A) 1 %; Eosinophils # (A) 0.2 k/uL (0-0.7); Eosinophils % (A) 1 %; HCT 34.1 % (39.0-53.0); HGB 12.5 gm/dL (13.0-17.5); Hyperchromasia Marked; Lymphocytes # (A) 3.1 k/uL (1.0-4.8); Lymphocytes % (A) 27 %; MCH 30.7 pg (25.0-35.0); MCHC 36.6 g/dL (31.0-37.0); Mean Platelet Volume 8.4; Monocytes # (A) 0.9 k/uL (0-1.0); Monocytes % (A) 8 %; Neutrophils # (A) 7.1 k/uL (1.3-7.7); Neutrophils % (A) 62 %; Platelet Count 258 k/uL (150-450); Poikilocytosis Moderate; RBC 4.07 m/uL (4.30-5.90); RDW 15.4 % (11.5-15.5); WBC 11.6 k/uL (3.8-10.6)
[2021-02-28 15:12] LABS: MCV 83.8 fL (80.0-100.0)
[2021-02-28 17:32] LABS: Albumin 3.4 g/dL (3.8-4.9); Albumin/Globulin Ratio 0.66 (1.60-3.17); Bilirubin, Conjugated 0.35 mg/dL (0.20-0.40); Bilirubin,Unconjugated 0.83 mg/dL (0.20-1.00); Globulin 5.1 g/dL (1.6-3.3); Total Bilirubin 1.2 mg/dL (0.30-1.20); Total Protein 8.5 g/dL (6.2-8.2)
[2021-02-28] MEDS: HYDROcodone/APAP 5-325MG 1 EACH TAB PO PRN (19:24)
[2021-02-28] MEDS: PYRIDOXINE 50 MG TAB PO SCH (19:43)
[2021-02-28] MEDS: diphenhydrAMINE 25 MG CAP PO PRN (20:23)
--- NOTE | 2021-03-01 00:26 | P.PN ---
Subjective Progress Note Date: 02/28/21 02/28/2021: Patient was seen for a follow-up. Patient's mother and grandmother's were present today. Patient states that he feels slightly better, not worse. Patient denies double vision, denies dysphagia. No dysarthria. Patient's mother has looked for evidence of ticks in his body including head, bu t did not find any. Lyme titer still pending. 02/27/2021: Patient asleep at this time. Patient's mother states that he has not slept last night, but now sleeping. She feels he is doing better. Able to move in the bed much better. 02/26/2021: Patient was seen for a follow-up. Patient's mother was also present today. Patient continues to feel paresthesias in his feet. His feet are tingling, slightly tight sensation, as of the toes are compressed. He feels the toes are curling down. Patient believes his symptoms are slightly better, as he does not have numbness in the thighs anymore, only in the lower legs. He is able to wiggle and move around in the bed, and move his legs slightly better. Definitely no worsening of his condition. Denies any side effects of IVIG. He is currently receiving IVIG day #3. 02/25/2021: Patient was initially seen by Dr. Justin Blanca. Please refer to his note for details. Patient was seen for a follow-up. Patient's parents were also present. Patient has history of gastric sleeve surgery on 07/24/2020. Patient underwent cholecystectomy on 02/08/2021. Patient developed paresthesias of the feet with numbness tingling cramping in the legs since 01/30/2021. Patient underwent [facility]G testing by [facility] on 02/13/[facility]. EMG was normal and was diagnosed with plantar fasciitis. Patient apparently went home from EMG testing, took a nap, and when he woke up, was severely weak in the legs, could not walk. They thought, it was related to his disc in the back. As his symptoms persisted, therefore he was admitted to the hospital on 02/20/2021. Patient developed progressive weakness, acutely got worse on 02/13/2021, gait dysfunction with bilateral foot drop. Patient also has developed numbness of the hands as well. He feels his toes are stuck together. He has developed gait dysfunction, cannot walk since 02/20/2021. Patient has been diagnosed with multiple vitamin deficiencies. Patient has been empirically started with IVIG and today he has received a second dose without any side effects. He is tolerating it well. Per patient's mother, he has been able to rollover in the bed better, still cannot walk and requires physical therapy. He was able to sit on the bed slightly better than yesterday. Objective - Vital Signs Vital signs: Vital Signs Temp 97.6 F 02/28/21 13:48 Pulse 106 H 02/28/21 13:48 Resp 18 02/28/21 13:48 BP 144/82 02/28/21 13:48 Pulse Ox 96 02/28/21 13:48 Intake & Output 02/27/21 02/28/21 02/28/21 18:59 06:59 18:59 Intake Total 360 Output Total 1000 3375 Balance -1000 -3015 Weight 136.078 kg Intake: Oral 360 Output: Urine 1000 3375 Other: Voiding Method Indwelling Catheter Indwelling Catheter # Voids 600 # Bowel Movements 1 - Exam Patient is alert and awake, fully oriented. Speech and language functions are normal. Cranial nerves significant for mild bilateral ptosis. Extraocular muscles are intact. Pupils are round and reacting to light. No nystagmus. Visual fine are full. Patient has mild left facial weakness noticeable. Patient has slight weakness of bilateral lower facial region. He has difficulty with puffing up of his cheeks. His tongue protrudes to the midline. Appears slightly weak [id number] movement, particularly with protrusion of the tongue inside his cheek. Palatal elevation and sensation normal. Muscle strength testing shows normal strength in the upper limbs proximally and distally. In the lower limbs (right/left) hip flexion 3+/4+, knee extension 0/0, knee flexion 2/2, hip abduction 5/5, adduction 4/4, ankle dorsiflexion trace/trace, toe extension trace/trace, toe flexion 4-/4-. Patient complains of numbness in his medial thigh region bilaterally, normal in the front and lateral thigh region. He has numbness somewhat in the lateral horne (L5 dermatomal region). Patient appears to have some muscle atrophy. No definitive ataxia for [id number] testing. Deep tendon reflexes are absent in the right upper limb, 1 at the left biceps a nd brachioradialis, absent in the lower extremities and plantars are downgoing. Tone is decreased in general. 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 Patient has symmetric predominantly motor weakness of lower >>> upper extremities. Patient has predominant weakness in the bilateral lumbosacral plexus distribution. However he also has weakness of some facial region, which can be seen with AIDP. Exact diagnosis still uncertain. Probable subacute polyneuropathy. 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 Not sure if the patient has a combined ma lnutrition deficiency/vitamin deficiency leading to his worsening condition especially with history of gastrectomy sleeve on 07/2020 * Folate defiency, severe degree (Serum folate is less than 2). * Multiple vitamin deficiency including vitamin D, vitamin B1 and zinc. Borderline vitamin B6. * History of lower back pain with radiculopathy (has pain injections in the back but last was one year ago) but currently is not having any lower back pain. * Electrolyte imbalance with mild hyponatremia (130-->131) * Mild transaminitis, getting worse. Most recent AST is 218, ALT 371. * History of recent lap closeectomy on 02/08/2021 * gastrectomy sleeve on 07/2020 * Morbid obesity Plan: * Continue folic acid 1 mg daily, vitamin B12 1000mcg daily and will thiamine from IV to PO 100mg daily. Patient will be started on multivitamins, as he is also low on vitamin A, zinc. * Vitamin B6 9 (5-50). We will start B6 replacement. * Continue IVIG for a total dose of (2g/kg over 5 days). Today is day #5. Patient is tolerating IVIG well. * Patient needs more thorough EMG and nerve conduction studies to evaluate for the type and severity polyneuropathy, rule out myopathy. Would suggest having EMG tested by a neuromuscular specialist, at [facility] or [facility]. Patient may need nerve biopsy +/- muscle biopsy. * Repeat CPK is normal 88. We will recheck aldolase, also check acetylcholine receptor antibodies just to complete the workup. Patient may also need workup for vasculitis. So far I do not see any remarkable improvement in his condition with IVIG. * Patient had EMG with nerve conduction study of the lower about 2 weeks ago at [facility] office and was reported as normal. * Nephrology team is consulted for mild hyponatremia, today 134. * Patient on heparin 5000 unit subcu every 12 hours for DVT prophylaxis. * Patient's liver enzymes has further gone up. We will repeat hepatic panel. * Patient is very weak in the lower extremities. Patient's LFTs are worsening. I would suggest transfer to tertiary care center at [facility] for further evaluation at this time. * Physical therapy and occupation therapy are consulted. WORK-UP: SCOOBY negative, serum immune fixation electrophoresis negative, urine immunofixation negative for Bence Kim proteins. HIV negative. Serum copper is normal 744 (665-1480) Zinc 59(60 to 130) Vitamin B1 34 (38-122), vitamin E 16 (38-106) Creatinine kinase is 316 (normal is 55-170). ESR is 15. CRP is the 1.2. Aldolase is elevated 15.2 (1.2-7.6) TSH is 1.8908 which is within normal limits. urine analysis negative for urinary tract infection. CSF is clear, colorless, CSF red blood cell is 27, nuclear cells is 1, glucose is 85 and a protein is normal 39 (12-60) Serum folate is less than 2 which is considered deficient (normal is between 4.4-31) Red blood cell folate is 355 which is considered on the borderline of low normal Vitamin B12 is 411, Methylmalonic acid is normal 0.13. Vitamin B6, Lyme titer, still pending. Hemoglobin A1c is 5.1. Calcium is 9.3, magnesium is 2.1. Lactate Dehydrogenase: 1325 IgA level: 201 (normal) Coronavirus PCR: Not detected. CT of the brain is reported as normal CT brain. MRI of lumbar spine w/o is reported as there is L5-S1 lumbar disc herniation in the midline which appears slightly smaller than the last exam. No spinal stenosis. No fracture. MRI LUMBAR SPINE W/: Is reported as no abnormal postcontrast enhancement. MRI the brain with and without is reported as no abnormality is evident. MRI the cervical spine with and without is reported as normal pre-and postcontrast cervical MRI.
[2021-03-01] MEDS: CIPROFLOXACIN 0.3% OPHTH SOLN 5 ML BTL BOTH EYES SCH ×4 (01:42→11:31)
[2021-03-01] MEDS: HYDROcodone/APAP 5-325MG 1 EACH TAB PO PRN ×2 (03:02→19:10)
[2021-03-01 06:42] LABS: Glucose,Whole Blood 93 mg/dL (75-99)
[2021-03-01] MEDS: DOCUSATE 100 MG CAP PO SCH ×2 (07:30→20:53)
[2021-03-01] MEDS: TAMSULOSIN 0.4 MG CAP.ER.24H PO SCH (07:30)
[2021-03-01] MEDS: MULTIVITAMINS, THERA 1 EACH TAB PO SCH (07:31)
[2021-03-01] MEDS: GABAPENTIN 100 MG CAP PO SCH ×3 (07:31→21:23)
[2021-03-01] MEDS: METOPROLOL TARTRATE 50 MG TAB PO SCH ×2 (07:31→20:53)
[2021-03-01] MEDS: FOLIC ACID 1 MG TAB PO SCH (07:31)
[2021-03-01] MEDS: HEPARIN SODIUM,PORCINE/PF 5,000 UNIT/0.5 ML SYRINGE SQ SCH ×2 (07:31→20:52)
[2021-03-01] MEDS: THIAMINE 100 MG TAB PO SCH (07:31)
[2021-03-01] MEDS: CYANOCOBALAMIN 500 MCG TAB PO SCH (07:31)
[2021-03-01] MEDS: FAMOTIDINE 20 MG TAB PO SCH ×2 (07:31→20:53)
[2021-03-01] MEDS: PYRIDOXINE 50 MG TAB PO SCH (07:32)
[2021-03-01] MEDS: SIMETHICONE 40 MG/0.6 ML DROPS 2,000 MG/30 ML BOTTLE PO SCH ×4 (07:32→20:52)
--- NOTE | 2021-03-01 11:05 | P.PN ---
Progress Note - Text Progress Note Date: 03/01/21 Patient feels better today. He denies abdominal pain. His abdomen soft. He states that his leg weakness improving. On exam abdomen soft nontender Patient was most likely discharged home today. He'll follow-up when necessary
--- NOTE | 2021-03-01 12:23 | PN ---
PROGRESS NOTE Patient is seen for followup for hyponatremia. We are seeing him on a p.r.n. basis. Serum sodium has remained fairly stable. Patient was maintained on IVIG which can also cause hyponatremia. He is maintained on fluid restriction and serum sodium as mentioned, has been staying 131-134 mEq/L. Currently patient is voiding on his own. He states that his lower extremity weakness is improving. PHYSICAL EXAMINATION: On examination today, blood pressure 122/81, heart rate 120 per minute. He is afebrile. He appears euvolemic. No evidence of edema lower extremities. LAB: Show sodium 134 today. ASSESSMENT: 1. Hyponatremia associated with urine retention as well as some degree of hyponatremia from IVIG use maintained on fluid restriction, currently stable. 2. 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 3. Obesity. 4. Urine retention. Nguyen catheter has now been discontinued. The patient is voiding fairly well. Monitor postvoid residuals. PLAN: We will continue to see the patient on an as-needed basis. MMODL / IJN: [id number] /
--- NOTE | 2021-03-01 13:42 | P.PN ---
Subjective This is a pleasant 20 years old male with past medical history of hx pain lower back radiating to left side, status post Sleeve Gastrectomy 07-24-20 and recent cholecystectomy. Patient information was that with the help of his mother at bedside Patient says who presents because of numbness and weakness in both lower extremity more on the right than the left. Is not suppressed from the back of his hip and buttock down to the middle of the right and similarly on the left leg but less extent patient has been complaining of from progressive weakness more on the right leg over the last week. Patient denies any back pain. No recent history of chronic cold or gastroenteritis. He has history of significant back pain and sciatic That he had MRI of the back down on 07/2020 at [facility]. Followed by a visit to the pain clinic where he got 3 shots in his low back. And apparently he does not complain from any back pain or neck pain or headache. No weakness or numbness in the upper extremity, no slurred speech or blurred vision He denies chest pain or abdominal pain, no coughing or dyspnea. No diarrhea but is improving from constipation Decreased frequency of urination he had only once in the last 24 hours which wakes him up in the middle of last night, compared to usual frequency of 4-7 times per mother at bedside Patient had recent surgery for laparoscopic cholecystectomy on 02/08. He denies smoking, alcohol or illicit tracts On admission his tachycardic of 123, rest of vitals are stable Has mild leukocytosis of 15.2 K, sodium is moderately low at 1:30, potassium 3.4, creatinine normal 0.6, liver enzymes mildly elevated. Total bilirubin is normal at 0.9. CT of the lumbar spine, normal findings Normal CT of the brain On admission and received IV fluids, he was admitted with neurology and surgery team consults MRI of the lumbar spine showing stable disc herniation of L5 to S1 or slightly smaller than before. This would not explain the patient's symptoms. MRI of the cervical spine and of the brain did not show significant abnormal explain patient's symptoms as well Lumbar puncture done showing high glucose of 85, normal total protein of 39. 02/25/2021 Patient today showing some improvement in his toes movement and numbness as he confirmed to me, he got 1 dose of IVIG earlier. He is also able somewhat to be nd his knees and ankle but did not report improvement in them. He states he has no weakness in the upper extremities. No headache or blurred vision or slurred speech. No respiratory, GI or urinary symptoms. He is hemodynamically stable. His tachycardic with heart rate 105-101. His obesity is back to normal at 6.2, platelet count dropping down to 128. Sodium and potassium are normal. Pro-ca lcitonin is slightly elevated at 0.2 to He's on immunoglobulin intravenously to 03/10. Per neurologist recommendation. Also neurologist recommends transfer to tertiary care center which was started last week. Agrees to be transferred. I discussed with the senior case manager/social service assistant Carola today stating that his medical insurance has refused his transfer. After discussed the case with her she is going to resubmit request to be transferred. Physical therapy recommended inpatient rehab. Repeat labs tomorrow, chest x-ray and urine analysis. Repeat pro-calcitonin. 02/26/2021 patient status with bilateral lower extremity weakness and paresthesia, patient reported some improvement in his both those yesterday but not today. no new weakness or worsening weakness in the upper extremity as well. No other complaints His blood pressure is slightly elevated 150/99, Norvasc is a started. He is t achycardic with heart rate around 112. Labs showing work sending leukocyte 8.4, it was 13-21 on admission. Platelet count normal today 161. Electrolytes are unremarkable. Liver enzymes are elevated Pro-calcitonin is elevated at 0.9 up to 0.22. Chest x-ray no acute process. Urine analysis is suspicious for infection and urine culture is pending Patient was started on ceftriaxone. Also his on gentle hydration and also receiving IVIG Today I discussed the case with Hang from [employer] , he is going to review the case and call me back Neurology team on the case and the recommended patient to continue with IVIG and to transfer the patient to tertiary center however his medical insurance [employer] is rejecting the case unless [employer] status except the patient admission then we will resubmit order for transfer. As per my discussion with senior case manager Carola PT/OT recommended inpatient rehab, Dr. Davis consulted 02/27/2021 Patient stated that he has some improvement in his lower extremity weakness, he estimates his improvement about 20%, no other significant medical complaints today. He is developing tachycardia around 133. EKG showed sinus tachycardia with no significant ST-T changes. I will add metoprolol 25 mg. This could be due to his sepsis. Patient is started on Rocephin, urine cultures pending. Sodium today is 134, creatinine kinase is 88 She remains on normal saline at 75 mL/h, he is getting IVIG. Also he is on ceftriaxone 2 g daily. I discussed the case today with Dr. Mauricio from [facility] , I discussed the case with him and the need for IV antibiotics, IVIG and other treatment and monitoring while in the hospital, he refused to accept the patient as inpatient, this ref usal hinders his transfer to tertiary care center or to going to rehab because his insurance will not approve as per my discussion with senior case manager/social service assistant. I discussed the case with Dr. Mauricio more than once but he was adamant to refuse the case stating that he can get the IVIG and IV antibiotics as an outpatient !!. Case discussed with senior case manager 02/28/2021 Patient looks more happy today and thinking he is improving overall although he states that his weakness in his lower extremity are same as yesterday and improvement is same as yesterday as well. He is tolerating diet well, denies any specific new symptoms. We were going to change the Nguyen catheter but patient asked to be removed. It was discontinued upon his request and we will check PVR, discussed with the staff Hemodynamically stable. Repeat labs today are pending Patient remains on ceftriaxone and urine culture growing gram-negative bacilli, final result is pending. He remains on IVIG. Neurologist and he needs follow-up as an outpatient. I submitted a request for his medical insurance for peer to peer review and response is still pending 03/01/2021 Patient finished his IVIG yesterday and urine culture came back positive for Klebsiella and E. coli both sensitive to Cipro and IV antibiotics. 2. However patient is still complaining from weakness in his legs although he reports some improvement, both knees but he cannot raise them straight up because of weakness, his uncles also weak as well. No other significant or specific complaints. No chest pain or dyspnea. No coughing. No abdominal pain. No nausea vomiting or diarrhea. No rash. No fever He is tachycardic despite metoprolol 50 mg twice a day and treated his infection. Because of this we are consulting cardiology service. Also yesterday came back trending up liver enzymes, for going to consult GI service. He is on multiple vitamins replacement fluids and folic acid, vitamin B12, vitamin B6 and thiamine. Flomax for urinary retention, Nguyen catheter discontinue it and checking postvoid residual. Today I discussed the case with neurology service, Mr. campbell patient to be transferred. I submitted a second request for his medical insurance and I got a call back for peer to peer review later on the day. Also I discussed the case with utilization management who helped contact [employer] for another review of the case. I discussed the case with social service assistant Carola and she confirmed to me patient can be transferred unless [employer] accept him as inpatient, I called Dr. Mauricio whom I talked to 2 days ago and injected the case is then and left a message for him to call me back, for another review of the case. Because of this patient is not medically stable for discharge and will keep monitoring closely. Objective - Vital Signs Vital signs: Vital Signs Temp 98.2 F 03/01/21 07:06 Pulse 125 H 03/01/21 07:25 Resp 20 03/01/21 07:06 BP 122/81 03/01/21 07:25 Pulse Ox 94 L 03/01/21 07:06 Intake & Output 02/28/21 03/01/21 03/01/21 18:59 06:59 18:59 Intake Total 600 1136 Output Total 1000 300 Balance -400 836 Intake: Oral 600 1136 Output: Urine 1000 300 Other: Voiding Method Indwelling Catheter Urinal Urinal # Voids 1 # Bowel Movements 2 - Exam GENERAL: The patient is alert and oriented x3, not in any acute distress. Well developed, well nourished. HEENT: Pupils are round and equally reacting to light. EOMI. No scleral icterus. No conjunctival pallor. Normocephalic, atraumatic. No pharyngeal erythema. No thyromegaly. CARDIOVASCULAR: S1 and S2 present. No murmurs, rubs, or gallops. PULMONARY: Chest is clear to auscultation, no wheezing or crackles. ABDOMEN: Soft, nontender, nondistended, normoactive bowel sounds. No palpable organomegaly. MUSCULOSKELETAL: No joint swelling or deformity. EXTREMITIES: No cyanosis, clubbing, or pedal edema. NEUROLOGICAL: Gross neurological examination did not reveal any focal deficits. Weakness especially of the extensor thighs and legs and feet, more on the right side than left side. No sensory deficit SKIN: No rashes. No petechiae - Labs CBC & Chem 7: 02/28/21 11:32 03/01/21 10:20 Labs: Abnormal Lab Results - Last 24 Hours (Table) 02/28/21 02/28/21 02/28/21 Range/Units 11:31 11:32 17:02 WBC 11.6 H (3.8-10.6) k/uL RBC 4.07 L (4.30-5.90) m/uL Hgb 12.5 L (13.0-17.5) gm/dL Hct 34.1 L (39.0-53.0) % Sodium (137-145) mmol/L AST 280 H (14-35) U/L ALT 371 H (10-49) U/L Total Protein 8.5 H (6.2-8.2) g/dL Albumin 3.4 L (3.8-4.9) g/dL Globulin 5.1 H (1.6-3.3) g/dL Albumin/Globulin Ratio 0.66 L (1.60-3.17) g/dL Aldolase 9.0 H (1.2-7.6) U/L 03/01/21 Range/Units 10:20 WBC (3.8-10.6) k/uL RBC (4.30-5.90) m/uL Hgb (13.0-17.5) gm/dL Hct (39.0-53.0) % Sodium 134 L (137-145) mmol/L AST (14-35) U/L ALT (10-49) U/L Total Protein (6.2-8.2) g/dL Albumin (3.8-4.9) g/dL Globulin (1.6-3.3) g/dL Albumin/Globulin Ratio (1.60-3.17) g/dL Aldolase (1.2-7.6) U/L Microbiology - Last 24 Hours (Table) 02/25/21 21:56 Urine Culture - Final Urine,Voided Escherichia coli Klebsiella pneumoniae Assessment and Plan Assessment: Bilateral lower extremity weakness and numbness, more on the right side. 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 coli sensitive to oral antibiotic Sepsis secondary to the above with leukocytosis and tachycardia Elevated liver enzymes Sinus tachycardia Hypertension Hyponatremia. Improved Chronic low back pain radiating to the left side. Mild History of sleeve gastrectomy Recent history of cholecystectomy Morbid obesity with BMI of 41.8 Plan: This is a pleasant 20 years old male who presents with bilateral lower extremity weakness and numbness. Continue intravenous immunoglobulin per neurologist recommendation Patient will benefit from EMG/nerve conduction study which could be done at a tertiary care center after other workup was done. Discussed with social service assistant/senior case manager to resubmit transfer order after rejected by his medical insurance provider, discussed with [employer] and his medical insurance for reevaluation. Patient cannot be transferred to the except him. Patient aware Follow-up with recommendation by neurology team and other consultants Switch antibiotics to Cipro Consults GI and cardiology service Continue gentle hydration add Metoprolol and monitor heart r at e Labs and medication were reviewed.. Continue same treatment. Continue with sy mptomatic treatment. Resume home medication. Monitor lytes and vitals. DVT and GI prophylaxis. Further recommendations depends on the clinical course of the patient PT/OT: Pending DVT prophylaxis: Subcu heparin GI prophylaxis: Pepcid PT/OT recommended inpatient rehab, Dr. Davis consulted who rejected the case Prognosis is guarded
[2021-03-01] MEDS ORDERED: ALPRAZolam 0.5 MG TAB PO STA (14:02)
--- NOTE | 2021-03-01 14:14 | P.CONS ---
History of Present Illness - Reason for Consult Consult date: 03/01/21 Elevated LFTs Requesting physician: Shalom E Sheet - Chief Complaint Lower extremity weakness - History of Present Illness This a 20-year-old morbidly obese patient who presented to the emergency department over a week ago with complaints of lower extremity weakness. There are multiple consult notes on his case including orthopedics, surgery and neurology. Patient underwent cholecystectomy for cholelithiasis on 02/08/2021 with , he also has a history of bariatric surgery with gastric sleeve done in July of this year. Patient states he's been getting progressively weak in his lower extremities especially the right having difficulty with walking. During this hospitalization he was noted to have mild elevation in his AST and ALT. On admission his AST was 68 and his ALT 79. Both have steadily increased over the last several days. He was started on Rocephin on 02/26/2021 which has been changed to Cipro today for UTI. He denies any previous history of liver disease, denies any history of alcohol use or hepatitis. Denies any other new medications other than what's prescribed here. He has been getting immunoglobulin Gammagard. He also had a liver ultrasound that states correlate for hepatic steatosis, hepatocellular disease. Limited exam. Liver was with coarse echotexture present. Gallbladder surgically absent. CBD obstructed by overlying bowel gas. Looking back at previous AST and ALT patient has had chronic mild elevation, likely we are dealing with underlying fatty liver possibly superimposed by medication induced hepatitis. Patient states he was over 400 pounds prior to bariatric surgery and has lost over 100 pounds since July. Denies any abdominal pain, nausea, or vomiting. Review of Systems REVIEW OF SYSTEMS: CARDIOPULMONARY: No chest pain or shortness of breath. Gastrointestinal: No abdominal pain. No nausea or vomiting. No hematemesis, coffee-ground emesis. No rectal bleeding, or melena. GENITOURINARY: No dysuria or hematuria. MUSCULOSKELETAL: Reports normal range of motion., Joint pain. SKIN: No rashes. No jaundice. ENDOCRINE: No chills, fevers. No excessive weight gain or loss. No polydipsia or polyuria. PSYCHIATRIC: Unremarkable. NEUROLOGY: No change in mental status. Denies dizziness, headache. Lower extremity weakness, right greater than left. ENT: Vision unremarkable. CONSTITUTIONAL: No recent weight loss. No fever, chills, night sweats. Past Medical History Past Medical History: No Reported History Additional Past Medical History / Comment(s): nausea/vomiting,gas pain and pressure,hx pain lower back radiating to left side History of Any Multi-Drug Resistant Organisms: None Reported Past Surgical History: Cholecystectomy Additional Past Surgical History / Comment(s): rt knee meniscectomy, wisdom teeth, PAIN CLINIC PROCEDURE, Sleeve Gastrectomy 07-24-20 Past Anesthesia/Blood Transfusion Reactions: Family History of Problems w/ Anesthesia Additional Past Anesthesia/Blood Transfusion Reaction / Comm: mother-PONV Past Psychological History: Depression Smoking Status: Former smoker Past Alcohol Use History: None Reported Past Drug Use History: Marijuana - Past Family History Mother Family Medical History: No Reported History Medications and Allergies Home Medications Medication Instructions Recorded Confirmed Type Bariatric Multivitamin 1 tab PO QID 02/05/21 02/20/21 History Omeprazole [PriLOSEC] 40 mg PO DAILY 02/05/21 02/20/21 History Ibuprofen [Motrin] 600 mg PO Q8H PRN 02/20/21 02/20/21 History predniSONE 10 mg PO TID 02/20/21 02/20/21 History Allergies Allergy/AdvReac Type Severity Reaction Status Date / Time No Known Allergies Allergy Verified 02/20/21 11:24 Physical Exam Vitals: Vital Signs Temp Pulse Resp BP Pulse Ox 03/01/21 07:25 125 H 122/81 03/01/21 07:06 98.2 F 123 H 20 170/104 94 L 03/01/21 01:29 98.5 F 117 H 127/85 96 02/28/21 19:20 98.0 F 110 H 17 146/84 97 02/28/21 13:48 97.6 F 106 H 18 144/82 96 Intake and Output 02/28/21 03/01/21 03/01/21 22:59 06:59 14:59 Intake Total 360 240 236 Output Total 600 400 200 Balance -240 -160 36 Intake: Oral 360 240 236 Output: Urine 600 400 200 Other: Voiding Method Urinal Urinal # Voids 1 # Bowel Movements 2 General appearance: The patient is alert, oriented, appears in no acute distress. Morbidly obese. HET: Head is normocephalic and atraumatic. Conjunctiva pink. Sclera anicteric. Neck: Supple without lymphadenopathy. Trachea midline. Heart: S1 S2. Regular rate and rhythm. Lungs: Clear to auscultation. Abdomen: Soft, morbidly obese, nontender, nondistended with bowel sounds. No guarding or rigidity. Skin: No rashes. No jaundice. Extremities: Normal skin color and turgor. No pedal edema. Neurological: Alert and oriented 3.. Results CBC & Chem 7: 02/28/21 11:32 03/01/21 10:20 Labs: Abnormal Lab Results - Last 24 Hours (Table) 02/28/21 02/28/21 Range/Units 11:31 11:32 WBC 11.6 H (3.8-10.6) k/uL RBC 4.07 L (4.30-5.90) m/uL Hgb 12.5 L (13.0-17.5) gm/dL Hct 34.1 L (39.0-53.0) % AST 280 H (14-35) U/L ALT 371 H (10-49) U/L Total Protein 8.5 H (6.2-8.2) g/dL Albumin 3.4 L (3.8-4.9) g/dL Globulin 5.1 H (1.6-3.3) g/dL Albumin/Globulin Ratio 0.66 L (1.60-3.17) g/dL Microbiology - Last 24 Hours (Table) 02/25/21 21:56 Urine Culture - Final Urine,Voided Escherichia coli Klebsiella pneumoniae Comments: Liver ultrasound impression states correlate for hepatic steatosis, hepatocellular disease. Limited exam. Assessment and Plan (1) Elevated liver enzymes Narrative/Plan: 20-year-old male who presented to the emergency department a little over week ago with paresthesia and weakness in his bilateral lower extremities. 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 Neurology, orthopedics and Gen. surgery on consult. He was noted to have mild elevation in his LFTs on admission which have been steadily increasing. AST was in the 60s and ALT in the 70s. Today total bilirubin 1.2 conjugated bilirubin 0.35 unconjugated bilirubin 0.83 AST is 280 ALT 371 patient had a liver ultrasound on admission that did show echotexture consistent with a hepatic steatosis and/or hepatocellular disease. Patient is morbidly obese and recently underwent bariatric surgery in July of this year, he also recently underwent cholecystectomy on 02/08/2021 for cholelithiasis. Patient denies any previous known liver disease, no history of hepatitis or alcohol abuse. No recent new medications other than while being in the hospital. He was started on Rocephin on 02/26/2021 which was discontinued today. He's also been started on immunoglobulin Gammagard. Looking back at previous blood work he has had a history of mild elevation of his AST and ALT. We are likely dealing with hepatic steatosis along with possible medication induced hepatitis. We will continue to monitor LFTs. Agree with discontinuing of Rocephin. Current Visit: Yes Status: Acute Code(s): R74.8 - ABNORMAL LEVELS OF OTHER SERUM ENZYMES SNOMED Code(s): 144965900 (2) Bilateral leg paresthesia Current Visit: Yes Status: Acute Code(s): R20.2 - PARESTHESIA OF SKIN SNOMED Code(s): 089132359 (3) Morbid obesity Current Visit: Yes Status: Acute Code(s): E66.01 - MORBID (SEVERE) OBESITY DUE TO EXCESS CALORIES SNOMED Code(s): 248510839 (4) Urinary tract infection Current Visit: Yes Status: Acute Code(s): N39.0 - URINARY TRACT INFECTION, SITE NOT SPECIFIED SNOMED Code(s): 68517813 Plan: 1. Continue symptomatic and supportive care 2. Acute hepatitis panel ordered 3. Daily CMP 4. Avoid hepatotoxic medications 5. Liver ultrasound reviewed 6. Gastroenterology will not be in house this weekend, if LFTs do not trend down will need outpatient follow up. Elevated LFTs likely related to underlying liver disease, hepatic steatosis . superimposed by medication induced Thank you for allowing us to participate in the care of the patient, the GI service will sign off, gastroenterology will not be available at the hospital this weekend. If further evaluation by gastroenterology is required the patient will need transfer as per the primary team's discretion. Dr. Alex Steele I agree with the dictator's note, documented as a scribe by Lucila Dey.
[2021-03-01 14:48] LABS: Appearance,Urine Clear (Clear); Bilirubin,Urine Negative (Negative); Blood,Urine Negative (Negative); Color,Urine Light Yellow; Glucose,Urine (UA) Negative (Negative); Ketones,Urine Negative (Negative); Leukocyte Esterase,Urine Negative (Negative); Nitrite,Urine Negative (Negative); Protein,Urine Negative (Negative); Specific Gravity,Urine 1.004 (1.001-1.035); Urobilinogen,Urine <2.0 mg/dL (<2.0)
[2021-03-01 14:52] LABS: IgG - CSF 1.9 mg/dL (0.0 - 3.4); IgG/Albumin Index (CSF) 0.16 (0.00 - 0.77)
[2021-03-01] MEDS ORDERED: THIAMINE 100 MG/ML 2 ML VIAL IVP SCH (15:45)
[2021-03-01] MEDS: THIAMINE 100 MG/ML 2 ML VIAL IVP SCH ×2 (17:35→20:53)
[2021-03-01 20:07] LABS: African American GFR (CKD) 175.4 (60.0-200.0); Anion Gap 18.4 mmol/L (4.00-12.00); BUN/Creat Ratio 26.09 Ratio (12.00-20.00); Blood Urea Nitrogen 13.8 mg/dL (9.0-27.0); Calcium 8.9 mg/dL (8.7-10.3); Carbon Dioxide 16.3 mmol/L (21.6-31.8); Non-African American GFR(CKD) 151.4 (60.0-200.0); Potassium 4.8 mmol/L (3.5-5.5)
[2021-03-01] MEDS: ALPRAZolam 0.5 MG TAB PO PRN (21:00)
[2021-03-02] MEDS: METOPROLOL TARTRATE 50 MG TAB PO SCH ×2 (07:13→21:18)
[2021-03-02] MEDS: MULTIVITAMINS, THERA 1 EACH TAB PO SCH (07:13)
[2021-03-02] MEDS: DOCUSATE 100 MG CAP PO SCH ×2 (07:13→21:17)
[2021-03-02] MEDS: FOLIC ACID 1 MG TAB PO SCH (07:13)
[2021-03-02] MEDS: FAMOTIDINE 20 MG TAB PO SCH ×2 (07:13→21:17)
[2021-03-02] MEDS: TAMSULOSIN 0.4 MG CAP.ER.24H PO SCH (07:13)
[2021-03-02] MEDS: GABAPENTIN 100 MG CAP PO SCH ×3 (07:13→21:15)
[2021-03-02] MEDS: HEPARIN SODIUM,PORCINE/PF 5,000 UNIT/0.5 ML SYRINGE SQ SCH ×2 (07:14→21:14)
[2021-03-02] MEDS: SIMETHICONE 40 MG/0.6 ML DROPS 2,000 MG/30 ML BOTTLE PO SCH ×4 (07:14→21:18)
[2021-03-02] MEDS: PYRIDOXINE 50 MG TAB PO SCH (07:15)
[2021-03-02] MEDS: THIAMINE 100 MG/ML 2 ML VIAL IVP SCH ×2 (07:15→21:19)
--- NOTE | 2021-03-02 08:53 | P.PN ---
Subjective Progress Note Date: 03/01/21 03/01/2021: Patient's parents and grandmother were present today. Patient is feeling slightly better. He is able to wiggle his feet better. Had more controlled movement of his proximal lower extremities. Patient has been running tachycardia and also abnormal liver functions for which gastroenterology has seen the patient. Reviewed recommendations. Patient denies any side effects of IVIG otherwise. Completed the course. Patient is upset because of not able to be discharged today. 02/28/2021: Patient was seen for a follow-up. Patient's mother and grandmother's were present today. Patient states that he feels slightly better, not worse. Patient denies double vision, denies dysphagia. No dysarthria. Patient's mother has looked for evidence of ticks in his body including head, but did not find any. Lyme titer still pending. 02/27/2021: Patient asleep at this time. Patient's mother states that he has not slept last night, but now sleeping. She feels he is doing better. Able to move in the bed much better. 02/26/2021: Patient was seen for a follow-up. Patient's mother was also present today. Patient continues to feel paresthesias in his feet. His feet are tingling, slightly tight sensation, as of the toes are compressed. He feels the toes are curling down. Patient believes his symptoms are slightly better, as he does not have numbness in the thighs anymore, only in the lower legs. He is able to wiggle and move around in the bed, and move his legs slightly better. Definitely no worsening of his condition. Denies any side effects of IVIG. He is currently receiving IVIG day #3. 02/25/2021: Patient was initially seen by Dr. Justin Blanca. Please refer to his note for details. Patient was seen for a follow-up. Patient's parents were also present. Patient has history of gastric sleeve surgery on 07/24/2020. Patient underwent cholecystectomy on 02/08/2021. Patient developed paresthesias of the feet with numbness tingling cramping in the legs since 01/30/2021. Patient underwent EMG testing by [facility] on 02/13/[facility]21. EMG was normal and was diagnosed with plantar fasciitis. Patient apparently went home from EMG testing, took a nap, and when he woke up, was severely weak in the legs, could not walk. They thought, it was related to his disc in the back. As his symptoms persisted, therefore he was admitted to the hospital on 02/20/2021. Patient developed progressive weakness, acutely got worse on 02/13/2021, gait dysfunction with bilateral foot drop. Patient also has developed numbness of the hands as well. He feels his toes are stuck together. He has developed gait dysfunction, cannot walk since 02/20/2021. Patient has been diagnosed with multiple vitamin deficiencies. Patient has been empirically started with IVIG and today he has received a second dose without any side effects. He is tolerating it well. Per patient's mother, he has been able to rollover in the bed better, still cannot walk and requires physical therapy. He was able to sit on the bed slightly better than yesterday. Objective - Vital Signs Vital signs: Vital Signs Temp 98 F 03/02/21 07:53 Pulse 129 H 03/02/21 07:53 Resp 16 03/02/21 07:53 BP 141/87 03/02/21 07:53 Pulse Ox 96 03/02/21 07:53 Intake & Output 03/01/21 03/02/21 03/02/21 18:59 06:59 18:59 Intake Total 1336 240 Output Total 700 1000 Balance 636 -760 Intake: Oral 1336 240 Output: Urine 700 1000 Other: Voiding Method Urinal Urinal # Voids 2 - Exam Patient is alert and awake, fully oriented. Speech and language functions are normal. Cranial nerves significant for mild bilateral ptosis. Extraocular muscles are intact. Pupils are round and reacting to light. No nystagmus. Visual fine are full. Patient has mild left facial weakness noticeable. Patient has slight weakness of bilateral lower facial region. He has difficulty with puffing up of his cheeks. His tongue protrudes to the midline. Appears slightly weak [id number] movement, particularly with protrusion of the tongue inside his cheek. Palatal elevation and sensation normal. Muscle strength testing shows normal strength in the upper limbs proximally and distally. Patient was laying in the bed. He was able to bend his hips much more accurately and controlled as compared to yesterday and before. Ankle dorsiflexion (right/left) trace/2, toe extension 0/2. This is improvement as compared to yesterday. Patient complains of numbness in his medial thigh region bilaterally, normal in the front and lateral thigh region. He has numbness somewhat in the lateral horne (L5 dermatomal region). Patient appears to have some muscle atrophy. No definitive ataxia for [id number] testing. Deep tendon reflexes are absent in the right upper limb, 1 at the left biceps and brachioradialis, absent in the lower extremities and plantars are downgoing. Tone is decreased in general. - Labs CBC & Chem 7: 02/28/21 11:32 03/01/21 10:20 Labs: Abnormal Lab Results - Last 24 Hours (Table) 02/21/21 02/28/21 02/28/21 Range/Units 13:55 11:31 17:02 Sodium 134 L (135-145) mmol/L Carbon Dioxide 16.3 L (21.6-31.8) mmol/L Anion Gap 18.40 H (4.00-12.00) mmol/L Creatinine 0.5 L (0.6-1.5) mg/dL BUN/Creatinine Ratio 26.09 H (12.00-20.00) Ratio Aldolase 9.0 H (1.2-7.6) U/L Serum Albumin 3,130 L (3500 - 5200) mg/dL IgG 2,370 H (700 - 1600) mg/dL 03/01/21 Range/Units 10:20 Sodium 134 L (135-145) mmol/L Carbon Dioxide (21.6-31.8) mmol/L Anion Gap (4.00-12.00) mmol/L Creatinine (0.6-1.5) mg/dL BUN/Creatinine Ratio (12.00-20.00) Ratio Aldolase (1.2-7.6) U/L Serum Albumin (3500 - 5200) mg/dL IgG (700 - 1600) mg/dL Assessment and Plan Assessment: * 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 Patient has symmetric predominantly motor weakness of lower >>> upper extremities. Patient has predominant weakness in the bilateral lumbosacral plexus distribution. However he also has weakness of some facial region, which can be seen with AIDP. Exact diagnosis still uncertain, because of unavailability of EMG and NCV studies, and normal CSF protein. However clinically it appears very much like GBS. Not sure if the patient has a combined malnutrition deficiency/vitamin deficiency leading to his worsening condition especially with history of gastrectomy sleeve on 07/2020 * Folate defiency, severe degree (Serum folate is less than 2). * Multiple vitamin deficiency including vitamin D, vitamin B1 and zinc. Borderline vitamin B6. * History of lower back pain with radiculopathy (has pain injections in the back but last was one year ago) but currently is not having any lower back pain. * Electrolyte imbalance with mild hyponatremia (130-->131) * Mild transaminitis, getting worse. Most recent AST is 218, ALT 371. * History of recent lap closeectomy on 02/08/2021 * gastrectomy sleeve on 07/2020 * Morbid obesity Plan: * Continue folic acid 1 mg daily, vitamin B12 1000mcg daily and will thiamine from IV to PO 100mg daily. Patient will be started on multivitamins, as he is also low on vitamin A, zinc. * Vitamin B6 9 (5-50). We will start B6 replacement. * Patient has completed treatment with IVIG for a total dose of (2g/kg over 5 days), as of 02/28/2021. Patient has tolerated IVIG well. * Patient and his mother believes that he is doing better. Patient able to wiggle his feet better than yesterday. * Patient needs more thorough EMG and nerve conduction studies to evaluate for the type and severity polyneuropathy. Would suggest having EMG tested by a neuromuscular specialist, at [facility] or [facility]. Patient may need nerve biopsy +/- muscle biopsy. * Repeat CPK is normal 88. Repeat aldolase was also much better 9.0 as compared to 15.2 on 02/22/2021. * Patient had EMG with nerve conduction study of the lower about 2 weeks ago at [facility] office and was reported as normal. * Gastroenterology following for abnormal liver functions. * Nephrology team is consulted for mild hyponatremia, today 134. * Patient on heparin 5000 unit subcu every 12 hours for DVT prophylaxis. * Physical therapy and occupation therapy are consulted. * Patient's family wants to take him home. It probably will be technically difficult to manage him as an outpatient. Suggest transfer to tertiary care, [facility] or [facility] to perform all workup before discharging home or to rehab facility. WORK-UP: SCOOBY negative, serum immune fixation electrophoresis negative, urine immunofixation negative for Bence Kim proteins. HIV negative. Serum copper is normal 744 (665-1480) Zinc 59(60 to 130) Vitamin B1 34 (38-122), vitamin E 16 (38-106) Creatinine kinase is 316, now normal 88 (normal is 55-170). ESR is 15. CRP is the 1.2. Aldolase initially elevated 15.2, repeat aldolase improved 9.0 (1.2- 7.6) TSH is 1.8908 which is within normal limits. urine analysis negative for urinary tract infection. CSF is clear, colorless, CSF red blood cell is 27, nuclear cells is 1, glucose is 85 and a protein is normal 39 (12-60) Serum folate is less than 2 which is considered deficient (normal is between 4.4-31) Red blood cell folate is 355 which is considered on the borderline of low normal Vitamin B12 is 411, Methylmalonic acid is normal 0.13. Lyme titer and acetylcholine receptor antibodies still pending. Hemoglobin A1c is 5.1. Calcium is 9.3, magnesium is 2.1. Lactate Dehydrogenase: 1325 IgA level: 201 (normal) Coronavirus PCR: Not detected. CT of the brain is reported as normal CT brain. MRI of lumbar spine w/o is reported as there is L5-S1 lumbar disc herniation in the midline which appears slightly smaller than the last exam. No spinal stenosis. No fracture. MRI LUMBAR SPINE W/: Is reported as no abnormal postcontrast enhancement. MRI the brain with and without is reported as no abnormality is evident. MRI the cervical spine with and without is reported as normal pre-and postcontrast cervical MRI.
[2021-03-02 09:00] LABS: ALT 420 U/L (4-49); AST 284 U/L (17-59); African American GFR (CKD) >90 (>60 ml/min/1.73 sqM); Albumin 3.1 g/dL (3.5-5.0); Albumin/Globulin Ratio 0.6; Alkaline Phosphatase 60 U/L (38-126); Anion Gap 3 mmol/L; Blood Urea Nitrogen 12 mg/dL (9-20); Calcium 8.7 mg/dL (8.4-10.2); Carbon Dioxide 27 mmol/L (22-30); Chloride 101 mmol/L (98-107); Globulin 4.9 g/dL; Glucose 96 mg/dL (74-99); Non-African American GFR(CKD) >90 (>60 ml/min/1.73 sqM); Potassium 3.9 mmol/L (3.5-5.1); Sodium 131 mmol/L (137-145); Total Bilirubin 1.8 mg/dL (0.2-1.3)
[2021-03-02] MEDS ORDERED: CIPROFLOXACIN HCL 500 MG TAB PO SCH (09:00)
[2021-03-02] MEDS ORDERED: CYANOCOBALAMIN 1,000 MCG/ML 1 ML VIAL IM SCH (09:00)
--- NOTE | 2021-03-02 09:57 | P.PN ---
Subjective Patient is seen in follow-up for hyponatremia. Sodium level 131today. Nguyen catheter has been removed. Good urine output. Oral intake is good. No vomiting or diarrhea. Vital signs are stable. General: The patient appeared well nourished and normally developed. HEENT: Head exam is unremarkable. LUNGS: Breath sounds decreased. HEART: Rate and Rhythm are regular. ABDOMEN: Soft, obese. EXTREMITITES: No edema. Objective - Vital Signs Vital signs: Vital Signs Temp 98 F 03/02/21 07:53 Pulse 129 H 03/02/21 07:53 Resp 16 03/02/21 07:53 BP 141/87 03/02/21 07:53 Pulse Ox 96 03/02/21 07:53 Intake & Output 03/01/21 03/02/21 03/02/21 18:59 06:59 18:59 Intake Total 1336 240 Output Total 700 1000 Balance 636 -760 Intake: Oral 1336 240 Output: Urine 700 1000 Other: Voiding Method Urinal Urinal # Voids 2 - Labs CBC & Chem 7: 02/28/21 11:32 03/02/21 07:53 Labs: Abnormal Lab Results - Last 24 Hours (Table) 02/21/21 02/28/21 02/28/21 Range/Units 13:55 11:31 17:02 Sodium 134 L (135-145) mmol/L Carbon Dioxide 16.3 L (21.6-31.8) mmol/L Anion Gap 18.40 H (4.00-12.00) mmol/L Creatinine 0.5 L (0.6-1.5) mg/dL BUN/Creatinine Ratio 26.09 H (12.00-20.00) Ratio Total Bilirubin (0.2-1.3) mg/dL AST (17-59) U/L ALT (4-49) U/L Albumin (3.5-5.0) g/dL Aldolase 9.0 H (1.2-7.6) U/L Serum Albumin 3,130 L (3500 - 5200) mg/dL IgG 2,370 H (700 - 1600) mg/dL 03/01/21 03/02/21 Range/Units 10:20 07:53 Sodium 134 L 131 L (135-145) mmol/L Carbon Dioxide (21.6-31.8) mmol/L Anion Gap (4.00-12.00) mmol/L Creatinine 0.45 L (0.6-1.5) mg/dL BUN/Creatinine Ratio (12.00-20.00) Ratio Total Bilirubin 1.8 H (0.2-1.3) mg/dL AST 284 H (17-59) U/L ALT 420 H (4-49) U/L Albumin 3.1 L (3.5-5.0) g/dL Aldolase (1.2-7.6) U/L Serum Albumin (3500 - 5200) mg/dL IgG (700 - 1600) mg/dL Assessment and Plan Plan: Assessment: 1. Hyponatremia secondary to excess fluid intake and IVIG. Sodium level 131 today. TSH normal. Urine sodium 94 and urine osmolality 305. 2. Lower extremity weakness with concern for [place] Lowe syndrome. Neurology following. 3. Obesity. 4. Urinary retention status post Nguyen catheter placement and removal. On Flomax. Plan: Remains off IV fluids. Encouraged oral intake. Enforce 1800 mL fluid restriction. Monitor bladder scans to make sure no urinary retention.
[2021-03-02] MEDS: ALPRAZolam 0.5 MG TAB PO PRN ×2 (10:21→21:22)
--- NOTE | 2021-03-02 10:30 | P.PN ---
Subjective Progress Note Date: 03/02/21 Principal diagnosis: Elevated liver enzymes Patient doing well today. Denies pain. His liver enzymes are increased further. Would like to go home. Objective - Vital Signs Vital signs: Vital Signs Temp 98 F 03/02/21 07:53 Pulse 129 H 03/02/21 07:53 Resp 16 03/02/21 07:53 BP 141/87 03/02/21 07:53 Pulse Ox 96 03/02/21 07:53 Intake & Output 03/01/21 03/02/21 03/02/21 18:59 06:59 18:59 Intake Total 1336 240 Output Total 700 1000 Balance 636 -760 Intake: Oral 1336 240 Output: Urine 700 1000 Other: Voiding Method Urinal Urinal Urinal # Voids 2 - Exam Abdomen: Soft, nontender, nondistended, incisions clean and dry - Labs CBC & Chem 7: 02/28/21 11:32 03/02/21 07:53 Labs: Abnormal Lab Results - Last 24 Hours (Table) 02/21/21 02/28/21 02/28/21 Range/Units 13:55 11:31 17:02 Sodium 134 L (135-145) mmol/L Carbon Dioxide 16.3 L (21.6-31.8) mmol/L Anion Gap 18.40 H (4.00-12.00) mmol/L Creatinine 0.5 L (0.6-1.5) mg/dL BUN/Creatinine Ratio 26.09 H (12.00-20.00) Ratio Total Bilirubin (0.2-1.3) mg/dL AST (17-59) U/L ALT (4-49) U/L Albumin (3.5-5.0) g/dL Aldolase 9.0 H (1.2-7.6) U/L Serum Albumin 3,130 L (3500 - 5200) mg/dL IgG 2,370 H (700 - 1600) mg/dL 03/01/21 03/02/21 Range/Units 10:20 07:53 Sodium 134 L 131 L (135-145) mmol/L Carbon Dioxide (21.6-31.8) mmol/L Anion Gap (4.00-12.00) mmol/L Creatinine 0.45 L (0.6-1.5) mg/dL BUN/Creatinine Ratio (12.00-20.00) Ratio Total Bilirubin 1.8 H (0.2-1.3) mg/dL AST 284 H (17-59) U/L ALT 420 H (4-49) U/L Albumin 3.1 L (3.5-5.0) g/dL Aldolase (1.2-7.6) U/L Serum Albumin (3500 - 5200) mg/dL IgG (700 - 1600) mg/dL Assessment and Plan (1) Elevated liver enzymes Narrative/Plan: Patient with elevated liver enzymes. GI following. We'll recheck CMP level tomorrow. Continue diet. Current Visit: Yes Status: Acute Code(s): R74.8 - ABNORMAL LEVELS OF OTHER SERUM ENZYMES SNOMED Code(s): 299063830
[2021-03-02 11:34] LABS: Basophils # (A) 0.08 X 10*3/uL (0.00-0.10); Basophils % (A) 0.6 %; Eosinophils # (A) 0.13 X 10*3/uL (0.04-0.35); Eosinophils % (A) 0.9 %; HCT 29.2 % (39.6-50.0); HGB 10.5 g/dL (13.0-17.0); Lymphocytes # (A) 3.99 X 10*3/uL (0.90-5.00); Lymphocytes % (A) 28.1 %; MCH 31.1 pg (27.0-32.0); MCV 86.4 fL (80.0-97.0); Mean Platelet Volume 11.4 fL (9.5-12.2); Monocytes # (A) 1.47 X 10*3/uL (0.20-1.00); Monocytes % (A) 10.3 %; Neutrophils # (A) 8.14 X 10*3/uL (1.80-7.70); Neutrophils % (A) 57.3 %; Platelet Count 196 X 10*3/uL (140-440); RBC 3.38 X 10*6/uL (4.40-5.60); RDW 14.6 % (11.5-14.5); WBC 14.21 X 10*3/uL (4.50-10.00)
[2021-03-02] MEDS: HYDROcodone/APAP 5-325MG 1 EACH TAB PO PRN ×2 (14:05→21:15)
--- NOTE | 2021-03-02 15:25 | P.PN ---
Subjective This is a pleasant 20 years old male with past medical history of hx pain lower back radiating to left side, status post Sleeve Gastrectomy 07-24-20 and recent cholecystectomy. Patient information was that with the help of his mother at bedside Patient says who presents because of numbness and weakness in both lower extremity more on the right than the left. Is not suppressed from the back of his hip and buttock down to the middle of the right and similarly on the left leg but less extent patient has been complaining of from progressive weakness more on the right leg over the last week. Patient denies any back pain. No recent history of chronic cold or gastroenteritis. He has history of significant back pain and sciatic That he had MRI of the back down on 07/2020 at [facility]. Followed by a visit to the pain clinic where he got 3 shots in his low back. And apparently he does not complain from any back pain or neck pain or headache. No weakness or numbness in the upper extremity, no slurred speech or blurred vision He denies chest pain or abdominal pain, no coughing or dyspnea. No diarrhea but is improving from constipation Decreased frequency of urination he had only once in the last 24 hours which wakes him up in the middle of last night, compared to usual frequency of 4-7 times per mother at bedside Patient had recent surgery for laparoscopic cholecystectomy on 02/08. He denies smoking, alcohol or illicit tracts On admission his tachycardic of 123, rest of vitals are stable Has mild leukocytosis of 15.2 K, sodium is moderately low at 1:30, potassium 3.4, creatinine normal 0.6, liver enzymes mildly elevated. Total bilirubin is normal at 0.9. CT of the lumbar spine, normal findings Normal CT of the brain On admission and received IV fluids, he was admitted with neurology and surgery team consults MRI of the lumbar spine showing stable disc herniation of L5 to S1 or slightly smaller than before. This would not explain the patient's symptoms. MRI of the cervical spine and of the brain did not show significant abnormal explain patient's symptoms as well Lumbar puncture done showing high glucose of 85, normal total protein of 39. 02/25/2021 Patient today showing some improvement in his toes movement and numbness as he confirmed to me, he got 1 dose of IVIG earlier. He is also able somewhat to be nd his knees and ankle but did not report improvement in them. He states he has no weakness in the upper extremities. No headache or blurred vision or slurred speech. No respiratory, GI or urinary symptoms. He is hemodynamically stable. His tachycardic with heart rate 105-101. His obesity is back to normal at 6.2, platelet count dropping down to 128. Sodium and potassium are normal. Pro-ca lcitonin is slightly elevated at 0.2 to He's on immunoglobulin intravenously to 03/10. Per neurologist recommendation. Also neurologist recommends transfer to tertiary care center which was started last week. Agrees to be transferred. I discussed with the casework manager/cab worker Carola today stating that his medical insurance has refused his transfer. After discussed the case with her she is going to resubmit request to be transferred. Physical therapy recommended inpatient rehab. Repeat labs tomorrow, chest x-ray and urine analysis. Repeat pro-calcitonin. 02/26/2021 patient status with bilateral lower extremity weakness and paresthesia, patient reported some improvement in his both those yesterday but not today. no new weakness or worsening weakness in the upper extremity as well. No other complaints His blood pressure is slightly elevated 150/99, Norvasc is a started. He is t achycardic with heart rate around 112. Labs showing work sending leukocyte 8.4, it was 13-21 on admission. Platelet count normal today 161. Electrolytes are unremarkable. Liver enzymes are elevated Pro-calcitonin is elevated at 0.9 up to 0.22. Chest x-ray no acute process. Urine analysis is suspicious for infection and urine culture is pending Patient was started on ceftriaxone. Also his on gentle hydration and also receiving IVIG Today I discussed the case with Hang from [employer] , he is going to review the case and call me back Neurology team on the case and the recommended patient to continue with IVIG and to transfer the patient to tertiary center however his medical insurance [employer] is rejecting the case unless [employer] status except the patient admission then we will resubmit order for transfer. As per my discussion with casework manager Carola PT/OT recommended inpatient rehab, Dr. Davis consulted 02/27/2021 Patient stated that he has some improvement in his lower extremity weakness, he estimates his improvement about 20%, no other significant medical complaints today. He is developing tachycardia around 133. EKG showed sinus tachycardia with no significant ST-T changes. I will add metoprolol 25 mg. This could be due to his sepsis. Patient is started on Rocephin, urine cultures pending. Sodium today is 134, creatinine kinase is 88 She remains on normal saline at 75 mL/h, he is getting IVIG. Also he is on ceftriaxone 2 g daily. I discussed the case today with Dr. Mauricio from [facility] , I discussed the case with him and the need for IV antibiotics, IVIG and other treatment and monitoring while in the hospital, he refused to accept the patient as inpatient, this ref usal hinders his transfer to tertiary care center or to going to rehab because his insurance will not approve as per my discussion with casework manager/cab worker. I discussed the case with Dr. Mauricio more than once but he was adamant to refuse the case stating that he can get the IVIG and IV antibiotics as an outpatient !!. Case discussed with casework manager 02/28/2021 Patient looks more happy today and thinking he is improving overall although he states that his weakness in his lower extremity are same as yesterday and improvement is same as yesterday as well. He is tolerating diet well, denies any specific new symptoms. We were going to change the Nguyen catheter but patient asked to be removed. It was discontinued upon his request and we will check PVR, discussed with the staff Hemodynamically stable. Repeat labs today are pending Patient remains on ceftriaxone and urine culture growing gram-negative bacilli, final result is pending. He remains on IVIG. Neurologist and he needs follow-up as an outpatient. I submitted a request for his medical insurance for peer to peer review and response is still pending 03/01/2021 Patient finished his IVIG yesterday and urine culture came back positive for Klebsiella and E. coli both sensitive to Cipro and IV antibiotics. 2. However patient is still complaining from weakness in his legs although he reports some improvement, both knees but he cannot raise them straight up because of weakness, his uncles also weak as well. No other significant or specific complaints. No chest pain or dyspnea. No coughing. No abdominal pain. No nausea vomiting or diarrhea. No rash. No fever He is tachycardic despite metoprolol 50 mg twice a day and treated his infection. Because of this we are consulting cardiology service. Also yesterday came back trending up liver enzymes, for going to consult GI service. He is on multiple vitamins replacement fluids and folic acid, vitamin B12, vitamin B6 and thiamine. Flomax for urinary retention, Nguyen catheter discontinue it and checking postvoid residual. Today I discussed the case with neurology service, recommended patient to be transferred. I submitted a second request for his medical insurance and I got a call back for peer to peer review later on the day. Also I discussed the case with utilization management who helped contact [employer] for another review of the case. I discussed the case with cab worker Carola and she confirmed to me patient can be transferred unless [facility] accept him as inpatient, I called Dr. Mauricio whom I talked to 2 days ago and injected the case is then and left a message for him to call me back, for another review of the case. Because of this patient is not medically stable for discharge and will keep monitoring closely. 03/02/2021 Today patient feels better, he is moving his thigh is better than the last 2 days. Mother at bedside feels happy with the progress patient is making. he still has bilateral leg weakness but they are improving gradually. Patient and family are aware with the plan to transfer to [facility] and they are agreeable. Other than that he is hemodynamically stable Labs showing WBC of 14 K, platelets normal at 196. Liver enzymes still elevated with AST 284 and ALT 420. Bilirubin is slightly elevated at 1.8. GI and surgery team on the case B12 is 1388, he is on replacement therapy therefore we will check the level again tomorrow to make sure it is not a false result. Folate still low but is improving up to 4.2. Patient to continue replacement therapy Vitamin B1, B6 and zinc are still pending. However patient remains on oral B6 and IV B1 replacement therapy. Hepatitis panel is negative. GI team recommended outpatient follow-up. Objective - Vital Signs Vital signs: Vital Signs Temp 97.6 F 03/02/21 14:00 Pulse 110 H 03/02/21 14:00 Resp 16 03/02/21 14:00 BP 125/85 03/02/21 14:00 Pulse Ox 95 03/02/21 14:00 Intake & Output 03/01/21 03/02/21 03/02/21 18:59 06:59 18:59 Intake Total 1336 240 236 Output Total 700 1000 Balance 636 -760 236 Intake: Oral 1336 240 236 Output: Urine 700 1000 Other: Voiding Method Urinal Urinal Urinal # Voids 2 - Exam GENERAL: The patient is alert and oriented x3, not in any acute distress. Well developed, well nourished. HEENT: Pupils are round and equally reacting to light. EOMI. No scleral icterus. No conjunctival pallor. Normocephalic, atraumatic. No pharyngeal erythema. No thyromegaly. CARDIOVASCULAR: S1 and S2 present. No murmurs, rubs, or gallops. PULMONARY: Chest is clear to auscultation, no wheezing or crackles. ABDOMEN: Soft, nontender, nondistended, normoactive bowel sounds. No palpable organomegaly. MUSCULOSKELETAL: No joint swelling or deformity. EXTREMITIES: No cyanosis, clubbing, or pedal edema. NEUROLOGICAL: Gross neurological examination did not reveal any focal deficits. Weakness especially of the extensor thighs and legs and feet, more on the right side than left side. No sensory deficit SKIN: No rashes. No petechiae - Labs CBC & Chem 7: 03/02/21 07:53 03/02/21 07:53 Labs: Abnormal Lab Results - Last 24 Hours (Table) 02/21/21 02/28/21 03/02/21 Range/Units 13:55 11:31 07:53 WBC 14.21 H (4.50-10.00) X 10*3/uL RBC 3.38 L (4.40-5.60) X 10*6/uL Hgb 10.5 L (13.0-17.0) g/dL Hct 29.2 L (39.6-50.0) % RDW 14.6 H (11.5-14.5) % Absolute Nucleated RBC 0.19 H (0.00-0.00) X 10*3/uL Immature Gran # 0.40 H (0.00-0.04) X 10*3/uL Neutrophils # 8.14 H (1.80-7.70) X 10*3/uL Monocytes # 1.47 H (0.20-1.00) X 10*3/uL NRBC/100 WBC Diff 1.3 H (0.0-0.0) /100 WBCS Sodium 134 L (135-145) mmol/L Carbon Dioxide 16.3 L (21.6-31.8) mmol/L Anion Gap 18.40 H (4.00-12.00) mmol/L Creatinine 0.5 L (0.6-1.5) mg/dL BUN/Creatinine Ratio 26.09 H (12.00-20.00) Ratio Total Bilirubin (0.2-1.3) mg/dL AST (17-59) U/L ALT (4-49) U/L Albumin (3.5-5.0) g/dL Vitamin B12 (200.0-944.0) pg/mL Folate (4.40-31.00) ng/mL Serum Albumin 3,130 L (3500 - 5200) mg/dL IgG 2,370 H (700 - 1600) mg/dL 03/02/21 Range/Units 07:53 WBC (4.50-10.00) X 10*3/uL RBC (4.40-5.60) X 10*6/uL Hgb (13.0-17.0) g/dL Hct (39.6-50.0) % RDW (11.5-14.5) % Absolute Nucleated RBC (0.00-0.00) X 10*3/uL Immature Gran # (0.00-0.04) X 10*3/uL Neutrophils # (1.80-7.70) X 10*3/uL Monocytes # (0.20-1.00) X 10*3/uL NRBC/100 WBC Diff (0.0-0.0) /100 WBCS Sodium 131 L (135-145) mmol/L Carbon Dioxide (21.6-31.8) mmol/L Anion Gap (4.00-12.00) mmol/L Creatinine 0.45 L (0.6-1.5) mg/dL BUN/Creatinine Ratio (12.00-20.00) Ratio Total Bilirubin 1.8 H (0.2-1.3) mg/dL AST 284 H (17-59) U/L ALT 420 H (4-49) U/L Albumin 3.1 L (3.5-5.0) g/dL Vitamin B12 1388.0 H (200.0-944.0) pg/mL Folate 4.20 L (4.40-31.00) ng/mL Serum Albumin (3500 - 5200) mg/dL IgG (700 - 1600) mg/dL Assessment and Plan Assessment: Bilateral lower extremity weakness and numbness, more on the right side. 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 coli sensitive to oral antibiotic Sepsis secondary to the above with leukocytosis and tachycardia Elevated liver enzymes Sinus tachycardia Hypertension Hyponatremia. Improved Chronic low back pain radiating to the left side. Mild History of sleeve gastrectomy Recent history of cholecystectomy Morbid obesity with BMI of 41.8 Plan: This is a pleasant 20 years old male who presents with bilateral lower extremity weakness and numbness. Continue intravenous immunoglobulin per neurologist recommendation Patient will benefit from EMG/nerve conduction study which could be done at a tertiary care center after other workup was done. Discussed with cab worker/casework manager to resubmit transfer order after rejected by his medical insurance provider, discussed with [employer] and his medical insurance for re evaluation. Patient cannot be transferred to the except him. Patient aware Follow-up with recommendation by neurology team and other consultants Switch antibiotics to Cipro Consults GI and cardiology service Continue gentle hydration add Metoprolol and monitor heart r at e Labs and medication were reviewed.. Continue same treatment. Continue with symptomatic treatment. Resume home medication. Monitor lytes and vitals. DVT and GI prophylaxis. Further recommendations depends on the clinical course of the patient PT/OT: Pending DVT prophylaxis: Subcu heparin GI prophylaxis: Pepcid PT/OT recommended inpatient rehab, Dr. Davis consulted who rejected the case Prognosis is guarded
--- NOTE | 2021-03-02 16:19 | P.CRDCN ---
History of Present Illness Consult date: 03/02/21 Reason for Consult (text): Tachycardia Chief complaint: Tachycardia History of present illness: This is Yoni Hernandez NP dictating a consult on this patient on behalf of Dr. Abad. The patient was interviewed and examined. HPI: Patient is a pleasant 20-year-old male who is day 10 in the hospital after complaints of weakness, dehydration and numbness and tingling to his right lower extremity. Patient has been being treated for [place] Lowe syndrome. Patient has received IVIG. Patient reports during this hospitalization and he started to feel heart palpitations. He states they come and go and are not consistent. Review the patient's chart shows consistent tachycardia from date of admission between 100-133. Patient was started on 50 mg of metoprolol twice a day with a nominal decrease in heart rate. Patient's past medical history does not include anything cardiac, patient does have a history of lower back pain, a sleeve gastrectomy, and cholecystectomy. Patient's home meds include prednisone, Prilosec, Motrin as needed, and a bariatric multivitamin. Patient's never smoker, has tried marijuana, does not drink alcohol. ROS: [No fever, chills, or rigors] [no cough, phlegm, or expectoration] [no nausea, vomiting, or diarrhea] [no hematuria, dysuria] [Still has some numbness and weakness on the right side] [no strokes or seizures] [no skin lesions] EXAMINATION: GENERAL: Well-appearing, well-nourished and in no acute distress. NECK: Supple without JVD or thyromegaly. LUNGS: Breath sounds clear to auscultation bilaterally. Respiration equal and unlabored. No wheezes, rales or rhonchi. HEART: Irregular rate and rhythm without murmurs, rubs or gallops. S1 and S2 he kari. EXTREMITIES: Normal range of motion, no edema. No clubbing or cyanosis. Peripheral pulses intact and strong. REVIEW OF LABS, ECG & MEDICAL DATA: LABS: White count is 14.21, hemoglobin 10.5, sodium 131, creatinine 0.45, BUN 12 EKG: EKG from 02/27/2021 shows sinus tachycardia IMAGING: Chest x-ray from 02/26/2021 shows no acute process VITALS: Temp 97.6, pulse rate 110, respirations 16, blood pressure 125/85, O2 saturation 95% on room air IMPRESSION/PLAN: 1. Sinus tachycardia-increase metoprolol to 100 mg twice a day. Further recommendations depending on the patient's clinical course. Thank you for the consult and allowing us to participate in the care of this patient. Past Medical History Past Medical History: No Reported History Additional Past Medical History / Comment(s): nausea/vomiting,gas pain and pressure,hx pain lower back radiating to left side History of Any Multi-Drug Resistant Organisms: None Reported Past Surgical History: Cholecystectomy Additional Past Surgical History / Comment(s): rt knee meniscectomy, wisdom teeth, PAIN CLINIC PROCEDURE, Sleeve Gastrectomy 07-24-20 Past Anesthesia/Blood Transfusion Reactions: Family History of Problems w/ Anesthesia Additional Past Anesthesia/Blood Transfusion Reaction / Comment(s): mother-PONV Past Psychological History: Depression Smoking Status: Former smoker Past Alcohol Use History: None Reported Past Drug Use History: Marijuana - Past Family History Mother Family Medical History: No Reported History Medications and Allergies Home Medications Medication Instructions Recorded Confirmed Type Bariatric Multivitamin 1 tab PO QID 02/05/21 02/20/21 History Omeprazole [PriLOSEC] 40 mg PO DAILY 02/05/21 02/20/21 History Ibuprofen [Motrin] 600 mg PO Q8H PRN 02/20/21 02/20/21 History predniSONE 10 mg PO TID 02/20/21 02/20/21 History Allergies Allergy/AdvReac Type Severity Reaction Status Date / Time No Known Allergies Allergy Verified 02/20/21 11:24 Physical Exam Vitals: Vital Signs Temp Pulse Resp BP Pulse Ox 03/02/21 14:00 97.6 F 110 H 16 125/85 95 03/02/21 07:53 98 F 129 H 16 141/87 96 03/02/21 01:51 97.9 F 112 H 16 127/72 95 03/01/21 19:52 97.6 F 132 H 16 133/94 95 03/01/21 19:30 111 H 17 Intake and Output 03/02/21 03/02/21 03/02/21 06:59 14:59 22:59 Intake Total 240 236 Output Total 600 Balance -360 236 Intake: Oral 240 236 Output: Urine 600 Other: Voiding Method Urinal # Voids 2 Results 03/02/21 07:53 03/02/21 07:53 Cardiac Enzymes 03/02/21 Range/Units 07:53 AST 284 H (17-59) U/L CBC 03/02/21 Range/Units 07:53 WBC 14.21 H (4.50-10.00) X 10*3/uL RBC 3.38 L (4.40-5.60) X 10*6/uL Hgb 10.5 L (13.0-17.0) g/dL Hct 29.2 L (39.6-50.0) % Plt Count 196 (140-440) X 10*3/uL Comprehensive Metabolic Panel 02/28/21 03/02/21 Range/Units 11:31 07:53 Sodium 134 L 131 L (135-145) mmol/L Potassium 4.8 3.9 (3.5-5.5) mmol/L Chloride 99 101 (96-109) mmol/L Carbon Dioxide 16.3 L 27 (21.6-31.8) mmol/L BUN 13.8 12 (9.0-27.0) mg/dL Creatinine 0.5 L 0.45 L (0.6-1.5) mg/dL Glucose 105 96 (70-110) mg/dL Calcium 8.9 8.7 (8.7-10.3) mg/dL AST 284 H (17-59) U/L ALT 420 H (4-49) U/L Alkaline Phosphatase 60 (38-126) U/L Total Protein 8.0 (6.3-8.2) g/dL Albumin 3.1 L (3.5-5.0) g/dL Current Medications Generic Name Dose Route Start Last Admin Trade Name Freq PRN Reason Stop Dose Admin Hydrocodone Bitart/Acetaminophen 1 each 02/20/21 15:00 03/02/21 14:05 Hydrocodone/Apap 5-325mg 1 Each Tab PO 1 each Q4HR PRN Administration Moderate Pain Alprazolam 0.5 mg 03/01/21 14:02 03/02/21 10:21 Alprazolam 0.5 Mg Tab PO 0.5 mg BID PRN Administration Anxiety Cyanocobalamin 1,000 mcg 03/03/21 09:00 Cyanocobalamin 500 Mcg Tab PO DAILY ALO Diphenhydramine HCl 25 mg 02/21/21 11:33 02/28/21 20:23 Diphenhydramine 25 Mg Cap PO 25 mg HS PRN Administration Insomnia Docusate Sodium 100 mg 02/24/21 15:30 03/02/21 07:13 Docusate 100 Mg Cap PO 100 mg BID ALO Administration Famotidine 20 mg 02/22/21 21:00 03/02/21 07:13 Famotidine 20 Mg Tab PO 20 mg BID ALO Administration Folic Acid 1 mg 02/22/21 11:15 03/02/21 07:13 Folic Acid 1 Mg Tab PO 1 mg DAILY ALO Administration Gabapentin 200 mg 02/27/21 16:30 03/02/21 15:30 Gabapentin 100 Mg Cap PO 200 mg TID ALO Administration Heparin Sodium (Porcine) 5,000 unit 02/21/21 21:00 03/02/21 07:14 Heparin Sodium,Porcine/Pf 5,000 Unit/0.5 Ml Syringe SQ 5,000 unit Q12HR ALO Administration Metoprolol Tartrate 50 mg 02/28/21 09:00 03/02/21 07:13 Metoprolol Tartrate 50 Mg Tab PO 50 mg BID ALO Administration Multivitamins 1 each 02/26/21 10:45 03/02/21 07:13 Multivitamins, Thera 1 Each Tab PO 1 each DAILY ALO Administration Naloxone HCl 0.2 mg 02/20/21 15:00 Naloxone 0.4 Mg/Ml 1 Ml Vial IV Q2M PRN Opioid Reversal Pyridoxine HCl 50 mg 02/28/21 15:30 03/02/21 07:15 Pyridoxine 50 Mg Tab PO 50 mg DAILY ALO Administration Simethicone 80 mg 02/22/21 13:30 03/02/21 13:22 Simethicone 40 Mg/0.6 Ml Drops 2,000 Mg/30 Ml Bottle PO 80 mg PCHS ALO Administration Tamsulosin HCl 0.4 mg 02/24/21 10:30 03/02/21 07:13 Tamsulosin 0.4 Mg Cap.Er.24h PO 0.4 mg [id number] ALO Administration Thiamine HCl 100 mg 03/01/21 15:45 03/02/21 07:15 Thiamine 100 Mg/Ml 2 Ml Vial IVP 100 mg BID ALO Administration Intake and Output 03/02/21 03/02/21 03/02/21 06:59 14:59 22:59 Intake Total 240 236 Output Total 600 Balance -360 236 Intake: Oral 240 236 Output: Urine 600 Other: Voiding Method Urinal # Voids 2 03/02/21 07:53 03/02/21 07:53
[2021-03-03] MEDS: SIMETHICONE 40 MG/0.6 ML DROPS 2,000 MG/30 ML BOTTLE PO SCH ×4 (07:35→20:38)
[2021-03-03] MEDS: PYRIDOXINE 50 MG TAB PO SCH (07:36)
[2021-03-03] MEDS: TAMSULOSIN 0.4 MG CAP.ER.24H PO SCH (07:36)
[2021-03-03] MEDS: METOPROLOL TARTRATE 50 MG TAB PO SCH ×2 (07:36→20:36)
[2021-03-03] MEDS: THIAMINE 100 MG/ML 2 ML VIAL IVP SCH ×2 (07:36→20:37)
[2021-03-03] MEDS: FOLIC ACID 1 MG TAB PO SCH (07:36)
[2021-03-03] MEDS: CYANOCOBALAMIN 500 MCG TAB PO SCH (07:36)
[2021-03-03] MEDS: DOCUSATE 100 MG CAP PO SCH ×2 (07:36→20:38)
[2021-03-03] MEDS: GABAPENTIN 100 MG CAP PO SCH ×3 (07:36→20:37)
[2021-03-03] MEDS: MULTIVITAMINS, THERA 1 EACH TAB PO SCH (07:36)
[2021-03-03] MEDS: FAMOTIDINE 20 MG TAB PO SCH ×2 (07:37→20:37)
[2021-03-03] MEDS: HEPARIN SODIUM,PORCINE/PF 5,000 UNIT/0.5 ML SYRINGE SQ SCH ×2 (07:37→20:36)
[2021-03-03 08:27] LABS: ALT 478 U/L (4-49); AST 326 U/L (17-59); African American GFR (CKD) >90 (>60 ml/min/1.73 sqM); Albumin 3.4 g/dL (3.5-5.0); Albumin/Globulin Ratio 0.7; Alkaline Phosphatase 64 U/L (38-126); Anion Gap 6 mmol/L; Blood Urea Nitrogen 14 mg/dL (9-20); Calcium 9.2 mg/dL (8.4-10.2); Carbon Dioxide 26 mmol/L (22-30); Chloride 101 mmol/L (98-107); Globulin 4.7 g/dL; Glucose 101 mg/dL (74-99); Magnesium 1.9 mg/dL (1.6-2.3); Non-African American GFR(CKD) >90 (>60 ml/min/1.73 sqM); Potassium 3.8 mmol/L (3.5-5.1); Sodium 133 mmol/L (137-145); Total Bilirubin 1.8 mg/dL (0.2-1.3); Total Protein 8.1 g/dL (6.3-8.2)
--- NOTE | 2021-03-03 10:29 | P.PN ---
Subjective Patient is seen in follow-up for hyponatremia. Sodium level 133 today. Good urine output. Oral intake is good. No vomiting or diarrhea. No changes overnight. Vital signs are stable. General: The patient appeared well nourished and normally developed. HEENT: Head exam is unremarkable. LUNGS: Breath sounds decreased. HEART: Rate and Rhythm are regular. ABDOMEN: Soft, obese. EXTREMITITES: No edema. Objective - Vital Signs Vital signs: Vital Signs Temp 98.3 F 03/03/21 08:27 Pulse 107 H 03/03/21 08:27 Resp 16 03/03/21 08:27 BP 144/88 03/03/21 08:27 Pulse Ox 95 03/03/21 08:27 Intake & Output 03/02/21 03/03/21 03/03/21 18:59 06:59 18:59 Intake Total 472 150 Output Total 1500 Balance 472 -1350 Intake: Oral 472 150 Output: Urine 1500 Other: Voiding Method Urinal Urinal # Voids 2 - Labs CBC & Chem 7: 03/02/21 07:53 03/03/21 07:33 Labs: Abnormal Lab Results - Last 24 Hours (Table) 03/02/21 03/02/21 03/02/21 Range/Units 07:53 07:53 22:09 WBC 14.21 H (4.50-10.00) X 10*3/uL RBC 3.38 L (4.40-5.60) X 10*6/uL Hgb 10.5 L (13.0-17.0) g/dL Hct 29.2 L (39.6-50.0) % RDW 14.6 H (11.5-14.5) % Absolute Nucleated RBC 0.19 H (0.00-0.00) X 10*3/uL Immature Gran # 0.40 H (0.00-0.04) X 10*3/uL Neutrophils # 8.14 H (1.80-7.70) X 10*3/uL Monocytes # 1.47 H (0.20-1.00) X 10*3/uL NRBC/100 WBC Diff 1.3 H (0.0-0.0) /100 WBCS D-Dimer 1.10 H (<0.60) mg/L FEU Sodium (137-145) mmol/L Creatinine (0.66-1.25) mg/dL Glucose (74-99) mg/dL Total Bilirubin (0.2-1.3) mg/dL AST (17-59) U/L ALT (4-49) U/L Albumin (3.5-5.0) g/dL Vitamin B12 1388.0 H (200.0-944.0) pg/mL Folate 4.20 L (4.40-31.00) ng/mL 03/03/21 Range/Units 07:33 WBC (4.50-10.00) X 10*3/uL RBC (4.40-5.60) X 10*6/uL Hgb (13.0-17.0) g/dL Hct (39.6-50.0) % RDW (11.5-14.5) % Absolute Nucleated RBC (0.00-0.00) X 10*3/uL Immature Gran # (0.00-0.04) X 10*3/uL Neutrophils # (1.80-7.70) X 10*3/uL Monocytes # (0.20-1.00) X 10*3/uL NRBC/100 WBC Diff (0.0-0.0) /100 WBCS D-Dimer (<0.60) mg/L FEU Sodium 133 L (137-145) mmol/L Creatinine 0.47 L (0.66-1.25) mg/dL Glucose 101 H (74-99) mg/dL Total Bilirubin 1.8 H (0.2-1.3) mg/dL AST 326 H (17-59) U/L ALT 478 H (4-49) U/L Albumin 3.4 L (3.5-5.0) g/dL Vitamin B12 (200.0-944.0) pg/mL Folate (4.40-31.00) ng/mL Assessment and Plan Plan: Assessment: 1. Hyponatremia secondary to excess fluid intake and IVIG. Sodium level 133 today. TSH normal. Urine sodium 94 and urine osmolality 305. 2. Lower extremity weakness with concern for [place] Lowe syndrome. Neurology following. 3. Obesity. 4. Urinary retention status post Nguyen catheter placement and removal. On Flomax. Plan: Remains off IV fluids. Encouraged oral intake. Enforce 1800 mL fluid restriction. Continue to monitor electrolytes periodically.
--- NOTE | 2021-03-03 12:05 | P.PN ---
Subjective Progress Note Date: 03/03/21 Principal diagnosis: Elevated liver enzymes Patient still complaining of some weakness in the lower extremities. Says they are slightly better. Remains intermittently tachycardic. Tolerating diet. Liver enzymes noted to increase. White blood cell count elevated. Objective - Vital Signs Vital signs: Vital Signs Temp 98.3 F 03/03/21 08:27 Pulse 107 H 03/03/21 08:27 Resp 16 03/03/21 08:27 BP 144/88 03/03/21 08:27 Pulse Ox 95 03/03/21 08:27 Intake & Output 03/02/21 03/03/21 03/03/21 18:59 06:59 18:59 Intake Total 472 150 Output Total 1500 Balance 472 -1350 Intake: Oral 472 150 Output: Urine 1500 Other: Voiding Method Urinal Urinal Urinal # Voids 2 - Exam Abdomen: Soft, nondistended, no appreciable tenderness, incisions clean and dry - Labs CBC & Chem 7: 03/02/21 07:53 03/03/21 07:33 Labs: Abnormal Lab Results - Last 24 Hours (Table) 03/02/21 03/02/21 03/03/21 Range/Units 07:53 22:09 07:33 D-Dimer 1.10 H (<0.60) mg/L FEU Sodium 133 L (137-145) mmol/L Creatinine 0.47 L (0.66-1.25) mg/dL Glucose 101 H (74-99) mg/dL Total Bilirubin 1.8 H (0.2-1.3) mg/dL AST 326 H (17-59) U/L ALT 478 H (4-49) U/L Albumin 3.4 L (3.5-5.0) g/dL Vitamin B12 1388.0 H (200.0-944.0) pg/mL Folate 4.20 L (4.40-31.00) ng/mL Assessment and Plan (1) Elevated liver enzymes Narrative/Plan: From a surgical point of view patient seems to be doing okay. Liver enzymes remain slightly elevated and are increased. Check CBC. Continue neurologic workup. Current Visit: Yes Status: Acute Code(s): R74.8 - ABNORMAL LEVELS OF OTHER SERUM ENZYMES SNOMED Code(s): 613542321
[2021-03-03 12:18] LABS: Basophils # (A) 0.07 X 10*3/uL (0.00-0.10); Basophils % (A) 0.5 %; Eosinophils # (A) 0.15 X 10*3/uL (0.04-0.35); Eosinophils % (A) 1.1 %; HCT 31.4 % (39.6-50.0); HGB 10.5 g/dL (13.0-17.0); Lymphocytes # (A) 3.55 X 10*3/uL (0.90-5.00); Lymphocytes % (A) 26.9 %; MCH 29.5 pg (27.0-32.0); MCHC 33.4 g/dL (32.0-37.0); MCV 88.2 fL (80.0-97.0); Mean Platelet Volume 11.6 fL (9.5-12.2); Monocytes # (A) 1.14 X 10*3/uL (0.20-1.00); Monocytes % (A) 8.6 %; Neutrophils # (A) 7.96 X 10*3/uL (1.80-7.70); Neutrophils % (A) 60.5 %; Platelet Count 199 X 10*3/uL (140-440); RBC 3.56 X 10*6/uL (4.40-5.60); RDW 15.9 % (11.5-14.5); WBC 13.19 X 10*3/uL (4.50-10.00)
--- NOTE | 2021-03-03 13:02 | P.PN ---
Subjective This is a pleasant 20 years old male with past medical history of hx pain lower back radiating to left side, status post Sleeve Gastrectomy 07-24-20 and recent cholecystectomy. Patient information was that with the help of his mother at bedside Patient says who presents because of numbness and weakness in both lower extremity more on the right than the left. Is not suppressed from the back of his hip and buttock down to the middle of the right and similarly on the left leg but less extent patient has been complaining of from progressive weakness more on the right leg over the last week. Patient denies any back pain. No recent history of chronic cold or gastroenteritis. He has history of significant back pain and sciatic That he had MRI of the back down on 07/2020 at [facility]. Followed by a visit to the pain clinic where he got 3 shots in his low back. And apparently he does not complain from any back pain or neck pain or headache. No weakness or numbness in the upper extremity, no slurred speech or blurred vision He denies chest pain or abdominal pain, no coughing or dyspnea. No diarrhea but is improving from constipation Decreased frequency of urination he had only once in the last 24 hours which wakes him up in the middle of last night, compared to usual frequency of 4-7 times per mother at bedside Patient had recent surgery for laparoscopic cholecystectomy on 02/08. He denies smoking, alcohol or illicit tracts On admission his tachycardic of 123, rest of vitals are stable Has mild leukocytosis of 15.2 K, sodium is moderately low at 1:30, potassium 3.4, creatinine normal 0.6, liver enzymes mildly elevated. Total bilirubin is normal at 0.9. CT of the lumbar spine, normal findings Normal CT of the brain On admission and received IV fluids, he was admitted with neurology and surgery team consults MRI of the lumbar spine showing stable disc herniation of L5 to S1 or slightly smaller than before. This would not explain the patient's symptoms. MRI of the cervical spine and of the brain did not show significant abnormal explain patient's symptoms as well Lumbar puncture done showing high glucose of 85, normal total protein of 39. 02/25/2021 Patient today showing some improvement in his toes movement and numbness as he confirmed to me, he got 1 dose of IVIG earlier. He is also able somewhat to be nd his knees and ankle but did not report improvement in them. He states he has no weakness in the upper extremities. No headache or blurred vision or slurred speech. No respiratory, GI or urinary symptoms. He is hemodynamically stable. His tachycardic with heart rate 105-101. His obesity is back to normal at 6.2, platelet count dropping down to 128. Sodium and potassium are normal. Pro-ca lcitonin is slightly elevated at 0.2 to He's on immunoglobulin intravenously to 03/10. Per neurologist recommendation. Also neurologist recommends transfer to tertiary care center which was started last week. Agrees to be transferred. I discussed with the complex case manager/social welfare administrator Carola today stating that his medical insurance has refused his transfer. After discussed the case with her she is going to resubmit request to be transferred. Physical therapy recommended inpatient rehab. Repeat labs tomorrow, chest x-ray and urine analysis. Repeat pro-calcitonin. 02/26/2021 patient status with bilateral lower extremity weakness and paresthesia, patient reported some improvement in his both those yesterday but not today. no new weakness or worsening weakness in the upper extremity as well. No other complaints His blood pressure is slightly elevated 150/99, Norvasc is a started. He is t achycardic with heart rate around 112. Labs showing work sending leukocyte 8.4, it was 13-21 on admission. Platelet count normal today 161. Electrolytes are unremarkable. Liver enzymes are elevated Pro-calcitonin is elevated at 0.9 up to 0.22. Chest x-ray no acute process. Urine analysis is suspicious for infection and urine culture is pending Patient was started on ceftriaxone. Also his on gentle hydration and also receiving IVIG Today I discussed the case with Hang from [employer] , he is going to review the case and call me back Neurology team on the case and the recommended patient to continue with IVIG and to transfer the patient to tertiary center however his medical insurance [employer] is rejecting the case unless [employer] status except the patient admission then we will resubmit order for transfer. As per my discussion with complex case manager Carola PT/OT recommended inpatient rehab, Dr. Davis consulted 02/27/2021 Patient stated that he has some improvement in his lower extremity weakness, he estimates his improvement about 20%, no other significant medical complaints today. He is developing tachycardia around 133. EKG showed sinus tachycardia with no significant ST-T changes. I will add metoprolol 25 mg. This could be due to his sepsis. Patient is started on Rocephin, urine cultures pending. Sodium today is 134, creatinine kinase is 88 She remains on normal saline at 75 mL/h, he is getting IVIG. Also he is on ceftriaxone 2 g daily. I discussed the case today with Dr. Mauricio from [facility] , I discussed the case with him and the need for IV antibiotics, IVIG and other treatment and monitoring while in the hospital, he refused to accept the patient as inpatient, this ref usal hinders his transfer to tertiary care center or to going to rehab because his insurance will not approve as per my discussion with complex case manager/social welfare administrator. I discussed the case with Dr. Mauricio more than once but he was adamant to refuse the case stating that he can get the IVIG and IV antibiotics as an outpatient !!. Case discussed with complex case manager 02/28/2021 Patient looks more happy today and thinking he is improving overall although he states that his weakness in his lower extremity are same as yesterday and improvement is same as yesterday as well. He is tolerating diet well, denies any specific new symptoms. We were going to change the Nguyen catheter but patient asked to be removed. It was discontinued upon his request and we will check PVR, discussed with the staff Hemodynamically stable. Repeat labs today are pending Patient remains on ceftriaxone and urine culture growing gram-negative bacilli, final result is pending. He remains on IVIG. Neurologist and he needs follow-up as an outpatient. I submitted a request for his medical insurance for peer to peer review and response is still pending 03/01/2021 Patient finished his IVIG yesterday and urine culture came back positive for Klebsiella and E. coli both sensitive to Cipro and IV antibiotics. 2. However patient is still complaining from weakness in his legs although he reports some improvement, both knees but he cannot raise them straight up because of weakness, his uncles also weak as well. No other significant or specific complaints. No chest pain or dyspnea. No coughing. No abdominal pain. No nausea vomiting or diarrhea. No rash. No fever He is tachycardic despite metoprolol 50 mg twice a day and treated his infection. Because of this we are consulting cardiology service. Also yesterday came back trending up liver enzymes, for going to consult GI service. He is on multiple vitamins replacement fluids and folic acid, vitamin B12, vitamin B6 and thiamine. Flomax for urinary retention, Nguyen catheter discontinue it and checking postvoid residual. Today I discussed the case with neurology service, recommended patient to be transferred. I submitted a second request for his medical insurance and I got a call back for peer to peer review later on the day. Also I discussed the case with utilization management who helped contact [employer] for another review of the case. I discussed the case with social welfare administrator Carola and she confirmed to me patient can be transferred unless [facility] accept him as inpatient, I called Dr. Mauricio whom I talked to 2 days ago and injected the case is then and left a message for him to call me back, for another review of the case. Because of this patient is not medically stable for discharge and will keep monitoring closely. 03/02/2021 Today patient feels better, he is moving his thigh is better than the last 2 days. Mother at bedside feels happy with the progress patient is making. he still has bilateral leg weakness but they are improving gradually. Patient and family are aware with the plan to transfer to [facility] and they are agreeable. Other than that he is hemodynamically stable Labs showing WBC of 14 K, platelets normal at 196. Liver enzymes still elevated with AST 284 and ALT 420. Bilirubin is slightly elevated at 1.8. GI and surgery team on the case B12 is 1388, he is on replacement therapy therefore we will check the level again tomorrow to make sure it is not a false result. Folate still low but is improving up to 4.2. Patient to continue replacement therapy Vitamin B1, B6 and zinc are still pending. However patient remains on oral B6 and IV B1 replacement therapy. Hepatitis panel is negative. GI team recommended outpatient follow-up. 03/03/2021 Patient reports better control of his lower extremity although he still complaining of from weakness in his left side and the right leg as well. He has better movement in his thighs compared to 2 days ago. Today he was trying to get up from chair to couch without asking help from staff as he was instructed and he fell without hurting himself. He denies any trauma. Heart rate is better today 97. Metoprolol was increased 100 mg by cardiology team. His WBC coming down to 13.1. Trace to CBC is unremarkable. Liver enzymes still trending up with AST 326 and ALT 478. Mother at bedside and they are satisfied with some progress made in his weakness but agreed to continue with plan to be transferred to [facility] once bed is available Objective - Vital Signs Vital signs: Vital Signs Temp 98.3 F 03/03/21 08:27 Pulse 107 H 03/03/21 08:27 Resp 16 03/03/21 08:27 BP 144/88 03/03/21 08:27 Pulse Ox 95 03/03/21 08:27 Intake & Output 03/02/21 03/03/21 03/03/21 18:59 06:59 18:59 Intake Total 472 150 Output Total 1500 Balance 472 -1350 Intake: Oral 472 150 Output: Urine 1500 Other: Voiding Method Urinal Urinal Urinal # Voids 2 - Exam GENERAL: The patient is alert and oriented x3, not in any acute distress. Well developed, well nourished. HEENT: Pupils are round and equally reacting to light. EOMI. No scleral icterus. No conjunctival pallor. Normocephalic, atraumatic. No pharyngeal erythema. No thyromegaly. CARDIOVASCULAR: S1 and S2 present. No murmurs, rubs, or gallops. PULMONARY: Chest is clear to auscultation, no wheezing or crackles. ABDOMEN: Soft, nontender, nondistended, normoactive bowel sounds. No palpable organomegaly. MUSCULOSKELETAL: No joint swelling or deformity. EXTREMITIES: No cyanosis, clubbing, or pedal edema. NEUROLOGICAL: Gross neurological examination did not reveal any focal deficits. Weakness especially of the extensor thighs and legs and feet, more on the right side than left side. No sensory deficit SKIN: No rashes. No petechiae - Labs CBC & Chem 7: 03/03/21 07:33 03/03/21 07:33 Labs: Abnormal Lab Results - Last 24 Hours (Table) 03/02/21 03/02/21 03/03/21 Range/Units 07:53 22:09 07:33 WBC (4.50-10.00) X 10*3/uL RBC (4.40-5.60) X 10*6/uL Hgb (13.0-17.0) g/dL Hct (39.6-50.0) % RDW (11.5-14.5) % Absolute Nucleated RBC (0.00-0.00) X 10*3/uL Immature Gran # (0.00-0.04) X 10*3/uL Neutrophils # (1.80-7.70) X 10*3/uL Monocytes # (0.20-1.00) X 10*3/uL NRBC/100 WBC Diff (0.0-0.0) /100 WBCS D-Dimer 1.10 H (<0.60) mg/L FEU Sodium 133 L (137-145) mmol/L Creatinine 0.47 L (0.66-1.25) mg/dL Glucose 101 H (74-99) mg/dL Total Bilirubin 1.8 H (0.2-1.3) mg/dL AST 326 H (17-59) U/L ALT 478 H (4-49) U/L Albumin 3.4 L (3.5-5.0) g/dL Vitamin B12 1388.0 H (200.0-944.0) pg/mL Folate 4.20 L (4.40-31.00) ng/mL 03/03/21 Range/Units 07:33 WBC 13.19 H (4.50-10.00) X 10*3/uL RBC 3.56 L (4.40-5.60) X 10*6/uL Hgb 10.5 L (13.0-17.0) g/dL Hct 31.4 L (39.6-50.0) % RDW 15.9 H (11.5-14.5) % Absolute Nucleated RBC 0.18 H (0.00-0.00) X 10*3/uL Immature Gran # 0.32 H (0.00-0.04) X 10*3/uL Neutrophils # 7.96 H (1.80-7.70) X 10*3/uL Monocytes # 1.14 H (0.20-1.00) X 10*3/uL NRBC/100 WBC Diff 1.4 H (0.0-0.0) /100 WBCS D-Dimer (<0.60) mg/L FEU Sodium (137-145) mmol/L Creatinine (0.66-1.25) mg/dL Glucose (74-99) mg/dL Total Bilirubin (0.2-1.3) mg/dL AST (17-59) U/L ALT (4-49) U/L Albumin (3.5-5.0) g/dL Vitamin B12 (200.0-944.0) pg/mL Folate (4.40-31.00) ng/mL Assessment and Plan Assessment: Bilateral lower extremity weakness and numbness, more on the right side. 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 coli . Completely resolved and treated Sepsis secondary to the above with leukocytosis and tachycardia. Resolved Elevated liver enzymes Sinus tachycardia Hypertension Hyponatremia. Improved Chronic low back pain radiating to the left side. Mild History of sleeve gastrectomy Recent history of cholecystectomy Morbid obesity with BMI of 41.8 Plan: This is a pleasant 20 years old male who presents with bilateral lower extremity weakness and numbness. Continue intravenous immunoglobulin per neurologist recommendation Patient will benefit from EMG/nerve conduction study which could be done at a tertiary care center after other workup was done. Discussed with social welfare administrator/complex case manager to resubmit transfer order after rejected by his medical insurance provider, discussed with [employer] and his medical insurance for reevaluation. Patient cannot be transferred to the except him. Patient aware Follow-up with recommendation by neurology team and other consultants Switch antibiotics to Cipro Consults GI and cardiology service Continue gentle hydration add Metoprolol and monitor heart r at e Labs and medication were reviewed.. Continue same treatment. Continue with symptomatic treatment. Resume home medication. Monitor lytes and vitals. DVT and GI prophylaxis. Further recommendations depends on the clinical course of the patient PT/OT: Pending DVT prophylaxis: Subcu heparin GI prophylaxis: Pepcid PT/OT recommended inpatient rehab, Dr. Davis consulted who rejected the case Prognosis is guarded
--- NOTE | 2021-03-03 13:10 | P.PN ---
Subjective Progress Note Date: 03/03/21 Principal diagnosis: Ladonna Lowe; tachycardia, elevated d-dimer This is Yoni Hernandez NP dictating a progress note on this patient on behalf of Dr. Abad. The patient was interviewed and examined. Patient is a pleasant 20-year-old male who is day 10 in the hospital after complaints of weakness, dehydration and numbness and tingling to his right lower extremity. Patient has been being treated for Ladonna Lowe syndrome. Patient has received IVIG. Patient reports during this hospitalization and he started to feel heart palpitations. He states they come and go and are not consistent. Review the patient's chart shows consistent tachycardia from date of admission between 100-133. Patient was started on 50 mg of metoprolol twice a day with a nominal decrease in heart rate. Patient's past medical history does not include anything cardiac, patient does have a history of lower back pain, a sleeve gastrectomy, and cholecystectomy. Patient's home meds include prednisone, Prilosec, Motrin as needed, and a bariatric multivitamin. Patient's never smoker, has tried marijuana, does not drink alcohol. 03/03/2021: Patient continues to slowly improve. It does appear the patient's heart rate is trending down with the increase in metoprolol 200 mg twice a day. We did order an echo yesterday and are waiting for that to be completed. Patient's d-dimer is elevated at 1.10. Patient denies chest pain, shortness of breath, does report occasional heart palpitation, especially with exertion. GENERAL: Well-appearing, well-nourished and in no acute distress. NECK: Supple without JVD or thyromegaly. LUNGS: Breath sounds clear to auscultation bilaterally. Respiration equal and unlabored. No wheezes, rales or rhonchi. HEART: Regular rate and rhythm without murmurs, rubs or gallops. S1 and S2 heard. EXTREMITIES: Normal range of motion, no edema. No clubbing or cyanosis. Peripheral pulses intact and strong. VITALS: [Temp 98.3, pulse rate 107, respiratory rate 16, blood pressure 144/88, O2 sat 95% on room air] TELEMETRY: [Sinus tachycardia] LABS: [White count 13.19, hemoglobin 10.5, d-dimer 1.10, sodium 133, potassium 3.8, BUN 14, creatinine 0.47] IMPRESSION/PLAN: [1. Sinus tachycardia-most likely due to the patient's Ladonna Lowe. Continue metoprolol as ordered. As patient's symptoms resolve we would expect his heart rate to decrease. We will check a TSH on the patient.] Thank you for allowing us to participate in the care of this patient. Objective - Vital Signs Vital signs: Vital Signs Temp 98.3 F 03/03/21 08:27 Pulse 107 H 03/03/21 08:27 Resp 16 03/03/21 08:27 BP 144/88 03/03/21 08:27 Pulse Ox 95 03/03/21 08:27 Intake & Output 03/02/21 03/03/21 03/03/21 18:59 06:59 18:59 Intake Total 472 150 Output Total 1500 Balance 472 -1350 Intake: Oral 472 150 Output: Urine 1500 Other: Voiding Method Urinal Urinal # Voids 2 - Labs CBC & Chem 7: 03/03/21 07:33 03/03/21 07:33 Labs: Abnormal Lab Results - Last 24 Hours (Table) 03/02/21 03/02/21 03/02/21 Range/Units 07:53 07:53 22:09 WBC 14.21 H (4.50-10.00) X 10*3/uL RBC 3.38 L (4.40-5.60) X 10*6/uL Hgb 10.5 L (13.0-17.0) g/dL Hct 29.2 L (39.6-50.0) % RDW 14.6 H (11.5-14.5) % Absolute Nucleated RBC 0.19 H (0.00-0.00) X 10*3/uL Immature Gran # 0.40 H (0.00-0.04) X 10*3/uL Neutrophils # 8.14 H (1.80-7.70) X 10*3/uL Monocytes # 1.47 H (0.20-1.00) X 10*3/uL NRBC/100 WBC Diff 1.3 H (0.0-0.0) /100 WBCS D-Dimer 1.10 H (<0.60) mg/L FEU Sodium (137-145) mmol/L Creatinine (0.66-1.25) mg/dL Glucose (74-99) mg/dL Total Bilirubin (0.2-1.3) mg/dL AST (17-59) U/L ALT (4-49) U/L Albumin (3.5-5.0) g/dL Vitamin B12 1388.0 H (200.0-944.0) pg/mL Folate 4.20 L (4.40-31.00) ng/mL 03/03/21 Range/Units 07:33 WBC (4.50-10.00) X 10*3/uL RBC (4.40-5.60) X 10*6/uL Hgb (13.0-17.0) g/dL Hct (39.6-50.0) % RDW (11.5-14.5) % Absolute Nucleated RBC (0.00-0.00) X 10*3/uL Immature Gran # (0.00-0.04) X 10*3/uL Neutrophils # (1.80-7.70) X 10*3/uL Monocytes # (0.20-1.00) X 10*3/uL NRBC/100 WBC Diff (0.0-0.0) /100 WBCS D-Dimer (<0.60) mg/L FEU Sodium 133 L (137-145) mmol/L Creatinine 0.47 L (0.66-1.25) mg/dL Glucose 101 H (74-99) mg/dL Total Bilirubin 1.8 H (0.2-1.3) mg/dL AST 326 H (17-59) U/L ALT 478 H (4-49) U/L Albumin 3.4 L (3.5-5.0) g/dL Vitamin B12 (200.0-944.0) pg/mL Folate (4.40-31.00) ng/mL
[2021-03-03] MEDS: HYDROcodone/APAP 5-325MG 1 EACH TAB PO PRN ×2 (14:22→20:38)
[2021-03-03] MEDS: ALPRAZolam 0.5 MG TAB PO PRN (17:30)
[2021-03-03] MEDS: diphenhydrAMINE 25 MG CAP PO PRN (20:43)
[2021-03-04] MEDS: METOPROLOL TARTRATE 50 MG TAB PO SCH ×2 (07:52→21:47)
[2021-03-04] MEDS: CYANOCOBALAMIN 500 MCG TAB PO SCH (07:54)
[2021-03-04] MEDS: MULTIVITAMINS, THERA 1 EACH TAB PO SCH (07:54)
[2021-03-04] MEDS: FOLIC ACID 1 MG TAB PO SCH (07:54)
[2021-03-04] MEDS: TAMSULOSIN 0.4 MG CAP.ER.24H PO SCH (07:54)
[2021-03-04] MEDS: PYRIDOXINE 50 MG TAB PO SCH (07:54)
[2021-03-04] MEDS: GABAPENTIN 100 MG CAP PO SCH ×3 (07:54→21:47)
[2021-03-04] MEDS: ALPRAZolam 0.5 MG TAB PO PRN ×2 (07:54→21:48)
[2021-03-04] MEDS: THIAMINE 100 MG/ML 2 ML VIAL IVP SCH ×2 (07:55→21:48)
[2021-03-04] MEDS: HEPARIN SODIUM,PORCINE/PF 5,000 UNIT/0.5 ML SYRINGE SQ SCH ×2 (07:55→21:48)
[2021-03-04] MEDS: SIMETHICONE 40 MG/0.6 ML DROPS 2,000 MG/30 ML BOTTLE PO SCH ×4 (07:55→21:48)
[2021-03-04] MEDS: FAMOTIDINE 20 MG TAB PO SCH ×2 (07:55→21:48)
[2021-03-04] MEDS: DOCUSATE 100 MG CAP PO SCH ×2 (07:57→21:48)
--- NOTE | 2021-03-04 09:31 | P.PN ---
Subjective Patient is seen in follow-up for hyponatremia. Sodium level 133 yesterday. Good urine output. Oral intake is good. No vomiting or diarrhea. No changes overnight. Vital signs are stable. General: The patient appeared well nourished and normally developed. HEENT: Head exam is unremarkable. LUNGS: Breath sounds decreased. HEART: Rate and Rhythm are regular. ABDOMEN: Soft, obese. EXTREMITITES: No edema. Objective - Vital Signs Vital signs: Vital Signs Temp 98.3 F 03/04/21 06:49 Pulse 121 H 03/04/21 06:49 Resp 18 03/04/21 06:49 BP 135/85 03/04/21 06:49 Pulse Ox 95 03/04/21 06:49 Intake & Output 03/03/21 03/04/21 03/04/21 18:59 06:59 18:59 Output Total 600 Balance -600 Output: Urine 600 Other: Voiding Method Urinal Urinal # Bowel Movements 0 - Labs CBC & Chem 7: 03/03/21 07:33 03/03/21 07:33 Labs: Abnormal Lab Results - Last 24 Hours (Table) 03/03/21 03/03/21 Range/Units 07:33 07:33 WBC 13.19 H (4.50-10.00) X 10*3/uL RBC 3.56 L (4.40-5.60) X 10*6/uL Hgb 10.5 L (13.0-17.0) g/dL Hct 31.4 L (39.6-50.0) % RDW 15.9 H (11.5-14.5) % Absolute Nucleated RBC 0.18 H (0.00-0.00) X 10*3/uL Immature Gran # 0.32 H (0.00-0.04) X 10*3/uL Neutrophils # 7.96 H (1.80-7.70) X 10*3/uL Monocytes # 1.14 H (0.20-1.00) X 10*3/uL NRBC/100 WBC Diff 1.4 H (0.0-0.0) /100 WBCS Vitamin B12 1300.0 H (200.0-944.0) pg/mL Assessment and Plan Plan: Assessment: 1. Hyponatremia secondary to excess fluid intake and IVIG. Sodium level 133 yesterday. TSH normal. Urine sodium 94 and urine osmolality 305. 2. 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 Neurology following. 3. Obesity. 4. Urinary retention status post Nguyen catheter placement and removal. On Flomax. Plan: Remains off IV fluids. Encouraged oral intake. Enforce 1800 mL fluid restriction. Continue to monitor electrolytes periodically.
[2021-03-04] MEDS: METOPROLOL TARTRATE 25 MG TAB PO SCH (12:33)
--- NOTE | 2021-03-04 12:35 | ECHOF ---
Referral Reason:Tachycardia MEASUREMENTS -------- HEIGHT: 180.3 cm WEIGHT: 136.1 kg BP: IVSd: 1.2 cm (0.6 - 1.1) LVIDd: 3.1 cm (3.9 - 5.3) LVPWd: 1.4 cm (0.6 - 1.1) IVSs: 1.7 cm LVIDs: 1.4 cm LVPWs: 2.0 cm Ao Diam: 2.8 cm (2.0 - 3.7) AV Cusp: 2.1 cm (1.5 - 2.6) LA Diam: 2.2 cm (2.7 - 3.8) MV EXCURSION: 13.536 mm (> 18.000) MV EF SLOPE: 115 mm/s (70 - 150) EPSS: 0.6 cm MV E Chandler: 0.89 m/s MV DecT: 80 ms MV A Chandler: 1.02 m/s MV E/A Ratio: 0.87 RAP: 5.00 mmHg RVSP: 18.29 mmHg FINDINGS -------- Resting tachycardia (HR>100bpm). This was a technically adequate study. The left ventricular size is normal. There is mild concentric left ventricular hypertrophy. Overa ll left ventricular systolic function is normal with, an EF between 60 - 65 %. The right ventricle is normal in size. The left atrial size is normal. The right atrial size is normal. The aortic valve is trileaflet and appears structurally normal. The mitral valve is normal. There is trace mitral regurgitation. The tricuspid valve appears structurally normal. Trace tricuspid regurgitation present. Right kinga tricular systolic pressure is normal at < 35 mmHg. There is no pulmonic regurgitation present. The aortic root size is normal. Normal inferior vena cava with normal inspiratory collapse consistent with estimated right atrial pre ssure of 5 mmHg. There is no pericardial effusion. CONCLUSIONS -------- 1. The left ventricular size is normal. 2. There is mild concentric left ventricular hypertrophy. 3. Overall left ventricular systolic function is normal with, an EF between 60 - 65 %. 4. There is trace mitral regurgitation. 5. Trace tricuspid regurgitation present. 6. There is no pericardial effusion. RETIREMENT PLAN SPECIALIST: Josselyn Merino RDCS
--- NOTE | 2021-03-04 12:53 | P.PN ---
Subjective Progress Note Date: 03/04/21 CHIEF COMPLAINT: Bilateral lower extremity weakness HISTORY OF PRESENT ILLNESS: Patient is still complaining of upper and lower extremity weakness. He is followed closely by neurology. He received treatment with IVIG. Patient is awaiting transfer to [facility]. Did have mildly elevated LFTs. Was seen by GI service who felt the hepatitis was likely medication induced and Rocephin was discontinued or possibly related to fatty liver. He has no new complaints He denies any abdominal pain. Denies any nausea or vomiting. Afebrile. WBC 13.9 hemoglobin 10.5 platelets 199 sodium 133 potassium 3.8 BUN 14 creatinine 0.47 , bili 1.8 AST 326 ALT 470 PHYSICAL EXAM: VITAL SIGNS: Reviewed. GENERAL: Well-developed in no acute distress. HEENT: No sclera icterus. Extraocular movements grossly intact. Moist buccal mucosa. Head is atraumatic, normocephalic. ABDOMEN: Soft. Nondistended. Nontender. NEUROLOGIC: Alert and oriented. Cranial nerves II through XII grossly intact. ASSESSMENT: 1. Recent laparoscopic cholecystectomy 2. History of sleeve gastrectomy 3. Bilateral lower extremity and upper extremity weakness 4. Multiple Vitamin deficiencies 5. Elevated LFTs PLAN: -No surgical intervention planned -Continue supportive care -Continue neuro workup -Continue to work with physical therapy Physician Sales And Training Specialist note has been reviewed by physician. Signing provider agrees with the documented findings, assessment, and plan of care. Objective - Vital Signs Vital signs: Vital Signs Temp 98.3 F 03/04/21 06:49 Pulse 121 H 03/04/21 06:49 Resp 18 03/04/21 06:49 BP 135/85 03/04/21 06:49 Pulse Ox 95 03/04/21 06:49 Intake & Output 03/03/21 03/04/21 03/04/21 18:59 06:59 18:59 Output Total 600 Balance -600 Output: Urine 600 Other: Voiding Method Urinal Urinal # Bowel Movements 0 - Labs CBC & Chem 7: 03/03/21 07:33 03/03/21 07:33 Labs: Abnormal Lab Results - Last 24 Hours (Table) 03/03/21 Range/Units 07:33 Vitamin B12 1300.0 H (200.0-944.0) pg/mL
--- NOTE | 2021-03-04 13:32 | P.PN ---
Subjective Patient is a pleasant 20-year-old male with a past medical history of pain lower back radiating to left side, status post Sleeve Gastrectomy and recent cholecystectomy. He does not follow with a marina porter. Patient presented to the hospital after complaints of weakness, dehydration and numbness and tingling to his right lower extremity. Patient has been being treated with IVIG. Patient reports during this hospitalization and he started to feel heart palpitations. He states they come and go and are not consistent. Review the patient's chart shows consistent tachycardia from date of admission between 100-133. Patient was started on 50 mg of metoprolol twice a day with a nominal decrease in heart rate. Patient's past medical history does not include anything cardiac. Patient's home meds include prednisone, Prilosec, Motrin as needed, and a bariatric multivitamin. Patient's never smoker, has tried marijuana, does not drink alcohol. 03/04/21 Patient seen and examined at bedside, no acute distress. Patient continues to slowly improve. Echocardiogram revealed an EF of 6065 percent, trace mitral regurgitation, trace tricuspid regurgitation. Blood pressure 135/85, heart rate 102, afebrile, maintaining oxygen saturations on room air. He's currently maintained on Lopressor 100 mg twice a day. Laboratory reviewed TSH within normal limits. GENERAL: Well-appearing, well-nourished and in no acute distress. NECK: Supple without JVD or thyromegaly. LUNGS: Breath sounds clear to auscultation bilaterally. Respiration equal and unlabored. No wheezes, rales or rhonchi. HEART: Regular rate and rhythm without murmurs, rubs or gallops. S1 and S2 heard. EXTREMITIES: No edema. No clubbing or cyanosis. Peripheral pulses intact and strong. ASSESSMENT Sinus tachycardia Lower and Upper extremity weakness and complaint of paresthesia Folate deficiency History of lower back pain Hyponatremia History of recent lap cholesystecomy on 02/08/2021 History of gastrectomy sleeve on 07/2020 PLAN: From cardiology perspective we will start metoprolol tartrate 25 mg in the afternoon, in between his 100mg doses. 2D echocardiogram reviewed EF 60-65%. We will follow the patient as needed. Please reach out with further questions or concerns. Follow up with Dr. Abad in 2 weeks Thank you for allowing us to participate in the care of this patient. Objective - Vital Signs Vital signs: Vital Signs Temp 98.3 F 03/04/21 06:49 Pulse 121 H 03/04/21 06:49 Resp 18 03/04/21 06:49 BP 135/85 03/04/21 06:49 Pulse Ox 95 03/04/21 06:49 Intake & Output 03/03/21 03/04/21 03/04/21 18:59 06:59 18:59 Output Total 600 Balance -600 Output: Urine 600 Other: Voiding Method Urinal Urinal # Bowel Movements 0 - Labs CBC & Chem 7: 03/03/21 07:33 03/03/21 07:33 Labs: Abnormal Lab Results - Last 24 Hours (Table) 03/03/21 Range/Units 07:33 Vitamin B12 1300.0 H (200.0-944.0) pg/mL
--- NOTE | 2021-03-04 15:23 | P.PN ---
Subjective Progress Note Date: 03/04/21 Principal diagnosis: Elevated LFTs This a 20-year-old male who presented to the emergency department over a week ago with complaints of lower extremity weakness. He has been followed by multiple consultants including neurology. He was treated with IVIG as well as some antibiotics. On admission he was started on Rocephin, he was noted to have elevation in his LFTs. He denied any previous underlying liver disease. However patient is morbidly obese and liver ultrasound was consistent with fatty liver. However looking back patient has not had any chronic elevation in his LFTs. It was thought that he possibly had medication induced LFTs. However patient has been discontinued off the Rocephin and started on ciprofloxacin however that has been discontinued as well. Patient is currently awaiting transfer to [facility] for further evaluation of neurologic disorder. Was thought that possibly Guillain-[place] syndrome. Patient continues to have elevation in his LFTs total bilirubin 1.8 AST 326 ALT 478 alk phos 64. Acute hepatitis panel was ordered on Thursday unfortunately that was not completed. Patient continues to deny any abdominal pain, nausea, vomiting. He states that lower extremity strength is improving and he is able to move his lower extrem ities more. Objective - Vital Signs Vital signs: Vital Signs Temp 98.3 F 03/04/21 06:49 Pulse 121 H 03/04/21 06:49 Resp 18 03/04/21 06:49 BP 135/85 03/04/21 06:49 Pulse Ox 95 03/04/21 06:49 Intake & Output 03/03/21 03/04/21 03/04/21 18:59 06:59 18:59 Output Total 600 Balance -600 Output: Urine 600 Other: Voiding Method Urinal Urinal # Bowel Movements 0 - Exam General appearance: The patient is alert, oriented, appears in no acute distress. HET: Head is normocephalic and atraumatic. Conjunctiva pink. Sclera anicteric. Neck: Supple without lymphadenopathy. Abdomen: Soft, morbidly obese, nontender, nondistended with bowel sounds. No guarding or rigidity. Extremities: Normal skin color and turgor. No pedal edema Skin: No rashes, no jaundice Neurological: No focal deficits. Alert and oriented 3. - Labs CBC & Chem 7: 03/03/21 07:33 03/03/21 07:33 Labs: Abnormal Lab Results - Last 24 Hours (Table) 03/03/21 03/03/21 Range/Units 07:33 07:33 WBC 13.19 H (4.50-10.00) X 10*3/uL RBC 3.56 L (4.40-5.60) X 10*6/uL Hgb 10.5 L (13.0-17.0) g/dL Hct 31.4 L (39.6-50.0) % RDW 15.9 H (11.5-14.5) % Absolute Nucleated RBC 0.18 H (0.00-0.00) X 10*3/uL Immature Gran # 0.32 H (0.00-0.04) X 10*3/uL Neutrophils # 7.96 H (1.80-7.70) X 10*3/uL Monocytes # 1.14 H (0.20-1.00) X 10*3/uL NRBC/100 WBC Diff 1.4 H (0.0-0.0) /100 WBCS Vitamin B12 1300.0 H (200.0-944.0) pg/mL Assessment and Plan (1) Elevated liver enzymes Narrative/Plan: 20-year-old male who presented to the emergency department a little over week ago with paresthesia and weakness in his bilateral lower extremities. Patient is being worked up for [place] syndrome. Neurology, orthopedics and Gen. surgery on consult. He was noted to have mild elevation in his LFTs on admission which have been steadily increasing. AST was in the 60s and ALT in the 70s. Today total bilirubin 1.2 conjugated bilirubin 0.35 unconjugated bilirubin 0.83 AST is 280 ALT 371 patient had a liver ultrasound on admission that did show echotexture consistent with a hepatic steatosis and/or hepatocellular disease. Patient is morbidly obese and recently underwent bariatric surgery in July of this year, he also recently underwent cholecystectomy on 02/08/2021 for cholelithiasis. Patient denies any previous known liver disease, no history of hepatitis or alcohol abuse. No recent new medications other than while being in the hospital. He was started on Rocephin on 02/26/2021 which was discontinued today. He's also been started on immunoglobulin Gammagard. Looking back at previous blood work he has had a history of mild elevation of his AST and ALT. We are likely dealing with hepatic steatosis along with possible medication induced hepatitis. We will continue to monitor LFTs. Agree with discontinuing of Rocephin. LFTs are still elevated. Antibiotics have been discontinued. Patient is denying any abdominal pain, nausea, or vomiting. He is awaiting transfer to [facility] for further evaluation of neurological symptoms. Acute hepatitis panel was ordered however not run. Will reorder acute hepatitis panel along with autoimmune workup and possible viral etiology. Current Visit: Yes Status: Acute Code(s): R74.8 - ABNORMAL LEVELS OF OTHER SERUM ENZYMES SNOMED Code(s): 468546080 (2) Bilateral leg paresthesia Current Visit: Yes Status: Acute Code(s): R20.2 - PARESTHESIA OF SKIN SNOMED Code(s): 498332505 (3) Morbid obesity Current Visit: Yes Status: Acute Code(s): E66.01 - MORBID (SEVERE) OBESITY DUE TO EXCESS CALORIES SNOMED Code(s): 938288348 (4) Urinary tract infection Current Visit: Yes Status: Acute Code(s): N39.0 - URINARY TRACT INFECTION, SITE NOT SPECIFIED SNOMED Code(s): 43183977 Plan: 1. Continue symptomatic and supportive care 2. Acute hepatitis panel ordered, liver serology ordered 3. EBV and CMV ordered 4. Daily CMP 5. Avoid hepatotoxic medications Thank you for this consultation, we will continue to follow. Dr. Alex Steele I agree with the dictator's note, documented as a scribe by Lucila Dey.
[2021-03-04] MEDS: HYDROcodone/APAP 5-325MG 1 EACH TAB PO PRN (16:18)
[2021-03-05] MEDS: diphenhydrAMINE 25 MG CAP PO PRN ×2 (03:03→23:44)
[2021-03-05 04:26] LABS: Zinc, Serum 65 ug/dL (60-130)
[2021-03-05 07:54] LABS: ALT 426 U/L (4-49); AST 246 U/L (17-59); African American GFR (CKD) >90 (>60 ml/min/1.73 sqM); Albumin 3.2 g/dL (3.5-5.0); Albumin/Globulin Ratio 0.7; Alkaline Phosphatase 59 U/L (38-126); Anion Gap 6 mmol/L; Blood Urea Nitrogen 12 mg/dL (9-20); Calcium 8.9 mg/dL (8.4-10.2); Carbon Dioxide 27 mmol/L (22-30); Chloride 101 mmol/L (98-107); Globulin 4.3 g/dL; Glucose 98 mg/dL (74-99); Non-African American GFR(CKD) >90 (>60 ml/min/1.73 sqM); Potassium 3.8 mmol/L (3.5-5.1); Sodium 134 mmol/L (137-145); Total Bilirubin 1.3 mg/dL (0.2-1.3); Total Protein 7.5 g/dL (6.3-8.2)
[2021-03-05] MEDS: FAMOTIDINE 20 MG TAB PO SCH ×2 (07:56→21:28)
[2021-03-05] MEDS: GABAPENTIN 100 MG CAP PO SCH ×3 (07:56→21:28)
[2021-03-05] MEDS: METOPROLOL TARTRATE 50 MG TAB PO SCH ×2 (07:56→21:27)
[2021-03-05] MEDS: PYRIDOXINE 50 MG TAB PO SCH (07:56)
[2021-03-05] MEDS: SIMETHICONE 40 MG/0.6 ML DROPS 2,000 MG/30 ML BOTTLE PO SCH ×4 (07:56→21:28)
[2021-03-05] MEDS: HEPARIN SODIUM,PORCINE/PF 5,000 UNIT/0.5 ML SYRINGE SQ SCH ×2 (07:56→21:28)
[2021-03-05] MEDS: DOCUSATE 100 MG CAP PO SCH ×2 (07:57→21:28)
[2021-03-05] MEDS: FOLIC ACID 1 MG TAB PO SCH (07:57)
[2021-03-05] MEDS: THIAMINE 100 MG/ML 2 ML VIAL IVP SCH (07:57)
[2021-03-05] MEDS: ALPRAZolam 0.5 MG TAB PO PRN ×2 (07:57→21:27)
[2021-03-05] MEDS: TAMSULOSIN 0.4 MG CAP.ER.24H PO SCH (07:57)
[2021-03-05] MEDS: MULTIVITAMINS, THERA 1 EACH TAB PO SCH (07:57)
[2021-03-05 08:22] LABS: Anisocytosis Moderate; Basophils # (A) 0.1 k/uL (0-0.2); Basophils % (A) 1 %; Eosinophils # (A) 0.2 k/uL (0-0.7); Eosinophils % (A) 1 %; HCT 27.3 % (39.0-53.0); Hyperchromasia Marked; Lymphocytes # (A) 2.7 k/uL (1.0-4.8); Lymphocytes % (A) 25 %; MCH 31.4 pg (25.0-35.0); MCHC 36.4 g/dL (31.0-37.0); MCV 86.2 fL (80.0-100.0); Mean Platelet Volume 8.4; Monocytes # (A) 0.6 k/uL (0-1.0); Monocytes % (A) 5 %; Neutrophils # (A) 7.1 k/uL (1.3-7.7); Neutrophils % (A) 66 %; Platelet Count 244 k/uL (150-450); Poikilocytosis Marked; RBC 3.17 m/uL (4.30-5.90); RDW 20.1 % (11.5-15.5); WBC 10.8 k/uL (3.8-10.6)
[2021-03-05 08:35] LABS: Vit B1(Thiamine) 155 ug/L (38-122)
[2021-03-05 10:57] LABS: Polychromasia Present
[2021-03-05] MEDS: METOPROLOL TARTRATE 25 MG TAB PO SCH (13:10)
[2021-03-05 13:25] LABS: Hepatitis A Antibody IgM Nonreactive (Nonreactive); Hepatitis B Core IgM Nonreactive (Nonreactive); Hepatitis B Surface Antigen Nonreactive (Nonreactive); Hepatitis C IgG Antibody Nonreactive (Nonreactive)
--- NOTE | 2021-03-05 13:29 | P.PN ---
Subjective Progress Note Date: 03/05/21 CHIEF COMPLAINT: Bilateral lower extremity weakness HISTORY OF PRESENT ILLNESS: Patient is still complaining of upper and lower extremity weakness. He is followed closely by neurology. He received treatment with IVIG. Patient is awaiting transfer to [facility]. Did have elevated LFTs. Was seen by GI service who felt the hepatitis was likely medication induced and related to fatty liver. He has no new complaints He denies any abdominal pain. Denies any nausea or vomiting. He is tolerating diet. Afebrile. WBC 10.8 hemoglobin 10 platelets 244 total bilirubin 1.3 LFTs trending down PHYSICAL EXAM: VITAL SIGNS: Reviewed. GENERAL: Well-developed in no acute distress. HEENT: No sclera icterus. Extraocular movements grossly intact. Moist buccal mucosa. Head is atraumatic, normocephalic. ABDOMEN: Soft. Nondistended. Nontender. NEUROLOGIC: Alert and oriented. Cranial nerves II through XII grossly intact. ASSESSMENT: 1. Recent laparoscopic cholecystectomy 2. History of sleeve gastrectomy 3. Bilateral lower extremity and upper extremity weakness 4. Multiple Vitamin deficiencies 5. Elevated LFTs PLAN: -No surgical intervention planned -Continue supportive care -Continue neuro workup -Continue to work with physical therapy Physician Melter Supervisor [employer] note has been reviewed by physician. Signing provider agrees with the documented findings, assessment, and plan of care. Objective - Vital Signs Vital signs: Vital Signs Temp 97.2 F L 03/05/21 07:56 Pulse 113 H 03/05/21 07:56 Resp 16 03/05/21 07:56 BP 130/84 03/05/21 07:56 Pulse Ox 97 03/05/21 07:56 Intake & Output 03/04/21 03/05/21 03/05/21 18:59 06:59 18:59 Output Total 1100 Balance -1100 Output: Urine 1100 Other: Voiding Method Urinal # Voids 4 # Bowel Movements 0 - Labs CBC & Chem 7: 03/05/21 07:06 03/05/21 07:06 Labs: Abnormal Lab Results - Last 24 Hours (Table) 03/02/21 03/02/21 03/05/21 Range/Units 07:53 07:53 07:06 WBC (3.8-10.6) k/uL RBC (4.30-5.90) m/uL Hgb (13.0-17.5) gm/dL Hct (39.0-53.0) % RDW (11.5-15.5) % Sodium 134 L (137-145) mmol/L Creatinine 0.44 L (0.66-1.25) mg/dL AST 246 H (17-59) U/L ALT 426 H (4-49) U/L Albumin 3.2 L (3.5-5.0) g/dL Vitamin B1 155 H (38-122) ug/L Vitamin B6 51 H (5-50) ug/L 03/05/21 Range/Units 07:06 WBC 10.8 H (3.8-10.6) k/uL RBC 3.17 L (4.30-5.90) m/uL Hgb 10.0 L D (13.0-17.5) gm/dL Hct 27.3 L (39.0-53.0) % RDW 20.1 H (11.5-15.5) % Sodium (137-145) mmol/L Creatinine (0.66-1.25) mg/dL AST (17-59) U/L ALT (4-49) U/L Albumin (3.5-5.0) g/dL Vitamin B1 (38-122) ug/L Vitamin B6 (5-50) ug/L
--- NOTE | 2021-03-05 14:27 | P.PN ---
Subjective Progress Note Date: 03/05/21 Principal diagnosis: Elevated LFTs This a 20-year-old male who presented to the emergency department over a week ago with complaints of lower extremity weakness. He has been followed by multiple consultants including neurology. He was treated with IVIG as well as some antibiotics. On admission he was started on Rocephin, he was noted to have elevation in his LFTs. He denied any previous underlying liver disease. However patient is morbidly obese and liver ultrasound was consistent with fatty liver. However looking back patient has not had any chronic elevation in his LFTs. It was thought that he possibly had medication induced LFTs. However patient has been discontinued off the Rocephin and started on ciprofloxacin however that has been discontinued as well. Patient is currently awaiting transfer to [facility] for further evaluation of neurologic disorder. Was thought that possibly Guillain-[place] syndrome. LFTs with slight improvement today. Patient continues to deny any abdominal pain, nausea, vomiting. He states that lower extremity strength is improving and he is able to move his lower extremities more. Full liver serology ordered and pending acute hepatitis panel nonreactive. Objective - Vital Signs Vital signs: Vital Signs Temp 97.2 F L 03/05/21 07:56 Pulse 113 H 03/05/21 07:56 Resp 16 03/05/21 07:56 BP 130/84 03/05/21 07:56 Pulse Ox 97 03/05/21 07:56 Intake & Output 03/04/21 03/05/21 03/05/21 18:59 06:59 18:59 Output Total 1100 Balance -1100 Output: Urine 1100 Other: Voiding Method Urinal # Voids 4 # Bowel Movements 0 - Labs CBC & Chem 7: 03/05/21 07:06 03/05/21 07:06 Labs: Abnormal Lab Results - Last 24 Hours (Table) 03/02/21 03/05/21 03/05/21 Range/Units 07:53 07:06 07:06 WBC 10.8 H (3.8-10.6) k/uL RBC 3.17 L (4.30-5.90) m/uL Hgb 10.0 L D (13.0-17.5) gm/dL Hct 27.3 L (39.0-53.0) % RDW 20.1 H (11.5-15.5) % Sodium 134 L (137-145) mmol/L Creatinine 0.44 L (0.66-1.25) mg/dL AST 246 H (17-59) U/L ALT 426 H (4-49) U/L Albumin 3.2 L (3.5-5.0) g/dL Vitamin B1 155 H (38-122) ug/L Assessment and Plan (1) Elevated liver enzymes Narrative/Plan: 20-year-old male who presented to the emergency department a little over week ago with paresthesia and weakness in his bilateral lower extremities. Patient is being worked up for [place] syndrome. Neurology, orthopedics and Gen. surgery on consult. He was noted to have mild elevation in his LFTs on admission which have been steadily increasing. AST was in the 60s and ALT in the 70s. Today total bilirubin 1.2 conjugated bilirubin 0.35 unconjugated bilirubin 0.83 AST is 280 ALT 371 patient had a liver ultrasound on admission that did show echotexture consistent with a hepatic steatosis and/or hepatocell ular disease. Patient is morbidly obese and recently underwent bariatric surgery in July of this year, he also recently underwent cholecystectomy on 02/08/2021 for cholelithiasis. Patient denies any previous known liver disease, no history of hepatitis or alcohol abuse. No recent new medications other than while being in the hospital. He was started on Rocephin on 02/26/2021 which was discontinued today. He's also been started on immunoglobulin Gammagard. Looking back at previous blood work he has had a history of mild elevation of his AST and ALT. We are likely dealing with hepatic steatosis along with possible medication induced hepatitis. We will continue to monitor LFTs. Agree with discontinuing of Rocephin. LFTs are still elevated. Antibiotics have been discontinued. Patient is denying any abdominal pain, nausea, or vomiting. He is awaiting transfer to [facility] for further evaluation of neurological symptoms. Acute hepatitis panel was ordered however not run. Will reorder acute hepatitis panel along with autoimmune workup and possible viral etiology. Current Visit: Yes Status: Acute Code(s): R74.8 - ABNORMAL LEVELS OF OTHER SERUM ENZYMES SNOMED Code(s): 703420326 (2) Bilateral leg paresthesia Current Visit: Yes Status: Acute Code(s): R20.2 - PARESTHESIA OF SKIN SNOMED Code(s): 346997472 (3) Morbid obesity Current Visit: Yes Status: Acute Code(s): E66.01 - MORBID (SEVERE) OBESITY DUE TO EXCESS CALORIES SNOMED Code(s): 138838844 (4) Urinary tract infection Current Visit: Yes Status: Acute Code(s): N39.0 - URINARY TRACT INFECTION, SITE NOT SPECIFIED SNOMED Code(s): 57906175 Plan: 1. Continue symptomatic and supportive care 2. Acute hepatitis panel ordered, liver serology ordered 3. EBV and CMV ordered 4. Daily CMP 5. Avoid hepatotoxic medications Thank you for this consultation, we will continue to follow. Dr. Alex Steele I agree with the dictator's note, documented as a scribe by Lucila Dey.
--- NOTE | 2021-03-05 14:46 | P.PN ---
Subjective Progress Note Date: 03/05/21 I am seeing the patient for follow-up for neurological management. Please refer to Dr. Packer's notes for further details. Since I saw him last on 02/24/2021, He completed 5 day dose of IVIG and the patient stated he is feeling better compared to initial presentation. Denies of any new neurological problems. The patient is still in waiting process to be transferred to [facility] per outsole caser for EMG with NCS. Objective - Vital Signs Vital signs: Vital Signs Temp 97.4 F L 03/05/21 14:15 Pulse 105 H 03/05/21 14:15 Resp 17 03/05/21 14:15 BP 132/77 03/05/21 14:15 Pulse Ox 95 03/05/21 14:15 Intake & Output 03/04/21 03/05/21 03/05/21 18:59 06:59 18:59 Output Total 1100 Balance -1100 Output: Urine 1100 Other: Voiding Method Urinal # Voids 4 # Bowel Movements 0 - Exam GENERAL: The patient is a morbid obese young gentleman lying in bed and is not in acute distress. NEUROLOGICAL: Higher mental function: The patient is awake, alert, oriented to self, place and time. Patient is following commands. No aphasia and no neglect. Cranial nerves: The pupils are round, equal and reactive to light and accommodation. Visual fine are full to confrontation throughout. Mild bilateral ptsosis. Extraocular movement is intact no nystagmus is noted. Facial sensation is normal to touch throughout. Slight weakness of bilater lower facial region and difficulty puffing his cheecks. Hearing is normal bilaterally to hand rub. Tongue appears weak with protrusion and movement side to side. Palat elevation is normal. No dysarthria is noted. Motor: Gait is deferred because he is unable to cooperate because of his weakness. The strength is bilateral shoulder are 4+, left elbow extension is 4+ to 5-. Right wrist flexion is 4+, left wrist flexion is 5-. , Bilateral hips flexion/extension is 4, knee extension 0 bilaterally, knee flexion is 1-2, ankle plantar flexion are 3-4 while right ankle dorsiflexion is 1-2. Has antigravity for toe movement. Decrease tone predominately lowers. Normal bulk. Cerebellum: Normal finger to nose and could not assess lowers bilaterally. Sensation: Sensation is normal to touch and pinprick throughout. Reflexes (right/left): 1+ brachioradilis bilaterally. Otherwise rest are 0 throughout. Plantars are mute bilaterally. WORK-UP: Creatinine kinase is 316 (normal is 55-170). ESR is 15. CRP is the 1.2. TSH is 1.8908 which is within normal limits. urine analysis negative for urinary tract infection. CSF is clear, colorless, CSF red blood cell is 27, nuclear cells is 1, glucose is 85 and a protein is 39. CSF myelin protein is less than 2 which is considered negative Serum folate is less than 2 which is considered deficient (normal is between 4.4-31) Red blood cell folate is 355 which is considered on the borderline of low normal Vitamin B12 is 411 Methylmalonic acid is normal 0.13. Hemoglobin A1c is 5.1. Calcium is 9.3, magnesium is 2.1. Lactate Dehydrogenase: 1325 IgA level: 201 (normal) HIV 1 and 2 antibody is nonreactive and HIV P 24 is the nonreactive. Hepatitis A IgM antibody is negative Hepatitis A and B service antigen hepatitis B core IgM antibody and hepatitis C IgG antibody is nonreactive SCOOBY is negative. Serum immunofixation is no monoclonal paraprotein were recognized Urine immunofixation is no BenceJones protein identified Vitamin B1 is 155 (normal is 38-122) Vitamin B6 initial one is 9 and a normal supposed to be between 5 and 50. The repeated one is 51 which is 4 days apart Copper as 744 and the normal is between 665 and the 1480 Zinc level is 59 and the repeated as 65 on repeated during the normal supposed to be between 60 to 1:30 Coronavirus PCR: Not detected. Aldolase initially elevated 15.2, repeat aldolase improved 9.0 (1.2-7.6) CT of the brain is reported as normal CT brain. MRI of lumbar spine w/o is reported as there is L5-S1 lumbar disc herniation in the midline which appears slightly smaller than the last exam. No spinal stenosis. No fracture. MRI LUMBAR SPINE W/: Is reported as no abnormal postcontrast enhancement. MRI the brain with and without is reported as no abnormality is evident. MRI the cervical spine with and without is reported as normal pre-and postcontrast cervical MRI. - Labs CBC & Chem 7: 03/05/21 07:06 03/05/21 07:06 Labs: Abnormal Lab Results - Last 24 Hours (Table) 03/02/21 03/02/21 03/05/21 Range/Units 07:53 07:53 07:06 WBC (3.8-10.6) k/uL RBC (4.30-5.90) m/uL Hgb (13.0-17.5) gm/dL Hct (39.0-53.0) % RDW (11.5-15.5) % Sodium 134 L (137-145) mmol/L Creatinine 0.44 L (0.66-1.25) mg/dL AST 246 H (17-59) U/L ALT 426 H (4-49) U/L Albumin 3.2 L (3.5-5.0) g/dL Vitamin B1 155 H (38-122) ug/L Vitamin B6 51 H (5-50) ug/L 03/05/21 Range/Units 07:06 WBC 10.8 H (3.8-10.6) k/uL RBC 3.17 L (4.30-5.90) m/uL Hgb 10.0 L D (13.0-17.5) gm/dL Hct 27.3 L (39.0-53.0) % RDW 20.1 H (11.5-15.5) % Sodium (137-145) mmol/L Creatinine (0.66-1.25) mg/dL AST (17-59) U/L ALT (4-49) U/L Albumin (3.5-5.0) g/dL Vitamin B1 (38-122) ug/L Vitamin B6 (5-50) ug/L Assessment and Plan Assessment: * 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 Patient has motor weakness of lower >>> upper extremities and some facial weakness. Exact diagnosis still uncertain, because of unavailability of EMG and NCV studies, and normal CSF protein and no enhancement root enhancement. However clinically it appears very much like GBS-like picture. Not sure if the patient has a combined malnutrition deficiency/vitamin deficiency leading to his worsening condition especially with history of gastrectomy sleeve on 07/2020 * Folate defiency (Serum folate is less than 2). * Multiple vitamin deficiency including vitamin D, vitamin B1 and zinc. Borderline vitamin B6. * History of lower back pain with radiculopathy (has pain injections in the back but last was one year ago) but currently is not having any lower back pain. * Electrolyte imbalance with mild hyponatremia (130-->134) * Mild transaminitis that got worse during hospital stay and most recent is (AST 246 and ALT 426) * History of recent lap closeectomy on 02/08/2021 * gastrectomy sleeve on 07/2020 * Morbid obesity Plan: * Continue folic acid 1 mg daily, thiamine and is on multivitamin. * Patient has completed treatment with IVIG for a total dose of (2g/kg over 5 days), as of 02/28/2021. Patient has tolerated IVIG well and feels there is some improvement afterward. * Patient needs more thorough EMG and nerve conduction studies to evaluate for the type and severity polyneuropathy. Would suggest having EMG tested by a neuromuscular specialist. Patient may need nerve biopsy +/- muscle biopsy. * Patient had EMG with nerve conduction study of the lower about 2 weeks ago at [facility] office and was reported as normal. * Gastroenterology following for abnormal liver functions. * Nephrology team is on board for hyponatremia. * Physical therapy and occupation therapy are consulted. * Will defer the rest of medical management to the primary team. * Suggest transfer to tertiary care for EMG with NCS. Patient on heparin 5000 unit subcu every 12 hours for DVT prophylaxis. Justin Blanca MD Neuro-Hospitalist Time with Patient: Less than 30
[2021-03-05] MEDS: HYDROcodone/APAP 5-325MG 1 EACH TAB PO PRN (17:13)
[2021-03-05] MEDS: THIAMINE 100 MG TAB PO SCH (21:28)
[2021-03-06] MEDS: FOLIC ACID 1 MG TAB PO SCH (08:02)
[2021-03-06] MEDS: HEPARIN SODIUM,PORCINE/PF 5,000 UNIT/0.5 ML SYRINGE SQ SCH ×2 (08:02→21:28)
[2021-03-06] MEDS: GABAPENTIN 100 MG CAP PO SCH ×3 (08:02→21:28)
[2021-03-06] MEDS: METOPROLOL TARTRATE 50 MG TAB PO SCH ×2 (08:03→21:28)
[2021-03-06] MEDS: FAMOTIDINE 20 MG TAB PO SCH ×2 (08:03→21:28)
[2021-03-06] MEDS: THIAMINE 100 MG TAB PO SCH ×2 (08:03→21:28)
[2021-03-06] MEDS: TAMSULOSIN 0.4 MG CAP.ER.24H PO SCH (08:03)
[2021-03-06] MEDS: ALPRAZolam 0.5 MG TAB PO PRN ×2 (08:03→21:28)
[2021-03-06] MEDS: PYRIDOXINE 50 MG TAB PO SCH (08:03)
[2021-03-06] MEDS: SIMETHICONE 40 MG/0.6 ML DROPS 2,000 MG/30 ML BOTTLE PO SCH ×4 (08:04→21:29)
[2021-03-06] MEDS: MULTIVITAMINS, THERA 1 EACH TAB PO SCH (08:04)
[2021-03-06] MEDS: DOCUSATE 100 MG CAP PO SCH ×2 (08:04→21:28)
[2021-03-06 08:35] LABS: Alpha Fetoprotein, Tumor Mkr 2.3 ng/mL (0.00-7.90)
[2021-03-06 09:05] LABS: Basophils # (A) 0.08 X 10*3/uL (0.00-0.10); Basophils % (A) 0.7 %; Eosinophils # (A) 0.19 X 10*3/uL (0.04-0.35); Eosinophils % (A) 1.6 %; HGB 10.2 g/dL (13.0-17.0); Lymphocytes # (A) 4.01 X 10*3/uL (0.90-5.00); Lymphocytes % (A) 34.3 %; MCH 31.3 pg (27.0-32.0); Mean Platelet Volume 11.6 fL (9.5-12.2); Monocytes % (A) 7.7 %; Neutrophils # (A) 6.42 X 10*3/uL (1.80-7.70); Platelet Count 232 X 10*3/uL (140-440); RBC 3.26 X 10*6/uL (4.40-5.60); WBC 11.68 X 10*3/uL (4.50-10.00)
--- NOTE | 2021-03-06 11:17 | P.PN ---
Subjective Progress Note Date: 03/06/21 The patient is seen at bedside and he states he is about the same today compared to yesterday. Patient denies of any history of any kissing with any partners/anyone, sexual contact in the past. Objective - Vital Signs Vital signs: Vital Signs Temp 98.1 F 03/06/21 08:00 Pulse 109 H 03/06/21 08:00 Resp 17 03/06/21 08:00 BP 132/84 03/06/21 08:00 Pulse Ox 97 03/06/21 08:00 Intake & Output 03/05/21 03/06/21 03/06/21 18:59 06:59 18:59 Other: Voiding Method Urinal # Voids 2 3 - Exam GENERAL: The patient is a morbid obese young gentleman lying in bed and is not in acute distress. NEUROLOGICAL: Higher mental function: The patient is awake, alert, oriented to self, place and time. Patient is following commands. No aphasia and no neglect. Cranial nerves: The pupils are round, equal and reactive to light and accommodation. Visual fine are full to confrontation throughout. Mimimal bilateral ptsosis (but according to patient this is his baseline). Extraocular movement is intact no nystagmus is noted. Facial sensation is normal to touch throughout. Some difficulty puffing his cheecks. Hearing is normal bilaterally to hand rub. Tongue appears protudes outwards and moves side to side without difficulty. Palat elevation is normal. No dysarthria is noted. Motor: Gait is deferred because he is unable to cooperate because of his weakness. The strength is bilateral shoulder are 4+, left elbow extension is 4+ to 5-. Right wrist flexion is 4+, left wrist flexion is 5-. , Bilateral hips flexion/extension is 4, knee extension 0 bilaterally, knee flexion is 1-2, ankle plantar flexion are 3-4 while right ankle dorsiflexion is 1-2. Has antigravity for toe movement. Decrease tone predominately lowers. Normal bulk. Cerebellum: Normal finger to nose and could not assess lowers bilaterally. Sensation: Sensation is normal to touch and pinprick throughout. Reflexes (right/left): 1+ brachioradilis bilaterally. Otherwise rest are 0 throughout. Plantars are mute bilaterally. WORK-UP: Creatinine kinase is 316 (normal is 55-170). ESR is 15. CRP is the 1.2. TSH is 1.8908 which is within normal limits. urine analysis negative for urinary tract infection. CSF is clear, colorless, CSF red blood cell is 27, nuclear cells is 1, glucose is 85 and a protein is 39. CSF myelin protein is less than 2 which is considered negative CSF IgG is 0. CSF Oligoclonal band is negative. CSF FAWAD <5 (normal) Serum folate is less than 2 which is considered deficient (normal is between 4.4-31) Red blood cell folate is 355 which is considered on the borderline of low normal Vitamin B12 is 411 Methylmalonic acid is 0.13 (normal). Hemoglobin A1c is 5.1. Calcium is 9.3, magnesium is 2.1. Lactate Dehydrogenase: 1325 Acetylcholine Receptor antibody: 0.41 (equivocal). IgA level: 201 (normal) HIV 1 and 2 antibody is nonreactive and HIV P 24 is the nonreactive. Hepatitis A IgM antibody is negative Hepatitis A and B service antigen hepatitis B core IgM antibody and hepatitis C IgG antibody is nonreactive EBV: 45.8 (normal is <36). SCOOBY is negative. Serum immunofixation is no monoclonal paraprotein were recognized Urine immunofixation is no BenceJones protein identified Vitamin B1 is 155 (normal is 38-122) Vitamin B6 initial one is 9 and a normal supposed to be between 5 and 50. The repeated one is 51 which is 4 days apart Copper as 744 and the normal is between 665 and the 1480 Zinc level is 59 and the repeated as 65 on repeated during the normal supposed to be between 60 to 1:30 Coronavirus PCR: Not detected. Aldolase initially elevated 15.2, repeat aldolase improved 9.0 (1.2-7.6) CT of the brain is reported as normal CT brain. MRI of lumbar spine w/o is reported as there is L5-S1 lumbar disc herniation in the midline which appears slightly smaller than the last exam. No spinal stenosis. No fracture. MRI LUMBAR SPINE W/: Is reported as no abnormal postcontrast enhancement. MRI the brain with and without is reported as no abnormality is evident. MRI the cervical spine with and without is reported as normal pre-and postcontrast cervical MRI. 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 Patient has motor weakness of lower >>> upper extremities and some facial weakness. Exact diagnosis still uncertain. Has positive EBV which can cause GBS picture.Has normal CSF protein and no root enhancement. However clinically it appears very much like GBS-like picture. Not sure if the patient has a combined malnutrition deficiency/vitamin deficiency leading to his worsening condition especially with history of gastrectomy sleeve on 07/2020 * Elevated EBV IgM Ab level 45.8. * Folate defiency (Serum folate is less than 2). * Multiple vitamin deficiency including vitamin D, vitamin B1 and zinc. Borderline vitamin B6. * History of lower back pain with radiculopathy (has pain injections in the back but last was one year ago) but currently is not having any lower back pain. * Electrolyte imbalance with mild hyponatremia (130-->134) * Mild transaminitis that got worse during hospital stay and most recent is (AST 246 and ALT 426) * History of recent lap closeectomy on 02/08/2021 * gastrectomy sleeve on 07/2020 * Morbid obesity Plan: * Continue folic acid 1 mg daily, thiamine and is on multivitamin. Lower Pyridoxine from 50mg daily to 25mg daily. * Patient has completed treatment with IVIG for a total dose of (2g/kg over 5 days), as of 02/28/2021. Patient has tolerated IVIG well and feels there is some improvement afterward. * Patient needs more thorough EMG and nerve conduction studies to evaluate for the type and severity polyneuropathy. Would suggest having EMG tested by a neuromuscular specialist. Patient may need nerve biopsy +/- muscle biopsy. * Pending CMV and lyme. Gastroenterology ordered antimitocondrial antibody, antismith antibody. * Notified lab to get CSF viral study. * If CMV is positive recommend Infection disease consult. * Patient had EMG with nerve conduction study of the lower about 2 weeks ago at [facility] office and was reported as normal. * Gastroenterology following for abnormal liver functions. * Nephrology team is on board for hyponatremia. * Physical therapy and occupation therapy are consulted. * Will defer the rest of medical management to the primary team. * Suggest transfer to tertiary care for EMG with NCS. Patient on heparin 5000 unit subcu every 12 hours for DVT prophylaxis. The plan is discussed with the patient, his mother (via phone) and the primary team. Justin Blanca MD Neuro-Hospitalist Time with Patient: Less than 30
[2021-03-06] MEDS: METOPROLOL TARTRATE 25 MG TAB PO SCH (13:12)
--- NOTE | 2021-03-06 13:33 | P.PN ---
Subjective Progress Note Date: 03/06/21 CHIEF COMPLAINT: Bilateral lower extremity weakness HISTORY OF PRESENT ILLNESS: Patient is still complaining of upper and lower extremity weakness. He is followed closely by neurology. He received treatment with IVIG. Patient is awaiting transfer to [facility]. Did have elevated LFTs. Was seen by GI service who felt the hepatitis was likely medication induced and related to fatty liver. He has no new complaints. He denies any abdominal pain. Denies any nausea or vomiting. He is tolerating diet. Afebrile. WBC 11.6 a hemoglobin 10.2 Summer-Lowe virus positive PHYSICAL EXAM: VITAL SIGNS: Reviewed. GENERAL: Well-developed in no acute distress. HEENT: No sclera icterus. Extraocular movements grossly intact. Moist buccal mucosa. Head is atraumatic, normocephalic. ABDOMEN: Soft. Nondistended. Nontender. NEUROLOGIC: Alert and oriented. Cranial nerves II through XII grossly intact. ASSESSMENT: 1. Recent laparoscopic cholecystectomy 2. History of sleeve gastrectomy 3. Bilateral lower extremity and upper extremity weakness 4. Multiple Vitamin deficiencies 5. Elevated LFTs PLAN: -No surgical intervention planned -Continue supportive care -Continue neuro workup -Continue to work with physical therapy Physician [place] Worker note has been reviewed by physician. Signing provider agrees with the documented findings, assessment, and plan of care. Objective - Vital Signs Vital signs: Vital Signs Temp 98.1 F 03/06/21 08:00 Pulse 109 H 03/06/21 08:00 Resp 17 03/06/21 08:00 BP 132/84 03/06/21 08:00 Pulse Ox 97 03/06/21 08:00 Intake & Output 03/05/21 03/06/21 03/06/21 18:59 06:59 18:59 Other: Voiding Method Urinal # Voids 2 3 - Labs CBC & Chem 7: 03/06/21 05:36 03/05/21 07:06 Labs: Abnormal Lab Results - Last 24 Hours (Table) 03/05/21 03/06/21 Range/Units 07:06 05:36 WBC 11.68 H (4.50-10.00) X 10*3/uL RBC 3.26 L (4.40-5.60) X 10*6/uL Hgb 10.2 L (13.0-17.0) g/dL Hct 30.0 L (39.6-50.0) % RDW 20.0 H (11.5-14.5) % Absolute Nucleated RBC 0.11 H (0.00-0.00) X 10*3/uL Immature Gran # 0.08 H (0.00-0.04) X 10*3/uL NRBC/100 WBC Diff 0.9 H (0.0-0.0) /100 WBCS EBV Capsid Ag IgM Ab 45.8 H (<36.0) U/mL
--- NOTE | 2021-03-06 16:08 | P.PN ---
Subjective Progress Note Date: 03/06/21 Principal diagnosis: Elevated LFTs This a 20-year-old male who presented to the emergency department over a week ago with complaints of lower extremity weakness. He has been followed by multiple consultants including neurology. He was treated with IVIG as well as some antibiotics. On admission he was started on Rocephin, he was noted to have elevation in his LFTs. He denied any previous underlying liver disease. However patient is morbidly obese and liver ultrasound was consistent with fatty liver. However looking back patient has not had any chronic elevation in his LFTs. It was thought that he possibly had medication induced LFTs. However patient has been discontinued off the Rocephin and started on ciprofloxacin however that has been discontinued as well. Patient is currently awaiting transfer to [facility] for further evaluation of neurologic disorder. 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 LFTs currently are currently pending. Liver serology to date has been negative, however EBV IgM antibody elevated. Patient denies any signs or symptoms of sore throat, fever, body aches, chills or recent contact with anybody with infectious mononucleosis. He continues to await a bed for transfer to [facility] for further wor kup Objective - Vital Signs Vital signs: Vital Signs Temp 97.9 F 03/06/21 14:00 Pulse 101 H 03/06/21 14:00 Resp 16 03/06/21 14:00 BP 127/77 03/06/21 14:00 Pulse Ox 96 03/06/21 14:00 Intake & Output 03/05/21 03/06/21 03/06/21 18:59 06:59 18:59 Other: Voiding Method Urinal # Voids 2 3 - Exam General appearance: The patient is alert, oriented, appears in no acute distress. HET: Head is normocephalic and atraumatic. Conjunctiva pink. Sclera anicteric. Neck: Supple without lymphadenopathy. Abdomen: Soft, morbidly obese, nontender, nondistended with bowel sounds. No guarding or rigidity. Extremities: Normal skin color and turgor. No pedal edema Skin: No rashes, no jaundice Neurological: No focal deficits. Alert and oriented 3. - Labs CBC & Chem 7: 03/06/21 05:36 03/05/21 07:06 Labs: Abnormal Lab Results - Last 24 Hours (Table) 03/05/21 03/06/21 Range/Units 07:06 05:36 WBC 11.68 H (4.50-10.00) X 10*3/uL RBC 3.26 L (4.40-5.60) X 10*6/uL Hgb 10.2 L (13.0-17.0) g/dL Hct 30.0 L (39.6-50.0) % RDW 20.0 H (11.5-14.5) % Absolute Nucleated RBC 0.11 H (0.00-0.00) X 10*3/uL Immature Gran # 0.08 H (0.00-0.04) X 10*3/uL NRBC/100 WBC Diff 0.9 H (0.0-0.0) /100 WBCS EBV Capsid Ag IgM Ab 45.8 H (<36.0) U/mL Assessment and Plan (1) Elevated liver enzymes Narrative/Plan: 20-year-old male who presented to the emergency department a little over week ago with paresthesia and weakness in his bilateral lower extremities. Patient is being worked up for [place] Lowe syndrome. Neurology, orthopedics and Gen. surgery on consult. He was noted to have mild elevation in his LFTs on admission which have been steadily increasing. AST was in the 60s and ALT in t he 70s. Today total bilirubin 1.2 conjugated bilirubin 0.35 unconjugated bilirubin 0.83 AST is 280 ALT 371 patient had a liver ultrasound on admission that did show echotexture consistent with a hepatic steatosis and/or hepatocellular disease. Patient is morbidly obese and recently underwent baria tric surgery in July of this year, he also recently underwent cholecystectomy on 02/08/2021 for cholelithiasis. Patient denies any previous known liver disease, no history of hepatitis or alcohol abuse. No recent new medications other than while being in the hospital. He was started on Rocephin on 02/26/2021 which was discontinued today. He's also been started on immunoglobulin Gammagard. Looking back at previous blood work he has had a history of mild elevation of his AST and ALT. We are likely dealing with hepatic steatosis along with possible medication induced hepatitis. We will co ntinue to monitor LFTs. Agree with discontinuing of Rocephin. LFTs are still elevated. Antibiotics have been discontinued. Patient is denying any abdominal pain, nausea, or vomiting. He is awaiting transfer to [facility] for further evaluation of neurological symptoms. Acute hepatitis panel was ordered however not run. Will reorder acute hepatitis panel along with autoimmune workup and possible viral etiology. Patient is EBV IgM antibody positive. 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 Current Visit: Yes Status: Acute Code(s): R74.8 - ABNORMAL LEVELS OF OTHER SERUM ENZYMES SNOMED Code(s): 508004802 (2) Summer Lowe virus positive mononucleosis syndrome Current Visit: Yes Status: Acute Code(s): B27.00 - GAMMAHERPESVIRAL MONONUCLEOSIS WITHOUT COMPLICATION SNOMED Code(s): 94525042 (3) Bilateral leg paresthesia Current Visit: Yes Status: Acute Code(s): R20.2 - PARESTHESIA OF SKIN SNOMED Code(s): 436404012 (4) Morbid obesity Current Visit: Yes Status: Acute Code(s): E66.01 - MORBID (SEVERE) OBESITY D UE TO EXCESS CALORIES SNOMED Code(s): 685542837 (5) Urinary tract infection Current Visit: Yes Status: Acute Code(s): N39.0 - URINARY TRACT INFECTION, SITE NOT SPECIFIED SNOMED Code(s): 36789708 Plan: 1. Continue symptomatic and supportive care 2. Acute hepatitis panel ordered, liver serology ordered, negative to date 3. EBV IgM antibody positive, CMV ordered and pending 4. Daily CMP 5. Avoid hepatotoxic medications 6. Patient should have outpatient monitoring of LFTs, no treatment necessary at this time for positive EBV. This was discussed with both the patient and his mother. Thank you for this consultation, we will continue to follow. Dr. Alex Steele I agree with the dictator's note, documented as a scribe by Lucila Dey.
[2021-03-06 16:53] LABS: Anti-Smith Ab Interp NEGATIVE (NEGATIVE)
[2021-03-06 17:24] LABS: African American GFR (CKD) 174.6 (60.0-200.0); Albumin 3.5 g/dL (3.8-4.9); Albumin/Globulin Ratio 0.81 (1.60-3.17); Anion Gap 16.1 mmol/L (4.00-12.00); Blood Urea Nitrogen 10.7 mg/dL (9.0-27.0); Calcium 8.9 mg/dL (8.7-10.3); Carbon Dioxide 20.5 mmol/L (21.6-31.8); Globulin 4.2 g/dL (1.6-3.3); Non-African American GFR(CKD) 150.7 (60.0-200.0); Total Bilirubin 1.2 mg/dL (0.30-1.20); Total Protein 7.7 g/dL (6.2-8.2)
[2021-03-07] MEDS: diphenhydrAMINE 25 MG CAP PO PRN (03:08)
[2021-03-07] MEDS: METOPROLOL TARTRATE 50 MG TAB PO SCH (08:29)
[2021-03-07] MEDS: HEPARIN SODIUM,PORCINE/PF 5,000 UNIT/0.5 ML SYRINGE SQ SCH (08:29)
[2021-03-07] MEDS: SIMETHICONE 40 MG/0.6 ML DROPS 2,000 MG/30 ML BOTTLE PO SCH ×2 (08:29→12:15)
[2021-03-07] MEDS: FAMOTIDINE 20 MG TAB PO SCH (08:30)
[2021-03-07] MEDS: TAMSULOSIN 0.4 MG CAP.ER.24H PO SCH (08:30)
[2021-03-07] MEDS: THIAMINE 100 MG TAB PO SCH (08:30)
[2021-03-07] MEDS: FOLIC ACID 1 MG TAB PO SCH (08:30)
[2021-03-07] MEDS: GABAPENTIN 100 MG CAP PO SCH ×2 (08:30→15:50)
[2021-03-07] MEDS: DOCUSATE 100 MG CAP PO SCH (08:30)
[2021-03-07] MEDS: MULTIVITAMINS, THERA 1 EACH TAB PO SCH (08:30)
[2021-03-07] MEDS: ALPRAZolam 0.5 MG TAB PO PRN (08:40)
[2021-03-07] MEDS ORDERED: PYRIDOXINE 50 MG TAB PO SCH (09:00)
[2021-03-07 10:16] LABS: ALT 322 U/L (4-49); AST 170 U/L (17-59); African American GFR (CKD) >90 (>60 ml/min/1.73 sqM); Albumin 3.1 g/dL (3.5-5.0); Albumin/Globulin Ratio 0.8; Alkaline Phosphatase 54 U/L (38-126); Anion Gap 7 mmol/L; Blood Urea Nitrogen 10 mg/dL (9-20); Carbon Dioxide 26 mmol/L (22-30); Chloride 101 mmol/L (98-107); Globulin 4.1 g/dL; Glucose 97 mg/dL (74-99); Non-African American GFR(CKD) >90 (>60 ml/min/1.73 sqM); Potassium 3.8 mmol/L (3.5-5.1); Sodium 134 mmol/L (137-145); Total Bilirubin 1.1 mg/dL (0.2-1.3); Total Protein 7.2 g/dL (6.3-8.2)
--- NOTE | 2021-03-07 10:18 | P.PN ---
Subjective Progress Note Date: 03/07/21 Principal diagnosis: Elevated LFTs This a 20-year-old male who presented to the emergency department over a week ago with complaints of lower extremity weakness. He has been followed by multiple consultants including neurology. He was treated with IVIG as well as some antibiotics. On admission he was started on Rocephin, he was noted to have elevation in his LFTs. He denied any previous underlying liver disease. However patient is morbidly obese and liver ultrasound was consistent with fatty liver. However looking back patient has not had any chronic elevation in his LFTs. It was thought that he possibly had medication induced LFTs. However patient has been discontinued off the Rocephin and started on ciprofloxacin however that has been discontinued as well. Patient is currently awaiting transfer to [facility] for further evaluation of neurologic disorder. Was thought that possibly Guillain-[place] syndrome. LFTs currently are currently pending. Liver serology to date has been negative, however EBV IgM antibody elevated. Patient denies any signs or symptoms of sore throat, fever, body aches, chills or recent contact with anybody with infectious mononucleosis. He continues to await a bed for transfer to [facility] for further wor kup, however patient's mother is considering cancelling transfer. CMV is negative. Current labs pending. Objective - Vital Signs Vital signs: Vital Signs Temp 98.2 F 03/07/21 08:00 Pulse 116 H 03/07/21 08:00 Resp 20 03/07/21 08:00 BP 126/79 03/07/21 08:00 Pulse Ox 97 03/07/21 08:00 Intake & Output 03/06/21 03/07/21 03/07/21 18:59 06:59 18:59 Intake Total 520 Balance 520 Intake: Oral 520 Other: Voiding Method Urinal # Voids 3 # Bowel Movements 1 - Exam General appearance: The patient is alert, oriented, appears in no acute distress. HET: Head is normocephalic and atraumatic. Conjunctiva pink. Sclera anicteric. Neck: Supple without lymphadenopathy. Abdomen: Soft, morbidly obese, nontender, nondistended with bowel sounds. No guarding or rigidity. Extremities: Normal skin color and turgor. No pedal edema Skin: No rashes, no jaundice Neurological: No focal deficits. Alert and oriented 3. - Labs CBC & Chem 7: 10/13/21 05:36 03/07/21 09:17 Labs: Abnormal Lab Results - Last 24 Hours (Table) 03/06/21 Range/Units 05:36 Carbon Dioxide 20.5 L (21.6-31.8) mmol/L Anion Gap 16.10 H (4.00-12.00) mmol/L Creatinine 0.5 L (0.6-1.5) mg/dL AST 184 H (14-35) U/L ALT 384 H (10-49) U/L Albumin 3.5 L (3.8-4.9) g/dL Globulin 4.2 H (1.6-3.3) g/dL Albumin/Globulin Ratio 0.81 L (1.60-3.17) g/dL Microbiology - Last 24 Hours (Table) 03/06/21 15:53 Group A Strep Throat Culture - Preliminary Throat Assessment and Plan (1) Elevated liver enzymes Narrative/Plan: 20-year-old male who presented to the emergency department a little over week ago with paresthesia and weakness in his bilateral lower extremities. Patient is being worked up for [place] Lowe syndrome. Neurology, orthopedics and Gen. surgery on consult. He was noted to have mild elevation in his LFTs on admission which have been steadily increasing. AST was in the 60s and ALT in the 70s. Today total bilirubin 1.2 conjugated bilirubin 0.35 unconjugated bilirubin 0.83 AST is 280 ALT 371 patient had a liver ultrasound on admission that did show echotexture consistent with a hepatic steatosis and/or hepatocellular disease. Patient is morbidly obese and recently underwent bariatric surgery in July of this year, he also recently underwent ch olecystectomy on 02/08/2021 for cholelithiasis. Patient denies any previous known liver disease, no history of hepatitis or alcohol abuse. No recent new medications other than while being in the hospital. He was started on Rocephin on 02/26/2021 which was discontinued today. He's also been started on immunoglobulin Gammagard. Looking back at previous blood work he has had a history of mild elevation of his AST and ALT. We are likely dealing with hepatic steatosis along with possible medication induced hepatitis. We will continue to monitor LFTs. Agree with discontinuing of Rocephin. LFTs are still elevated. Antibiotics have been discontinued. Patient is denying any abdominal pain, nausea, or vomiting. He is awaiting transfer to [facility] for further evaluation of neurological symptoms. Acute hepatitis panel was ordered however not run. Will reorder acute hepatitis panel along with autoimmune workup and possible viral etiology. Patient is EBV IgM antibody positive. 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 Current Visit: Yes Status: Acute Code(s): R74.8 - ABNORMAL LEVELS OF OTHER SERUM ENZYMES SNOMED Code(s): 841095300 (2) Summer Lowe virus positive mononucleosis syndrome Current Visit: Yes Status: Acute Code(s): B27.00 - GAMMAHERPESVIRAL MONONUCLEOSIS WITHOUT COMPLICATION SNOMED Code(s): 33371172 (3) Bilateral leg paresthesia Current Visit: Yes Status: Acute Code(s): R20.2 - PARESTHESIA OF SKIN SNOMED Code(s): 279269569 (4) Morbid obesity Current Visit: Yes Status: Acute Code(s): E66.01 - MORBID (SEVERE) OBESITY DUE TO EXCESS CALORIES SNOMED Code(s): 059489244 (5) Urinary tract infection Current Visit: Yes Status: Acute Code(s): N39.0 - URINARY TRACT INFECTION, SITE NOT SPECIFIED SNOMED Code(s): 89404103 Plan: 1. Continue symptomatic and supportive care 2. Acute hepatitis panel ordered, liver serology ordered, negative to date 3. EBV IgM antibody positive, CMV ordered and negative 4. Daily CMP 5. Avoid hepatotoxic medications 6. Patient should have outpatient monitoring of LFTs, no treatment necessary at this time for positive EBV. This was discussed with both the patient and his mother. Thank you for this consultation, patient is cleared for discharge from gastroenterology. Dr. Alex Steele I agree with the dictator's note, documented as a scribe by Lucila Dey.
--- NOTE | 2021-03-07 10:31 | P.PN ---
Subjective Progress Note Date: 03/07/21 The patient seen at bedside and he feels he is about the same today compared to yesterday. He denies of any worsening of his neurological condition. Objective - Vital Signs Vital signs: Vital Signs Temp 98.2 F 03/07/21 08:00 Pulse 116 H 03/07/21 08:00 Resp 20 03/07/21 08:00 BP 126/79 03/07/21 08:00 Pulse Ox 97 03/07/21 08:00 Intake & Output 03/06/21 03/07/21 03/07/21 18:59 06:59 18:59 Intake Total 520 Balance 520 Intake: Oral 520 Other: Voiding Method Urinal # Voids 3 # Bowel Movements 1 - Exam GENERAL: The patient is a morbid obese young gentleman lying in bed and is not in acute distress. NEUROLOGICAL: Higher mental function: The patient is awake, alert, oriented to self, place and time. Patient is following commands. No aphasia and no neglect. Cranial nerves: The pupils are round, equal and reactive to light and accommodation. Visual fine are full to confrontation throughout. Mimimal bilateral ptsosis (but according to patient this is his baseline). Extraocular movement is intact no nystagmus is noted. Facial sensation is normal to touch throughout. Some difficulty puffing his cheecks. Hearing is normal bilaterally to hand rub. Tongue appears protudes outwards and moves side to side without difficulty. Palat elevation is normal. No dysarthria is noted. Motor: Gait is deferred because he is unable to cooperate because of his weakness. The strength is bilateral shoulder are 4+, left elbow extension is 4+ to 5-. Right wrist flexion is 4+, left wrist flexion is 5-. , Bilateral hips flexion/extension is 4, knee extension 0 bilaterally, knee flexion is 1-2, ankle plantar flexion are 3-4 while right ankle dorsiflexion is 1-2. Has antigravity for toe movement. Decrease tone predominately lowers. Normal bulk. Cerebellum: Normal finger to nose and could not assess lowers bilaterally. Sensation: Sensation is normal to touch and pinprick throughout. Reflexes (right/left): 1+ brachioradilis bilaterally. Otherwise rest are 0 throughout. Plantars are mute bilaterally. WORK-UP: Creatinine kinase is 316 (normal is 55-170). ESR is 15. CRP is the 1.2. TSH is 1.8908 which is within normal limits. urine analysis negative for urinary tract infection. CSF is clear, colorless, CSF red blood cell is 27, nuclear cells is 1, glucose is 85 and a protein is 39. CSF myelin protein is less than 2 which is considered negative CSF IgG is 0. CSF Oligoclonal band is negative. CSF FAWAD <5 (normal) CSF culture: No growth. Serum folate is less than 2 which is considered deficient (normal is between 4.4-31) Red blood cell folate is 355 which is considered on the borderline of low normal Vitamin B12 is 411 Methylmalonic acid is 0.13 (normal). Hemoglobin A1c is 5.1. Calcium is 9.3, magnesium is 2.1. Lactate Dehydrogenase: 1325 Acetylcholine Receptor antibody: 0.41 (equivocal). IgA level: 201 (normal) HIV 1 and 2 antibody is nonreactive and HIV P 24 is the nonreactive. Hepatitis A IgM antibody is negative Hepatitis A and B service antigen hepatitis B core IgM antibody and hepatitis C IgG antibody is nonreactive EBV: 45.8 (normal is <36). CMV IgM Ab: Nonreactive. Group A strep Rapi Negative Anti-Mitochondrial Ab 17.4 (negative) Assessment antibody is also negative SCOOBY is negative. Serum immunofixation is no monoclonal paraprotein were recognized Urine immunofixation is no BenceJones protein identified Vitamin B1 is 155 (normal is 38-122) Vitamin B6 initial one is 9 and a normal supposed to be between 5 and 50. The repeated one is 51 which is 4 days apart Copper as 744 and the normal is between 665 and the 1480 Zinc level is 59 and the repeated as 65 on repeated during the normal supposed to be between 60 to 1:30 Coronavirus PCR: Not detected. Aldolase initially elevated 15.2, repeat aldolase improved 9.0 (1.2-7.6) CT of the brain is reported as normal CT brain. MRI of lumbar spine w/o is reported as there is L5-S1 lumbar disc herniation in the midline which appears slightly smaller than the last exam. No spinal stenosis. No fracture. MRI LUMBAR SPINE W/: Is reported as no abnormal postcontrast enhancement. MRI the brain with and without is reported as no abnormality is evident. MRI the cervical spine with and without is reported as normal pre-and postcontrast cervical MRI. 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 Patient has motor weakness of lower >>> upper extremities and some facial weakness. Exact diagnosis still uncertain. Has positive EBV which can cause GBS picture.Has normal CSF protein and no root enhancement. However clinically it appears very much like GBS-like picture. 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 * Folate defiency (Serum folate is less than 2). * Multiple vitamin deficiency including vitamin D, vitamin B1 and zinc. Borderline vitamin B6. * History of lower back pain with radiculopathy (has pain injections in the back but last was one year ago) but currently is not having any lower back pain. * Electrolyte imbalance with mild hyponatremia (130-->134) * Mild transaminitis that got worse during hospital stay and most recent is (AST 246 and ALT 426) * History of recent lap closeectomy on 02/08/2021 * gastrectomy sleeve on 07/2020 * Morbid obesity Plan: * Continue folic acid 1 mg daily, thiamine and is on multivitamin. Lower Pyridoxine from 50mg daily to 25mg daily. * Patient has completed treatment with IVIG for a total dose of (2g/kg over 5 days), as of 02/28/2021. Patient has tolerated IVIG well and feels there is some improvement afterward. * Patient needs more thorough EMG and nerve conduction studies to evaluate for the type and severity polyneuropathy. Would suggest having EMG tested by a neuromuscular specialist. Patient may need nerve biopsy +/- muscle biopsy. * Pending lyme. * If the patient will stay further, will get repeat CSF study and will obtain viral study as well. * Pending HSV antibody. * Patient had EMG with nerve conduction study of the lower about 2 weeks ago at [facility] and was reported as normal. * Gastroenterology following for abnormal liver functions and agree for supportive management for EBV. * Nephrology team is on board for hyponatremia. * Physical therapy and occupation therapy are consulted. * Will defer the rest of medical management to the primary team. * Upon discharge the patient needs to follow-up with a neurologist within a week. * Suggest transfer to tertiary care for EMG with [facility]. * I think the patient will benefit from rehab. Patient on heparin 5000 unit subcu every 12 hours for DVT prophylaxis. The patient wants to be discharged home and does not wants to wait for transfer since he has been waiting for prolonged period of time. I had a lengthy discussion with the patient's mother who stated that she agrees with the patient off choosing not to wait and she wants to also take him home. She said that she'll make sure that the patient follows up with a neurologist for EMG with nerve conduction that he as well as further workup as an outpatient rather than waiting for unknown time. I feel the patient would benefit from wa iting to transfer for EMG with [facility] to help with the diagnosis. The plan is discussed with the patient, his mother, his nurse and the primary team. Justin Blanca MD Neuro-Hospitalist Time with Patient: Less than 30
[2021-03-07 10:37] LABS: Anisocytosis Moderate; Basophils % (A) 0 %; Eosinophils # (A) 0.1 k/uL (0-0.7); Eosinophils % (A) 1 %; HCT 28.2 % (39.0-53.0); HGB 9.5 gm/dL (13.0-17.5); Hyperchromasia Marked; Lymphocytes # (A) 2.6 k/uL (1.0-4.8); Lymphocytes % (A) 28 %; MCH 30.7 pg (25.0-35.0); MCHC 33.8 g/dL (31.0-37.0); MCV 90.8 fL (80.0-100.0); Macrocytosis Slight; Monocytes # (A) 0.5 k/uL (0-1.0); Monocytes % (A) 6 %; Neutrophils # (A) 5.9 k/uL (1.3-7.7); Neutrophils % (A) 63 %; Platelet Count 213 k/uL (150-450); Poikilocytosis Marked; RBC 3.11 m/uL (4.30-5.90); RDW 20.6 % (11.5-15.5); WBC 9.4 k/uL (3.8-10.6)
--- NOTE | 2021-03-07 10:53 | P.PN ---
Subjective Progress Note Date: 03/04/21 Principal diagnosis: Bilateral lower extremity weakness and numbness, more on the right side. 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 coli . 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 Patient information was that with the help of his mother at bedside Patient says who presents because of numbness and weakness in both lower extremity more on the right than the left. Is not suppressed from the back of his hip and buttock down to the middle of the right and similarly on the left leg but less extent patient has been complaining of from progressive weakness more on the right leg over the last week. Patient denies any back pain. No recent history of chronic cold or gastroenteritis. He has history of significant back pain and sciatic That he had MRI of the back down on 07/2020 at [facility]. Followed by a visit to the pain clinic where he got 3 shots in his low back. And apparently he does not complain from any back pain or neck pain or headache. No weakness or numbness in the upper extremity, no slurred speech or blurred vision He denies chest pain or abdominal pain, no coughing or dyspnea. No diarrhea but is improving from constipation Decreased frequency of urination he had only once in the last 24 hours which wakes him up in the middle of last night, compared to usual frequency of 4-7 times per mother at bedside Patient had recent surgery for laparoscopic cholecystectomy on 02/08. He denies smoking, alcohol or illicit tracts On admission his tachycardic of 123, rest of vitals are stable Has mild leukocytosis of 15.2 K, sodium is moderately low at 1:30, potassium 3.4, creatinine normal 0.6, liver enzymes mildly elevated. Total bilirubin is normal at 0.9. CT of the lumbar spine, normal findings Normal CT of the brain On admission and received IV fluids, he was admitted with neurology and surgery team consults MRI of the lumbar spine showing stable disc herniation of L5 to S1 or slightly smaller than before. This would not explain the patient's symptoms. MRI of the cervical spine and of the brain did not show significant abnormal explain patient's symptoms as well Lumbar puncture done showing high glucose of 85, normal total protein of 39. 02/25/2021 Patient today showing some improvement in his toes movement and numbness as he confirmed to me, he got 1 dose of IVIG earlier. He is also able somewhat to bend his knees and ankle but did not report improvement in them. He states he has no weakness in the upper extremities. No headache or blurred vision or slurred speech. No respiratory, GI or urinary symptoms. He is hemodynamically stable. His tachycardic with heart rate 105-101. His obesity is back to normal at 6.2, platelet count dropping down to 128. Sodium and potassium are normal. Pro-calcitonin is slightly elevated at 0.2 to He's on immunoglobulin intravenously to 03/10. Per neurologist recommendation. Also neurologist recommends transfer to tertiary care center which was started last week. Agrees to be transferred. I discussed with the rehabilitation caseworker/social services manager Carola today stating that his medical insurance has refused his transfer. After discussed the case with her she is going to resubmit request to be transferred. Physical therapy recommended inpatient rehab. Repeat labs tomorrow, chest x-ray and urine analysis. Repeat pro-calcitonin. 02/26/2021 patient status with bilateral lower extremity weakness and paresthesia, patient reported some improvement in his both those yesterday but not today. no new weakness or worsening weakness in the upper extremity as well. No other complaints His blood pressure is slightly elevated 150/99, Norvasc is a started. He is tachycardic with heart rate around 112. Labs showing work sending leukocyte 8.4, it was 13-21 on admission. Platelet count normal today 161. Electrolytes are unremarkable. Liver enzymes are elevated Pro-calcitonin is elevated at 0.9 up to 0.22. Chest x-ray no acute process. Urine analysis is suspicious for infection and urine culture is pending Patient was started on ceftriaxone. Also his on gentle hydration and also receiving IVIG Today I discussed the case with Hang from [employer] , he is going to review the case and call me back Neurology team on the case and the recommended patient to continue with IVIG and to transfer the patient to tertiary center however his medical insurance provider is rejecting the case unless [facility] status except the patient admission then we will resubmit order for transfer. As per my discussion with rehabilitation caseworker Carola PT/OT recommended inpatient rehab, Dr. Davis consulted 02/27/2021 Patient stated that he has some improvement in his lower extremity weakness, he estimates his improvement about 20%, no other significant medical complaints today. He is developing tachycardia around 133. EKG showed sinus tachycardia with no significant ST-T changes. I will add metoprolol 25 mg. This could be due to his sepsis. Patient is started on Rocephin, urine cultures pending. Sodium today is 134, creatinine kinase is 88 She remains on normal saline at 75 mL/h, he is getting IVIG. Also he is on ceftriaxone 2 g daily. I discussed the case today with Dr. Mauricio from [facility] , I discussed the case with him and the need for IV antibiotics, IVIG and other treatment and monitoring while in the hospital, he refused to accept the patient as inpatient, this refusal hinders his transfer to tertiary care center or to going to rehab because his insurance will not approve as per my discussion with rehabilitation caseworker/social services manager. I discussed the case with Dr. Mauricio more than once but he was adamant to refuse the case stating that he can get the IVIG and IV a ntibiotics as an outpatient !!. Case discussed with rehabilitation caseworker 02/28/2021 Patient looks more happy today and thinking he is improving overall although he states that his weakness in his lower extremity are same as yesterday and improvement is same as yesterday as well. He is tolerating diet well, denies any specific new symptoms. We were going to change the Nguyen catheter but patient asked to be removed. It was discontinued upon his request and we will check PVR, discussed with the staff Hemodynamically stable. Repeat labs today are pending Patient remains on ceftriaxone and urine culture growing gram-negative bacilli, final result is pending. He remains on IVIG. Neurologist and he needs follow-up as an outpatient. I submitted a request for his medical insurance for peer to peer review and response is still pending 03/01/2021 Patient finished his IVIG yesterday and urine culture came back positive for Klebsiella and E. coli both sensitive to Cipro and IV antibiotics. 2. However patient is still complaining from weakness in his legs although he reports some improvement, both knees but he cannot raise them straight up because of weakness, his uncles also weak as well. No other significant or specific complaints. No chest pain or dyspnea. No coughing. No abdominal pain. No nausea vomiting or diarrhea. No rash. No fever He is tachycardic despite metoprolol 50 mg twice a day and treated his infection. Because of this we are consulting cardiology service. Also yesterday came back trending up liver enzymes, for going to consult GI service. He is on multiple vitamins replacement fluids and folic acid, vitamin B12, vitamin B6 and thiamine. Flomax for urinary retention, Nguyen catheter discontinue it and checking postvoid residual. Today I discussed the case with neurology service, recommended patient to be transferred. I submitted a second request for his medical insurance and I got a call back for peer to peer review later on the day. Also I discussed the case with utilization management who helped contact [employer] for another review of the case. I discussed the case with social services manager Carola and she confirmed to me patient can be transferred unless [facility] accept him as inpatient, I called Dr. Mauricio whom I talked to 2 days ago and injected the case is then and left a message for him to call me back, for another review of the case. Because of this patient is not medically stable for discharge and will keep monitoring closely. 03/02/2021 Today patient feels better, he is moving his thigh is better than the last 2 days. Mother at bedside feels happy with the progress patient is making. he still has bilateral leg weakness but they are improving gradually. Patient and family are aware with the plan to transfer to [facility] and they are agreeable. Other than that he is hemodynamically stable Labs showing WBC of 14 K, platelets normal at 196. Liver enzymes still elevated with AST 284 and ALT 420. Bilirubin is slightly elevated at 1.8. GI and surgery team on the case B12 is 1388, he is on replacement therapy therefore we will check the level again tomorrow to make sure it is not a false result. Folate still low but is improving up to 4.2. Patient to continue replacement therapy Vitamin B1, B6 and zinc are still pending. However patient remains on oral B6 and IV B1 replacement therapy. Hepatitis panel is negative. GI team recommended outpatient follow-up. 03/03/2021 Patient reports better control of his lower extremity although he still complaining of from weakness in his left side and the right leg as well. He has better movement in his thighs compared to 2 days ago. Today he was trying to get up from chair to couch without asking help from staff as he was instructed and he fell without hurting himself. He denies any trauma. Heart rate is better today 97. Metoprolol was increased 100 mg by cardiology t mohini. His WBC coming down to 13.1. Trace to CBC is unremarkable. Liver enzymes still trending up with AST 326 and ALT 478. Mother at bedside and they are satisfied with some progress made in his weakness but agreed to continue with plan to be transferred to [facility] once bed is available 03/04/2021 Patient is currently sitting in a chair comfortably. Bilateral lower extremity weakness is improving. Patient completed course of hemoglobin therapy. Otherwise patient is tolerating oral diet. Sodium level improved to 133. No commerce of nausea or vomiting. Liver enzymes elevated. Laboratory data from yesterday showed WBC 13.1 hemoglobin 10.5, AST 326 ALT 478 and other laboratory data reviewed. Nephrology, GI and neurology is on board. Current medications reviewed. Objective - Vital Signs Vital signs: Vital Signs Temp 97.7 F 03/04/21 13:16 Pulse 100 03/04/21 13:16 Resp 18 03/04/21 13:16 BP 132/82 03/04/21 13:16 Pulse Ox 100 03/04/21 13:16 Intake & Output 03/03/21 03/04/21 03/04/21 18:59 06:59 18:59 Output Total 600 Balance -600 Output: Urine 600 Other: Voiding Method Urinal Urinal # Bowel Movements 0 - Exam - Exam GENERAL: The patient is alert and oriented x3, not in any acute distress. Well developed, well nourished. HEENT: Pupils are round and equally reacting to light. EOMI. No scleral icterus. No conjunctival pallor. Normocephalic, atraumatic. No pharyngeal erythema. No thyromegaly. CARDIOVASCULAR: S1 and S2 present. No murmurs, rubs, or gallops. PULMONARY: Chest is clear to auscultation, no wheezing or crackles. ABDOMEN: Soft, nontender, nondistended, normoactive bowel sounds. No palpable organomegaly. MUSCULOSKELETAL: No joint swelling or deformity. EXTREMITIES: No cyanosis, clubbing, or pedal edema. NEUROLOGICAL: Gross neurological examination did not reveal any focal deficits. Weakness especially of the extensor thighs and legs and feet, more on the right side than left side. No sensory deficit SKIN: No rashes. No petechiae - Labs CBC & Chem 7: 03/07/21 09:17 03/07/21 09:17 Assessment and Plan Assessment: Bilateral lower extremity weakness and numbness, more on the right side. p ossibly demyelinating polyneuropathy Acute urinary tract infection, secondary to Klebsiella and E. coli . Completely resolved and treated Sepsis secondary to the above with leukocytosis and tachycardia. Resolved Elevated liver enzymes Sinus tachycardia Hypertension Hyponatremia. Improved Chronic low back pain radiating to the left side. Mild History of sleeve gastrectomy Recent history of cholecystectomy Morbid obesity with BMI of 41.8 Plan: This is a pleasant 20 years old male who presents with bilateral lower extremity weakness and numbness. Continue intravenous immunoglobulin per neurologist recommendation Patient will benefit from EMG/nerve conduction study which could be done at a tertiary care center after other workup was done. Discussed with social services manager/rehabilitation caseworker to resubmit transfer order after rejected by his medical insurance provider, discussed with [employer] and his medical insurance for reevaluation. Patient cannot be transferred to the except him. Patient aware Follow-up with recommendation by neurology team and other consultants Switch antibiotics to Cipro-patient completed antibiotic course. GI and nephrology is on board. add Metoprolol and monitor heart r at e Labs and medication were reviewed. Monitor lytes and vitals. DVT and GI prophylaxis. Further recommendations depends on the clinical course of the patient PT/OT: Pending DVT prophylaxis: Subcu heparin GI prophylaxis: Pepcid PT/OT recommended inpatient rehab, Dr. Davis consulted and did not recommend for inpatient rehab. Prognosis is guarded Discussed with his family at bedside in detail. Time with Patient: Greater than 30
--- NOTE | 2021-03-07 10:56 | P.PN ---
Subjective Progress Note Date: 03/05/21 Principal diagnosis: Bilateral lower extremity weakness and numbness, more on the right side. 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 coli . 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 Patient information was that with the help of his mother at bedside Patient says who presents because of numbness and weakness in both lower extremity more on the right than the left. Is not suppressed from the back of his hip and buttock down to the middle of the right and similarly on the left leg but less extent patient has been complaining of from progressive weakness more on the right leg over the last week. Patient denies any back pain. No recent history of chronic cold or gastroenteritis. He has history of significant back pain and sciatic That he had MRI of the back down on 07/2020 at [facility]. Followed by a visit to the pain clinic where he got 3 shots in his low back. And apparently he does not complain from any back pain or neck pain or headache. No weakness or numbness in the upper extremity, no slurred speech or blurred vision He denies chest pain or abdominal pain, no coughing or dyspnea. No diarrhea but is improving from constipation Decreased frequency of urination he had only once in the last 24 hours which wakes him up in the middle of last night, compared to usual frequency of 4-7 times per mother at bedside Patient had recent surgery for laparoscopic cholecystectomy on 02/08. He denies smoking, alcohol or illicit tracts On admission his tachycardic of 123, rest of vitals are stable Has mild leukocytosis of 15.2 K, sodium is moderately low at 1:30, potassium 3.4, creatinine normal 0.6, liver enzymes mildly elevated. Total bilirubin is normal at 0.9. CT of the lumbar spine, normal findings Normal CT of the brain On admission and received IV fluids, he was admitted with neurology and surgery team consults MRI of the lumbar spine showing stable disc herniation of L5 to S1 or slightly smaller than before. This would not explain the patient's symptoms. MRI of the cervical spine and of the brain did not show significant abnormal explain patient's symptoms as well Lumbar puncture done showing high glucose of 85, normal total protein of 39. 02/25/2021 Patient today showing some improvement in his toes movement and numbness as he confirmed to me, he got 1 dose of IVIG earlier. He is also able somewhat to bend his knees and ankle but did not report improvement in them. He states he has no weakness in the upper extremities. No headache or blurred vision or slurred speech. No respiratory, GI or urinary symptoms. He is hemodynamically stable. His tachycardic with heart rate 105-101. His obesity is back to normal at 6.2, platelet count dropping down to 128. Sodium and potassium are normal. Pro-calcitonin is slightly elevated at 0.2 to He's on immunoglobulin intravenously to 03/10. Per neurologist recommendation. Also neurologist recommends transfer to tertiary care center which was started last week. Agrees to be transferred. I discussed with the immigration case worker/social worker psychiatric Carola today stating that his medical insurance has refused his transfer. After discussed the case with her she is going to resubmit request to be transferred. Physical therapy recommended inpatient rehab. Repeat labs tomorrow, chest x-ray and urine analysis. Repeat pro-calcitonin. 02/26/2021 patient status with bilateral lower extremity weakness and paresthesia, patient reported some improvement in his both those yesterday but not today. no new weakness or worsening weakness in the upper extremity as well. No other complaints His blood pressure is slightly elevated 150/99, Norvasc is a started. He is tachycardic with heart rate around 112. Labs showing work sending leukocyte 8.4, it was 13-21 on admission. Platelet count normal today 161. Electrolytes are unremarkable. Liver enzymes are elevated Pro-calcitonin is elevated at 0.9 up to 0.22. Chest x-ray no acute process. Urine analysis is suspicious for infection and urine culture is pending Patient was started on ceftriaxone. Also his on gentle hydration and also receiving IVIG Today I discussed the case with Hang from [employer] , he is going to review the case and call me back Neurology team on the case and the recommended patient to continue with IVIG and to transfer the patient to tertiary center however his medical insurance provider is rejecting the case unless [employer] status except the patient admission then we will resubmit order for transfer. As per my discussion with immigration case worker Carola PT/OT recommended inpatient rehab, Dr. Davis consulted 02/27/2021 Patient stated that he has some improvement in his lower extremity weakness, he estimates his improvement about 20%, no other significant medical complaints today. He is developing tachycardia around 133. EKG showed sinus tachycardia with no significant ST-T changes. I will add metoprolol 25 mg. This could be due to his sepsis. Patient is started on Rocephin, urine cultures pending. Sodium today is 134, creatinine kinase is 88 She remains on normal saline at 75 mL/h, he is getting IVIG. Also he is on ceftriaxone 2 g daily. I discussed the case today with Dr. Mauricio from [employer] , I discussed the case with him and the need for IV antibiotics, IVIG and other treatment and monitoring while in the hospital, he refused to accept the patient as inpatient, this refusal hinders his transfer to tertiary care center or to going to rehab because his insurance will not approve as per my discussion with immigration case worker/social worker psychiatric. I discussed the case with Dr. Mauricio more than once but he was adamant to refuse the case stating that he can get the IVIG and IV a ntibiotics as an outpatient !!. Case discussed with immigration case worker 02/28/2021 Patient looks more happy today and thinking he is improving overall although he states that his weakness in his lower extremity are same as yesterday and improvement is same as yesterday as well. He is tolerating diet well, denies any specific new symptoms. We were going to change the Nguyen catheter but patient asked to be removed. It was discontinued upon his request and we will check PVR, discussed with the staff Hemodynamically stable. Repeat labs today are pending Patient remains on ceftriaxone and urine culture growing gram-negative bacilli, final result is pending. He remains on IVIG. Neurologist and he needs follow-up as an outpatient. I submitted a request for his medical insurance for peer to peer review and response is still pending 03/01/2021 Patient finished his IVIG yesterday and urine culture came back positive for Klebsiella and E. coli both sensitive to Cipro and IV antibiotics. 2. However patient is still complaining from weakness in his legs although he reports some improvement, both knees but he cannot raise them straight up because of weakness, his uncles also weak as well. No other significant or specific complaints. No chest pain or dyspnea. No coughing. No abdominal pain. No nausea vomiting or diarrhea. No rash. No fever He is tachycardic despite metoprolol 50 mg twice a day and treated his infection. Because of this we are consulting cardiology service. Also yesterday came back trending up liver enzymes, for going to consult GI service. He is on multiple vitamins replacement fluids and folic acid, vitamin B12, vitamin B6 and thiamine. Flomax for urinary retention, Nguyen catheter discontinue it and checking postvoid residual. Today I discussed the case with neurology service, recommended patient to be transferred. I submitted a second request for his medical insurance and I got a call back for peer to peer review later on the day. Also I discussed the case with utilization management who helped contact [employer] for another review of the case. I discussed the case with social worker psychiatric Carola and she confirmed to me patient can be transferred unless [employer] accept him as inpatient, I called Dr. Mauricio whom I talked to 2 days ago and injected the case is then and left a message for him to call me back, for another review of the case. Because of this patient is not medically stable for discharge and will keep monitoring closely. 03/02/2021 Today patient feels better, he is moving his thigh is better than the last 2 days. Mother at bedside feels happy with the progress patient is making. he still has bilateral leg weakness but they are improving gradually. Patient and family are aware with the plan to transfer to [facility] and they are agreeable. Other than that he is hemodynamically stable Labs showing WBC of 14 K, platelets normal at 196. Liver enzymes still elevated with AST 284 and ALT 420. Bilirubin is slightly elevated at 1.8. GI and surgery team on the case B12 is 1388, he is on replacement therapy therefore we will check the level again tomorrow to make sure it is not a false result. Folate still low but is improving up to 4.2. Patient to continue replacement therapy Vitamin B1, B6 and zinc are still pending. However patient remains on oral B6 and IV B1 replacement therapy. Hepatitis panel is negative. GI team recommended outpatient follow-up. 03/03/2021 Patient reports better control of his lower extremity although he still complaining of from weakness in his left side and the right leg as well. He has better movement in his thighs compared to 2 days ago. Today he was trying to get up from chair to couch without asking help from staff as he was instructed and he fell without hurting himself. He denies any trauma. Heart rate is better today 97. Metoprolol was increased 100 mg by cardiology calista rajan. His WBC coming down to 13.1. Trace to CBC is unremarkable. Liver enzymes still trending up with AST 326 and ALT 478. Mother at bedside and they are satisfied with some progress made in his weakness but agreed to continue with plan to be transferred to [facility] once bed is available 03/04/2021 Patient is currently sitting in a chair comfortably. Bilateral lower extremity weakness is improving. Patient completed course of hemoglobin therapy. Otherwise patient is tolerating oral diet. Sodium level improved to 133. No commerce of nausea or vomiting. Liver enzymes elevated. Laboratory data from yesterday showed WBC 13.1 hemoglobin 10.5, AST 326 ALT 478 and other laboratory data reviewed. Nephrology, GI and neurology is on board. 03/05/2021 Patient remains in the medical floor. Bilateral lower activity weakness is improving. Completed IVIG treatment. Patient still having elevated liver injury as per trending down slowly. Patient was seen by GI and complete serological workup was ordered. Patient otherwise denied any complaints of abdominal pain. No headache or dizziness or lightheadedness. Participating in physical therapy. Able to sit in the chair comfortably. Tolerating oral diet. Denied any problems with bowel movement. Laboratory data reviewed. WBC 10.8 hemoglobin 10.0 and platelets 244, AST 246 ALT 426 Current medications reviewed. Objective - Vital Signs Vital signs: Vital Signs Temp 97.4 F L 03/05/21 20:30 Pulse 105 H 03/05/21 20:30 Resp 18 03/05/21 20:30 BP 122/81 03/05/21 20:30 Pulse Ox 96 03/05/21 20:30 Intake & Output 03/05/21 03/05/21 03/06/21 06:59 18:59 06:59 Output Total 1100 Balance -1100 Output: Urine 1100 Other: Voiding Method Urinal # Voids 2 # Bowel Movements 0 - Exam - Exam GENERAL: The patient is alert and oriented x3, not in any acute distress. Well developed, well nourished. HEENT: Pupils are round and equally reacting to light. EOMI. No scleral icterus. No conjunctival pallor. Normocephalic, atraumatic. No pharyngeal erythema. No thyromegaly. CARDIOVASCULAR: S1 and S2 present. No murmurs, rubs, or gallops. PULMONARY: Chest is clear to auscultation, no wheezing or crackles. ABDOMEN: Soft, nontender, nondistended, normoactive bowel sounds. No palpable organomegaly. MUSCULOSKELETAL: No joint swelling or deformity. EXTREMITIES: No cyanosis, clubbing, or pedal edema. NEUROLOGICAL: Gross neurological examination did not reveal any focal deficits. Weakness especially of the extensor thighs and legs and feet, more on the right side than left side. No sensory deficit SKIN: No rashes. No petechiae - Labs CBC & Chem 7: 03/07/21 09:17 03/07/21 09:17 Labs: Abnormal Lab Results - Last 24 Hours (Table) 03/02/21 03/02/21 03/05/21 Range/Units 07:53 07:53 07:06 WBC (3.8-10.6) k/uL RBC (4.30-5.90) m/uL Hgb (13.0-17.5) gm/dL Hct (39.0-53.0) % RDW (11.5-15.5) % Sodium 134 L (137-145) mmol/L Creatinine 0.44 L (0.66-1.25) mg/dL AST 246 H (17-59) U/L ALT 426 H (4-49) U/L Albumin 3.2 L (3.5-5.0) g/dL Vitamin B1 155 H (38-122) ug/L Vitamin B6 51 H (5-50) ug/L 03/05/21 Range/Units 07:06 WBC 10.8 H (3.8-10.6) k/uL RBC 3.17 L (4.30-5.90) m/uL Hgb 10.0 L D (13.0-17.5) gm/dL Hct 27.3 L (39.0-53.0) % RDW 20.1 H (11.5-15.5) % Sodium (137-145) mmol/L Creatinine (0.66-1.25) mg/dL AST (17-59) U/L ALT (4-49) U/L Albumin (3.5-5.0) g/dL Vitamin B1 (38-122) ug/L Vitamin B6 (5-50) ug/L Assessment and Plan Assessment: Bilateral lower extremity weakness and numbness, more on the right side. 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 coli . Completely resolved and treated Sepsis secondary to the above with leukocytosis and tachycardia. Resolved Elevated liver enzymes . Likely due to fatty liver. Sinus tachycardia Hypertension Hyponatremia. Improved Chronic low back pain radiating to the left side. Mild History of sleeve gastrectomy Recent history of cholecystectomy Morbid obesity with BMI of 41.8 Plan: This is a pleasant 20 years old male who presents with bilateral lower extremity weakness and numbness. Continue intravenous immunoglobulin per neurologist recommendation Patient will benefit from EMG/nerve conduction study which could be done at a tertiary care center after other workup was done. Discussed with social worker psychiatric/immigration case worker to resubmit transfer order after rejected by his medical insurance provider, discussed with [employer] and his medical insurance for reevaluation. Patient cannot be transferred to the except him. Patient aware Follow-up with recommendation by neurology team and other consultants Switch antibiotics to Cipro-patient completed antibiotic course. GI and nephrology is on board. add Metoprolol and monitor heart r at e Labs and medication were reviewed. Monitor lytes and vitals. DVT and GI prophylaxis. Further recommendations depends on the clinical course of the patient PT/OT: Pending DVT prophylaxis: Subcu heparin GI prophylaxis: Pepcid PT/OT recommended inpatient rehab, Dr. Davis consulted and did not recommend for inpatient rehab. Prognosis is guarded Discussed with his family at bedside in detail. Time with Patient: Greater than 30
--- NOTE | 2021-03-07 10:59 | P.PN ---
Subjective Progress Note Date: 03/06/21 Principal diagnosis: Bilateral lower extremity weakness and numbness, more on the right side. 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 coli . 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 Patient information was that with the help of his mother at bedside Patient says who presents because of numbness and weakness in both lower extremity more on the right than the left. Is not suppressed from the back of his hip and buttock down to the middle of the right and similarly on the left leg but less extent patient has been complaining of from progressive weakness more on the right leg over the last week. Patient denies any back pain. No recent history of chronic cold or gastroenteritis. He has history of significant back pain and sciatic That he had MRI of the back down on 07/2020 at [facility]. Followed by a visit to the pain clinic where he got 3 shots in his low back. And apparently he does not complain from any back pain or neck pain or headache. No weakness or numbness in the upper extremity, no slurred speech or blurred vision He denies chest pain or abdominal pain, no coughing or dyspnea. No diarrhea but is improving from constipation Decreased frequency of urination he had only once in the last 24 hours which wakes him up in the middle of last night, compared to usual frequency of 4-7 times per mother at bedside Patient had recent surgery for laparoscopic cholecystectomy on 02/08. He denies smoking, alcohol or illicit tracts On admission his tachycardic of 123, rest of vitals are stable Has mild leukocytosis of 15.2 K, sodium is moderately low at 1:30, potassium 3.4, creatinine normal 0.6, liver enzymes mildly elevated. Total bilirubin is normal at 0.9. CT of the lumbar spine, normal findings Normal CT of the brain On admission and received IV fluids, he was admitted with neurology and surgery team consults MRI of the lumbar spine showing stable disc herniation of L5 to S1 or slightly smaller than before. This would not explain the patient's symptoms. MRI of the cervical spine and of the brain did not show significant abnormal explain patient's symptoms as well Lumbar puncture done showing high glucose of 85, normal total protein of 39. 02/25/2021 Patient today showing some improvement in his toes movement and numbness as he confirmed to me, he got 1 dose of IVIG earlier. He is also able somewhat to bend his knees and ankle but did not report improvement in them. He states he has no weakness in the upper extremities. No headache or blurred vision or slurred speech. No respiratory, GI or urinary symptoms. He is hemodynamically stable. His tachycardic with heart rate 105-101. His obesity is back to normal at 6.2, platelet count dropping down to 128. Sodium and potassium are normal. Pro-calcitonin is slightly elevated at 0.2 to He's on immunoglobulin intravenously to 03/10. Per neurologist recommendation. Also neurologist recommends transfer to tertiary care center which was started last week. Agrees to be transferred. I discussed with the pillowcase cutter/oncology social work Carola today stating that his medical insurance has refused his transfer. After discussed the case with her she is going to resubmit request to be transferred. Physical therapy recommended inpatient rehab. Repeat labs tomorrow, chest x-ray and urine analysis. Repeat pro-calcitonin. 02/26/2021 patient status with bilateral lower extremity weakness and paresthesia, patient reported some improvement in his both those yesterday but not today. no new weakness or worsening weakness in the upper extremity as well. No other complaints His blood pressure is slightly elevated 150/99, Norvasc is a started. He is tachycardic with heart rate around 112. Labs showing work sending leukocyte 8.4, it was 13-21 on admission. Platelet count normal today 161. Electrolytes are unremarkable. Liver enzymes are elevated Pro-calcitonin is elevated at 0.9 up to 0.22. Chest x-ray no acute process. Urine analysis is suspicious for infection and urine culture is pending Patient was started on ceftriaxone. Also his on gentle hydration and also receiving IVIG Today I discussed the case with Hang from [employer] , he is going to review the case and call me back Neurology team on the case and the recommended patient to continue with IVIG and to transfer the patient to tertiary center however his medical insurance provider is rejecting the case unless [employer] status except the patient admission then we will resubmit order for transfer. As per my discussion with pillowcase cutter Carola PT/OT recommended inpatient rehab, Dr. Davis consulted 02/27/2021 Patient stated that he has some improvement in his lower extremity weakness, he estimates his improvement about 20%, no other significant medical complaints today. He is developing tachycardia around 133. EKG showed sinus tachycardia with no significant ST-T changes. I will add metoprolol 25 mg. This could be due to his sepsis. Patient is started on Rocephin, urine cultures pending. Sodium today is 134, creatinine kinase is 88 She remains on normal saline at 75 mL/h, he is getting IVIG. Also he is on ceftriaxone 2 g daily. I discussed the case today with Dr. Mauricio from [facility] , I discussed the case with him and the need for IV antibiotics, IVIG and other treatment and monitoring while in the hospital, he refused to accept the patient as inpatient, this refusal hinders his transfer to tertiary care center or to going to rehab because his insurance will not approve as per my discussion with pillowcase cutter/oncology social work. I discussed the case with Dr. Mauricio more than once but he was adamant to refuse the case stating that he can get the IVIG and IV a ntibiotics as an outpatient !!. Case discussed with pillowcase cutter 02/28/2021 Patient looks more happy today and thinking he is improving overall although he states that his weakness in his lower extremity are same as yesterday and improvement is same as yesterday as well. He is tolerating diet well, denies any specific new symptoms. We were going to change the Nguyen catheter but patient asked to be removed. It was discontinued upon his request and we will check PVR, discussed with the staff Hemodynamically stable. Repeat labs today are pending Patient remains on ceftriaxone and urine culture growing gram-negative bacilli, final result is pending. He remains on IVIG. Neurologist and he needs follow-up as an outpatient. I submitted a request for his medical insurance for peer to peer review and response is still pending 03/01/2021 Patient finished his IVIG yesterday and urine culture came back positive for Klebsiella and E. coli both sensitive to Cipro and IV antibiotics. 2. However patient is still complaining from weakness in his legs although he reports some improvement, both knees but he cannot raise them straight up because of weakness, his uncles also weak as well. No other significant or specific complaints. No chest pain or dyspnea. No coughing. No abdominal pain. No nausea vomiting or diarrhea. No rash. No fever He is tachycardic despite metoprolol 50 mg twice a day and treated his infection. Because of this we are consulting cardiology service. Also yesterday came back trending up liver enzymes, for going to consult GI service. He is on multiple vitamins replacement fluids and folic acid, vitamin B12, vitamin B6 and thiamine. Flomax for urinary retention, Nguyen catheter discontinue it and checking postvoid residual. Today I discussed the case with neurology service, recommended patient to be transferred. I submitted a second request for his medical insurance and I got a call back for peer to peer review later on the day. Also I discussed the case with utilization management who helped contact [employer] for another review of the case. I discussed the case with oncology social work Carola and she confirmed to me patient can be transferred unless [facility] accept him as inpatient, I called Dr. Mauricio whom I talked to 2 days ago and injected the case is then and left a message for him to call me back, for another review of the case. Because of this patient is not medically stable for discharge and will keep monitoring closely. 03/02/2021 Today patient feels better, he is moving his thigh is better than the last 2 days. Mother at bedside feels happy with the progress patient is making. he still has bilateral leg weakness but they are improving gradually. Patient and family are aware with the plan to transfer to [facility] and they are agreeable. Other than that he is hemodynamically stable Labs showing WBC of 14 K, platelets normal at 196. Liver enzymes still elevated with AST 284 and ALT 420. Bilirubin is slightly elevated at 1.8. GI and surgery team on the case B12 is 1388, he is on replacement therapy therefore we will check the level again tomorrow to make sure it is not a false result. Folate still low but is improving up to 4.2. Patient to continue replacement therapy Vitamin B1, B6 and zinc are still pending. However patient remains on oral B6 and IV B1 replacement therapy. Hepatitis panel is negative. GI team recommended outpatient follow-up. 03/03/2021 Patient reports better control of his lower extremity although he still complaining of from weakness in his left side and the right leg as well. He has better movement in his thighs compared to 2 days ago. Today he was trying to get up from chair to couch without asking help from staff as he was instructed and he fell without hurting himself. He denies any trauma. Heart rate is better today 97. Metoprolol was increased 100 mg by cardiology calista rajan. His WBC coming down to 13.1. Trace to CBC is unremarkable. Liver enzymes still trending up with AST 326 and ALT 478. Mother at bedside and they are satisfied with some progress made in his weakness but agreed to continue with plan to be transferred to [facility] once bed is available 03/04/2021 Patient is currently sitting in a chair comfortably. Bilateral lower extremity weakness is improving. Patient completed course of hemoglobin therapy. Otherwise patient is tolerating oral diet. Sodium level improved to 133. No commerce of nausea or vomiting. Liver enzymes elevated. Laboratory data from yesterday showed WBC 13.1 hemoglobin 10.5, AST 326 ALT 478 and other laboratory data reviewed. Nephrology, GI and neurology is on board. 03/05/2021 Patient remains in the medical floor. Bilateral lower activity weakness is improving. Completed IVIG treatment. Patient still having elevated liver injury as per trending down slowly. Patient was seen by GI and complete serological workup was ordered. Patient otherwise denied any complaints of abdominal pain. No headache or dizziness or lightheadedness. Participating in physical therapy. Able to sit in the chair comfortably. Tolerating oral diet. Denied any problems with bowel movement. Laboratory data reviewed. WBC 10.8 hemoglobin 10.0 and platelets 244, AST 246 ALT 426 03/06/2021 Patient is currently participating in physical therapy. Bilateral lower action to a weakness is improved. Status post IVIG treatment for demyelinating polyneuropathy. Liver enzymes are trending down. Serologic workup showed EBV IgM antibody elevated. Patient denied any complaints of cough or sputum production. No sore throat. No rash. Continued on symptomatic treatment. Patient completed antibiotic course for urinary tract infection. Current medications reviewed. Objective - Vital Signs Vital signs: Vital Signs Temp 97.9 F 03/06/21 14:00 Pulse 101 H 03/06/21 14:00 Resp 16 03/06/21 14:00 BP 127/77 03/06/21 14:00 Pulse Ox 96 03/06/21 14:00 Intake & Output 03/06/21 03/06/21 03/07/21 06:59 18:59 06:59 Intake Total 520 Balance 520 Intake: Oral 520 Other: Voiding Method Urinal # Voids 3 3 - Exam - Exam GENERAL: The patient is alert and oriented x3, not in any acute distress. Well developed, well nourished. HEENT: Pupils are round and equally reacting to light. EOMI. No scleral icterus. No conjunctival pallor. Normocephalic, atraumatic. No pharyngeal erythema. No thyromegaly. CARDIOVASCULAR: S1 and S2 present. No murmurs, rubs, or gallops. PULMONARY: Chest is clear to auscultation, no wheezing or crackles. ABDOMEN: Soft, nontender, nondistended, normoactive bowel sounds. No palpable organomegaly. MUSCULOSKELETAL: No joint swelling or deformity. EXTREMITIES: No cyanosis, clubbing, or pedal edema. NEUROLOGICAL: Gross neurological examination did not reveal any focal deficits. Weakness especially of the extensor thighs and legs and feet, more on the right side than left side. No sensory deficit SKIN: No rashes. No petechiae - Labs CBC & Chem 7: 03/07/21 09:17 03/07/21 09:17 Labs: Abnormal Lab Results - Last 24 Hours (Table) 03/05/21 03/06/21 03/06/21 Range/Units 07:06 05:36 05:36 WBC 11.68 H (4.50-10.00) X 10*3/uL RBC 3.26 L (4.40-5.60) X 10*6/uL Hgb 10.2 L (13.0-17.0) g/dL Hct 30.0 L (39.6-50.0) % RDW 20.0 H (11.5-14.5) % Absolute Nucleated RBC 0.11 H (0.00-0.00) X 10*3/uL Immature Gran # 0.08 H (0.00-0.04) X 10*3/uL NRBC/100 WBC Diff 0.9 H (0.0-0.0) /100 WBCS Carbon Dioxide 20.5 L (21.6-31.8) mmol/L Anion Gap 16.10 H (4.00-12.00) mmol/L Creatinine 0.5 L (0.6-1.5) mg/dL AST 184 H (14-35) U/L ALT 384 H (10-49) U/L Albumin 3.5 L (3.8-4.9) g/dL Globulin 4.2 H (1.6-3.3) g/dL Albumin/Globulin Ratio 0.81 L (1.60-3.17) g/dL EBV Capsid Ag IgM Ab 45.8 H (<36.0) U/mL Assessment and Plan Assessment: Bilateral lower extremity weakness and numbness, more on the right side. possib ly demyelinating polyneuropathy Acute urinary tract infection, secondary to Klebsiella and E. coli . Completely resolved and treated Sepsis secondary to the above with leukocytosis and tachycardia. Resolved EBV IgM antibody positive. Elevated liver enzymes . Likely due to fatty liver. Sinus tachycardia Hypertension Hyponatremia. Improved Chronic low back pain radiating to the left side. Mild History of sleeve gastrectomy Recent history of cholecystectomy Morbid obesity with BMI of 41.8 Plan: This is a pleasant 20 years old male who presents with bilateral lower extremity weakness and numbness. Status post intravenous immunoglobulin per neurologist recommendation. Follow up liver enzymes. Patient will benefit from EMG/nerve conduction study which could be done at a tertiary care center after other workup was done. Discussed with oncology social work/pillowcase cutter to resubmit transfer order after rejected by his medical insurance provider, discussed with [employer] and his medical insurance for reevaluation. Patient cannot be transferred to the except him. Patient aware. Follow-up with recommendation by neurology team and other consultants Switch antibiotics to Cipro-patient completed antibiotic course. GI and neurology is on board. add Metoprolol and monitor heart r at e Labs and medication were reviewed. Monitor lytes and vitals. DVT and GI prophy laxis. Further recommendations depends on the clinical course of the patient PT/OT: Pending DVT prophylaxis: Subcu heparin GI prophylaxis: Pepcid PT/OT recommended inpatient rehab, Dr. Davis consulted and did not recommend for inpatient rehab. Prognosis is guarded Discussed with his family at bedside in detail. Time with Patient: Greater than 30
[2021-03-07] MEDS: METOPROLOL TARTRATE 25 MG TAB PO SCH (12:15)
[2021-03-07 14:20] LABS: Mixed Population RBC Present; Polychromasia Present
[2021-03-07 14:21] VITALS: BP 116/78; PULSE 108; RESP 18; TEMP 97.6
--- NOTE | 2021-03-07 15:01 | P.PN ---
Subjective Progress Note Date: 03/07/21 CHIEF COMPLAINT: Bilateral lower extremity weakness HISTORY OF PRESENT ILLNESS: Patient is still complaining of upper and lower extremity weakness. Patient has no new complaints. He is followed closely by neurology. He received treatment with IVIG. There are no [facility] available at [facility]. Per patient and mom they're working on getting patient home with physical therapy. PHYSICAL EXAM: VITAL SIGNS: Reviewed. GENERAL: Well-developed in no acute distress. HEENT: No sclera icterus. Extraocular movements grossly intact. Moist buccal mucosa. Head is atraumatic, normocephalic. ABDOMEN: Soft. Nondistended. Nontender. NEUROLOGIC: Alert and oriented. Cranial nerves II through XII grossly intact. ASSESSMENT: 1. Recent laparoscopic cholecystectomy 2. History of sleeve gastrectomy 3. Bilateral lower extremity and upper extremity weakness 4. Multiple Vitamin deficiencies 5. Elevated LFTs PLAN: -No surgical intervention planned -Continue supportive care -Continue neuro workup -Continue to work with physical therapy Physician [employer] Officer note has been reviewed by physician. Signing provider agrees with the documented findings, assessment, and plan of care. Objective - Vital Signs Vital signs: Vital Signs Temp 97.6 F 03/07/21 14:00 Pulse 108 H 03/07/21 14:00 Resp 18 03/07/21 14:00 BP 116/78 03/07/21 14:00 Pulse Ox 96 03/07/21 14:00 Intake & Output 03/06/21 03/07/21 03/07/21 18:59 06:59 18:59 Intake Total 520 Balance 520 Intake: Oral 520 Other: Voiding Method Urinal # Voids 3 # Bowel Movements 1 - Labs CBC & Chem 7: 03/07/21 09:17 03/07/21 09:17 Labs: Abnormal Lab Results - Last 24 Hours (Table) 03/06/21 03/07/21 03/07/21 Range/Units 05:36 09:17 09:17 RBC 3.11 L (4.30-5.90) m/uL Hgb 9.5 L (13.0-17.5) gm/dL Hct 28.2 L (39.0-53.0) % RDW 20.6 H (11.5-15.5) % Sodium 134 L (137-145) mmol/L Carbon Dioxide 20.5 L (21.6-31.8) mmol/L Anion Gap 16.10 H (4.00-12.00) mmol/L Creatinine 0.5 L 0.46 L (0.6-1.5) mg/dL AST 184 H 170 H (14-35) U/L ALT 384 H 322 H (10-49) U/L Albumin 3.5 L 3.1 L (3.8-4.9) g/dL Globulin 4.2 H (1.6-3.3) g/dL Albumin/Globulin Ratio 0.81 L (1.60-3.17) g/dL Microbiology - Last 24 Hours (Table) 03/06/21 15:53 Group A Strep Throat Culture - Preliminary Throat
== END 2021-03-07 17:12 | disposition home health service (06) | DRG 865 ==
LOC: EC 10:23 → 5NMEDONC 14:57 → 4SSUR 16:06
PROVIDERS: ADMIT Internal Medicine; ATTEND Internal Medicine
PROC: 30233N1 Transfusion of Nonautologous Red Blood Cells into Peripheral Vein, Percutaneous Approach (ICD-10-PCS; 2021-02-20)
PROC: 009U3ZX Drainage of Spinal Canal, Percutaneous Approach, Diagnostic (ICD-10-PCS; principal; 2021-02-21 13:00)
PROC: 05HF33Z Insertion of Infusion Device into Left Cephalic Vein, Percutaneous Approach (ICD-10-PCS; 2021-02-26)
PROC: B24BZZZ Ultrasonography of Heart with Aorta (ICD-10-PCS; 2021-03-04)
DX: B27 Infectious mononucleosis (principal); A41.9 Sepsis, unspecified organism; E87.1 Hypo-osmolality and hyponatremia; N39.0 Urinary tract infection, site not specified; E46 Unspecified protein-calorie malnutrition; Z68.41 Body mass index [BMI] 40.0-44.9, adult; G82.20 Paraplegia, unspecified; B96.1 Klebsiella pneumoniae [K. pneumoniae] as the cause of diseases classified elsewhere; B96.20 Unspecified Escherichia coli [E. coli] as the cause of diseases classified elsewhere; E66.01 Morbid (severe) obesity due to excess calories; E86.0 Dehydration; E87.6 Hypokalemia; F32.9 Major depressive disorder, single episode, unspecified; Z87.891 Personal history of nicotine dependence; Z90.49 Acquired absence of other specified parts of digestive tract; Z98.84 Bariatric surgery status; R20.0 Anesthesia of skin; G89.29 Other chronic pain; M72.2 Plantar fascial fibromatosis; I10 Essential (primary) hypertension; K59.00 Constipation, unspecified; R35.0 Frequency of micturition; M54.2 Cervicalgia; R60.0 Localized edema; R74.8 Abnormal levels of other serum enzymes; R33.8 Other retention of urine; M51.27 Other intervertebral disc displacement, lumbosacral region; R20.2 Paresthesia of skin; F41.9 Anxiety disorder, unspecified; R11.2 Nausea with vomiting, unspecified; M51.26 Other intervertebral disc displacement, lumbar region; K76.0 Fatty (change of) liver, not elsewhere classified; R29.2 Abnormal reflex; M21.371 Foot drop, right foot; M21.372 Foot drop, left foot; R26.2 Difficulty in walking, not elsewhere classified; E56.9 Vitamin deficiency, unspecified; K75.9 Inflammatory liver disease, unspecified; R29.810 Facial weakness; E53.8 Deficiency of other specified B group vitamins; Z90.3 Acquired absence of stomach [part of]; Z20.822 Contact with and (suspected) exposure to COVID-19; W07.XXXA Fall from chair, initial encounter
CPT/HCPCS: 36410; 36415; 51798; 62270; 70450; 70553; 71045; 72131; 72148; 72149; 72156; 76705; 76937; 80048; 80053; 80074; 80076; 81001; 81003; 82040; 82042; 82085; 82103; 82105; 82164; 82525; 82550; 82607; 82746; 82747; 82784; 82945; 83036; 83516; 83519; 83605; 83615; 83735; 83873; 83916; 83921; 83930; 83935; 84100; 84145; 84157; 84207; 84295; 84300; 84403; 84425; 84443; 84630; 85025; 85379; 85610; 85652; 85730; 86038; 86140; 86235; 86334; 86335; 86618; 86645; 86664; 86665; 86787; 87070; 87077; 87081; 87086; 87186; 87205; 87390; 87430; 87529; 87635; 87798; 89050; 93005; 93306; 96360; 96361; 99285

== ENCOUNTER → 2021-08-12 | Outpatient (CLI) | payer BC ==
[2021-08-12 14:02] VITALS: BP 118/66; PULSE 65; RESP 16; TEMP 98.8; BMI 39.2
--- NOTE | 2021-08-13 11:45 | P.HPBAR ---
Bariatric H&P - History & Physicial H&P Date: 08/12/21 History & Physicial: Visit/CC: F/U sleeve 07/25/20 Patient initial contact: Initial weight: Initial weight in pounds: Height: 5 ft 9.5 in Initial BMI: Last weight: Current weight: 122.47 kg Current weight in pounds: 270.00 Current BMI: 39.2 Liberal body weight (based on NIH guidelines): 73.936 kg Excess body weight loss: The patient is a 21 year-old M who presents for Bariatric Assessment. Patient rents today for [place] fall. He is not been seen several months. He has improved neurologically after his seen for virus infection. He is able to walk 600 feet currently. He's had some minimal GERD. Past Medical History Past Medical History: No Reported History Additional Past Medical History / Comment(s): nausea/vomiting,gas pain and pressure,hx pain lower back radiating to left side. 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 History of Any Multi-Drug Resistant Organisms: None Reported Past Surgical History: Cholecystectomy Additional Past Surgical History / Comment(s): rt knee meniscectomy, wisdom teeth, PAIN CLINIC PROCEDURE, Sleeve Gastrectomy 07-24-20 Past Anesthesia/Blood Transfusion Reactions: Family History of Problems w/ Anesthesia Additional Past Anesthesia/Blood Transfusion Reaction / Comm: mother-PONV Past Psychological History: Depression Additional Psychological History / Comment(s): past hx of depression Smoking Status: Former smoker Past Alcohol Use History: None Reported Additional Past Alcohol Use History / Comment(s): started smoking age 17, quit smoking Past Drug Use History: Marijuana Additional Drug Use History / Comment(s): vapes marijuana occasionally - Past Family History Mother Family Medical History: No Reported History Surgical - Exam Vital Signs Temp Pulse Resp BP 98.8 F 65 16 118/66 08/12/21 13:57 08/12/21 13:57 08/12/21 13:57 08/12/21 13:57 - General well developed, well nourished, no distress - Eyes PERRL - ENT normal pinna - Abdomen Abdomen: soft, non tender Bariatric Assessment & Plan Plan: Status post sleeve gastrectomy. Patient currently weighs 270 pounds. He has done well for weight loss standpoint. His GERD is minimal will be observed. He will follow-up in 8 weeks. Bariatric Checklist Checklist: Plan: Checklist: EGD: 1. Hiatal hernia: 2. H. Pylori: HgbA1c: Vitamin D: Smoking: Never smoker Primary care physician referral: DR GUPTA Psychiatry clearance: Cardiology clearance: Sleep study: Diet journal: VTE risk score: VTE risk level: Rehab needs at discharge:
== END ==
LOC: BARWHC3 13:15
PROVIDERS: ATTEND Surgery
DX: Z09 Encounter for follow-up examination after completed treatment for conditions other than malignant neoplasm (principal); K21.9 Gastro-esophageal reflux disease without esophagitis; Z98.84 Bariatric surgery status; F32.A Depression, unspecified; Z87.891 Personal history of nicotine dependence
CPT/HCPCS: 99211

== ENCOUNTER → 2021-10-28 | Outpatient (CLI) | payer BC ==
[2021-10-28 14:41] VITALS: BP 103/64; PULSE 78; TEMP 98.2; BMI 36.8
--- NOTE | 2021-10-28 15:57 | P.HPBAR ---
Bariatric H&P - History & Physicial H&P Date: 10/28/21 History & Physicial: Visit/CC: sleeve f/u Patient initial contact: Initial weight: Initial weight in pounds: Height: 5 ft 9.5 in Initial BMI: Last weight: Current weight: 114.759 kg Current weight in pounds: 253.00 Current BMI: 36.8 [place] body weight (based on NIH guidelines): 73.936 kg Excess body weight loss: The patient is a 21 year-old M who presents for Bariatric Assessment. Patient presents today for sleeve gastric fall. He's had excellent weight loss. He has some mild GERD. His neurologic symptoms have improved. Past Medical History Past Medical History: No Reported History Additional Past Medical History / Comment(s): nausea/vomiting,gas pain and pressure,hx pain lower back radiating to left side. 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 History of Any Multi-Drug Resistant Organisms: None Reported Past Surgical History: Cholecystectomy Additional Past Surgical History / Comment(s): rt knee meniscectomy, wisdom teeth, PAIN CLINIC PROCEDURE, Sleeve Gastrectomy 07-24-20 Past Anesthesia/Blood Transfusion Reactions: Family History of Problems w/ Anesthesia Additional Past Anesthesia/Blood Transfusion Reaction / Comm: mother-PONV Past Psychological History: Depression Additional Psychological History / Comment(s): past hx of depression Smoking Status: Former smoker Past Alcohol Use History: None Reported Additional Past Alcohol Use History / Comment(s): started smoking age 17, quit smoking Past Drug Use History: Marijuana Additional Drug Use History / Comment(s): vapes marijuana occasionally - Past Family History Mother Family Medical History: No Reported History Surgical - Exam Vital Signs Temp Pulse BP 98.2 F 78 103/64 10/28/21 14:35 10/28/21 14:35 10/28/21 14:35 - General well developed, well nourished, no distress - Eyes PERRL - Abdomen Abdomen: soft, non tender Bariatric Assessment & Plan Plan: Status post sleeve gastrectomy. Patient's GERD is minimal will be observed. He'll follow-up in 4 weeks. Bariatric Checklist Checklist: Plan: Checklist: EGD: 1. Hiatal hernia: 2. H. Pylori: HgbA1c: Vitamin D: Smoking: Never smoker Primary care physician referral: DR MCPHILIMY Psychiatry clearance: Cardiology clearance: Sleep study: Diet journal: VTE risk score: VTE risk level: Rehab needs at discharge:
== END ==
LOC: BARWHC3 13:48
PROVIDERS: ATTEND Surgery
DX: Z09 Encounter for follow-up examination after completed treatment for conditions other than malignant neoplasm (principal); K21.9 Gastro-esophageal reflux disease without esophagitis; Z98.84 Bariatric surgery status; Z87.891 Personal history of nicotine dependence; F32.A Depression, unspecified
CPT/HCPCS: 99211